=== PATIENT | female | born 1935 | race Caucasian/White ===

== ENCOUNTER 2017-05-23 08:40 | Inpatient (IN) | payer MEDICAID ==
[~2017-05-23] VITALS: Ht 144.8 cm; Wt 35.0 kg
[2017-05-23] VITALS (8 sets, daily range): BP systolic 91–113; BP diastolic 53–58; PULSE 78–79; RESP 17–27; TEMP 99; Ht 144.8 cm; Wt 35.0 kg
[2017-05-23] MEDS ORDERED: SODIUM CHLORIDE 0.9% 1L BAG IV* STA (08:51)
[2017-05-23] MEDS ORDERED: PIPER-TAZO 3.375 GM IV (PMX) 50 ML IVPB STA (08:51)
[2017-05-23] MEDS ORDERED: VANCOMYCIN 1 GM (PMX) 250 ML IVPB ONE (09:00)
--- NOTE | 2017-05-23 09:21 | RADRPT ---
PROCEDURE: Chest x-ray CLINICAL INDICATION: Shortness of breath TECHNIQUE: Chest single view COMPARISON: None FINDINGS: There is tracheostomy tube which is in good position. Heart is normal in size. There is mild atheros clerotic aortic calcification. Pulmonary vessels are normal in caliber. There is hyperinflation of t he lungs suggesting underlying COPD. Superimposed on this is more patchy dense in the right lower lo be and to a lesser extent left lower lobe suspicious for acute pneumonias. Small bilateral pleural e ffusions are seen. There is normal density in the left paratracheal region which may be artifactual due to rotation versus tortuous vascularity, mass, or adenopathy. IMPRESSION: 1. Tracheostomy tube in good position. 2. Suspect extensive COPD. 3. Superimposed on this are patchy infiltrates in both lower lobes likely representing acute pneumo nias. 4. Small bilateral pleural effusions. 5. Abnormal left paratracheal density. This may represent mass, adenopathy, or artifact due to tort uous vascularity and rotation RPTAT: .Kareem Snow MD, Date Time Electronically viewed and signed by .Kareem Snow MD, on 05/23/2017 09:21 .W/
[2017-05-23 09:37] LABS: ABNORMAL IP MESSAGE 1; BASOPHILS % 0.2 % (0.0-2.0); EOSINOPHILS # 0.1 10^3/ul (0.0-0.5); EOSINOPHILS % 0.3 % (0.0-7.0); HEMATOCRIT 25.5 % (37.0-47.0); LYMPHOCYTES # 0.2 10^3/ul (0.8-2.9); LYMPHOCYTES % 1.1 % (15.0-51.0); MEAN CORPUSCULAR HGB CONC 31.4 g/dl (32.0-37.0); MEAN CORPUSCULAR VOLUME 95.5 fl (82.0-101.0); MEAN PLATELET VOLUME 9.4 fl (7.4-10.4); MONOCYTE # 0.5 10^3/ul (0.3-0.9); MONOCYTES % 2.6 % (0.0-11.0); NEUTROPHIL # 17.5 10^3/ul (1.6-7.5); PLATELET COUNT 221 10^3/UL (140-415); RED BLOOD COUNT 2.67 10^6/ul (4.20-5.40); RED CELL DISTRIBUTION WIDTH 16.2 % (11.5-14.5); WHITE BLOOD COUNT 18.4 10^3/ul (4.8-10.8)
[2017-05-23 09:42] LABS: POSITIVE DIFF @See below
--- NOTE | 2017-05-23 09:49 | ERD ---
ER Documentation Chief Complaint Chief Complaint FEVER AND TACHYCARDIA WITH MILD SOB SINCE THIS AM. 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 The patient also endorses mild abdominal discomfort, worse with cold fluids. She does not endorse any other pain. She personally does not endorse feeling sick. ROS All systems reviewed and are negative except as per history of present illness. Medications Home Meds Reported Medications Ascorbic Acid* (Vitamin C*) 500 Mg Capsule.sa, 500 MG GTB DAILY, CAP 05/23/17 Acetaminophen* (Acetaminophen*) 650 Mg Tablet, 650 MG GTB Q6H Y for PAIN AND OR ELEVATED TEMP, #30 TAB 05/23/17 Quetiapine Fumarate* (Seroquel*) 50 Mg Tablet, 50 MG GTB HS, TAB 05/23/17 Rifabutin* (Mycobutin*) 150 Mg Capsule, 300 MG GTB BID, CAP 05/23/17 Pyridoxine Hcl* (Pyridoxine Hcl*) 50 Mg Tablet, 50 MG GTB DAILY, TAB 05/23/17 Pyrazinamide* (Pyrazinamide*) 500 Mg Tablet, 1000 MG GTB DAILY, TAB 05/23/17 Potassium Chloride* (Potassium Chloride*) 20 Meq Tablet.er, 20 MEQ GTB DAILY, TAB.SA 05/23/17 Petrolatum,White (White Petrolatum) 453.6 Gm Oint...g., 1 APPLIC TP DAILY Y for DRY EYES 05/23/17 Nitroglycerin* (Nitroglycerin* SL) 0.4 Mg Tab.subl, 0.4 MG SL Q5MIN Y for CHEST PAIN, BOTTLE 05/23/17 Multivitamin/Minerals* (Multivitamin w/Min* Liq) 9 Mg/15 Ml Liquid, 9 MG GTB DAILY, ML 05/23/17 Magnesium Hydroxide* (Milk Of Magnesia*) 400 Mg/5 Ml Oral.susp, 30 ML GTB Q24H Y for CONSTIPATION, ML 05/23/17 Metoprolol Tartrate* (Lopressor*) 25 Mg Tab, 25 MG GTB BID, #60 TAB 05/23/17 Methocarbamol* (Methocarbamol*) 500 Mg Tablet, 500 MG GTB Q8, TAB 05/23/17 Levothyroxine Sodium* (Levothyroxine Sodium*) 100 Mcg Tablet, 100 MCG GTB BEFORE BREAKFAST, #30 TAB 05/23/17 Hyoscyamine Sulfate* (Hyoscyamine Sulfate*) 0.125 Mg Tab.subl, 0.125 MG SL Q4H Y for EXCESIVE ORAL SECRETIONS, TAB 05/23/17 Mineral Oil (Fleet Mineral Oil Enema) 133 Ml Enema, 133 ML RC Q48, ENEMA 05/23/17 Ferrous Sulfate* (Ferrous Sulfate*) 325 Mg Tabec, 330 MG GTB TID, TAB 05/23/17 Famotidine* (Famotidine*) 20 Mg Tablet, 20 MG GTB BID, #30 TAB 05/23/17 Ethambutol HCl* (Myambutol*) 400 Mg Tablet, 800 MG GTB DAILY 05/23/17 Enoxaparin Sodium* (Lovenox*) 40 Mg/0.4 Ml Syringe, 40 MG SC DAILY, SYR 05/23/17 Bisacodyl* (Bisacodyl*) 10 Mg Supp, 10 MG WI Q24H Y for CONSTIPATION, SUPP 05/23/17 Docusate Sodium* (Colace*) 100 Mg Capsule, 100 MG GTB QHS Y for CONSTIPATION, # 60 CAP 05/23/17 Clonazepam* (Clonazepam*) 0.5 Mg Tablet, 0.5 MG GTB QHS, TAB 05/23/17 Atorvastatin* (Atorvastatin*) 40 Mg Tablet, 40 MG GTB QHS, #30 TAB 05/23/17 Aspirin* (Aspirin* Chew) 81 Mg Tab.chew, 81 MG GTB DAILY, TAB.CHEW 05/23/17 Albuterol Sulfate* (Albuterol Sulfate* Neb) 0.083%-3 Ml Neb, 2.5 MG NEB Q3H Y for WHEEZING AND SOB, #30 VIAL 05/23/17 Allergies Allergies: Coded Allergies: No Known Allergy (Unverified , 05/23/17) PMhx/Soc History of Surgery: Yes (trach, Gtube) Hx Neurological Disorder: Yes (nonambulatory, plegia) Hx Respiratory Disorders: Yes (Chronic Vent dependent Respiratory Failure) Hx Cardiac Disorders: Yes (HTN) Hx Psychiatric Problems: Yes (agitation) Hx Miscellaneous Medical Probl: Yes (Pulmonary TB, Anemia, Hypothyroidism) Hx Alcohol Use: No Hx Substance Use: No Hx Tobacco Use: No Smoking Status: Never smoker FmHx Pt unable to provide details Physical Exam Vitals Vital Signs Date Time Temp Pulse Resp B/P Pulse Ox O2 Delivery O2 Flow Rate FiO2 05/23/17 11:00 80 23 97 35 05/23/17 10:00 86 22 99/55 99 Mechanical Ventilator 05/23/17 08:57 107 35 96 35 05/23/17 08:52 104.7 129 26 128/78 99 Physical Exam Const: No apparent distress, well-developed, cachectic Head: Normocephalic, Atraumatic Eyes: Normal Conjunctiva. Pupils equal, round and reactive to light ENT: Normal External Ears, Nose and Mouth. Neck: Full range of motion. No meningismus. Trach placed without erythema or induration or edema. Resp: Coarse Breath Sounds bilaterally. Diffuse wheezes Cardio: Regular rate and rhythm. No murmurs, rubs or gallops Abd: Soft, non distended, + mild generalized tenderness. G-tube placed without erythema or induration or edema. Normal bowel sounds Skin: No petechiae or rashes Back: No midline tenderness. No CVA tenderness Ext: No cyanosis, or edema Neuro: Awake and alert. Unable to speak. No facial droop. Moves all extremities spontaneous and to command. Result Diagram: 05/23/1725 05/23/1725 Results 24 hrs Laboratory Tests Test 05/23/17 09:25 White Blood Count 18.410^3/ul Red Blood Count 2.6710^6/ul Hemoglobin 8.0g/dl Hematocrit 25.5% Mean Corpuscular Volume 95.5fl Mean Corpuscular Hemoglobin 30.0pg Mean Corpuscular Hemoglobin Concent 31.4g/dl Red Cell Distribution Width 16.2% Platelet Count 69992^3/UL Mean Platelet Volume 9.4fl Neutrophils % 95.0% Lymphocytes % 1.1% Monocytes % 2.6% Eosinophils % 0.3% Basophils % 0.2% Nucleated Red Blood Cells % 0.0/100WBC Neutrophils # 17.510^3/ul Lymphocytes # 0.210^3/ul Monocytes # 0.510^3/ul Eosinophils # 0.110^3/ul Basophils # 0.010^3/ul Nucleated Red Blood Cells # 0.010^3/ul Prothrombin Time 13.9Sec Prothrombin Time Ratio 1.1 INR International Normalized Ratio 1.07 Activated Partial Thromboplast Time 39.3Sec Sodium Level 139mmol/L Potassium Level 4.9mmol/L Chloride Level 95mmol/L Carbon Dioxide Level 34mmol/L Anion Gap 15 Blood Urea Nitrogen 41mg/dl Creatinine 0.79mg/dl Glucose Level 175mg/dl Lactic Acid Level 3.4mmol/L Calcium Level 9.2mg/dl Total Bilirubin 0.2mg/dl Direct Bilirubin 0.00mg/dl Indirect Bilirubin 0.2mg/dl Aspartate Amino Transf (AST/SGOT) 26IU/L Alanine Aminotransferase (ALT/SGPT) 13IU/L Alkaline Phosphatase 101IU/L Troponin I 0.032ng/ml Total Protein 7.6g/dl Albumin 3.5g/dl Globulin 4.10g/dl Albumin/Globulin Ratio 0.85 Current Medications Medications (Trade) Dose Ordered Sig/Maranda Route PRN Reason Start Time Stop Time Status Last Admin Dose Admin Sodium Chloride 1090 ml 1,090 ml BOLUS OVER 2 HOURS STAT IV* 05/23/17 08:51 05/23/17 08:55 DC 05/23/17 08:51 Vancomycin HCl 250 ml @ 125 mls/hr ONCE ONCE IVPB 05/23/17 09:00 05/23/17 10:59 DC 05/23/17 13:11 Piperacillin Sod/ Tazobactam Sod (Zosyn 3.375gm/ 50 ml (Pmx)) 50 ml @ 100 mls/hr ONCE STAT IVPB 05/23/17 08:51 05/23/17 09:20 DC 05/23/17 11:30 Acetaminophen (Tylenol Liquid) 650 mg STK-MED ONCE .ROUTE 05/23/17 10:05 05/23/17 10:06 DC IV Flush 10 ml 10 ml STK-MED ONCE .ROUTE 05/23/17 10:36 05/23/17 10:37 DC 05/23/17 10:57 Sodium Chloride (NS) 100 ml @ ud STK-MED ONCE .ROUTE 05/23/17 10:36 05/23/17 10:37 DC 05/23/17 10:58 Iodixanol (Visipaque Locm) 100 ml STK-MED ONCE .ROUTE 05/23/17 10:36 05/23/17 10:37 DC 05/23/17 10:58 Acetaminophen (Tylenol Liquid) 1,000 mg ONCE ONCE NGT 05/23/17 11:30 05/23/17 11:31 DC 05/23/17 12:24 Procedures/MDM MDM The patient's presentation warrants further investigation. The patient has vital signs that are concerning for sepsis. Given her recent pulmonary history , the patient could have a superimposed infection of the lungs despite appropriate treatment of TB. Sepsis protocol will be initiated immediately. The patient will receive 30 mg/kg of normal saline and broad-spectrum antibiotics will be provided. LABS The patient's blood work was obtained and reviewed. The patient's CBC shows leukocytosis with left shift. The patient is febrile and I do suspect a systemic infection. The patient had a normocytic anemia, which I suspect is related to chronic disease. I do not see evidence of bleeding today. The patient's platelet count is unremarkable. The patient's CMP shows no signs of metabolic or electrolyte abnormality. The patient has normal renal and hepatic function testing. The patient has a metabolic alkalosis which is likely compensatory to a respiratory acidosis from her poor respiratory drive. The patient also likely has a concomitant metabolic acidosis relating to the lactic acidosis that is present today. EKG EKG read by me: Rate/Rhythm: Regular rate and rhythm at a rate of 89 Intervals: Normal [place]: Normal Impression: Nonspecific repolarization changes, but no evidence of acute ischemia or arrhythmia IMAGING CXR 1. Tracheostomy tube in good position. 2. Suspect extensive COPD. 3. Superimposed on this are patchy infiltrates in both lower lobes likely representing acute pneumonias. 4. Small bilateral pleural effusions. 5. Abnormal left paratracheal density. This may represent mass, adenopathy, or artifact due to tortuous vascularity and rotation Electronically viewed and signed by .Kareem Snow MD, MD on 05/23/2017 09:21 CT Chest Large complex right and partially loculated small to moderate left pleural effusions are identified. Left upper lobe collapse with mucoid impaction. Left lower lobe is hyperaerated. Round fluid density structure within the superior segment left lower lobe measuring 2.9 x 2.7 cm. This could represent atypical loculated fluid/pseudotumor or a cystic mass. Partial collapse of the right middle lobe. Enlarged mediastinal and bilateral hilar lymph nodes. Tree in bud nodularity is seen in the bilateral lower lungs which can be seen with infectious bronchiolitis. 10 x 8 mm right lower lobe nodule. Recommend attention on close follow-up imaging. Electronically viewed and signed by .Erik Johnson MD, MD on 05/23/2017 11:14 CT Abd/Pelvis 1. Left upper lobe consolidation and right middle lobe and right lower lobe consolidation and air space disease with multiple adjacent nodular opacities, with the largest measuring 1.2 cm within the right lower lobe. Multiple nodular opacities are also identified within the lower lobe, with the largest measuring 1.3 cm. Findings are likely consistent with infection/TB. No priors for comparison. 2. Probable right upper lobe compressive atelectasis. Moderate to large right- sided pleural effusion and mild to moderate left-sided pleural effusion. Left- sided effusion appears to be partially loculated. 2.7 cm left upper lobe low density rounded lesion, likely related to loculated effusion. 3. Tracheostomy tube in situ. 4. Percutaneous gastrostomy tube in place. Fluid-filled loops of small large bowel suggestive of gastroenteritis and watery diarrhea. No evidence of bowel obstruction. The appendix is within normal limits. 5. Multiple bilateral renal cysts. No obstruction hydronephrosis. 6. No evidence of free fluid or free air. No gross focal fluid collections. 7. Mild degenerate changes of the spine without gross abnormal osseous masses or lesions were paraspinal abnormality. Electronically viewed and signed by Physician Gil on 05/23/2017 11:06 TREATMENT/DISPOSITION Based on the overall presentation, I recommend still concerned about sepsis. Pneumonia as a possible source. Gastroenteritis is another possible etiology, though there is no reported diarrheal events. Patient's infectious symptoms have not stabilized and the patient is at risk of rapid decompensation. The patient will be admitted for careful hydration, antibiotic therapy, and infectious source control. Severe Sepsis criteria: Infectious source: PNA vs. Gastroenteritis End organ damage indicated by: Lactate > 2.0 mmol/L Sepsis Management: Time of recognition of sepsis: Upon arrival Within 3 hours of recognition: Blood cultures x 2 before broad-spectrum antibiotics: Yes 30 ml/kg NS bolus: Completed Initial lactate: 3.4 Repeat lactate: 0.8 Time of recognition of septic shock: No septic shock Accepting Care Team Current data and ongoing care discussed. Admitting Physician: Alisha Carlton Cardiovascular Invasive Specialist(s): None Outstanding Data: Culture results Departure Diagnosis: Primary Impression: Sepsis Sepsis type: sepsis due to unspecified organism Qualified Code: A41.9 - Sepsis, due to unspecified organism Additional Impressions: Pneumonia Pneumonia type: due to unspecified organism Laterality: bilateral Lung location: unspecified part of lung Qualified Code: J18.9 - Pneumonia of both lungs due to infectious organism, unspecified part of lung Gastroenteritis History of active tuberculosis Condition: Serious JOSE RESTREPO MD May 23, 2017 09:49 JOSE RESTREPO MD May 23, 2017 09:49 (Pyrazinamide) 1,000 mg DAILY GTB 05/24/17 09:00 Pyridoxine HCl (Vitamin B6) 50 mg DAILY GTB 05/24/17 09:00 Quetiapine Fumarate (Seroquel) 50 mg HS GTB 05/23/17 21:00 Rifabutin (Mycobutin) 300 mg BID GTB 05/23/17 21:00 Mineral Oil (Fleet Mineral Oil Enema) 133 ml Q48H [place] 05/24/17 09:00 Multivitamins 30 ml 30 ml DAILY GTB 05/24/17 09:00 Sodium Chloride (NS) 1,000 ml @ 100 mls/hr Q10H IV 05/23/17 12:33 IV Flush (NS 3 ml) 3 ml PER PROTOCOL IV 05/23/17 13:00 Ondansetron HCl (Zofran Inj) 4 mg Q6H PRN IV NAUSEA AND/OR VOMITING 05/23/17 13:00 Nitroglycerin (Nitroglycerin (Sl Tab) 0.4 Mg) 1 tab Q5M PRN SL CHEST PAIN 05/23/17 13:00 Acetaminophen/ Hydrocodone Bitart 1 tab 1 tab Q6H PRN GTB PAIN LEVEL 4-6 05/23/17 13:00 Cefepime HCl (Maxipime 1gm/50 ml (Pmx)) 50 ml @ 100 mls/hr Q12 IVPB 05/23/17 14:00 Vancomycin HCl 1 ea 1 ea Per Rx Protocol XX 05/23/17 13:00 Metronidazole 100 ml @ 100 mls/hr Q8 IVPB 05/23/17 14:00 Vancomycin HCl (Vancocin) 100 ml @ 100 mls/hr Q24H IVPB 05/24/17 13:00 Procedures/MDM MDM The patient's presentation warrants further investigation. LABS The patient's blood work was obtained and reviewed. The patient's CBC shows no leukocytosis or left shift. The patient is afebrile and does not appear systemically ill. I do not suspect a systemic infection. The patient is not anemic today. The patient's platelet count is unremarkable. The patient's CMP shows no signs of metabolic or electrolyte abnormality. The patient has normal renal and hepatic function testing. EKG EKG read by me: Rate/Rhythm: Regular rate and rhythm at a rate of 89 Intervals: Normal [place]: Normal Impression: Nonspecific repolarization changes, but no evidence of acute ischemia or arrhythmia IMAGING [] TREATMENT/DISPOSITION [] [] At this time, I feel that the patient stable for discharge. He will need follow-up with his primary care physician in 2-3 days. He will be given strict precautions with which to return to the emergency department. [] At this time, I feel that the patient requires admission for further evaluation and management. The patient will be admitted to [Panel] in accordance with the patient's insurance. The patient was accepted by [] at []. [] The patient's blood pressure was elevated at greater than 120/80 while in the emergency department. The patient was otherwise stable with no evidence of hypertensive urgency or emergency. The patient will require reevaluation of his blood pressure in 2-3 days, but this may be completed by a primary care physician as an outpatient. He does not require admission for blood pressure control. JOSE RESTREPO MD May 23, 2017 09:49
[2017-05-23 09:54] LABS: ALBUMIN 3.5 g/dl (3.3-4.9); ALBUMIN/GLOBULIN RATIO 0.85; BILIRUBIN,INDIRECT 0.2 mg/dl (0-1.1); BILIRUBIN,TOTAL 0.2 mg/dl (0.2-1.3); CALCIUM 9.2 mg/dl (8.4-10.2); CREATININE 0.79 mg/dl (0.44-1.00); POTASSIUM 4.9 mmol/L (3.5-5.1); TOTAL PROTEIN 7.6 g/dl (6.1-8.1)
[2017-05-23] MEDS ORDERED: ALBU2.5V3 NEB (09:57)
[2017-05-23] MEDS ORDERED: ATOR40TA68 GTB (09:57)
[2017-05-23] MEDS ORDERED: ASPI81TA3 GTB (09:57)
[2017-05-23] MEDS ORDERED: CLON0.5T4 GTB (09:58)
[2017-05-23] MEDS ORDERED: DOCU-144 GTB (09:58)
[2017-05-23 09:59] LABS: INR 1.07; PROTIME 13.9 Sec (12.2-14.2); PT RATIO 1.1
[2017-05-23] MEDS ORDERED: ENOX40DI14 SC (09:59)
[2017-05-23] MEDS ORDERED: BISA10SU75 PR (09:59)
[2017-05-23 10:00] LABS: PARTIAL THROMBOPLASTIN TIME 39.3 Sec (25.0-35.0)
[2017-05-23] MEDS ORDERED: ETHA400T25 GTB (10:00)
[2017-05-23] MEDS ORDERED: FER325 GTB (10:01)
[2017-05-23] MEDS ORDERED: FAMO20TA18 GTB (10:01)
[2017-05-23] MEDS ORDERED: MINE133E23 RC (10:02)
[2017-05-23] MEDS ORDERED: METH500T8 GTB (10:03)
[2017-05-23] MEDS ORDERED: LEVO100T87 GTB (10:03)
[2017-05-23] MEDS ORDERED: HYOS0.1297 SL (10:03)
[2017-05-23 10:05] LABS: TROPONIN-I 0.032 ng/ml (0.00-0.12)
[2017-05-23] MEDS ORDERED: ACETAMINOPHEN 650MG/20.3ML CUP ONE (10:05)
[2017-05-23] MEDS ORDERED: MAGN400O4 GTB (10:10)
[2017-05-23] MEDS ORDERED: METO-448 GTB (10:10)
[2017-05-23] MEDS ORDERED: NITR0.4T32 SL (10:13)
[2017-05-23] MEDS ORDERED: MULT9LIQ2 GTB (10:13)
[2017-05-23] MEDS ORDERED: PETR453. TP (10:22)
[2017-05-23] MEDS ORDERED: POTA20TA96 GTB (10:23)
[2017-05-23] MEDS ORDERED: PYRI50TA14 GTB (10:30)
[2017-05-23] MEDS ORDERED: PYRA500T11 GTB (10:30)
[2017-05-23] MEDS ORDERED: MYC150 GTB (10:31)
[2017-05-23] MEDS ORDERED: QUET50TA16 GTB (10:32)
[2017-05-23] MEDS ORDERED: ACET-2047 GTB (10:32)
[2017-05-23] MEDS ORDERED: ASCO500C7 GTB (10:33)
[2017-05-23] MEDS ORDERED: SOD CHLORIDE 0.9% 100 ML ONE (10:36)
[2017-05-23] MEDS ORDERED: IODIXANOL LOCM 100 ML BTL ONE (10:36)
--- NOTE | 2017-05-23 11:07 | RADRPT ---
PROCEDURE: CT CHEST ABDOMEN AND PELVIS WITH IV CONTRAST. CLINICAL INDICATION: Fever and sepsis with history of active TB. TECHNIQUE: CT scan of the chest, abdomen and pelvis without contrast was performed on a multidetec tor high-resolution CT scanner following the use of IV contrast. 80 cc Visipaque 320 was administere d. Coronal and sagittal reformatted images were obtained from the axial source images. Images were r eviewed on a high-resolution PACS workstation. The total exam CTDI equals 5.1 mGy and the total exam DLP equals 352.7 mGy-cm. One or more of the following dose reduction techniques were used: Automated exposure control. Adjustment of the mA and/or kV according to patient size. Use of iterative reconstruction technique. DICOM images are available. COMPARISON: None FINDINGS: CT chest: Tracheostomy tube in situ. The trachea is midline. Thyroid gland is unremarkable. No same axillary l ymphadenopathy. Several mediastinal lymph nodes are noted. There appears to be mild bilateral hilar lymphadenopathy. Atherosclerotic calcification of the aorta is identified. No aneurysmal dilatation or dissection. Th e pulmonary trunk is normal size. Heart size is within limits. No same pericardial effusion. Left upper lobe consolidation is identified. There is also a 2.7 cm left upper lobe low density roun ded lesion, suspect loculated fluid. Right upper lobe focal atelectasis. Several small nodules are n oted within the right upper lobe, along the periphery. There is a moderate to large right-sided pleu ral effusion. Mild to moderate left-sided pleural effusion, which appears to be partially loculated. There are bilateral emphysematous changes and bilateral bronchiectasis. Right middle lobe focal con solidation is identified. There is right medial lower lobe air space disease, with several nodular o pacities, with the largest measuring 1.2 cm. Multiple nodular opacities are also identified within t he left lower lobe, with areas of scarring and atelectasis. The largest nodule measures 1.3 cm. The visualized osseous structures demonstrates multilevel degenerative disease of the thoracic spine . CT abdomen: Hepatic morphology is within limits. No gross masses or lesions. The gallbladder is contracted. No i ntrahepatic or extrahepatic biliary dilatation. The spleen and pancreas are within normal limits. Both adrenal glands are within normal limits. Both kidneys are and normal anatomic position. There is a left-sided renal cyst measuring 3.2 cm. Th ere is also a right-sided renal cyst measuring 1.7 cm. Several additional smaller cysts are noted wi thin both kidneys. No evidence of obstruction or hydronephrosis. The visualized GI tract demonstrates a percutaneous gastrostomy tube within the stomach. Fluid-fille d loops of small large bowel are identified. No gross evidence of bowel obstruction. The appendix is within normal limits. Atherosclerotic calcification of the aorta is noted. There is no significant retroperitoneal lymphad enopathy. CT pelvis: The bladder is within normal limits. The uterus is unremarkable. Stool noted within the rectosigmoid colon. No significant free fluid. No significant pelvic lymphadenopathy. The visualized osseous structures demonstrates degenerative changes of the lumbosacral spine. IMPRESSION: 1. Left upper lobe consolidation and right middle lobe and right lower lobe consolidation and air sp brent disease with multiple adjacent nodular opacities, with the largest measuring 1.2 cm within the r ight lower lobe. Multiple nodular opacities are also identified within the lower lobe, with the larg est measuring 1.3 cm. Findings are likely consistent with infection/TB. No priors for comparison. 2. Probable right upper lobe compressive atelectasis. Moderate to large right-sided pleural effusion and mild to moderate left-sided pleural effusion. Left-sided effusion appears to be partially locul ated. 2.7 cm left upper lobe low density rounded lesion, likely related to loculated effusion. 3. Tracheostomy tube in situ. 4. Percutaneous gastrostomy tube in place. Fluid-filled loops of small large bowel suggestive of gas troenteritis and watery diarrhea. No evidence of bowel obstruction. The appendix is within normal li mits. 5. Multiple bilateral renal cysts. No obstruction hydronephrosis. 6. No evidence of free fluid or free air. No gross focal fluid collections. 7. Mild degenerate changes of the spine without gross abnormal osseous masses or lesions were parasp inal abnormality. RPTAT: AAPP Physician Gil Date Time Electronically viewed and signed by Physician Gil on 05/23/2017 11:06 [email or web address]/
--- NOTE | 2017-05-23 11:14 | RADRPT ---
PROCEDURE: CT Chest with contrast. CLINICAL INDICATION: Fever, infection TECHNIQUE: CT scan of the chest with contrast was performed on a multidetector high-resolution CT scanner. Coronal and sagittal reformatted images were obtained from the axial source images. The to maegan exam CTDI equals 5 mGy and the total exam DLP equals 353 mGy-cm. 90 cc of Isovue 300 was adminis tered intravenously without reported complication. One or more of the following dose reduction techn iques were used: Automated exposure control, Adjustment of the mA and/or kV according to patient siz e, and/or use of iterative reconstruction technique. DICOM images are available. COMPARISON: none FINDINGS: Tracheostomy tube in place. Large complex right and partially loculated small to moderate left pleural effusions are identified. Left upper lobe collapse with mucoid impaction. Left lower lobe is hyperaerated. Round fluid density structure within the superior segment left lower lobe measuring 2.9 x 2.7 cm. Partial collapse of the right middle lobe. Enlarged mediastinal and bilateral hilar lymph nodes are identified. Tree in bud nodularity is seen in the bilateral lower lungs. 10 x 8 mm right lower lobe nodule. Coronary arterial and aortic atherosclerosis. Degenerative changes to the thoracic spine are seen. Refer to the concurrent abdominal CT for additional details. IMPRESSION: Large complex right and partially loculated small to moderate left pleural effusions are identified. Left upper lobe collapse with mucoid impaction. Left lower lobe is hyperaerated. Round fluid density structure within the superior segment left lower lobe measuring 2.9 x 2.7 cm. Th is could represent atypical loculated fluid/pseudotumor or a cystic mass. Partial collapse of the right middle lobe. Enlarged mediastinal and bilateral hilar lymph nodes. Tree in bud nodularity is seen in the bilateral lower lungs which can be seen with infectious bronch iolitis. 10 x 8 mm right lower lobe nodule. Recommend attention on close follow-up imaging. RPTAT: AA .Erik Johnson MD, MD Date Time Electronically viewed and signed by .Erik Johnson MD, on 05/23/2017 11:14 .T/
[2017-05-23] MEDS ORDERED: ACETAMINOPHEN 650MG/20.3ML CUP NGT ONE (11:30)
[2017-05-23] MEDS ORDERED: ACETAMINOPHEN 325 MG TAB PO PRN (12:00)
[2017-05-23] MEDS ORDERED: ONDANSETRON 4 MG INJ IV PRN ×2 (12:00→13:00)
[2017-05-23] MEDS ORDERED: MAGNESIUM HYDROXIDE 30ML CUP GTB PRN (12:30)
[2017-05-23] MEDS ORDERED: ACETAMINOPHEN 325 MG TAB GTB PRN (12:30)
[2017-05-23] MEDS ORDERED: BISACODYL 10 MG SUPP PR PRN (12:30)
[2017-05-23] MEDS ORDERED: DOCUSATE SODIUM 100 MG CAP PO PRN (12:30)
[2017-05-23] MEDS: SOD CHLORIDE 0.9% 1,000 ML IV SCH ×2 (12:33→22:47)
[2017-05-23] MEDS ORDERED: HYDROCODONE/APAP (5/325) TAB GTB PRN (13:00)
[2017-05-23] MEDS ORDERED: FERROUS SULFATE (EC) 325 MG TAB PO SCH (13:00)
[2017-05-23] MEDS ORDERED: NITROGLYCERIN (SL) 0.4 MG TAB SL PRN (13:00)
[2017-05-23] MEDS ORDERED: OCULAR LUBRICANT 3.5 GM OPH OINT BOTH EYES PRN (13:00)
[2017-05-23] MEDS ORDERED: NACL 0.9% 3 ML SYG IV SCH (13:00)
[2017-05-23] MEDS ORDERED: VANCOMYCIN IV PER PHARMACY XX SCH (13:00)
[2017-05-23] MEDS ORDERED: HYOSCYAMINE 0.125 MG SUBL TAB SL PRN (13:00)
--- NOTE | 2017-05-23 13:09 | HP ---
Date/Time of Note Date/Time of Note DATE: 05/23/17 TIME: 13:09 Assessment/Plan VTE Prophylaxis VTE Prophylaxis Intervention: LMWH Assessment/Plan Assessment/Plan 1. Sepsis secondary to TB vs pneumonia vs gastroenteritis - Patient presented with elevated WBC, fever, elevated LA - LA normalized and will recheck in am - Continue on broad spectrum antibiotics - ID consultation placed and appreciated recommendations - continue on IVF 2. Leukocytosis - secondary to #1 - continue to monitor 3. Anemia - Will check Iron studies 4. Large right pleural effusion - Will order thoracentesis and send fluid for studies - Pulmonology consult placed and appreciate recommendations 5. Left lower lobe density - CT scan showed round fluid density structure within the superior segment left lower lobe measuring 2.9 x 2.7 cm 6. Infectious bronchiolitis 7. 10 x 8 mm right lower lobe nodule - Will need close follow up 8. Acute gastroenteritis - Will hold off on tube feeds for now and continue IVF - send stool studies - once abdominal discomfort improves, will resume tube feeds via Gtube 9. DVT ppx - LMWH 10. GI ppx - Pepcid 11. Code status - Full code 12. Diet - NPO. all medications through GTB - Gets tube feeds via GTB. will resume tomorrow if abdominal discomfort improves 13. Disposition - Admit to telemetry - Once stable, will place consult for [facility] evaluation HPI/ROS Admit Date/Time Admit Date/Time 05/23/17 Hx of Present Illness 82 yo F with PMH chronic respiratory failure with trach and vent dependent, Gtube in place, and recent TB undergoing treatment presented from LTAC for fever and tachycardia. Patient is unable to communicate and only Korean speaking. Niece at bedside and providing history and assisting with interpretation. Patient also c/o abdominal discomfort which is mostly after she gets the Gtube flushed with cold water. Patient was cleared by Public health and no longer requiring negative pressure room or isolation. Patient has also been experiencing diarrhea with 5 episodes a day since LTAC placement. Denies any chest pain, dizziness, nausea, vomiting, or LOC. ROS Subjective hx not possible: pt non-verbal Constitutional: febrile, No chills, No diaphoresis, No nausea Eyes: no complaints ENT: other (trach in place) Respiratory: cough, shortness of breath, No pain, No wheezing Cardiovascular: No chest pain, No lightheadedness, No palpitations Gastrointestinal: diarrhea, pain, No nausea, No vomiting Genitourinary: no complaints Musculoskeletal: no complaints Skin: No laceration, No rash Neurologic: no complaints Endocrine: no complaints Lymphatic: no complaints Psychological: nl mood/affect Immunologic: no complaints PMH/Family/Social Past Medical History Medical History: other (Ventilator dependent, Tuberculosis) Past Surgical History Past Surgical Hx: other (Trach/PEG placement) Family History Significant Family History: no pertinent family hx Social History Alcohol Use: none Smoking Status: Never smoker Drug Use: none Exam/Review of Systems Vital Signs Vitals Vital Signs Date Time Temp Pulse Resp B/P Pulse Ox O2 Delivery O2 Flow Rate FiO2 05/23/17 12:34 99.6 05/23/17 10:00 86 22 99/55 99 Mechanical Ventilator 05/23/17 08:57 35 Exam Constitutional: alert, non-verbal, well developed Psych: nl mood/affect Head: atraumatic, normocephalic Eyes: EOMI, PERRL ENMT: other (trach in place) Neck: supple Respiratory: crackles/rales, diminished breath sounds, No labored breathing Cardiovascular: regular rate and rhythm, No irregular rhythm, No systolic murmur Gastrointestinal: soft, tender (with deep palpation RQ) Genitourinary - Female: No CVA tenderness Musculoskeletal: nl extremities to inspection Extremities: normal pulses, No edema Neurological: BATTERY CONTAINER FINISHING HAND II-XII intact, nl mental status, nl speech Skin: nl turgor Lymph: nl lymph nodes Labs Result Diagram: 05/23/1792405/23/17924 Medications Medications Home medications reviewed Current Medications Acetaminophen (Tylenol Tab) 650 mg Q6H PRN GTB PAIN AND OR ELEVATED TEMP; Start 05/23/17 at 12:30 Ascorbic Acid (Vitamin C) 500 mg DAILY GTB ; Start 05/24/17 at 09:00 Aspirin (Aspirin) 81 mg DAILY GTB ; Start 05/24/17 at 09:00 Atorvastatin Calcium (Lipitor) 40 mg QHS GTB ; Start 05/23/17 at 21:00 Bisacodyl (Dulcolax Supp) 10 mg Q24H PRN [place] CONSTIPATION; Start 05/23/17 at 12 :30 Clonazepam (Klonopin) 0.5 mg QHS GTB ; Start 05/23/17 at 21:00 Docusate Sodium (Colace) 100 mg QHS PRN PO CONSTIPATION; Start 05/23/17 at 12: 30 Enoxaparin Sodium (Lovenox) 40 mg DAILY SC ; Start 05/24/17 at 09:00 Ethambutol HCl (Myambutol) 800 mg DAILY GTB ; Start 05/24/17 at 09:00 Famotidine (Pepcid) 20 mg BID GTB ; Start 05/23/17 at 21:00 Ferrous Sulfate (Ferrous Sulfate (Ec)) 325 mg TID PO ; Start 05/23/17 at 13:00 Hyoscyamine (Levsin (Sl)) 0.125 mg Q4H PRN SL EXCESIVE ORAL SECRETIONS; Start 05/23/17 at 13:00 Magnesium Hydroxide (Milk Of Mag) 30 ml Q24H PRN GTB CONSTIPATION; Start 05/23 at 12:30 Methocarbamol (Robaxin) 500 mg Q8 GTB ; Start 05/23/17 at 14:00 Metoprolol Tartrate (Lopressor) 25 mg BID GTB ; Start 05/23/17 at 21:00 Eye Lubricant (Akwa Oint) 1 applic DAILY PRN BOTH EYES DRY EYES; Start at 13:00 Pyrazinamide (Pyrazinamide) 1,000 mg DAILY GTB ; Start 05/24/17 at 09:00 Pyridoxine HCl (Vitamin B6) 50 mg DAILY GTB ; Start 05/24/17 at 09:00 Quetiapine Fumarate (Seroquel) 50 mg HS GTB ; Start 05/23/17 at 21:00 Rifabutin (Mycobutin) 300 mg BID GTB ; Start 05/23/17 at 21:00 Mineral Oil (Fleet Mineral Oil Enema) 133 ml Q48H RI ; Start 05/24/17 at 09:00 Multivitamins 30 ml 30 ml DAILY GTB ; Start 05/24/17 at 09:00 Sodium Chloride (NS) 1,000 ml @ 100 mls/hr Q10H IV ; Start 05/23/17 at 12:33 Ondansetron HCl (Zofran Inj) 4 mg Q6H PRN IV NAUSEA AND/OR VOMITING; Start at 13:00 Nitroglycerin (Nitroglycerin (Sl Tab) 0.4 Mg) 1 tab Q5M PRN SL CHEST PAIN; Start 05/23/17 at 13:00 Acetaminophen/ Hydrocodone Bitart 1 tab 1 tab Q6H PRN GTB PAIN LEVEL 4-6; Start 05/23/17 at 13:00 Cefepime HCl 50 ml @ 100 mls/hr Q12 IVPB ; Start 05/23/17 at 14:00 Metronidazole (Flagyl 500 Mg (Pmx)) 100 ml @ 100 mls/hr Q8 IVPB ; Start at 14:00 Procedures Procedures PROCEDURE: CT CHEST ABDOMEN AND PELVIS WITH IV CONTRAST. FINDINGS: CT chest: Tracheostomy tube in situ. The trachea is midline. Thyroid gland is unremarkable. No same axillary lymphadenopathy. Several mediastinal lymph nodes are noted. There appears to be mild bilateral hilar lymphadenopathy. Atherosclerotic calcification of the aorta is identified. No aneurysmal dilatation or dissection. The pulmonary trunk is normal size. Heart size is within limits. No same pericardial effusion. Left upper lobe consolidation is identified. There is also a 2.7 cm left upper lobe low density rounded lesion, suspect loculated fluid. Right upper lobe focal atelectasis. Several small nodules are noted within the right upper lobe, along the periphery. There is a moderate to large right-sided pleural effusion. Mild to moderate left-sided pleural effusion, which appears to be partially loculated. There are bilateral emphysematous changes and bilateral bronchiectasis. Right middle lobe focal consolidation is identified. There is right medial lower lobe air space disease, with several nodular opacities, with the largest measuring 1.2 cm. Multiple nodular opacities are also identified within the left lower lobe, with areas of scarring and atelectasis. The largest nodule measures 1.3 cm. The visualized osseous structures demonstrates multilevel degenerative disease of the thoracic spine. CT abdomen: Hepatic morphology is within limits. No gross masses or lesions. The gallbladder is contracted. No intrahepatic or extrahepatic biliary dilatation. The spleen and pancreas are within normal limits. Both adrenal glands are within normal limits. Both kidneys are and normal anatomic position. There is a left-sided renal cyst measuring 3.2 cm. There is also a right-sided renal cyst measuring 1.7 cm. Several additional smaller cysts are noted within both kidneys. No evidence of obstruction or hydronephrosis. The visualized GI tract demonstrates a percutaneous gastrostomy tube within the stomach. Fluid-filled loops of small large bowel are identified. No gross evidence of bowel obstruction. The appendix is within normal limits. Atherosclerotic calcification of the aorta is noted. There is no significant retroperitoneal lymphadenopathy. CT pelvis: The bladder is within normal limits. The uterus is unremarkable. Stool noted within the rectosigmoid colon. No significant free fluid. No significant pelvic lymphadenopathy. The visualized osseous structures demonstrates degenerative changes of the lumbosacral spine. IMPRESSION: 1. Left upper lobe consolidation and right middle lobe and right lower lobe consolidation and air space disease with multiple adjacent nodular opacities, with the largest measuring 1.2 cm within the right lower lobe. Multiple nodular opacities are also identified within the lower lobe, with the largest measuring 1.3 cm. Findings are likely consistent with infection/TB. No priors for comparison. 2. Probable right upper lobe compressive atelectasis. Moderate to large right- sided pleural effusion and mild to moderate left-sided pleural effusion. Left- sided effusion appears to be partially loculated. 2.7 cm left upper lobe low density rounded lesion, likely related to loculated effusion. 3. Tracheostomy tube in situ. 4. Percutaneous gastrostomy tube in place. Fluid-filled loops of small large bowel suggestive of gastroenteritis and watery diarrhea. No evidence of bowel obstruction. The appendix is within normal limits. 5. Multiple bilateral renal cysts. No obstruction hydronephrosis. 6. No evidence of free fluid or free air. No gross focal fluid collections. 7. Mild degenerate changes of the spine without gross abnormal osseous masses or lesions were paraspinal abnormality. PROCEDURE: Chest x-ray CLINICAL INDICATION: Shortness of breath TECHNIQUE: Chest single view COMPARISON: None FINDINGS: There is tracheostomy tube which is in good position. Heart is normal in size. There is mild atherosclerotic aortic calcification. Pulmonary vessels are normal in caliber. There is hyperinflation of the lungs suggesting underlying COPD. Superimposed on this is more patchy dense in the right lower lobe and to a lesser extent left lower lobe suspicious for acute pneumonias. Small bilateral pleural effusions are seen. There is normal density in the left paratracheal region which may be artifactual due to rotation versus tortuous vascularity, mass, or adenopathy. IMPRESSION: 1. Tracheostomy tube in good position. 2. Suspect extensive COPD. 3. Superimposed on this are patchy infiltrates in both lower lobes likely representing acute pneumonias. 4. Small bilateral pleural effusions. 5. Abnormal left paratracheal density. This may represent mass, adenopathy, or artifact due to tortuous vascularity and rotation PROCEDURE: CT Chest with contrast. CLINICAL INDICATION: Fever, infection TECHNIQUE: CT scan of the chest with contrast was performed on a multidetector high-resolution CT scanner. Coronal and sagittal reformatted images were obtained from the axial source images. The total exam CTDI equals 5 mGy and the total exam DLP equals 353 mGy-cm. 90 cc of Isovue 300 was administered intravenously without reported complication. One or more of the following dose reduction techniques were used: Automated exposure control, Adjustment of the mA and/or kV according to patient size, and/or use of iterative reconstruction technique. DICOM images are available. COMPARISON: none FINDINGS: Tracheostomy tube in place. Large complex right and partially loculated small to moderate left pleural effusions are identified. Left upper lobe collapse with mucoid impaction. Left lower lobe is hyperaerated. Round fluid density structure within the superior segment left lower lobe measuring 2.9 x 2.7 cm. Partial collapse of the right middle lobe. Enlarged mediastinal and bilateral hilar lymph nodes are identified. Tree in bud nodularity is seen in the bilateral lower lungs. 10 x 8 mm right lower lobe nodule. Coronary arterial and aortic atherosclerosis. Degenerative changes to the thoracic spine are seen. Refer to the concurrent abdominal CT for additional details. IMPRESSION: Large complex right and partially loculated small to moderate left pleural effusions are identified. Left upper lobe collapse with mucoid impaction. Left lower lobe is hyperaerated. Round fluid density structure within the superior segment left lower lobe measuring 2.9 x 2.7 cm. This could represent atypical loculated fluid/ pseudotumor or a cystic mass. Partial collapse of the right middle lobe. Enlarged mediastinal and bilateral hilar lymph nodes. Tree in bud nodularity is seen in the bilateral lower lungs which can be seen with infectious bronchiolitis. 10 x 8 mm right lower lobe nodule. Recommend attention on close follow-up imaging. NAOMIE VAUGHN MD May 23, 2017 13:09
[2017-05-23] MEDS ORDERED: ALBUTEROL 0.083% (NEB) 2.5 MG/3 ML AMP NEB PRN (14:00)
[2017-05-23] MEDS: metroNIDAZOLE 500 MG/NS (PMX) 100 ML IVPB SCH ×2 (16:50→22:47)
[2017-05-23] MEDS: METHOCARBAMOL 500 MG TAB GTB SCH ×2 (17:00→22:00)
[2017-05-23] MEDS: FERROUS SULFATE 60 MG/ML 5ML CUP GTB SCH ×2 (17:19→22:11)
[2017-05-23] MEDS: RIFABUTIN 150 MG CAP GTB SCH (21:00)
--- NOTE | 2017-05-23 22:07 | CONS ---
DATE OF ADMISSION: 05/23/2017 DATE OF CONSULTATION: 05/23/2017 TYPE OF CONSULTATION: Pulmonary. REASON FOR CONSULTATION: Pleural effusion, chronic respiratory failure. HISTORY OF PRESENT ILLNESS: This is a pleasant, 82-year-old, lady with a history of vent-depe ndent respiratory failure, with a prior history of tuberculosis diagnosed, treated currently at ____ _ [facility]. Comes from [facility] facility for increasing shortness of breath, orthopnea, congestion and fevers. The patient is awake, alert, oriented, on mechanical ventilation. PAST MEDICAL HISTORY: 1. Mycobacterial TB of the lung. 2. Vent-dependent respiratory failure. 3. Dysphagia with G-tube. MEDICATIONS: Per chart. ALLERGIES: NONE. SOCIAL HISTORY: Nonsmoker, no alcohol, no history of drug use. FAMILY HISTORY: Noncontributory. REVIEW OF SYSTEMS: A 12-point review of systems negative other than that mentioned above. PHYSICAL EXAMINATION: GENERAL: Well-nourished, well-developed lady, comfortable at rest, no acute distress. VITAL SIGNS: Currently afebrile. T-max was 104, now 99.6. Pulse is 86, blood pressure 99/55, O2 s at 96% on 35% FiO2. NECK: Trach site clean and intact. CARDIAC: S1, S2, no added sounds or murmurs. CHEST: Diminished air entry bilaterally. ABDOMEN: Soft, nontender. No guarding or rebound. EXTREMITIES: No cyanosis, clubbing or edema. NEUROLOGIC: Generalized weakness. LABORATORIES: White count 18.4, hemoglobin 8, platelets of 221. BUN was 41. Lactic acid 3.4. INR 1.07. DIAGNOSTIC DATA: Chest x-ray demonstrated moderate right pleural effusion. CT of the chest demonst rated large right complex pleural effusion with moderate left pleural effusion. In addition, possib le pseudotumor left upper lobe, collapse of left upper lobe with mucoid impaction. The patient will require: 1. Pleural fluid studies. Multiple thoracenteses performed in the past. 2. Continue mechanical ventilation. 3. Continue tube feeding. 4. Broad-spectrum antibiotics for healthcare-associated pneumonia. 5. Deep venous thrombosis and gastrointestinal prophylaxis. The patient may be a candidate for [facility] for weaning from mechanical ventilati on. Dictated By: ISABEL GUZMAN/SHREE Conf#: [id number] DID#: [id number] CC: ANNE JAMESON MD;*[facility]*
[2017-05-23] MEDS: CEFEPIME 1GM/50 ML (PMX) 50 ML IVPB SCH ×2 (22:10→22:13)
[2017-05-23] MEDS: FAMOTIDINE 20 MG TAB GTB SCH (22:12)
[2017-05-23] MEDS: QUETIAPINE 25 MG TAB GTB SCH (22:12)
[2017-05-23] MEDS: ATORVASTATIN 40 MG TAB GTB SCH (22:12)
[2017-05-23] MEDS: clonAZEPAM 0.5 MG TAB GTB SCH (22:12)
[2017-05-23] MEDS: METOPROLOL 25 MG TAB GTB SCH (22:12)
--- NOTE | 2017-05-23 23:09 | CONS ---
DATE OF ADMISSION: 05/23/2017 DATE OF CONSULTATION: 05/23/2017 TYPE OF CONSULTATION: Infectious disease. REASON FOR CONSULTATION: Antibiotic management. HISTORY OF PRESENT ILLNESS: Krishna Calix is an 82-year-old female who was admitted with fever and t achycardia as well as shortness of breath. The patient's problems include: 1. Ventilator-dependent respiratory failure with chronic tracheostomy. 2. Indwelling G-tube. Long time resident of a subacute facility. 3. History of tuberculosis, being treated at the present time with rifabutin, pyridoxine, pyrazinam bryce, ethambutol. So, she is on ethambutol, pyrazinamide and rifabutin in addition to vitamin B6. The patient comes n ow with mild abdominal discomfort and with shortness of breath. PAST MEDICAL HISTORY: As outlined. FAMILY HISTORY: Noncontributory. SOCIAL HISTORY: She does not smoke, drink or abuse drugs. ALLERGIES: NONE TO PENICILLIN, SULFA OR FOODS. MEDICATIONS: Per chart. REVIEW OF SYSTEMS: As per HPI. PHYSICAL EXAMINATION: GENERAL: The patient is an elderly-appearing female who is awake, in no acute distress. VITAL SIGNS: Her T-max is 104.7. SKIN: Without generalized rash. HEENT: Within normal limits. NECK: Tracheostomy in place. CHEST: Decreased breath sounds at the bases. HEART: Without murmur or gallop. ABDOMEN: Soft, nontender, without organosplenomegaly or masses. EXTREMITIES: Without cyanosis, clubbing or edema. RECTAL AND GENITAL: Deferred. NEUROLOGIC: No focal neurological abnormalities. ANCILLARY LABORATORY DATA: White count is 18.4, H and H of 8 and 25.5, significant anemia, platelet count is 221,000. BUN and creatinine 41/0.79, glucose of 175. The patient was started on vancomycin and Zosyn. Her EKG was regular rhythm. Her chest x-ray showe d tracheostomy, extensive COPD, superimposed on this are patchy infiltrates in both lower lobes repr esenting acute pneumonia, small bilateral pleural effusions, normal left paratracheal density. This may represent mass, adenopathy or artifacts due to tortuosity, tortuous vascularity and rotation. A CT scan of the chest shows large complex right and partially loculated small to moderate left pleu ral effusion, tracheostomy, left upper lobe collapse with mucoid impaction, left lobe id hyperaerate d, fluid density structure within the superior segment of the left lower lobe measuring 2.9 x 2.7. This could represent atypical loculated fluid or pseudotumor or a cystic mass. Partial collap se of right middle lobe, enlarged mediastinal and bilateral hilar lymph nodes, tree-in-bud nodularit y seen in bilateral lower lobes of lung, 10 x 8 mm right lower lobe nodule. Recommend attention on close followup imaging. IMPRESSION AND PLAN: The patient has pneumonia in addition to chronic lung disease, in addition to tuberculosis. She should be seen with pulmonary as well. Will continue her on vancomycin and Zosyn . I will dictate my findings to the hospitalist. Dictated By: HEATHER COOPER MD, JD/SHREE Conf#: [id number] DID#: [id number] CC: ANNE JAMESON MD;*[facility]*
[2017-05-24] VITALS (29 sets, daily range): BP systolic 88–141; BP diastolic 42–101; PULSE 63–111; RESP 16–28
[2017-05-24 06:28] LABS: BASOPHILS % 0.2 % (0.0-2.0); EOSINOPHILS # 0.1 10^3/ul (0.0-0.5); EOSINOPHILS % 0.9 % (0.0-7.0); HEMOGLOBIN 7.5 g/dl (12.0-16.0); LYMPHOCYTES # 1.8 10^3/ul (0.8-2.9); LYMPHOCYTES % 13.7 % (15.0-51.0); MEAN CORPUSCULAR HEMOGLOBIN 29.1 pg (29.0-33.0); MEAN CORPUSCULAR VOLUME 96.9 fl (82.0-101.0); MEAN PLATELET VOLUME 10.2 fl (7.4-10.4); MONOCYTE # 0.8 10^3/ul (0.3-0.9); MONOCYTES % 5.9 % (0.0-11.0); NEUTROPHILS % 78.8 % (39.0-77.0); PLATELET COUNT 220 10^3/UL (140-415); RED BLOOD COUNT 2.58 10^6/ul (4.20-5.40); RED CELL DISTRIBUTION WIDTH 16.4 % (11.5-14.5); WHITE BLOOD COUNT 12.7 10^3/ul (4.8-10.8)
[2017-05-24] MEDS: metroNIDAZOLE 500 MG/NS (PMX) 100 ML IVPB SCH ×3 (06:50→21:14)
[2017-05-24] MEDS: METHOCARBAMOL 500 MG TAB GTB SCH ×3 (06:50→21:14)
[2017-05-24] MEDS: LEVOTHYROXINE 100 MCG TAB GTB SCH (06:50)
[2017-05-24] MEDS ORDERED: METOPROLOL 5 MG INJ ONE (07:00)
[2017-05-24] MEDS ORDERED: AMIODARONE 900 MG INJ ONE (07:00)
[2017-05-24] MEDS ORDERED: DEXTROSE 5% WATER 500 ML BAG ONE (07:00)
[2017-05-24] MEDS ORDERED: ADENOSINE 6 MG INJ ONE (07:00)
[2017-05-24 07:04] LABS: IRON < 10 ug/dl (35-150)
[2017-05-24 07:11] LABS: TOTAL IRON BINDING CAPACITY 256 ug/dl (241-421)
[2017-05-24 08:12] LABS: CALCIUM 9.1 mg/dl (8.4-10.2); CREATININE 0.5 mg/dl (0.44-1.00); MAGNESIUM 2.3 mg/dl (1.7-2.5); PHOSPHORUS 3.5 mg/dl (2.5-4.9); POTASSIUM 4.3 mmol/L (3.5-5.1)
[2017-05-24] MEDS: SOD CHLORIDE 0.9% 1,000 ML IV SCH ×2 (08:33→20:58)
[2017-05-24] MEDS: FAMOTIDINE 20 MG TAB GTB SCH (08:56)
[2017-05-24] MEDS: PYRAZINAMIDE 500 MG TAB GTB SCH (08:57)
[2017-05-24] MEDS: METOPROLOL 25 MG TAB GTB SCH ×2 (08:59→20:59)
[2017-05-24] MEDS: ASPIRIN 81 MG TAB GTB SCH (09:00)
[2017-05-24] MEDS ORDERED: ENOXAPARIN 40 MG/0.4 ML SYG SC SCH (09:00)
[2017-05-24] MEDS: FERROUS SULFATE 60 MG/ML 5ML CUP GTB SCH ×3 (09:00→20:58)
[2017-05-24] MEDS ORDERED: MINERAL OIL 133 ML ENEMA PR SCH (09:00)
[2017-05-24] MEDS: PYRIDOXINE 50 MG TAB GTB SCH (09:01)
[2017-05-24] MEDS: ETHAMBUTOL 400 MG TAB GTB SCH (09:01)
[2017-05-24] MEDS: MULTIVITAMINS 30 ML CUP GTB SCH (09:03)
[2017-05-24] MEDS: CEFEPIME 1GM/50 ML (PMX) 50 ML IVPB SCH (09:04)
[2017-05-24] MEDS: ASCORBIC ACID 500 MG TAB GTB SCH (09:05)
[2017-05-24] MEDS: RIFABUTIN 150 MG CAP GTB SCH ×2 (11:49→20:58)
--- NOTE | 2017-05-24 12:50 | CONS ---
Date/Time of Note Date/Time of Note DATE: 05/24/17 TIME: 11:49 Consult Date/Type/Reason Admit Date/Time May 23, 2017 at 11:33 Initial Consult Date Type of Consultation: Pulmonary Subjective Patient awake alert this morning comfortable no respiratory distress. Continues mechanical ventilation. Objective Vital Signs Date Time Temp Pulse Resp B/P Pulse Ox O2 Delivery O2 Flow Rate FiO2 05/24/17 08:25 111 05/24/17 08:13 98.2 18 132/66 94 05/24/17 06:05 35 05/23/17 17:04 Mechanical Ventilator Intake and Output 05/23/17 05/23/17 05/24/17 14:59 22:59 06:59 Intake Total 0 ml Balance 0 ml Exam PHYSICAL EXAMINATION GENERAL: Elderly gentleman, intubated on mechanical ventilation, opens eyes and appears somewhat agitated. Orally intubated. VITAL SIGNS: see below. HEENT: Pupils equal, round, and reactive to light. Tracheostomy site clean and intact. CARDIAC: S1, S2, 1/6 systolic ejection murmur CHEST: Diminished air entry bilaterally. ABDOMEN: Mildly distended. Bowel sounds present no guarding or rebound EXTREMITIES: No cyanosis, clubbing edema +1 NEUROLOGIC: Generalized weakness Results/Medications Result Diagram: 05/24/17 0545 05/24/17 0545 Results 24 hrs Laboratory Tests Test 05/23/17 14:30 05/23/17 17:30 05/24/17 05:45 Lactic Acid Level 0.8 1.0 0.8 White Blood Count 12.7 #H Red Blood Count 2.58 L Hemoglobin 7.5 L Hematocrit 25.0 L Mean Corpuscular Volume 96.9 Mean Corpuscular Hemoglobin 29.1 Mean Corpuscular Hemoglobin Concent 30.0 L Red Cell Distribution Width 16.4 H Platelet Count 220 Mean Platelet Volume 10.2 Neutrophils % 78.8 H Lymphocytes % 13.7 L Monocytes % 5.9 Eosinophils % 0.9 Basophils % 0.2 Nucleated Red Blood Cells % 0.0 Neutrophils # 10.0 H Lymphocytes # 1.8 Monocytes # 0.8 Eosinophils # 0.1 Basophils # 0.0 Nucleated Red Blood Cells # 0.0 Sodium Level 143 Potassium Level 4.3 Chloride Level 104 Carbon Dioxide Level 34 H Anion Gap 9 # Blood Urea Nitrogen 25 #H Creatinine 0.50 Glucose Level 95 # Calcium Level 9.1 Phosphorus Level 3.5 Magnesium Level 2.3 Iron Level < 10 L Total Iron Binding Capacity 256 Percent Iron Saturation Albumin 3.0 L Medications Current Medications Acetaminophen (Tylenol Tab) 650 mg Q6H PRN GTB PAIN AND OR ELEVATED TEMP; Start 05/23/17 at 12:30 Ascorbic Acid (Vitamin C) 500 mg DAILY GTB Last administered on 05/24/17 09: 05; Admin Dose 500 MG; Start 05/24/17 at 09:00 Aspirin (Aspirin) 81 mg DAILY GTB Last administered on 05/24/17 09:00; Admin Dose 81 MG; Start 05/24/17 at 09:00 Atorvastatin Calcium (Lipitor) 40 mg QHS GTB Last administered on 05/23/17 22 :12; Admin Dose 40 MG; Start 05/23/17 at 21:00 Bisacodyl (Dulcolax Supp) 10 mg Q24H PRN [place] CONSTIPATION; Start 05/23/17 at 12 :30 Clonazepam (Klonopin) 0.5 mg QHS GTB Last administered on 05/23/17 22:12; Admin Dose 0.5 MG; Start 05/23/17 at 21:00 Docusate Sodium (Colace) 100 mg QHS PRN PO CONSTIPATION; Start 05/23/17 at 12: 30 Enoxaparin Sodium (Lovenox) 40 mg DAILY SC ; Start 05/24/17 at 09:00 Ethambutol HCl (Myambutol) 800 mg DAILY GTB Last administered on 05/24/17 09: 01; Admin Dose 800 MG; Start 05/24/17 at 09:00 Famotidine (Pepcid) 20 mg BID GTB Last administered on 05/24/17 08:56; Admin Dose 20 MG; Start 05/23/17 at 21:00 Hyoscyamine (Levsin (Sl)) 0.125 mg Q4H PRN SL EXCESIVE ORAL SECRETIONS; Start 05/23/17 at 13:00 Magnesium Hydroxide (Milk Of Mag) 30 ml Q24H PRN GTB CONSTIPATION; Start 05/23 at 12:30 Methocarbamol (Robaxin) 500 mg Q8 GTB Last administered on 05/24/17 06:50; Admin Dose 500 MG; Start 05/23/17 at 14:00 Metoprolol Tartrate (Lopressor) 25 mg BID GTB Last administered on 05/24/17 08:59; Admin Dose 25 MG; Start 05/23/17 at 21:00 Eye Lubricant (Akwa Oint) 1 applic DAILY PRN BOTH EYES DRY EYES; Start at 13:00 Pyrazinamide (Pyrazinamide) 1,000 mg DAILY GTB Last administered on 05/24/17 08:57; Admin Dose 1,000 MG; Start 05/24/17 at 09:00 Pyridoxine HCl (Vitamin B6) 50 mg DAILY GTB Last administered on 05/24/17 09: 01; Admin Dose 50 MG; Start 05/24/17 at 09:00 Quetiapine Fumarate (Seroquel) 50 mg HS GTB Last administered on 05/23/17 22: 12; Admin Dose 50 MG; Start 05/23/17 at 21:00 Rifabutin (Mycobutin) 300 mg BID GTB Last administered on 05/24/17 11:49; Admin Dose 300 MG; Start 05/23/17 at 21:00 Mineral Oil (Fleet Mineral Oil Enema) 133 ml Q48H [place] ; Start 05/24/17 at 09:00 Multivitamins 30 ml 30 ml DAILY GTB Last administered on 05/24/17 09:03; Admin Dose 30 ML; Start 05/24/17 at 09:00 Sodium Chloride (NS) 1,000 ml @ 100 mls/hr Q10H IV Last administered on 22:47; Admin Dose 100 MLS/HR; Start 05/23/17 at 12:33 Ondansetron HCl (Zofran Inj) 4 mg Q6H PRN IV NAUSEA AND/OR VOMITING Last administered on 05/23/17 22:48; Admin Dose 4 MG; Start 05/23/17 at 13:00 Nitroglycerin (Nitroglycerin (Sl Tab) 0.4 Mg) 1 tab Q5M PRN SL CHEST PAIN; Start 05/23/17 at 13:00 Acetaminophen/ Hydrocodone Bitart 1 tab 1 tab Q6H PRN GTB PAIN LEVEL 4-6 Last administered on 05/23/17 22:13; Admin Dose 1 TAB; Start 05/23/17 at 13:00 Cefepime HCl 50 ml @ 100 mls/hr Q12 IVPB Last administered on 05/24/17 09:04 ; Admin Dose 100 MLS/HR; Start 05/23/17 at 14:00 Metronidazole 100 ml @ 100 mls/hr Q8 IVPB Last administered on 05/24/17 06: 50; Admin Dose 100 MLS/HR; Start 05/23/17 at 14:00 Vancomycin HCl (Vancocin) 100 ml @ 100 mls/hr Q24H IVPB ; Start 05/24/17 at 13 :00 Ferrous Sulfate (Feosol Liquid Cup) 300 mg TID GTB Last administered on 09:00; Admin Dose 300 MG; Start 05/23/17 at 17:00 Assessment/Plan Chief Complaint/Hosp Course Assessment: 1. Hx MTB 2. VDRF 3. Recurrent pleural effusions. 4. Dysphagia with PEG. 5. Anemia. Plan: 1. Thoracentesis 2. Continue MTB abx 3. w/u anemia 4. Continue TF. Consider [facility] transfer Problems: ISABEL MANCERA MD, [facility] May 24, 2017 11:59
[2017-05-24] MEDS ORDERED: VANCOMYCIN 500MG/NS (PMX) 100 ML IVPB SCH (13:00)
[2017-05-24] MEDS ORDERED: LORAZEPAM 2 MG INJ IV PRN (13:11)
--- NOTE | 2017-05-24 14:42 | PN ---
DATE: 05/24/2017 SUBJECTIVE: No acute events overnight. The patient is awake, looks comfortable. Afebrile. VITAL SIGNS: Temperature 98.6, pulse 90, respirations 18, blood pressure 140/66, saturation 94%. LABORATORY DATA: WBC 12.7, H and H 7.5 and 25, platelets 220, neutrophils 78.8, BUN 25, creatinine 0.50. INDWELLING: Trach, PEG. MICROBIOLOGY: Blood culture growing gram-negative rods. ANTIMICROBIALS: The patient is on: 1. IV vancomycin. 2. Ethambutol. 3. Pyrazinamide. 4. . 5. . 6. Cefepime. 7. Flagyl. ALLERGIES: NONE. DIAGNOSTICS: CT of the chest on admission revealed large complex right and partially loculated smal l to moderate left pleural effusions, left upper lobe collapse within mucoid impaction, a round flui d density stricture with the superior segment left lower lobe measuring 2.9 x 2.7 cm. This could re present atypical loculated fluid/pseudotumor or cystic mass, enlarged mediastinal and bilateral tremaine r lymph nodes, possible infectious bronchiolitis, 10.8 mm right lower lobe nodule. CT of the abdome n and pelvis revealed fluid-filled loops of small and large bowel suggestive of gastroenteritis and watery diarrhea, no evidence of bowel obstruction. Appendix is within normal limits. No obstructio n, hydronephrosis, no evidence of free fluid or free air, no gross focal fluid collection. PHYSICAL EXAMINATION: GENERAL: Fragile chronically ill-appearing elderly woman who is awake, in no distress. HEENT: Head atraumatic, normocephalic. Sclerae anicteric. Buccal mucosa dry. NECK: Supple. Tracheostomy present. CHEST: Rise symmetrical. Breath sounds with bilateral rhonchi. HEART: S1, S2. ABDOMEN: Soft. Bowel tones present. EXTREMITIES: Without cyanosis or edema. ASSESSMENT: 1. Sepsis with fevers, leukocytosis and gram-negative peña bacteremia, likely pulmonary source. 2. 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 3. Bilateral pleural effusions. 4. Possible gastroenteritis per CT of the abdomen. 5. Dysphagia. PLAN: The patient remains hemodynamically stable. WBC decreased today to 12.7. She is afebrile. We are going to repeat blood cultures and order urine culture. Continue her on current antibiotics for now. Discontinue vancomycin. Dictated By: BRIA SAL [employer]LECT[employer]ICAL SUBCON[employer]ACTOR for HEATHER COOPER MD NI/NTS Conf#: [id number] DID#: [id number] CC: ANNE JAMESON MD;*EndCC*
[2017-05-24] MEDS ORDERED: FUROSEMIDE 40 MG INJ IV ONE (15:00)
--- NOTE | 2017-05-24 16:07 | PN ---
Date/Time of Note Date/Time of Note DATE: 05/24/17 TIME: 16:07 Assessment/Plan VTE Prophylaxis VTE Prophylaxis Intervention: LMWH Lines/Catheters IV Catheter Type (from Nrs): Saline Lock Urinary Cath still in place: No Assessment/Plan Assessment/Plan 1. Sepsis secondary to TB vs pneumonia vs gastroenteritis - Patients WBC trending downward and remains afebrile - LA normalized - ID consultation placed and appreciated recommendations. Will continue on broad spectrum - continue on IVF 2. Leukocytosis- resolving - secondary to #1 - continue to monitor 3. Anemia - Iron levels <10 - Started on IV iron 4. Large right pleural effusion - Thoracentesis today and send fluid studies. - Pulmonology on board and recommendations appreciated 5. Left lower lobe density - CT scan showed round fluid density structure within the superior segment left lower lobe measuring 2.9 x 2.7 cm 6. Infectious bronchiolitis 7. 10 x 8 mm right lower lobe nodule - Will need close follow up 8. Acute gastroenteritis - send stool studies - Dietary consult for tube feed recommendations 9. Disposition - will place CM consult for Goyal evaluation Subjective 24 Hr Interval Summary Free Text/Dictation Patient doing well and resting comfortably. Motion that when given medications has some irritation in stomach. Having loose BMs. No acute overnight events. Exam/Review of Systems Vital Signs Vitals Vital Signs Date Time Temp Pulse Resp B/P Pulse Ox O2 Delivery O2 Flow Rate FiO2 05/24/17 12:20 97 05/24/17 12:00 98.6 18 140/66 94 05/24/17 06:05 35 05/23/17 17:04 Mechanical Ventilator Intake and Output 05/23/17 05/23/17 05/24/17 14:59 22:59 06:59 Intake Total 0 ml Balance 0 ml Exam Constitutional: alert, non-verbal, well developed Head: atraumatic, normocephalic Eyes: EOMI, PERRL ENMT: trach in place Neck: supple Respiratory: crackles/rales, diminished breath sounds, No labored breathing Cardiovascular: regular rate and rhythm, No systolic murmur Gastrointestinal: soft, tender with deep palpation RQ Musculoskeletal: nl extremities to inspection Extremities: normal pulses, No edema Neurological: [employer] II-XII intact, nl mental status, nl speech Results Result Diagram: 05/24/17 0545 05/24/17 0545 Results 24 hrs Laboratory Tests Test 05/23/17 17:30 05/24/17 05:45 Lactic Acid Level 1.0 0.8 White Blood Count 12.7 #H Red Blood Count 2.58 L Hemoglobin 7.5 L Hematocrit 25.0 L Mean Corpuscular Volume 96.9 Mean Corpuscular Hemoglobin 29.1 Mean Corpuscular Hemoglobin Concent 30.0 L Red Cell Distribution Width 16.4 H Platelet Count 220 Mean Platelet Volume 10.2 Neutrophils % 78.8 H Lymphocytes % 13.7 L Monocytes % 5.9 Eosinophils % 0.9 Basophils % 0.2 Nucleated Red Blood Cells % 0.0 Neutrophils # 10.0 H Lymphocytes # 1.8 Monocytes # 0.8 Eosinophils # 0.1 Basophils # 0.0 Nucleated Red Blood Cells # 0.0 Sodium Level 143 Potassium Level 4.3 Chloride Level 104 Carbon Dioxide Level 34 H Anion Gap 9 # Blood Urea Nitrogen 25 #H Creatinine 0.50 Glucose Level 95 # Calcium Level 9.1 Phosphorus Level 3.5 Magnesium Level 2.3 Iron Level < 10 L Total Iron Binding Capacity 256 Percent Iron Saturation Albumin 3.0 L Medications Medications Current Medications Acetaminophen (Tylenol Tab) 650 mg Q6H PRN GTB PAIN AND OR ELEVATED TEMP; Start 05/23/17 at 12:30 Ascorbic Acid (Vitamin C) 500 mg DAILY GTB Last administered on 05/24/17 09: 05; Admin Dose 500 MG; Start 05/24/17 at 09:00 Aspirin (Aspirin) 81 mg DAILY GTB Last administered on 05/24/17 09:00; Admin Dose 81 MG; Start 05/24/17 at 09:00 Atorvastatin Calcium (Lipitor) 40 mg QHS GTB Last administered on 05/23/17 22 :12; Admin Dose 40 MG; Start 05/23/17 at 21:00 Bisacodyl (Dulcolax Supp) 10 mg Q24H PRN NV CONSTIPATION; Start 05/23/17 at 12 :30 Clonazepam (Klonopin) 0.5 mg QHS GTB Last administered on 05/23/17 22:12; Admin Dose 0.5 MG; Start 05/23/17 at 21:00 Docusate Sodium (Colace) 100 mg QHS PRN PO CONSTIPATION; Start 05/23/17 at 12: 30 Ethambutol HCl (Myambutol) 800 mg DAILY GTB Last administered on 05/24/17 09: 01; Admin Dose 800 MG; Start 05/24/17 at 09:00 Hyoscyamine (Levsin (Sl)) 0.125 mg Q4H PRN SL EXCESIVE ORAL SECRETIONS; Start 05/23/17 at 13:00 Magnesium Hydroxide (Milk Of Mag) 30 ml Q24H PRN GTB CONSTIPATION; Start 05/23 at 12:30 Methocarbamol (Robaxin) 500 mg Q8 GTB Last administered on 05/24/17 13:20; Admin Dose 500 MG; Start 05/23/17 at 14:00 Metoprolol Tartrate (Lopressor) 25 mg BID GTB Last administered on 05/24/17 08:59; Admin Dose 25 MG; Start 05/23/17 at 21:00 Eye Lubricant (Akwa Oint) 1 applic DAILY PRN BOTH EYES DRY EYES; Start at 13:00 Pyrazinamide (Pyrazinamide) 1,000 mg DAILY GTB Last administered on 05/24/17 08:57; Admin Dose 1,000 MG; Start 05/24/17 at 09:00 Pyridoxine HCl (Vitamin B6) 50 mg DAILY GTB Last administered on 05/24/17 09: 01; Admin Dose 50 MG; Start 05/24/17 at 09:00 Quetiapine Fumarate (Seroquel) 50 mg HS GTB Last administered on 05/23/17 22: 12; Admin Dose 50 MG; Start 05/23/17 at 21:00 Rifabutin (Mycobutin) 300 mg BID GTB Last administered on 05/24/17 11:49; Admin Dose 300 MG; Start 05/23/17 at 21:00 Mineral Oil (Fleet Mineral Oil Enema) 133 ml Q48H NV ; Start 05/24/17 at 09:00 Multivitamins 30 ml 30 ml DAILY GTB Last administered on 05/24/17 09:03; Admin Dose 30 ML; Start 05/24/17 at 09:00 Sodium Chloride (NS) 1,000 ml @ 100 mls/hr Q10H IV Last administered on 22:47; Admin Dose 100 MLS/HR; Start 05/23/17 at 12:33 Ondansetron HCl (Zofran Inj) 4 mg Q6H PRN IV NAUSEA AND/OR VOMITING Last administered on 05/23/17 22:48; Admin Dose 4 MG; Start 05/23/17 at 13:00 Nitroglycerin (Nitroglycerin (Sl Tab) 0.4 Mg) 1 tab Q5M PRN SL CHEST PAIN; Start 05/23/17 at 13:00 Acetaminophen/ Hydrocodone Bitart 1 tab 1 tab Q6H PRN GTB PAIN LEVEL 4-6 Last administered on 05/23/17 22:13; Admin Dose 1 TAB; Start 05/23/17 at 13:00 Metronidazole (Flagyl 500 Mg (Pmx)) 100 ml @ 100 mls/hr Q8 IVPB Last administered on 05/24/17 13:20; Admin Dose 100 MLS/HR; Start 05/23/17 at 14: 00 Ferrous Sulfate (Feosol Liquid Cup) 300 mg TID GTB Last administered on 13:21; Admin Dose 300 MG; Start 05/23/17 at 17:00 Lorazepam 1 mg 1 mg Q4H PRN IV anxiety Last administered on 05/24/17 13:15; Admin Dose 1 MG; Start 05/24/17 at 13:11 Ferric Sodium Gluconate Complex 125 mg/Sodium Chloride 110 ml @ 100 mls/hr Q24H IVPB ; Start 05/24/17 at 17:00; Stop 05/26/17 at 18:05 Cefepime HCl (Maxipime 1gm/50 ml (Pmx)) 50 ml @ 100 mls/hr Q24H IVPB ; Start 05/25/17 at 09:00 Enoxaparin Sodium (Lovenox) 30 mg DAILY SC ; Start 05/25/17 at 09:00 Famotidine (Pepcid) 20 mg DAILY GTB ; Start 05/25/17 at 09:00 NAOMIE VAUGHN MD May 24, 2017 16:07
--- NOTE | 2017-05-24 17:03 | RADRPT ---
PROCEDURE: US guided right thoracentesis. CLINICAL INDICATION: Shortness of breath. Right pleural effusion. TECHNIQUE: Prior to the procedure, informed consent was obtained. The risks, benefits, and alternatives were e xplained to the patient or the patient's family, including but not limited to bleeding, infection, p ain, visceral or vascular damage, shock, pneumothorax, chest tube placement, air embolism, and . The patient or the patient's family understood the risks and the alternatives and wished to proce ed with the study. Informed written consent was obtained. A procedural pause was performed. The patient's name, date of , and procedure to be performed were verified. Ultrasound of the right hemithorax was performed in the axial and sagittal planes. A right pleural e ffusion is noted. Utilizing ultrasound guidance, optimal location for entry to the pleural cavity wa s ascertained. The overlying skin was prepped and draped in the usual sterile fashion. Approximate ly 10 ml of 1% Xylocaine was injected locally for pain control. Using ultrasound guidance, a 5-Fren Yueh catheter was introduced into the right pleural space without difficulty. Fluid was aspirated . COMPARISON: CT scan of the chest dated 05/23/2017. FINDINGS: Initial ultrasound demonstrates fluid in the right pleural space. Approximately 1.0 liters of serou s fluid was aspirated and sent to the laboratory. IMPRESSION: 1. Satisfactory ultrasound-guided right thoracentesis. RPTAT: QQ .Bc Kim MD, Date Time Electronically viewed and signed by .Bc Kim MD, on 05/24/2017 17:03 .R/
--- NOTE | 2017-05-24 17:08 | RADRPT ---
PROCEDURE: XR Chest. CLINICAL INDICATION: Shortness of breath. Post right thoracentesis. TECHNIQUE: Single frontal view. COMPARISON: 05/23/2017. FINDINGS: There is mild atelectasis at the lung bases, improved on the right when compared with 05/23/2017. Th e lungs are otherwise clear. The tracheostomy tube is in satisfactory position. The heart size is normal. There is no pleural effusion. There are small bilateral pleural effusions. The right pleural effusion is smaller than seen previou sly. IMPRESSION: 1. No pneumothorax following right thoracentesis. 2. Improved aeration of the right lung base and smaller right pleural effusion. 3. Otherwise no change from the 05/23/2017 chest radiograph. RPTAT: QQ .Bc Kim MD, Date Time Electronically viewed and signed by .Bc Kim MD, MD on 05/24/2017 17:08 .R/
[2017-05-24] MEDS ORDERED: LIDOCAINE 1% (MPF) 5 ML VIAL ONE (17:33)
[2017-05-24] MEDS ORDERED: ALBUMIN HUMAN 25% 100 ML ONE (17:42)
[2017-05-24] MEDS ORDERED: DIGOXIN 500 MCG INJ IV ONE ×3 (17:50→23:55)
[2017-05-24] MEDS ORDERED: LORAZEPAM 2 MG INJ IV ONE (18:00)
[2017-05-24 18:23] LABS: FLUID GLUCOSE 73 mg/dl; FLUID LD 1189 U/L; FLUID TYPE THORACENTESIS FLUID
[2017-05-24 18:24] LABS: FLUID TYPE THORACENTESIS FLUID
[2017-05-24] MEDS ORDERED: PHENYLephrine 20MG IN 250 ML 250 ML IV SCH (18:30)
[2017-05-24] MEDS ORDERED: LIDOCAINE 1% (MPF) 5 ML VIAL SC ONE (18:30)
[2017-05-24] MEDS ORDERED: SOD CHLORIDE 0.9% 500 ML IV ONE (18:30)
[2017-05-24] MEDS ORDERED: ALBUMIN HUMAN 25% 100 ML IV ONE (18:30)
[2017-05-24] MEDS ORDERED: LEVALBUTEROL (NEB) 0.63 MG/3 ML AMP HHN PRN (18:30)
[2017-05-24] MEDS ORDERED: SOD CHLORIDE 0.9% 1,000 ML IV ONE (18:30)
[2017-05-24 18:36] LABS: FLD MN% 13.2 %; FLD PMN% 86.8 %; FLD RBC 6000 /uL
[2017-05-24 18:48] LABS: FLD WBC 10818 /cmm
[2017-05-24 18:53] LABS: FLD CLARITY CLOUDY; FLD COLOR YELLOW; FLD TYPE PLEURAL; PATH REVIEW? NO
[2017-05-24] MEDS ORDERED: morphine 2 MG INJ IV PRN (19:00)
[2017-05-24] MEDS ORDERED: AMIODARONE 900 MG in DEXTROSE 5% 482 ML IV SCH (19:00)
[2017-05-24 19:23] LABS: ABNORMAL IP MESSAGE 1; HEMATOCRIT 22.5 % (37.0-47.0); MEAN CORPUSCULAR HEMOGLOBIN 29.1 pg (29.0-33.0); MEAN CORPUSCULAR HGB CONC 29.8 g/dl (32.0-37.0); MEAN CORPUSCULAR VOLUME 97.8 fl (82.0-101.0); MEAN PLATELET VOLUME 9.3 fl (7.4-10.4); PLATELET COUNT 217 10^3/UL (140-415); RED CELL DISTRIBUTION WIDTH 16.4 % (11.5-14.5); WHITE BLOOD COUNT 14.6 10^3/ul (4.8-10.8)
[2017-05-24 19:47] LABS: HEMOGLOBIN 6.7 g/dl (12.0-16.0); POSITIVE DIFF @See below
[2017-05-24 19:59] LABS: TROPONIN-I 0.027 ng/ml (0.00-0.12)
[2017-05-24 20:17] LABS: THYROID STIMULATING HORMONE 0.652 MIU/L (0.465-4.680)
[2017-05-24 20:24] LABS: MONOCYTES % (M) 4 % (0-11); PLATELET ESTIMATE NORMAL; POIKILOCYTOSIS 1+ (0-0)
[2017-05-24] MEDS: SOD FERRIC GLUC COMPLX 125 MG in SOD CHLORIDE 0.9% 100 ML IVPB SCH (20:58)
[2017-05-24] MEDS: ATORVASTATIN 40 MG TAB GTB SCH (20:58)
[2017-05-24] MEDS: clonAZEPAM 0.5 MG TAB GTB SCH (20:58)
[2017-05-24] MEDS: QUETIAPINE 25 MG TAB GTB SCH (21:14)
[2017-05-25] VITALS (62 sets, daily range): BP systolic 84–140; BP diastolic 38–110; PULSE 58–83; RESP 14–25
[2017-05-25] MEDS ORDERED: SOD CHLORIDE 0.9% 500 ML IV ONE (00:30)
[2017-05-25] MEDS: SOD CHLORIDE 0.9% 1,000 ML IV SCH ×2 (04:33→17:49)
[2017-05-25] MEDS: METHOCARBAMOL 500 MG TAB GTB SCH ×3 (06:02→21:49)
[2017-05-25] MEDS: LEVOTHYROXINE 100 MCG TAB GTB SCH (06:02)
[2017-05-25] MEDS: metroNIDAZOLE 500 MG/NS (PMX) 100 ML IVPB SCH ×3 (06:02→21:49)
--- NOTE | 2017-05-25 06:02 | CONS ---
DATE OF ADMISSION: 05/23/2017 DATE OF CONSULTATION: 05/24/2017 REASON FOR CONSULTATION: Hypotension, unstable tachyarrhythmia. REQUESTING PHYSICIAN: Dr. Austin from the hospitalist service. HISTORY OF PRESENT ILLNESS: Ms. Calix is an 82-year-old female with a history of chronic respiratory f ailure, status post tracheostomy, dysphagia, status post G-tube, recent TB, undergoing treatment, wh o had initially presented from her chronic care facility with fevers and tachycardia. Initially upo n arrival in the emergency department on the , temperature 104.7, blood pressure 120/78, pulse 1 12, respiratory rate 26, satting 99%. White blood cell count 18.4, hemoglobin 8.0, platelet count 2 21. Sodium of 139, potassium 4.9, creatinine 0.79, BUN 41. Lactic acid 3.4, AST 26, ALT 23. Tropo jessica negative. INR of 1.0. Patient underwent an abdominal and pelvic CT revealing a left upper lobe consolidation and right middle lobe, right lower lobe consolidation airspace disease and nodu lar opacities, probable right upper lobe compressive atelectasis, percutaneous gastrostomy tube in p lace, mild degenerative change of the spine, no evidence of free fluid or free air, multiple bilater al cysts. Patient then underwent a chest x-ray revealing tracheostomy tube in good position, extens cristofer COPD superimposed patchy infiltrates in both lower lobes, small bilateral effusions. The chest CT revealed a large complex right and partial small left pleural effusion, left lower lobe col lapse, round fluid density superior segment of the left upper lobe, right middle lobe. There is no EKG done initially. The patient treated with broad-spectrum antibiotics and continued o n ethambutol, pyrazinamide, pyridoxine for treatment of TB, started on metoprolol. Additionally giv en Flagyl and vancomycin and admitted to the floor. Today on the floor, the patient has been in sinus rhythm with somewhat marginal low pressures in the high 90s, pulses in the 70s. The patient was taken for a thoracentesis and underwent thoracentesis , minus 1 liter of fluid in the right side. On the way back, the patient had the onset of tachyarrh ythmia consistent with atrial fibrillation with rapid ventricular response greater than 200 with dec rease in systolic blood pressures to the 60s and 70s. The patient in this setting had a Rapid Respo nse called and received IV push beta izabella and calcium channel blockers with transient decrease in heart rates, then once again rapid rates. The patient, due to low blood pressure, received a DC ca rdioversion, which converted her to sinus rhythm for a short time then onset of rapid atrial fibrill ation once again. Patient subsequently at this time remains in rapid AFib with low blood pressure _ ____. At this time, I did present to the code, and at that time, the patient was given additional s hock with return to sinus rhythm at 200 joules and onset of rapid AFib in the 170s-180s. At this ti me, I gave her 150 mg IV push bolus amiodarone and digoxin mg IV push x1 with decrease in rat es of atrial fibrillation down to approximately 100. The patient at this time received IV fluid olayinka us, initially up to 500 mL with albumin dose and, blood pressure came up to 80s to 90s. The patient is now being transferred to the ICU with atrial fibrillation with heart rates around 100 and blood pressure now approximately 90. PAST MEDICAL HISTORY: As above in HPI. MEDICATIONS CURRENTLY IN HOSPITAL: 1. Mineral oil. 2. Cefepime. 3. Lovenox 4. daily. 5. Ativan IV push p.r.n. sodium. 6. Ativan p.r.n. 7. Vitamin C. 8. Aspirin 81 mg daily. 9. Ethambutol 800 mg daily. 10. Pyrazinamide 1000 mg daily. 11. Pyridoxine 50 mg daily. 12. Multivitamins. 13. Synthroid. 14. Lipitor 15. Klonopin 0.5 mg at bedtime. 16. Metoprolol 25 mg b.i.d. 17. Seroquel 50 mg at bedtime. 18. Ferrous sulfate. 19. Albuterol p.r.n. 20. Methocarbamol. 21. Flagyl q.8. 22. Zofran p.r.n. 23. Tylenol. 24. IV fluid hydration. 25. Dulcolax. 26. Milk of Magnesia. ALLERGIES: NO KNOWN DRUG ALLERGIES. SOCIAL HISTORY: No tobacco, ETOH or illicit drug use. FAMILY HISTORY: Negative for sudden cardiac or early CAD. REVIEW OF SYSTEMS: As above in HPI. CONSTITUTIONAL: No fevers, chills. PULMONARY: Chronic respiratory failure, status post tracheostomy. GASTROINTESTINAL: Dysphagia, status post G-tube. GENITOURINARY: No hematuria. MUSCULOSKELETAL: Degenerative joint disease. PSYCHIATRIC: Positive psychiatric medications. NEUROLOGIC: Altered mental state. CARDIOVASCULAR: Rapid atrial fibrillation, hypertension. PHYSICAL EXAMINATION: VITAL SIGNS: Afebrile, pulse between 100 and 110, atrial fibrillation, blood pressure 85/50, sattin g 99%. GENERAL: The patient is sleeping but arousable. NECK: Tracheostomy in place. CHEST: Upper airway sounds are rhonchorous sounds. HEART: Tachycardic, irregularly irregular, I/ systolic murmur, nondisplaced PMI. ABDOMEN: Positive bowel sounds, soft. EXTREMITIES: extremities. No edema, 1+ pulses bilaterally posterior tibial. LABORATORY DATA: Most recently from today, sodium 143, potassium 4.3, creatinine 1.5, BUN 25. Whit e blood count 12.7, hemoglobin 10.5, platelet count 220. INR 1.0. IMAGING STUDIES: Chest x-ray from after thoracentesis revealed no pneumothorax following thoracente sis. Improve aeration in the right lung base. Small right pleural effusion. The patient's electrocardiogram at that time of code had revealed atrial fibrillation with rapid nilsa tricular response greater than 200, nonspecific ST-T abnormalities diffusely. IMPRESSION: 1. Hypotension in the setting of rapid tachyarrhythmia of atrial fibrillation and recent fevers. 2. Atrial fibrillation with rapid ventricular response, slowly improving after initial dose of digox in and amiodarone. 3. Pneumonia. 4. Fevers. 5. Chronic respiratory failure, status post tracheostomy. 6. Tuberculosis, on treatment. 7. Hypothyroidism. 8. Dyslipidemia. 9. Pleural effusion, status post right thoracentesis removal of 1 liter. 10. Anemia. RECOMMENDATIONS: 1. At this time, would transfer patient to ICU for closer monitoring. 2. Initiate patient on pressor support, likely with Subhash-Synephrine so as not to stimulate further ta chyarrhythmias. 3. Check a 2D echocardiogram to further assess patient's ejection fraction, wall motion, and major v alve abnormalities. 4. Will complete a rule out for myocardial infarction to ensure the patient has not provoked any or the hypertension is not the result of an acute coronary syndrome or acute myocardial infarction. 5. Would consider transfusion of packed red blood cells given severe anemia, and will give additiona l IV fluid hydration. 6. Will give patient additional digoxin dosing in order to continue to improve heart rate control, a nd will maintain patient on an amiodarone drip continuous infusion at this time. 7. Continue the patient's low dose Lovenox as is ordered at this time given the patient's very low b ana weight. 8. Continue the patient's broad-spectrum antibiotics and follow up all culture data. 9. Continue to check serial EKGs. 10. Check a TSH to be sure that subclinical hyperthyroidism is not contributing to bouts of tachyarr hythmia and would check a fasting lipid panel for general risk stratification. Thank you for allowing me to take part in the care of this patient. I will continue to follow along very closely with you. Further recommendations will be made as the patient progresses through her inpatient hospital clinical course. Dictated By: CHRISSIE TARIQ/SHREE Conf#: [id number] DID#: [id number] CC: Dr. Carlton;*End*
--- NOTE | 2017-05-25 09:08 | PN ---
Date/Time of Note Date/Time of Note DATE: 05/25/17 TIME: 09:08 Assessment/Plan VTE Prophylaxis VTE Prophylaxis Intervention: LMWH, SCD's Lines/Catheters IV Catheter Type (from Nrsg): Saline Lock Urinary Cath still in place: Yes Reason Cath still needed: terminal illness/intractable pain Assessment/Plan Assessment/Plan 1. Rapid tachyarrhythmia- stable - Cardiology on board and consultation appreciated. Continue on Amiodarone IV and switch to PO once protocol completed - Started on PO Digoxin after IV loading dose given yesterday - Started on low dose BB as tolerated - ECHO results pending 2. Sepsis secondary to TB vs pneumonia vs gastroenteritis vs bacteremia - Patients WBC trending downward and remains afebrile - LA normalized - ID consultation placed and appreciated recommendations. Will continue on broad spectrum and await cultural results - continue on IVF 2. Bacteremia - Blood cultures growing Serratia and will await sensitivities - Repeat blood cultures negative - ID on board 3. Anemia - s/p 2PRBC with response to Hgb 10 - Iron levels <10 - Started on IV iron 4. Large right pleural effusion s/p thoracentesis - 1L removed yesterday and fluid studies sent. Appears to be exudative. Awaiting cultures - Pulmonology on board and recommendations appreciated 5. Left lower lobe density - CT scan showed round fluid density structure within the superior segment left lower lobe measuring 2.9 x 2.7 cm 6. Infectious bronchiolitis 7. 10 x 8 mm right lower lobe nodule - Will need close follow up 8. Acute gastroenteritis - send stool studies - Dietary consult for tube feed recommendations 9. Disposition - Continue monitoring in ICU setting - Awaiting ECHO result and culture results >35 minutes of critical care time was spent with patient and family at bedside Subjective 24 Hr Interval Summary Free Text/Dictation patient resting in bed comfortably in no acute distress. Gave the thumbs up when asked if she was doing okay. HR more controlled on Amiodarone this am and is s/p transfusion 2 PRBC. Exam/Review of Systems Vital Signs Vitals Vital Signs Date Time Temp Pulse Resp B/P Pulse Ox O2 Delivery O2 Flow Rate FiO2 05/25/17 07:30 62 17 98 35 05/25/17 06:00 112/52 Mechanical Ventilator 05/25/17 03:59 98.5 Intake and Output 05/24/17 05/24/17 05/25/17 15:00 23:00 07:00 Intake Total 683.6 ml 699.8 ml Output Total 800 ml 550 ml Balance -116.4 ml 149.8 ml Exam Constitutional: alert, non-verbal, well developed Head: atraumatic, normocephalic Eyes: EOMI, PERRL ENMT: trach in place Respiratory: crackles/rales, diminished breath sounds, No labored breathing Cardiovascular: regular rate and rhythm, No systolic murmur Gastrointestinal: soft, tender with deep palpation RQ Musculoskeletal: nl extremities to inspection Extremities: normal pulses, No edema Neurological: [employer] II-XII intact, nl mental status, nl speech Results Result Diagram: 05/24/17 1911 05/24/17 0545 Results 24 hrs Laboratory Tests Test 05/24/17 14:20 05/24/17 17:21 05/24/17 19:11 05/24/17 19:15 Pathologist Review (Hematology) NO Body Fluid Type PLEURAL Body Fluid Volume 870.0 Body Fluid Color YELLOW Body Fluid Appearance CLOUDY Body Fluid WBC 63833 Body Fluid RBC (Auto) 6000 Body Fluid Polynuclear WBCs (%) 86.8 Body Fluid Mononuclear Cells % Auto 13.2 Body Fluid Glucose 73 Body Fluid Total Protein 4.0 Body Fluid Lactate Dehydrogenase 1189 Bedside Glucose 106 White Blood Count 14.6 H Red Blood Count 2.30 L Hemoglobin 6.7 *L Hematocrit 22.5 L Mean Corpuscular Volume 97.8 Mean Corpuscular Hemoglobin 29.1 Mean Corpuscular Hemoglobin Concent 29.8 L Red Cell Distribution Width 16.4 H Platelet Count 217 Mean Platelet Volume 9.3 Neutrophils % Segmented Neutrophils % (Manual) 90 H Band Neutrophils % (Manual) 3 Lymphocytes % Lymphocytes % (Manual) 3 L Monocytes % Monocytes % (Manual) 4 Eosinophils % Basophils % Nucleated Red Blood Cells % 0.0 Neutrophils # Neutrophils # (Manual) 13.2 H Band Neutrophils # 0.4 Absolute Lymphocytes (Manual) 0.4 L Lymphocytes # Monocytes # Absolute Monocytes (Manual) 0.5 Eosinophils # Basophils # Nucleated Red Blood Cells # Platelet Estimate NORMAL Poikilocytosis 1+ Troponin I 0.027 Thyroid Stimulating Hormone (TSH) 0.652 Test 05/25/17 00:22 Troponin I 0.105 Medications Medications Current Medications Acetaminophen (Tylenol Tab) 650 mg Q6H PRN GTB PAIN AND OR ELEVATED TEMP; Start 05/23/17 at 12:30 Ascorbic Acid (Vitamin C) 500 mg DAILY GTB Last administered on 05/24/17 09: 05; Admin Dose 500 MG; Start 05/24/17 at 09:00 Aspirin (Aspirin) 81 mg DAILY GTB Last administered on 05/24/17 09:00; Admin Dose 81 MG; Start 05/24/17 at 09:00 Atorvastatin Calcium (Lipitor) 40 mg QHS GTB Last administered on 05/24/17 20 :58; Admin Dose 40 MG; Start 05/23/17 at 21:00 Bisacodyl (Dulcolax Supp) 10 mg Q24H PRN [place] CONSTIPATION; Start 05/23/17 at 12 :30 Clonazepam (Klonopin) 0.5 mg QHS GTB Last administered on 05/24/17 20:58; Admin Dose 0.5 MG; Start 05/23/17 at 21:00 Docusate Sodium (Colace) 100 mg QHS PRN [place] CONSTIPATION; Start 05/23/17 at 12: 30 Ethambutol HCl (Myambutol) 800 mg DAILY GTB Last administered on 05/24/17 09: 01; Admin Dose 800 MG; Start 05/24/17 at 09:00 Hyoscyamine (Levsin (Sl)) 0.125 mg Q4H PRN SL EXCESIVE ORAL SECRETIONS; Start 05/23/17 at 13:00 Magnesium Hydroxide (Milk Of Mag) 30 ml Q24H PRN GTB CONSTIPATION; Start 05/23 at 12:30 Methocarbamol (Robaxin) 500 mg Q8 GTB Last administered on 05/25/17 06:02; Admin Dose 500 MG; Start 05/23/17 at 14:00 Metoprolol Tartrate (Lopressor) 25 mg BID GTB Last administered on 05/24/17 20:59; Admin Dose 25 MG; Start 05/23/17 at 21:00 Eye Lubricant (Akwa Oint) 1 applic DAILY PRN BOTH EYES DRY EYES; Start at 13:00 Pyrazinamide (Pyrazinamide) 1,000 mg DAILY GTB Last administered on 05/24/17 08:57; Admin Dose 1,000 MG; Start 05/24/17 at 09:00 Pyridoxine HCl (Vitamin B6) 50 mg DAILY GTB Last administered on 05/24/17 09: 01; Admin Dose 50 MG; Start 05/24/17 at 09:00 Quetiapine Fumarate (Seroquel) 50 mg HS GTB Last administered on 05/24/17 21: 14; Admin Dose 50 MG; Start 05/23/17 at 21:00 Rifabutin (Mycobutin) 300 mg BID GTB Last administered on 05/24/17 20:58; Admin Dose 300 MG; Start 05/23/17 at 21:00 Multivitamins 30 ml 30 ml DAILY GTB Last administered on 05/24/17 09:03; Admin Dose 30 ML; Start 05/24/17 at 09:00 Sodium Chloride (NS) 1,000 ml @ 100 mls/hr Q10H IV Last administered on 20:58; Admin Dose 100 MLS/HR; Start 05/23/17 at 12:33 Ondansetron HCl (Zofran Inj) 4 mg Q6H PRN IV NAUSEA AND/OR VOMITING Last administered on 05/23/17 22:48; Admin Dose 4 MG; Start 05/23/17 at 13:00 Nitroglycerin (Nitroglycerin (Sl Tab) 0.4 Mg) 1 tab Q5M PRN SL CHEST PAIN; Start 05/23/17 at 13:00 Acetaminophen/ Hydrocodone Bitart 1 tab 1 tab Q6H PRN GTB PAIN LEVEL 4-6 Last administered on 05/23/17 22:13; Admin Dose 1 TAB; Start 05/23/17 at 13:00 Metronidazole (Flagyl 500 Mg (Pmx)) 100 ml @ 100 mls/hr Q8 IVPB Last administered on 05/25/17 06:02; Admin Dose 100 MLS/HR; Start 05/23/17 at 14: 00 Ferrous Sulfate (Feosol Liquid Cup) 300 mg TID GTB Last administered on 20:58; Admin Dose 300 MG; Start 05/23/17 at 17:00 Lorazepam 1 mg 1 mg Q4H PRN IV anxiety Last administered on 05/24/17 13:15; Admin Dose 1 MG; Start 05/24/17 at 13:11 Ferric Sodium Gluconate Complex 125 mg/Sodium Chloride 110 ml @ 100 mls/hr Q24H IVPB Last administered on 05/24/17 20:58; Admin Dose 100 MLS/HR; Start 05/24/17 at 17:00; Stop 05/26/17 at 18:05 Cefepime HCl (Maxipime 1gm/50 ml (Pmx)) 50 ml @ 100 mls/hr Q24H IVPB ; Start 05/25/17 at 09:00 Enoxaparin Sodium (Lovenox) 30 mg DAILY SC ; Start 05/25/17 at 09:00 Famotidine (Pepcid) 20 mg DAILY GTB ; Start 05/25/17 at 09:00 Mineral Oil 133 ml 133 ml Q48H PRN [place] constipation; Start 05/26/17 at 09:00 Phenylephrine HCl 250 ml @ 75 mls/hr TITRATE IV ; Start 05/24/17 at 18:30 Amiodarone HCl/ Dextrose (Cordarone Iv/ D5W) 500 ml @ 0 mls/hr Q0M IV Last administered on 05/24/17 19:19; Admin Dose 33.4 MLS/HR; Start 05/24/17 at 19: 00 Morphine Sulfate (morphine) 1 mg Q4H PRN IV PAIN LEVEL 4-6; Start 05/24/17 at 19:00 NAOMIE VAUGHN MD May 25, 2017 09:08
--- NOTE | 2017-05-25 09:16 | CONS ---
Date/Time of Note Date/Time of Note DATE: 05/25/17 TIME: 09:11 Assessment/Plan Assessment/Plan Chief Complaint/Hosp Course IMPRESSION: 1. Hypotension in the setting of rapid tachyarrhythmia of atrial fibrillation and recent fevers.-negative tropx 3/off pressors 2. Atrial fibrillation with rapid ventricular response, slowly improving after initial dose of digoxin and amiodarone.-now in SR/NL TSH 3. Pneumonia. 4. Fevers. 5. Chronic respiratory failure, status post tracheostomy. 6. Tuberculosis, on treatment. 7. Hypothyroidism. 8. Dyslipidemia. 9. Pleural effusion, status post right thoracentesis removal of 1 liter. 10. Anemia. Recc: -ICU monitoring -start low dose BB as tolerated only -Follow volume status closely -Continue IV amio to PO amio at completion of protocol -Continue lovenox low dose -Continue abx's and f/u cx data -Start PO digoxin s/p IV digoxin load -Will f/u echo Problems: Consultation Date/Type/Reason Admit Date/Time May 23, 2017 at 11:33 Initial Consult Date 05/24/2017 Type of Consultation: cardiology Reason for Consultation AF/hypotension Referring Provider: NAOMIE VAUGHN MD Exam/Review of Systems Vital Signs Vitals Vital Signs Date Time Temp Pulse Resp B/P Pulse Ox O2 Delivery O2 Flow Rate FiO2 05/25/17 07:30 62 17 98 35 05/25/17 06:00 112/52 Mechanical Ventilator 05/25/17 03:59 98.5 Intake and Output 05/24/17 05/24/17 05/25/17 15:00 23:00 07:00 Intake Total 683.6 ml 699.8 ml Output Total 800 ml 550 ml Balance -116.4 ml 149.8 ml Exam Review of Systems: CONSTITUTIONAL: No fevers, chills. PULMONARY: trached CARDIOVASCULAR: No chest pain/palpitations GASTROINTESTINAL: No nausea/vomiting. GENITOURINARY: No hematuria/dysuria. MUSCULOSKELETAL: No myagias/arthalgias. PSYCHIATRIC: The patient denies depression. NEUROLOGIC: mIld generalized weakness Constitutional: alert Psych: no complaints Neck: other (trached) Respiratory: other (upper airway rhocherous sounds) Cardiovascular: regular rate and rhythm Gastrointestinal: non-tender, soft Musculoskeletal: muscle weakness (generalized) Extremities: edema (none) Neurological: other (No focal deficits) Results Result Diagram: 05/24/17 1911 05/24/17 0545 Results 24 hrs Laboratory Tests Test 05/24/17 14:20 05/24/17 17:21 05/24/17 19:11 05/24/17 19:15 Pathologist Review (Hematology) NO Body Fluid Type PLEURAL Body Fluid Volume 870.0 Body Fluid Color YELLOW Body Fluid Appearance CLOUDY Body Fluid WBC 99434 Body Fluid RBC (Auto) 6000 Body Fluid Polynuclear WBCs (%) 86.8 Body Fluid Mononuclear Cells % Auto 13.2 Body Fluid Glucose 73 Body Fluid Total Protein 4.0 Body Fluid Lactate Dehydrogenase 1189 Bedside Glucose 106 White Blood Count 14.6 H Red Blood Count 2.30 L Hemoglobin 6.7 *L Hematocrit 22.5 L Mean Corpuscular Volume 97.8 Mean Corpuscular Hemoglobin 29.1 Mean Corpuscular Hemoglobin Concent 29.8 L Red Cell Distribution Width 16.4 H Platelet Count 217 Mean Platelet Volume 9.3 Neutrophils % Segmented Neutrophils % (Manual) 90 H Band Neutrophils % (Manual) 3 Lymphocytes % Lymphocytes % (Manual) 3 L Monocytes % Monocytes % (Manual) 4 Eosinophils % Basophils % Nucleated Red Blood Cells % 0.0 Neutrophils # Neutrophils # (Manual) 13.2 H Band Neutrophils # 0.4 Absolute Lymphocytes (Manual) 0.4 L Lymphocytes # Monocytes # Absolute Monocytes (Manual) 0.5 Eosinophils # Basophils # Nucleated Red Blood Cells # Platelet Estimate NORMAL Poikilocytosis 1+ Troponin I 0.027 Thyroid Stimulating Hormone (TSH) 0.652 Test 05/25/17 00:22 Troponin I 0.105 Medications Medications Current Medications Acetaminophen (Tylenol Tab) 650 mg Q6H PRN GTB PAIN AND OR ELEVATED TEMP; Start 05/23/17 at 12:30 Ascorbic Acid (Vitamin C) 500 mg DAILY GTB Last administered on 05/24/17 09: 05; Admin Dose 500 MG; Start 05/24/17 at 09:00 Aspirin (Aspirin) 81 mg DAILY GTB Last administered on 05/24/17 09:00; Admin Dose 81 MG; Start 05/24/17 at 09:00 Atorvastatin Calcium (Lipitor) 40 mg QHS GTB Last administered on 05/24/17 20 :58; Admin Dose 40 MG; Start 05/23/17 at 21:00 Bisacodyl (Dulcolax Supp) 10 mg Q24H PRN [place] CONSTIPATION; Start 05/23/17 at 12 :30 Clonazepam (Klonopin) 0.5 mg QHS GTB Last administered on 05/24/17 20:58; Admin Dose 0.5 MG; Start 05/23/17 at 21:00 Docusate Sodium (Colace) 100 mg QHS PRN PO CONSTIPATION; Start 05/23/17 at 12: 30 Ethambutol HCl (Myambutol) 800 mg DAILY GTB Last administered on 05/24/17 09: 01; Admin Dose 800 MG; Start 05/24/17 at 09:00 Hyoscyamine (Levsin (Sl)) 0.125 mg Q4H PRN [place] EXCESIVE ORAL SECRETIONS; Start 05/23/17 at 13:00 Magnesium Hydroxide (Milk Of Mag) 30 ml Q24H PRN GTB CONSTIPATION; Start 05/23 at 12:30 Methocarbamol (Robaxin) 500 mg Q8 GTB Last administered on 05/25/17 06:02; Admin Dose 500 MG; Start 05/23/17 at 14:00 Metoprolol Tartrate (Lopressor) 25 mg BID GTB Last administered on 05/24/17 20:59; Admin Dose 25 MG; Start 05/23/17 at 21:00 Eye Lubricant (Akwa Oint) 1 applic DAILY PRN BOTH EYES DRY EYES; Start at 13:00 Pyrazinamide (Pyrazinamide) 1,000 mg DAILY GTB Last administered on 05/24/17 08:57; Admin Dose 1,000 MG; Start 05/24/17 at 09:00 Pyridoxine HCl (Vitamin B6) 50 mg DAILY GTB Last administered on 05/24/17 09: 01; Admin Dose 50 MG; Start 05/24/17 at 09:00 Quetiapine Fumarate (Seroquel) 50 mg HS GTB Last administered on 05/24/17 21: 14; Admin Dose 50 MG; Start 05/23/17 at 21:00 Rifabutin (Mycobutin) 300 mg BID GTB Last administered on 05/24/17 20:58; Admin Dose 300 MG; Start 05/23/17 at 21:00 Multivitamins 30 ml 30 ml DAILY GTB Last administered on 05/24/17 09:03; Admin Dose 30 ML; Start 05/24/17 at 09:00 Sodium Chloride (NS) 1,000 ml @ 100 mls/hr Q10H IV Last administered on 20:58; Admin Dose 100 MLS/HR; Start 05/23/17 at 12:33 Ondansetron HCl (Zofran Inj) 4 mg Q6H PRN IV NAUSEA AND/OR VOMITING Last administered on 05/23/17 22:48; Admin Dose 4 MG; Start 05/23/17 at 13:00 Nitroglycerin (Nitroglycerin (Sl Tab) 0.4 Mg) 1 tab Q5M PRN SL CHEST PAIN; Start 05/23/17 at 13:00 Acetaminophen/ Hydrocodone Bitart 1 tab 1 tab Q6H PRN GTB PAIN LEVEL 4-6 Last administered on 05/23/17 22:13; Admin Dose 1 TAB; Start 05/23/17 at 13:00 Metronidazole (Flagyl 500 Mg (Pmx)) 100 ml @ 100 mls/hr Q8 IVPB Last administered on 05/25/17 06:02; Admin Dose 100 MLS/HR; Start 05/23/17 at 14: 00 Ferrous Sulfate (Feosol Liquid Cup) 300 mg TID GTB Last administered on 20:58; Admin Dose 300 MG; Start 05/23/17 at 17:00 Lorazepam 1 mg 1 mg Q4H PRN IV anxiety Last administered on 05/24/17 13:15; Admin Dose 1 MG; Start 05/24/17 at 13:11 Ferric Sodium Gluconate Complex 125 mg/Sodium Chloride 110 ml @ 100 mls/hr Q24H IVPB Last administered on 05/24/17 20:58; Admin Dose 100 MLS/HR; Start 05/24/17 at 17:00; Stop 05/26/17 at 18:05 Cefepime HCl (Maxipime 1gm/50 ml (Pmx)) 50 ml @ 100 mls/hr Q24H IVPB ; Start 05/25/17 at 09:00 Enoxaparin Sodium (Lovenox) 30 mg DAILY SC ; Start 05/25/17 at 09:00 Famotidine (Pepcid) 20 mg DAILY GTB ; Start 05/25/17 at 09:00 Mineral Oil 133 ml 133 ml Q48H PRN [place] constipation; Start 05/26/17 at 09:00 Phenylephrine HCl 250 ml @ 75 mls/hr TITRATE IV ; Start 05/24/17 at 18:30 Amiodarone HCl/ Dextrose (Cordarone Iv/ D5W) 500 ml @ 0 mls/hr Q0M IV Last administered on 05/24/17t 19:19; Admin Dose 33.4 MLS/HR; Start 05/24/17 at 19: 00 Morphine Sulfate (morphine) 1 mg Q4H PRN IV PAIN LEVEL 4-6; Start 05/24/17 at 19:00 CHRISSIE YADAV 17, 2017 09:16
[2017-05-25] MEDS: ETHAMBUTOL 400 MG TAB GTB SCH (10:03)
[2017-05-25] MEDS: PYRIDOXINE 50 MG TAB GTB SCH (10:03)
[2017-05-25] MEDS: ASCORBIC ACID 500 MG TAB GTB SCH (10:05)
[2017-05-25] MEDS: ASPIRIN 81 MG TAB GTB SCH (10:05)
[2017-05-25] MEDS: FAMOTIDINE 20 MG TAB GTB SCH (10:05)
[2017-05-25] MEDS: MULTIVITAMINS 30 ML CUP GTB SCH (10:06)
[2017-05-25] MEDS: FERROUS SULFATE 60 MG/ML 5ML CUP GTB SCH ×3 (10:06→20:48)
[2017-05-25] MEDS: METOPROLOL 25 MG TAB GTB SCH ×2 (10:07→20:49)
[2017-05-25] MEDS: RIFABUTIN 150 MG CAP GTB SCH ×2 (10:07→20:48)
[2017-05-25] MEDS: CEFEPIME 1GM/50 ML (PMX) 50 ML IVPB SCH (10:14)
--- NOTE | 2017-05-25 10:29 | CONS ---
Date/Time of Note Date/Time of Note DATE: 05/25/17 TIME: 10:21 Consult Date/Type/Reason Admit Date/Time May 23, 2017 at 11:33 Type of Consultation: Pulmonary Ordering Provider: NAOMIE VAUGHN MD Subjective Patient transferred to intensive care yesterday following thoracentesis experienced atrial fibrillation with rapid ventricular rate and hemodynamic compromise. Required adenosine and then cardioversion. Now hemodynamically stable. Objective Vital Signs Date Time Temp Pulse Resp B/P Pulse Ox O2 Delivery O2 Flow Rate FiO2 05/25/17 08:55 73 17 100 35 05/25/17 06:00 112/52 Mechanical Ventilator 05/25/17 03:59 98.5 Intake and Output 05/24/17 05/24/17 05/25/17 14:59 22:59 06:59 Intake Total 550.2 ml 833.2 ml Output Total 700 ml 650 ml Balance -149.8 ml 183.2 ml Exam PHYSICAL EXAMINATION GENERAL: Elderly lady on mechanical ventilation via tracheostomy. VITAL SIGNS: see below. HEENT: Pupils equal, round, and reactive to light. Tracheostomy site clean and intact. CARDIAC: S1, S2, 1/6 systolic ejection murmur CHEST: Diminished air entry bilaterally. ABDOMEN: Mildly distended. Bowel sounds present no guarding or rebound EXTREMITIES: No cyanosis, clubbing edema +1 NEUROLOGIC: Generalized weakness Results/Medications Result Diagram: 05/24/17 1911 05/24/17 0545 Results 24 hrs Laboratory Tests Test 05/24/17 14:20 05/24/17 17:21 05/24/17 19:11 05/24/17 19:15 Pathologist Review (Hematology) NO Body Fluid Type PLEURAL Body Fluid Volume 870.0 Body Fluid Color YELLOW Body Fluid Appearance CLOUDY Body Fluid WBC 90104 Body Fluid RBC (Auto) 6000 Body Fluid Polynuclear WBCs (%) 86.8 Body Fluid Mononuclear Cells % Auto 13.2 Body Fluid Glucose 73 Body Fluid Total Protein 4.0 Body Fluid Lactate Dehydrogenase 1189 Bedside Glucose 106 White Blood Count 14.6 H Red Blood Count 2.30 L Hemoglobin 6.7 *L Hematocrit 22.5 L Mean Corpuscular Volume 97.8 Mean Corpuscular Hemoglobin 29.1 Mean Corpuscular Hemoglobin Concent 29.8 L Red Cell Distribution Width 16.4 H Platelet Count 217 Mean Platelet Volume 9.3 Neutrophils % Segmented Neutrophils % (Manual) 90 H Band Neutrophils % (Manual) 3 Lymphocytes % Lymphocytes % (Manual) 3 L Monocytes % Monocytes % (Manual) 4 Eosinophils % Basophils % Nucleated Red Blood Cells % 0.0 Neutrophils # Neutrophils # (Manual) 13.2 H Band Neutrophils # 0.4 Absolute Lymphocytes (Manual) 0.4 L Lymphocytes # Monocytes # Absolute Monocytes (Manual) 0.5 Eosinophils # Basophils # Nucleated Red Blood Cells # Platelet Estimate NORMAL Poikilocytosis 1+ Troponin I 0.027 Thyroid Stimulating Hormone (TSH) 0.652 Test 05/25/17 00:22 Troponin I 0.105 Medications Current Medications Acetaminophen (Tylenol Tab) 650 mg Q6H PRN GTB PAIN AND OR ELEVATED TEMP; Start 05/23/17 at 12:30 Ascorbic Acid (Vitamin C) 500 mg DAILY GTB Last administered on 05/25/17 10: 05; Admin Dose 500 MG; Start 05/24/17 at 09:00 Aspirin (Aspirin) 81 mg DAILY GTB Last administered on 05/25/17 10:05; Admin Dose 81 MG; Start 05/24/17 at 09:00 Atorvastatin Calcium (Lipitor) 40 mg QHS GTB Last administered on 05/24/17 20 :58; Admin Dose 40 MG; Start 05/23/17 at 21:00 Bisacodyl (Dulcolax Supp) 10 mg Q24H PRN [place] CONSTIPATION; Start 05/23/17 at 12 :30 Clonazepam (Klonopin) 0.5 mg QHS GTB Last administered on 05/24/17 20:58; Admin Dose 0.5 MG; Start 05/23/17 at 21:00 Docusate Sodium (Colace) 100 mg QHS PRN PO CONSTIPATION; Start 05/23/17 at 12: 30 Ethambutol HCl (Myambutol) 800 mg DAILY GTB Last administered on 05/25/17 10: 03; Admin Dose 800 MG; Start 05/24/17 at 09:00 Hyoscyamine (Levsin (Sl)) 0.125 mg Q4H PRN SL EXCESIVE ORAL SECRETIONS; Start 05/23/17 at 13:00 Magnesium Hydroxide (Milk Of Mag) 30 ml Q24H PRN GTB CONSTIPATION; Start 05/23 at 12:30 Methocarbamol (Robaxin) 500 mg Q8 GTB Last administered on 05/25/17 06:02; Admin Dose 500 MG; Start 05/23/17 at 14:00 Metoprolol Tartrate (Lopressor) 25 mg BID GTB Last administered on 05/25/17 10:07; Admin Dose 25 MG; Start 05/23/17 at 21:00 Eye Lubricant (Akwa Oint) 1 applic DAILY PRN BOTH EYES DRY EYES; Start at 13:00 Pyrazinamide (Pyrazinamide) 1,000 mg DAILY GTB Last administered on 05/24/17 08:57; Admin Dose 1,000 MG; Start 05/24/17 at 09:00 Pyridoxine HCl (Vitamin B6) 50 mg DAILY GTB Last administered on 05/25/17 10: 03; Admin Dose 50 MG; Start 05/24/17 at 09:00 Quetiapine Fumarate (Seroquel) 50 mg HS GTB Last administered on 05/24/17 21: 14; Admin Dose 50 MG; Start 05/23/17 at 21:00 Rifabutin (Mycobutin) 300 mg BID GTB Last administered on 05/25/17 10:07; Admin Dose 300 MG; Start 05/23/17 at 21:00 Multivitamins 30 ml 30 ml DAILY GTB Last administered on 05/25/17 10:06; Admin Dose 30 ML; Start 05/24/17 at 09:00 Sodium Chloride (NS) 1,000 ml @ 100 mls/hr Q10H IV Last administered on 20:58; Admin Dose 100 MLS/HR; Start 05/23/17 at 12:33 Ondansetron HCl (Zofran Inj) 4 mg Q6H PRN IV NAUSEA AND/OR VOMITING Last administered on 05/23/17 22:48; Admin Dose 4 MG; Start 05/23/17 at 13:00 Nitroglycerin (Nitroglycerin (Sl Tab) 0.4 Mg) 1 tab Q5M PRN SL CHEST PAIN; Start 05/23/17 at 13:00 Acetaminophen/ Hydrocodone Bitart 1 tab 1 tab Q6H PRN GTB PAIN LEVEL 4-6 Last administered on 05/23/17 22:13; Admin Dose 1 TAB; Start 05/23/17 at 13:00 Metronidazole (Flagyl 500 Mg (Pmx)) 100 ml @ 100 mls/hr Q8 IVPB Last administered on 05/25/17 06:02; Admin Dose 100 MLS/HR; Start 05/23/17 at 14: 00 Ferrous Sulfate (Feosol Liquid Cup) 300 mg TID GTB Last administered on 10:06; Admin Dose 300 MG; Start 05/23/17 at 17:00 Lorazepam 1 mg 1 mg Q4H PRN IV anxiety Last administered on 05/24/17 13:15; Admin Dose 1 MG; Start 05/24/17 at 13:11 Ferric Sodium Gluconate Complex 125 mg/Sodium Chloride 110 ml @ 100 mls/hr Q24H IVPB Last administered on 05/24/17 20:58; Admin Dose 100 MLS/HR; Start 05/24/17 at 17:00; Stop 05/26/17 at 18:05 Cefepime HCl (Maxipime 1gm/50 ml (Pmx)) 50 ml @ 100 mls/hr Q24H IVPB Last administered on 05/25/17 10:14; Admin Dose 100 MLS/HR; Start 05/25/17 at 09: 00 Enoxaparin Sodium (Lovenox) 30 mg DAILY SC ; Start 05/25/17 at 09:00 Famotidine (Pepcid) 20 mg DAILY GTB Last administered on 05/25/17 10:05; Admin Dose 20 MG; Start 05/25/17 at 09:00 Mineral Oil 133 ml 133 ml Q48H PRN [place] constipation; Start 05/26/17 at 09:00 Phenylephrine HCl 250 ml @ 75 mls/hr TITRATE IV ; Start 05/24/17 at 18:30 Amiodarone HCl/ Dextrose (Cordarone Iv/ D5W) 500 ml @ 0 mls/hr Q0M IV Last administered on 05/24/17 19:19; Admin Dose 33.4 MLS/HR; Start 05/24/17 at 19: 00 Morphine Sulfate (morphine) 1 mg Q4H PRN IV PAIN LEVEL 4-6; Start 05/24/17 at 19:00 Amiodarone HCl (Cordarone) 200 mg BID PO ; Start 05/25/17 at 21:00 Assessment/Plan Chief Complaint/Hosp Course Assessment: 1. Hx MTB 2. VDRF 3. Recurrent pleural effusions. 4. Dysphagia with PEG. 5. Anemia. 6. A. fib with RVR. Now on amiodarone drip. Plan: 1. Thoracentesis studies pending. 2. Continue MTB abx 3. w/u anemia status post transfusion 2 units packed red blood cells, 4. Continue TF. 5. Amiodarone per cardiology. Transfer to [place] next week. Problems: ISABEL MANCERA MD, [facility] May 25, 2017 10:29
[2017-05-25] MEDS: ENOXAPARIN 30 MG/0.3 ML SYG SC SCH (10:33)
[2017-05-25] MEDS: PYRAZINAMIDE 500 MG TAB GTB SCH (10:37)
[2017-05-25 10:38] LABS: BASOPHILS % 0.2 % (0.0-2.0); EOSINOPHILS # 0.1 10^3/ul (0.0-0.5); EOSINOPHILS % 0.4 % (0.0-7.0); HEMATOCRIT 32.2 % (37.0-47.0); HEMOGLOBIN 10.2 g/dl (12.0-16.0); LYMPHOCYTES # 1.2 10^3/ul (0.8-2.9); LYMPHOCYTES % 9.5 % (15.0-51.0); MEAN CORPUSCULAR HEMOGLOBIN 30.1 pg (29.0-33.0); MEAN CORPUSCULAR HGB CONC 31.7 g/dl (32.0-37.0); MEAN PLATELET VOLUME 9.7 fl (7.4-10.4); NEUTROPHIL # 10.4 10^3/ul (1.6-7.5); NEUTROPHILS % 81.2 % (39.0-77.0); PLATELET COUNT 224 10^3/UL (140-415); RED BLOOD COUNT 3.39 10^6/ul (4.20-5.40); RED CELL DISTRIBUTION WIDTH 15.5 % (11.5-14.5); WHITE BLOOD COUNT 12.8 10^3/ul (4.8-10.8)
[2017-05-25 11:11] LABS: ALBUMIN 2.5 g/dl (3.3-4.9); CALCIUM 8.8 mg/dl (8.4-10.2); CREATININE 0.47 mg/dl (0.44-1.00); MAGNESIUM 1.9 mg/dl (1.7-2.5); PHOSPHORUS 2.9 mg/dl (2.5-4.9); POTASSIUM 4.1 mmol/L (3.5-5.1)
--- NOTE | 2017-05-25 13:19 | RADRPT ---
Vent Rate: 59 bpm RR Interval: 0 msec ND Interval: 130 msec QRS Duration: 84 msec QT Interval: 412 msec QTC Interval: 407 msec P-R-T [place]: 60 - 81 - [address] amp; T wave abnormality, consider anterior ischemia Abnormal ECG Electronically Signed By: Heriberto Julio [id number]
--- NOTE | 2017-05-25 14:12 | PN ---
DATE: 05/25/2017 SUBJECTIVE: The patient developed rapid heart rate after thoracentesis last night. Was transferred to ICU, cardioverted and started on amiodarone. Currently, heart rate controlled. LABORATORY: Her white blood cell count today is 12.8, H and H 10.2 and 32.2, platelets 224, neutrop hils 81.2. BUN 23, creatinine 0.47. MICROBIOLOGY: Blood culture grew Serratia, susceptible to all antibiotics. Aspirated fluid culture s from the lung are preliminary negative. Of note, cytology of the fluid culture revealed cloudy ye llow appearance with white blood cell count of 10,818. LDH 1189. INDWELLINGS: Trach, PEG, peripheral IV. ANTIMICROBIALS: The patient remains on cefepime and anti-TB drugs. She is also on IV Flagyl. PHYSICAL EXAMINATION: GENERAL: This is a chronically ill-appearing, fragile, elderly woman who is awake, in no distress. HEENT: Head atraumatic, normocephalic. Sclerae anicteric. Buccal mucosa dry. NECK: Supple. CHEST: Rise symmetrical. Breath sounds diminished to bases. HEART: S1, S2. ABDOMEN: Soft, bowel tones present. EXTREMITIES: Without cyanosis. ASSESSMENT: 1. Status post rapid atrial fibrillation, patient is cardioverted. 2. Bacteremia with blood culture since admission grew Serratia. 3. 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 [facility] on case. 4. Pleural effusion, status post thoracentesis with pleural fluid cultures pending. 5. Questionable gastroenteritis per CT of the abdomen. 6. Dysphagia. 7. Anemia. PLAN: The patient remains stable. Continue present care. Continue on current antibiotics. Await for final pleural fluid cultures. Await for repeat blood cultures and urine culture. Dictated By: BRIA SAL [employer]PORATE LAW ASSISTANT for HEATHER COOPER MD NI/NTS Conf#: [id number] DID#: [id number] CC: ANNE JAMESON MD;*EndCC*
[2017-05-25] MEDS: SOD FERRIC GLUC COMPLX 125 MG in SOD CHLORIDE 0.9% 100 ML IVPB SCH (17:49)
[2017-05-25] MEDS: AMIODARONE 200 MG TAB PO SCH (20:48)
[2017-05-25] MEDS: clonAZEPAM 0.5 MG TAB GTB SCH (20:48)
[2017-05-25] MEDS: QUETIAPINE 25 MG TAB GTB SCH (20:48)
[2017-05-25] MEDS: ATORVASTATIN 40 MG TAB GTB SCH (20:48)
[2017-05-26] VITALS (37 sets, daily range): BP systolic 95–138; BP diastolic 43–81; PULSE 67–151; RESP 16–26
[2017-05-26] MEDS: SOD CHLORIDE 0.9% 1,000 ML IV SCH (04:05)
[2017-05-26] MEDS: metroNIDAZOLE 500 MG/NS (PMX) 100 ML IVPB SCH (05:46)
[2017-05-26] MEDS: METHOCARBAMOL 500 MG TAB GTB SCH ×3 (05:46→22:48)
[2017-05-26 06:25] LABS: BASOPHILS % 0.3 % (0.0-2.0); EOSINOPHILS # 0.1 10^3/ul (0.0-0.5); EOSINOPHILS % 0.8 % (0.0-7.0); HEMATOCRIT 33.6 % (37.0-47.0); HEMOGLOBIN 10.4 g/dl (12.0-16.0); LYMPHOCYTES # 1.9 10^3/ul (0.8-2.9); LYMPHOCYTES % 12.5 % (15.0-51.0); MEAN CORPUSCULAR HEMOGLOBIN 29.6 pg (29.0-33.0); MEAN CORPUSCULAR VOLUME 95.7 fl (82.0-101.0); MEAN PLATELET VOLUME 9.1 fl (7.4-10.4); MONOCYTE # 1.3 10^3/ul (0.3-0.9); MONOCYTES % 8.2 % (0.0-11.0); NEUTROPHIL # 11.8 10^3/ul (1.6-7.5); NEUTROPHILS % 77.3 % (39.0-77.0); PLATELET COUNT 249 10^3/UL (140-415); RED BLOOD COUNT 3.51 10^6/ul (4.20-5.40); RED CELL DISTRIBUTION WIDTH 16.2 % (11.5-14.5); WHITE BLOOD COUNT 15.3 10^3/ul (4.8-10.8)
[2017-05-26] MEDS: LEVOTHYROXINE 100 MCG TAB GTB SCH (06:36)
[2017-05-26 07:39] LABS: ALBUMIN 2.7 g/dl (3.3-4.9); CALCIUM 8.8 mg/dl (8.4-10.2); CREATININE 0.48 mg/dl (0.44-1.00); MAGNESIUM 1.9 mg/dl (1.7-2.5); PHOSPHORUS 2.8 mg/dl (2.5-4.9); POTASSIUM 3.7 mmol/L (3.5-5.1)
[2017-05-26] MEDS ORDERED: MINERAL OIL 133 ML ENEMA PR PRN (09:00)
--- NOTE | 2017-05-26 10:00 | RADRPT ---
PROCEDURE: XR Abdomen. CLINICAL INDICATION: Constipation. TECHNIQUE: AP abdomen x-ray. COMPARISON: Correlation with CT 05/23/2017. FINDINGS: There is a nonspecific bowel gas pattern without evidence of obstruction. Multiple air filled loops of small and large bowel are noted. Gastrostomy tube projecting over the left upper mid abdomen. Free intraperitoneal air cannot be entirely excluded on non-upright radiographs. There are multilevel degenerative changes of the imaged spine. There is no acute osseous abnormality. There are small bilateral pleural effusions with bilateral lower lobe air space opacities. IMPRESSION: 1. Multiple air filled loops of small and large bowel without evidence of obstruction. 2. Gastrostomy tube projecting over the left upper mid abdomen. 3. Small bilateral pleural effusions with bilateral lower lobe air space opacities. RPTAT: [facility] Matthew Burkett Physician Date Time Electronically viewed and signed by Matthew Burkett Physician on 05/26/2017 09:59 PH/
[2017-05-26] MEDS: CEFEPIME 1GM/50 ML (PMX) 50 ML IVPB SCH (10:24)
[2017-05-26] MEDS: FERROUS SULFATE 60 MG/ML 5ML CUP GTB SCH ×3 (10:25→22:06)
[2017-05-26] MEDS: MULTIVITAMINS 30 ML CUP GTB SCH (10:25)
[2017-05-26] MEDS: RIFABUTIN 150 MG CAP GTB SCH ×2 (10:25→22:48)
[2017-05-26] MEDS: METOPROLOL 25 MG TAB GTB SCH ×2 (10:25→22:08)
[2017-05-26] MEDS: ASCORBIC ACID 500 MG TAB GTB SCH (10:25)
[2017-05-26] MEDS: PYRIDOXINE 50 MG TAB GTB SCH (10:26)
[2017-05-26] MEDS: FAMOTIDINE 20 MG TAB GTB SCH (10:26)
[2017-05-26] MEDS: ASPIRIN 81 MG TAB GTB SCH (10:26)
[2017-05-26] MEDS: AMIODARONE 200 MG TAB PO SCH ×2 (10:26→22:08)
[2017-05-26] MEDS: PYRAZINAMIDE 500 MG TAB GTB SCH (10:26)
[2017-05-26] MEDS: ETHAMBUTOL 400 MG TAB GTB SCH (10:26)
[2017-05-26] MEDS: ENOXAPARIN 30 MG/0.3 ML SYG SC SCH (10:33)
[2017-05-26] MEDS: DEXTROSE 5%-0.45% NACL 1,000 ML IV SCH (10:35)
--- NOTE | 2017-05-26 10:55 | CONS ---
Date/Time of Note Date/Time of Note DATE: 05/26/17 TIME: 10:52 Assessment/Plan Assessment/Plan Additional Assessment/Plan Ventilator setting; AC of 16, tidal volume 350, PEEP of 5, 35% FiO2. Next Assessment and recommendations; 1. Patient admitted to ICU for cardioversion after undergoing thoracentesis with ensuing atrial fibrillation with RVR. Currently in sinus rhythm. 2. Chronic respiratory failure. 3. History of Mycobacterium tuberculosis pneumonia. Currently on antituberculous medications. 4. Hypothyroidism. 5. History of hypertension. 6. History of anemia. 7. Gram-positive bacteremia. Continue current supportive care. Consider transfer to telemetry unit. Consultation Date/Type/Reason Admit Date/Time May 23, 2017 at 11:33 Initial Consult Date Type of Consultation: Pulmonary Referring Provider: NAOMIE VAUGHN MD 24 HR Interval Summary Free Text/Dictation Patient's condition is stable. Remains awake and alert. Patient has remained in sinus rhythm. Has remained hemodynamically stable. General exam; elderly male, on ventilator via tracheostomy, awake and alert. Currently in no distress. Exam/Review of Systems Vital Signs Vitals Vital Signs Date Time Temp Pulse Resp B/P Pulse Ox O2 Delivery O2 Flow Rate FiO2 05/26/17 09:00 94 26 125/59 94 Mechanical Ventilator 05/26/17 08:00 98.5 05/26/17 08:00 35 Intake and Output 05/25/17 05/25/17 05/26/17 14:59 22:59 06:59 Intake Total 1082.8 ml 993.8 ml 700 ml Output Total 270 ml 260 ml 320 ml Balance 812.8 ml 733.8 ml 380 ml Exam HEENT exam; supple neck, no JVD. No lymphadenopathy. Midline trachea. No thyromegaly. Patient has fair dentition. Has bilateral intraocular lens implants. Tracheostomy in place. Insertion site is clean. Chest exam; clear to auscultation. S1-S2 audible, no murmurs. Regular rhythm. Abdomen exam; soft, nondistended. No organomegaly. Bowel sounds audible. Extremity exam; no edema. No clubbing. Pulses 1+ bilaterally. SENIOR EDITOR exam; no focal motor deficit. Results Result Diagram: 05/26/17 0607 05/26/17 0607 Results 24 hrs Laboratory Tests Test 05/26/17 04:53 05/26/17 06:07 Lab Scanned Report BLOOD TRANSFUSION White Blood Count 15.3 H Red Blood Count 3.51 L Hemoglobin 10.4 L Hematocrit 33.6 L Mean Corpuscular Volume 95.7 Mean Corpuscular Hemoglobin 29.6 Mean Corpuscular Hemoglobin Concent 31.0 L Red Cell Distribution Width 16.2 H Platelet Count 249 Mean Platelet Volume 9.1 Neutrophils % 77.3 H Lymphocytes % 12.5 L Monocytes % 8.2 Eosinophils % 0.8 Basophils % 0.3 Nucleated Red Blood Cells % 0.0 Neutrophils # 11.8 H Lymphocytes # 1.9 Monocytes # 1.3 H Eosinophils # 0.1 Basophils # 0.0 Nucleated Red Blood Cells # 0.0 Sodium Level 147 H Potassium Level 3.7 Chloride Level 111 H Carbon Dioxide Level 25 Anion Gap 15 Blood Urea Nitrogen 18 Creatinine 0.48 Glucose Level 72 Calcium Level 8.8 Phosphorus Level 2.8 Magnesium Level 1.9 Albumin 2.7 L Medications Medications Current Medications Acetaminophen (Tylenol Tab) 650 mg Q6H PRN GTB PAIN AND OR ELEVATED TEMP; Start 05/23/17 at 12:30 Ascorbic Acid (Vitamin C) 500 mg DAILY GTB Last administered on 05/26/17 10: 25; Admin Dose 500 MG; Start 05/24/17 at 09:00 Aspirin (Aspirin) 81 mg DAILY GTB Last administered on 05/26/17 10:26; Admin Dose 81 MG; Start 05/24/17 at 09:00 Atorvastatin Calcium (Lipitor) 40 mg QHS GTB Last administered on 05/25/17 20 :48; Admin Dose 40 MG; Start 05/23/17 at 21:00 Bisacodyl (Dulcolax Supp) 10 mg Q24H PRN [place] CONSTIPATION; Start 05/23/17 at 12 :30 Clonazepam (Klonopin) 0.5 mg QHS GTB Last administered on 05/25/17 20:48; Admin Dose 0.5 MG; Start 05/23/17 at 21:00 Docusate Sodium (Colace) 100 mg QHS PRN PO CONSTIPATION; Start 05/23/17 at 12: 30 Ethambutol HCl (Myambutol) 800 mg DAILY GTB Last administered on 05/26/17 10: 26; Admin Dose 800 MG; Start 05/24/17 at 09:00 Hyoscyamine (Levsin (Sl)) 0.125 mg Q4H PRN SL EXCESIVE ORAL SECRETIONS; Start 05/23/17 at 13:00 Magnesium Hydroxide (Milk Of Mag) 30 ml Q24H PRN GTB CONSTIPATION; Start 05/23 at 12:30 Methocarbamol (Robaxin) 500 mg Q8 GTB Last administered on 05/26/17 05:46; Admin Dose 500 MG; Start 05/23/17 at 14:00 Metoprolol Tartrate (Lopressor) 25 mg BID GTB Last administered on 05/26/17 10:25; Admin Dose 25 MG; Start 05/23/17 at 21:00 Eye Lubricant (Akwa Oint) 1 applic DAILY PRN BOTH EYES DRY EYES; Start at 13:00 Pyrazinamide (Pyrazinamide) 1,000 mg DAILY GTB Last administered on 05/26/17 10:26; Admin Dose 1,000 MG; Start 05/24/17 at 09:00 Pyridoxine HCl (Vitamin B6) 50 mg DAILY GTB Last administered on 05/26/17 10: 26; Admin Dose 50 MG; Start 05/24/17 at 09:00 Quetiapine Fumarate (Seroquel) 50 mg HS GTB Last administered on 05/25/17 20: 48; Admin Dose 50 MG; Start 05/23/17 at 21:00 Rifabutin (Mycobutin) 300 mg BID GTB Last administered on 05/26/17 10:25; Admin Dose 300 MG; Start 05/23/17 at 21:00 Multivitamins (Multivitamin) 30 ml DAILY GTB Last administered on 05/26/17 10 :25; Admin Dose 30 ML; Start 05/24/17 at 09:00 Ondansetron HCl (Zofran Inj) 4 mg Q6H PRN IV NAUSEA AND/OR VOMITING Last administered on 05/23/17 22:48; Admin Dose 4 MG; Start 05/23/17 at 13:00 Nitroglycerin (Nitroglycerin (Sl Tab) 0.4 Mg) 1 tab Q5M PRN SL CHEST PAIN; Start 05/23/17 at 13:00 Acetaminophen/ Hydrocodone Bitart 1 tab 1 tab Q6H PRN GTB PAIN LEVEL 4-6 Last administered on 05/23/17 22:13; Admin Dose 1 TAB; Start 05/23/17 at 13:00 Metronidazole (Flagyl 500 Mg (Pmx)) 100 ml @ 100 mls/hr Q8 IVPB Last administered on 05/26/17 05:46; Admin Dose 100 MLS/HR; Start 05/23/17 at 14: 00 Ferrous Sulfate (Feosol Liquid Cup) 300 mg TID GTB Last administered on 10:25; Admin Dose 300 MG; Start 05/23/17 at 17:00 Lorazepam 1 mg 1 mg Q4H PRN IV anxiety Last administered on 05/24/17 13:15; Admin Dose 1 MG; Start 05/24/17 at 13:11 Ferric Sodium Gluconate Complex 125 mg/Sodium Chloride 110 ml @ 100 mls/hr Q24H IVPB Last administered on 05/25/17 17:49; Admin Dose 100 MLS/HR; Start 05/24/17 at 17:00; Stop 05/26/17 at 18:05 Cefepime HCl (Maxipime 1gm/50 ml (Pmx)) 50 ml @ 100 mls/hr Q24H IVPB Last administered on 05/26/17 10:24; Admin Dose 100 MLS/HR; Start 05/25/17 at 09: 00 Enoxaparin Sodium (Lovenox) 30 mg DAILY SC Last administered on 05/26/17 10: 33; Admin Dose 30 MG; Start 05/25/17 at 09:00 Famotidine (Pepcid) 20 mg DAILY GTB Last administered on 05/26/17 10:26; Admin Dose 20 MG; Start 05/25/17 at 09:00 Mineral Oil 133 ml 133 ml Q48H PRN [place] constipation; Start 05/26/17 at 09:00 Amiodarone HCl/ Dextrose (Cordarone Iv/ D5W) 500 ml @ 0 mls/hr Q0M IV Last administered on 05/24/17 19:19; Admin Dose 33.4 MLS/HR; Start 05/24/17 at 19: 00 Morphine Sulfate (morphine) 1 mg Q4H PRN IV PAIN LEVEL 4-6 Last administered on 05/25/17 17:57; Admin Dose 1 MG; Start 05/24/17 at 19:00 Amiodarone HCl 200 mg 200 mg BID PO Last administered on 05/26/17 10:26; Admin Dose 200 MG; Start 05/25/17 at 21:00 Dextrose/Sodium Chloride (D5-1/2ns) 1,000 ml @ 60 mls/hr [id number] IV Last administered on 05/26/17 10:35; Admin Dose 60 MLS/HR; Start 05/26/17 at 09:00 CORTEZ GUTIERREZ May 26, 2017 10:55
--- NOTE | 2017-05-26 11:34 | CONS ---
Date/Time of Note Date/Time of Note DATE: 05/26/17 TIME: 11:34 Assessment/Plan Assessment/Plan Chief Complaint/Hosp Course ID PROGRESS NOTE CURRENT ABX: TOTAL ABX DAY # 4=>Zosyn IV + Ethambutol + Pyrazinamide + B6 s/p Vanco IV + Cefepime 05/23 24H INTERVAL SUMMARY * a/a/ responsive, sitting up leaning over right side bed rail, tells me she is OK, denies pain, afebrile, VSS, NAD, no new c/o, no new issues * CHART REVIEWED: See vitals, labs as per below. * MICROBIOLOGY: Blood culture grew Serratia, susceptible to all antibiotics. Aspirated fluid cultures from the lung are preliminary negative. Of note, cytology of the fluid culture revealed cloudy yellow appearance with white blood cell count of 10,818. LDH 1189. 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 Status post rapid atrial fibrillation, patient is cardioverted. 2. Bacteremia with blood culture since admission grew Serratia. 3. 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 [facility] on case. * Rx: Ethambutol + Pyrazinamide + B6 4. Pleural effusion, status post thoracentesis with pleural fluid cultures pending. 5. Questionable gastroenteritis per CT of the abdomen. 6. Dysphagia. 7. Anemia. ( -)MRSA ABX ALLERGIES: None to ABX INVASIVES: PIV Trach, PEG CURRENT ABX: TOTAL ABX DAY # 4=>Zosyn IV + Ethambutol + Pyrazinamide + B6 s/p Vanco IV + Cefepime 05/23 ID RECOMMENDATIONS/PLAN: 1. Continue current ABX over the weekend 2. ID team consultants will continue to follow . Problems: Consultation Date/Type/Reason Admit Date/Time May 23, 2017 at 11:33 Initial Consult Date Referring Provider: NAOMIE VAUGHN MD Exam/Review of Systems Vital Signs Vitals Vital Signs Date Time Temp Pulse Resp B/P Pulse Ox O2 Delivery O2 Flow Rate FiO2 05/26/17 11:00 86 16 109/61 93 Mechanical Ventilator 05/26/17 08:00 98.5 05/26/17 08:00 35 Intake and Output 05/25/17 05/25/17 05/26/17 15:00 23:00 07:00 Intake Total 1082.8 ml 977.2 ml 800 ml Output Total 270 ml 300 ml 280 ml Balance 812.8 ml 677.2 ml 520 ml Results Result Diagram: 05/26/17 0607 05/26/17 0607 Results 24 hrs Laboratory Tests Test 05/26/17 04:53 05/26/17 06:07 Lab Scanned Report BLOOD TRANSFUSION White Blood Count 15.3 H Red Blood Count 3.51 L Hemoglobin 10.4 L Hematocrit 33.6 L Mean Corpuscular Volume 95.7 Mean Corpuscular Hemoglobin 29.6 Mean Corpuscular Hemoglobin Concent 31.0 L Red Cell Distribution Width 16.2 H Platelet Count 249 Mean Platelet Volume 9.1 Neutrophils % 77.3 H Lymphocytes % 12.5 L Monocytes % 8.2 Eosinophils % 0.8 Basophils % 0.3 Nucleated Red Blood Cells % 0.0 Neutrophils # 11.8 H Lymphocytes # 1.9 Monocytes # 1.3 H Eosinophils # 0.1 Basophils # 0.0 Nucleated Red Blood Cells # 0.0 Sodium Level 147 H Potassium Level 3.7 Chloride Level 111 H Carbon Dioxide Level 25 Anion Gap 15 Blood Urea Nitrogen 18 Creatinine 0.48 Glucose Level 72 Calcium Level 8.8 Phosphorus Level 2.8 Magnesium Level 1.9 Albumin 2.7 L Medications Medications Current Medications Acetaminophen (Tylenol Tab) 650 mg Q6H PRN GTB PAIN AND OR ELEVATED TEMP; Start 05/23/17 at 12:30 Ascorbic Acid (Vitamin C) 500 mg DAILY GTB Last administered on 05/26/17 10: 25; Admin Dose 500 MG; Start 05/24/17 at 09:00 Aspirin (Aspirin) 81 mg DAILY GTB Last administered on 05/26/17 10:26; Admin Dose 81 MG; Start 05/24/17 at 09:00 Atorvastatin Calcium (Lipitor) 40 mg QHS GTB Last administered on 05/25/17 20 :48; Admin Dose 40 MG; Start 05/23/17 at 21:00 Bisacodyl (Dulcolax Supp) 10 mg Q24H PRN [place] CONSTIPATION; Start 05/23/17 at 12 :30 Clonazepam (Klonopin) 0.5 mg QHS GTB Last administered on 05/25/17 20:48; Admin Dose 0.5 MG; Start 05/23/17 at 21:00 Docusate Sodium (Colace) 100 mg QHS PRN PO CONSTIPATION; Start 05/23/17 at 12: 30 Ethambutol HCl (Myambutol) 800 mg DAILY GTB Last administered on 05/26/17 10: 26; Admin Dose 800 MG; Start 05/24/17 at 09:00 Hyoscyamine (Levsin (Sl)) 0.125 mg Q4H PRN SL EXCESIVE ORAL SECRETIONS; Start 05/23/17 at 13:00 Magnesium Hydroxide (Milk Of Mag) 30 ml Q24H PRN GTB CONSTIPATION; Start 05/23 at 12:30 Methocarbamol (Robaxin) 500 mg Q8 GTB Last administered on 05/26/17 05:46; Admin Dose 500 MG; Start 05/23/17 at 14:00 Metoprolol Tartrate (Lopressor) 25 mg BID GTB Last administered on 05/26/17 10:25; Admin Dose 25 MG; Start 05/23/17 at 21:00 Eye Lubricant (Akwa Oint) 1 applic DAILY PRN BOTH EYES DRY EYES; Start at 13:00 Pyrazinamide (Pyrazinamide) 1,000 mg DAILY GTB Last administered on 05/26/17 10:26; Admin Dose 1,000 MG; Start 05/24/17 at 09:00 Pyridoxine HCl (Vitamin B6) 50 mg DAILY GTB Last administered on 05/26/17 10: 26; Admin Dose 50 MG; Start 05/24/17 at 09:00 Quetiapine Fumarate (Seroquel) 50 mg HS GTB Last administered on 05/25/17 20: 48; Admin Dose 50 MG; Start 05/23/17 at 21:00 Rifabutin (Mycobutin) 300 mg BID GTB Last administered on 05/26/17 10:25; Admin Dose 300 MG; Start 05/23/17 at 21:00 Multivitamins (Multivitamin) 30 ml DAILY GTB Last administered on 05/26/17 10 :25; Admin Dose 30 ML; Start 05/24/17 at 09:00 Ondansetron HCl (Zofran Inj) 4 mg Q6H PRN IV NAUSEA AND/OR VOMITING Last administered on 05/23/17 22:48; Admin Dose 4 MG; Start 05/23/17 at 13:00 Nitroglycerin (Nitroglycerin (Sl Tab) 0.4 Mg) 1 tab Q5M PRN SL CHEST PAIN; Start 05/23/17 at 13:00 Acetaminophen/ Hydrocodone Bitart ([place] (5/325)) 1 tab Q6H PRN GTB PAIN LEVEL 4-6 Last administered on 05/23/17 22:13; Admin Dose 1 TAB; Start 05/23/17 at 13:00 Ferrous Sulfate (Feosol Liquid Cup) 300 mg TID GTB Last administered on 10:25; Admin Dose 300 MG; Start 05/23/17 at 17:00 Lorazepam 1 mg 1 mg Q4H PRN IV anxiety Last administered on 05/24/17 13:15; Admin Dose 1 MG; Start 05/24/17 at 13:11 Ferric Sodium Gluconate Complex/ Sodium Chloride (Ferrlecit/NS) 110 ml @ 100 mls/hr Q24H IVPB Last administered on 05/25/17 17:49; Admin Dose 100 MLS/HR; Start 05/24/17 at 17:00; Stop 05/26/17 at 18:05 Enoxaparin Sodium (Lovenox) 30 mg DAILY SC Last administered on 05/26/17 10: 33; Admin Dose 30 MG; Start 05/25/17 at 09:00 Famotidine (Pepcid) 20 mg DAILY GTB Last administered on 05/26/17 10:26; Admin Dose 20 MG; Start 05/25/17 at 09:00 Mineral Oil 133 ml 133 ml Q48H PRN [place] constipation; Start 05/26/17 at 09:00 Amiodarone HCl/ Dextrose (Cordarone Iv/ D5W) 500 ml @ 0 mls/hr Q0M IV Last administered on 05/24/17 19:19; Admin Dose 33.4 MLS/HR; Start 05/24/17 at 19: 00 Morphine Sulfate (morphine) 1 mg Q4H PRN IV PAIN LEVEL 4-6 Last administered on 05/25/17 17:57; Admin Dose 1 MG; Start 05/24/17 at 19:00 Amiodarone HCl 200 mg 200 mg BID PO Last administered on 05/26/17 10:26; Admin Dose 200 MG; Start 05/25/17 at 21:00 Dextrose/Sodium Chloride 1,000 ml @ 60 mls/hr [id number] IV Last administered on 05/26/17 10:35; Admin Dose 60 MLS/HR; Start 05/26/17 at 09:00 Piperacillin Sod/ Tazobactam Sod (Zosyn 2.25gm/ 50ml (Pmx)) 50 ml @ 100 mls/hr Q8 IVPB ; Start 05/26/17 at 11:30 WAYNE RICO NP May 26, 2017 11:34
[2017-05-26] MEDS: PIPER-TAZO 2.25 GM (PMX) 50 ML IVPB SCH ×2 (12:23→22:16)
--- NOTE | 2017-05-26 14:19 | PN ---
Date/Time of Note Date/Time of Note DATE: 05/26/17 TIME: 14:15 Assessment/Plan VTE Prophylaxis VTE Prophylaxis Intervention: SCD's Lines/Catheters IV Catheter Type (from Nrs): Saline Lock Urinary Cath still in place: Yes Reason Cath still needed: terminal illness/intractable pain Assessment/Plan Chief Complaint/Hosp Course Assessment/Plan 1. Rapid tachyarrhythmia- stable - Cardiology on board and consultation appreciated. Continue on Amiodarone - Started on PO Digoxin - Started on low dose BB as tolerated - ECHO results pending 2. Sepsis secondary to TB vs pneumonia vs gastroenteritis vs bacteremia - Patients WBC trending downward and remains afebrile - LA normalized - ID consultation placed and appreciated recommendations. Will continue on broad spectrum and await cultural results - continue on IVF 2. Bacteremia - Blood cultures growing Serratia - Repeat blood cultures negative - ID on board 3. Anemia - s/p 2PRBC with response to Hgb 10 - Iron levels <10 - Started on IV iron 4. Large right pleural effusion s/p thoracentesis - 1L removed and fluid studies sent. Appears to be exudative. Awaiting cultures - Pulmonology on board and recommendations appreciated -per pulm, loculations on CT appear free flowing, hold off on CT surgery. 5. Left lower lobe density - CT scan showed round fluid density structure within the superior segment left lower lobe measuring 2.9 x 2.7 cm 6. Infectious bronchiolitis 7. 10 x 8 mm right lower lobe nodule - Will need close follow up 8. Acute gastroenteritis - send stool studies - Dietary consult for tube feed recommendations 9. Disposition - Continue monitoring in ICU setting - Awaiting ECHO result and culture results >35 minutes of critical care time was spent with patient and family at bedside Problems: Subjective 24 Hr Interval Summary Free Text/Dictation states still has mild abdominal pain Exam/Review of Systems Vital Signs Vitals Vital Signs Date Time Temp Pulse Resp B/P Pulse Ox O2 Delivery O2 Flow Rate FiO2 05/26/17 12:00 74 05/26/17 11:00 16 109/61 93 Mechanical Ventilator 05/26/17 08:00 98.5 05/26/17 08:00 35 Intake and Output 05/25/17 05/25/17 05/26/17 15:00 23:00 07:00 Intake Total 1082.8 ml 977.2 ml 800 ml Output Total 270 ml 300 ml 280 ml Balance 812.8 ml 677.2 ml 520 ml Exam Constitutional: alert, non-verbal, well developed Head: atraumatic, normocephalic Eyes: EOMI, PERRL ENMT: trach in place Respiratory: crackles/rales, diminished breath sounds, No labored breathing Cardiovascular: regular rate and rhythm, No systolic murmur Gastrointestinal: soft, minimally tender Musculoskeletal: nl extremities to inspection Extremities: normal pulses, No edema Neurological: ATOMIC SPECTROSCOPIST II-XII intact, nl mental status, nl speech Results Result Diagram: 05/26/17 0607 05/26/17 06 Results 24 hrs Laboratory Tests Test 05/26/17 04:53 05/26/17 06:07 Lab Scanned Report BLOOD TRANSFUSION White Blood Count 15.3 H Red Blood Count 3.51 L Hemoglobin 10.4 L Hematocrit 33.6 L Mean Corpuscular Volume 95.7 Mean Corpuscular Hemoglobin 29.6 Mean Corpuscular Hemoglobin Concent 31.0 L Red Cell Distribution Width 16.2 H Platelet Count 249 Mean Platelet Volume 9.1 Neutrophils % 77.3 H Lymphocytes % 12.5 L Monocytes % 8.2 Eosinophils % 0.8 Basophils % 0.3 Nucleated Red Blood Cells % 0.0 Neutrophils # 11.8 H Lymphocytes # 1.9 Monocytes # 1.3 H Eosinophils # 0.1 Basophils # 0.0 Nucleated Red Blood Cells # 0.0 Sodium Level 147 H Potassium Level 3.7 Chloride Level 111 H Carbon Dioxide Level 25 Anion Gap 15 Blood Urea Nitrogen 18 Creatinine 0.48 Glucose Level 72 Calcium Level 8.8 Phosphorus Level 2.8 Magnesium Level 1.9 Albumin 2.7 L Medications Medications Current Medications Acetaminophen (Tylenol Tab) 650 mg Q6H PRN GTB PAIN AND OR ELEVATED TEMP; Start 05/23/17 at 12:30 Ascorbic Acid (Vitamin C) 500 mg DAILY GTB Last administered on 05/26/17 10: 25; Admin Dose 500 MG; Start 05/24/17 at 09:00 Aspirin (Aspirin) 81 mg DAILY GTB Last administered on 05/26/17 10:26; Admin Dose 81 MG; Start 05/24/17 at 09:00 Atorvastatin Calcium (Lipitor) 40 mg QHS GTB Last administered on 05/25/17 20 :48; Admin Dose 40 MG; Start 05/23/17 at 21:00 Bisacodyl (Dulcolax Supp) 10 mg Q24H PRN [place] CONSTIPATION; Start 05/23/17 at 12 :30 Clonazepam (Klonopin) 0.5 mg QHS GTB Last administered on 05/25/17 20:48; Admin Dose 0.5 MG; Start 05/23/17 at 21:00 Docusate Sodium (Colace) 100 mg QHS PRN PO CONSTIPATION; Start 05/23/17 at 12: 30 Ethambutol HCl (Myambutol) 800 mg DAILY GTB Last administered on 05/26/17 10: 26; Admin Dose 800 MG; Start 05/24/17 at 09:00 Hyoscyamine (Levsin (Sl)) 0.125 mg Q4H PRN SL EXCESIVE ORAL SECRETIONS; Start 05/23/17 at 13:00 Magnesium Hydroxide (Milk Of Mag) 30 ml Q24H PRN GTB CONSTIPATION; Start 05/23 at 12:30 Methocarbamol (Robaxin) 500 mg Q8 GTB Last administered on 05/26/17 05:46; Admin Dose 500 MG; Start 05/23/17 at 14:00 Metoprolol Tartrate (Lopressor) 25 mg BID GTB Last administered on 05/26/17 10:25; Admin Dose 25 MG; Start 05/23/17 at 21:00 Eye Lubricant (Akwa Oint) 1 applic DAILY PRN BOTH EYES DRY EYES; Start at 13:00 Pyrazinamide (Pyrazinamide) 1,000 mg DAILY GTB Last administered on 05/26/17 10:26; Admin Dose 1,000 MG; Start 05/24/17 at 09:00 Pyridoxine HCl (Vitamin B6) 50 mg DAILY GTB Last administered on 05/26/17 10: 26; Admin Dose 50 MG; Start 05/24/17 at 09:00 Quetiapine Fumarate (Seroquel) 50 mg HS GTB Last administered on 05/25/17 20: 48; Admin Dose 50 MG; Start 05/23/17 at 21:00 Rifabutin (Mycobutin) 300 mg BID GTB Last administered on 05/26/17 10:25; Admin Dose 300 MG; Start 05/23/17 at 21:00 Multivitamins (Multivitamin) 30 ml DAILY GTB Last administered on 05/26/17 10 :25; Admin Dose 30 ML; Start 05/24/17 at 09:00 Ondansetron HCl (Zofran Inj) 4 mg Q6H PRN IV NAUSEA AND/OR VOMITING Last administered on 05/23/17 22:48; Admin Dose 4 MG; Start 05/23/17 at 13:00 Nitroglycerin (Nitroglycerin (Sl Tab) 0.4 Mg) 1 tab Q5M PRN SL CHEST PAIN; Start 05/23/17 at 13:00 Acetaminophen/ Hydrocodone Bitart ([place] (5/325)) 1 tab Q6H PRN GTB PAIN LEVEL 4-6 Last administered on 05/23/17 22:13; Admin Dose 1 TAB; Start 05/23/17 at 13:00 Ferrous Sulfate (Feosol Liquid Cup) 300 mg TID GTB Last administered on 12:23; Admin Dose 300 MG; Start 05/23/17 at 17:00 Lorazepam 1 mg 1 mg Q4H PRN IV anxiety Last administered on 05/24/17 13:15; Admin Dose 1 MG; Start 05/24/17 at 13:11 Ferric Sodium Gluconate Complex/ Sodium Chloride (Ferrlecit/NS) 110 ml @ 100 mls/hr Q24H IVPB Last administered on 05/25/17 17:49; Admin Dose 100 MLS/HR; Start 05/24/17 at 17:00; Stop 05/26/17 at 18:05 Enoxaparin Sodium (Lovenox) 30 mg DAILY SC Last administered on 05/26/17 10: 33; Admin Dose 30 MG; Start 05/25/17 at 09:00 Famotidine (Pepcid) 20 mg DAILY GTB Last administered on 05/26/17 10:26; Admin Dose 20 MG; Start 05/25/17 at 09:00 Mineral Oil 133 ml 133 ml Q48H PRN [place] constipation; Start 05/26/17 at 09:00 Amiodarone HCl/ Dextrose (Cordarone Iv/ D5W) 500 ml @ 0 mls/hr Q0M IV Last administered on 05/24/17 19:19; Admin Dose 33.4 MLS/HR; Start 05/24/17 at 19: 00 Morphine Sulfate (morphine) 1 mg Q4H PRN IV PAIN LEVEL 4-6 Last administered on 05/25/17 17:57; Admin Dose 1 MG; Start 05/24/17 at 19:00 Amiodarone HCl 200 mg 200 mg BID PO Last administered on 05/26/17 10:26; Admin Dose 200 MG; Start 05/25/17 at 21:00 Dextrose/Sodium Chloride 1,000 ml @ 60 mls/hr [id number] IV Last administered on 05/26/17 10:35; Admin Dose 60 MLS/HR; Start 05/26/17 at 09:00 Piperacillin Sod/ Tazobactam Sod (Zosyn 2.25gm/ 50ml (Pmx)) 50 ml @ 100 mls/hr Q8 IVPB Last administered on 05/26/17 12:23; Admin Dose 100 MLS/HR; Start at 11:30 MUKUL LINK May 26, 2017 14:19
[2017-05-26] MEDS: SOD FERRIC GLUC COMPLX 125 MG in SOD CHLORIDE 0.9% 100 ML IVPB SCH (16:43)
--- NOTE | 2017-05-26 18:55 | RADRPT ---
Echocardiogram Report Patient Name: FARIBA SIGALA Gender: Female Date: 1935 Study Date: 25-May-2017 Fullerette: Maryann [facility] Location: [address] Ref. Physician: NAOMIE VAUGHN Quality: Adequate Procedures: Transthoracic echocardiogram with complete 2D, M-Mode, and doppler examination. Indications: Tachycardia. 2D/M Mode Doppler Measurement Value Normal Ranges Measurement Value Normal Ranges LVIDd 2D 4.1 3.5 - 5.6 cm AV Peak Feng 2.1 m/sec LVIDs 2D 2.8 2.1 - 4.1 cm AV Peak PG 16.9 mmHg LVPWd 2D 1.1 0.6 - 1.1 cm AI Peak PG 42.4 mmHg IVSd 2D 1.1 0.6 - 1.1 cm AI Peak Feng 3.3 m/sec AoR Diam 2D 2.1 2.0 - 3.7 cm AI PHT 327.2 msec EDV 2D 72.4 cm3 LVOT Peak Feng 1.2 m/sec ESV 2D 22.6 cm3 LVOT Peak PG 5.4 mmHg LA Dimen 2D 2.7 2.3 - 4.0 cm MV E Peak Feng 1.0 m/sec MV A Peak Feng 0.7 m/sec MV E/A 1.3 MV Decel Time 195 msec MV Decel [place] 5 MV E/A 1.3 TR Peak Feng 4.7 m/sec TR Peak PG 89.0 mmHg RVSP 97.0 mmHg Findings Left Ventricle: Normal left ventricular systolic function. Normal left ventricular cavity size. Left ventricular wall thickness upper limits of normal. Ejection fraction is visually estimated at 60 %. Tissue Doppler/Mitral Doppler indices are consistent with impaired relaxation (Stage I diastolic dysfunction). Right Ventricle: Normal right ventricular size. Normal right ventricular systolic function. Left Atrium: The left atrium is normal in size. Right Atrium: The right atrium is normal in size. Mitral Valve: Mild mitral leaflet calcification. Mild mitral annular calcification. Moderate mitral valve regurgitation. Aortic Valve: Aortic sclerosis without stenosis. Mild aortic valve regurgitation. Tricuspid Valve: Normal appearance of the tricuspid valve. Estimated peak PA systolic pressure 97 mmHg. There is moderate tricuspid regurgitation. Pulmonic Valve: Pulmonic valve not well visualized. There is trace pulmonic regurgitation. Pericardium: Normal pericardium with no significant pericardial effusion. Aorta: Normal aortic root. IVC: Dilated IVC without respiratory collapse, however, patient on ventilator. Conclusions 1.Normal left ventricular systolic function. Normal left ventricular cavity size. Left ventricular wall thickness upper limits of normal. Ejection fraction is visually estimated at 60 %. Tissue Doppler/Mitral Doppler indices are consistent with impaired relaxation (Stage I diastolic dysfunction). 2.Mild mitral leaflet calcification. Mild mitral annular calcification. Moderate mitral valve regurgitation. 3.Aortic sclerosis without stenosis. Mild aortic valve regurgitation. 4.Normal appearance of the tricuspid valve. Estimated peak PA systolic pressure 97 mmHg. There is moderate tricuspid regurgitation. 5.Pulmonic valve not well visualized. There is trace pulmonic regurgitation. Electronically Signed By: Romaine Chin 26-May-2017 18:55:30 -0800 Patient Name: FARIBA SIGALA Study Date: 25-May-2017 [id number]
[2017-05-26] MEDS: ATORVASTATIN 40 MG TAB GTB SCH (22:07)
[2017-05-26] MEDS: clonAZEPAM 0.5 MG TAB GTB SCH (22:07)
[2017-05-26] MEDS: QUETIAPINE 25 MG TAB GTB SCH (22:08)
[2017-05-27] VITALS (21 sets, daily range): BP systolic 123–164; BP diastolic 59–74; PULSE 62–95; RESP 16–20
[2017-05-27] MEDS: DEXTROSE 5%-0.45% NACL 1,000 ML IV SCH ×2 (02:21→18:20)
[2017-05-27 06:14] LABS: BASOPHILS % 0.3 % (0.0-2.0); EOSINOPHILS # 0.2 10^3/ul (0.0-0.5); EOSINOPHILS % 1.3 % (0.0-7.0); HEMATOCRIT 32.8 % (37.0-47.0); HEMOGLOBIN 10.4 g/dl (12.0-16.0); LYMPHOCYTES # 1.4 10^3/ul (0.8-2.9); LYMPHOCYTES % 10.6 % (15.0-51.0); MEAN CORPUSCULAR HEMOGLOBIN 30.4 pg (29.0-33.0); MEAN CORPUSCULAR HGB CONC 31.7 g/dl (32.0-37.0); MEAN CORPUSCULAR VOLUME 95.9 fl (82.0-101.0); MEAN PLATELET VOLUME 9.3 fl (7.4-10.4); MONOCYTE # 1.2 10^3/ul (0.3-0.9); NEUTROPHIL # 10.4 10^3/ul (1.6-7.5); PLATELET COUNT 298 10^3/UL (140-415); RED BLOOD COUNT 3.42 10^6/ul (4.20-5.40); RED CELL DISTRIBUTION WIDTH 16.2 % (11.5-14.5); WHITE BLOOD COUNT 13.4 10^3/ul (4.8-10.8)
[2017-05-27] MEDS: LEVOTHYROXINE 100 MCG TAB GTB SCH (06:22)
[2017-05-27] MEDS: METHOCARBAMOL 500 MG TAB GTB SCH ×3 (06:22→21:55)
[2017-05-27] MEDS: PIPER-TAZO 2.25 GM (PMX) 50 ML IVPB SCH ×3 (06:22→21:55)
[2017-05-27 06:33] LABS: CALCIUM 9.2 mg/dl (8.4-10.2); CREATININE 0.49 mg/dl (0.44-1.00); MAGNESIUM 1.9 mg/dl (1.7-2.5); PHOSPHORUS 2.5 mg/dl (2.5-4.9); POTASSIUM 3.7 mmol/L (3.5-5.1)
--- NOTE | 2017-05-27 08:39 | RADRPT ---
PROCEDURE: XR Chest. CLINICAL INDICATION: Shortness of breath TECHNIQUE: Single portable view of the chest was obtained COMPARISON: DR GUEVARA 05/24/2017 FINDINGS: Tracheostomy tube in situ.. The cardiac silhouette and pulmonary vascularity are within normal limit s. Right upper lobe and bilateral lower lobe infiltrates with right-sided consolidation and pleural effusions are noted. There is atherosclerotic calcification of the aortic knob. IMPRESSION: 1. Tracheostomy tube in situ. 2. Bilateral upper and lower lobe infiltrates with increased consolidation in the right lower lobe. There are bilateral pleural effusions. Findings are worsened since prior exam. RPTAT: EE Physician Gil Date Time Electronically viewed and signed by Physician Gil on 05/27/2017 08:39 JL/
[2017-05-27] MEDS: PYRIDOXINE 50 MG TAB GTB SCH (08:57)
[2017-05-27] MEDS: ASPIRIN 81 MG TAB GTB SCH (08:57)
[2017-05-27] MEDS: RIFABUTIN 150 MG CAP GTB SCH ×2 (08:57→21:56)
[2017-05-27] MEDS: MULTIVITAMINS 30 ML CUP GTB SCH (08:57)
[2017-05-27] MEDS: FERROUS SULFATE 60 MG/ML 5ML CUP GTB SCH ×3 (08:57→21:53)
[2017-05-27] MEDS: ASCORBIC ACID 500 MG TAB GTB SCH (08:57)
[2017-05-27] MEDS: AMIODARONE 200 MG TAB PO SCH ×2 (08:58→21:54)
[2017-05-27] MEDS: FAMOTIDINE 20 MG TAB GTB SCH (08:58)
[2017-05-27] MEDS: METOPROLOL 25 MG TAB GTB SCH ×2 (08:58→21:56)
--- NOTE | 2017-05-27 10:08 | CONS ---
Date/Time of Note Date/Time of Note DATE: 05/27/17 TIME: 09:59 Assessment/Plan Assessment/Plan Chief Complaint/Hosp Course Assessment: Functional gastrostomy tube questionable melena. Awaiting stool for OB Anemia, likely multifactorial Rule out GI bleeding History of tachycardia Sepsis rule out TB versus pneumonia Pleural effusion Pulmonary nodule Plan: Urostomy tube appears to be functional and i without problems Continue present regimen including feedings Monitor H&H, stool for occult blood If evidence of bleeding consider endoscopy Problems: Consultation Date/Type/Reason Admit Date/Time May 23, 2017 at 11:33 Date of Consultation: May 27, 2017 Type of Consultation: GI Reason for Consultation Pain at gastrostomy site Hx of Present Illness 82-year-old female with multiple comorbidities. I am asked to evaluate as patient appears to be complaining of pain at the gastrostomy site. Locally when I came in. Daughter is in the room and through her translation became evident the patient does feel discomfort when G-tube is flushed with cold water but this does not happen with warm water. There is no tenderness at the site of the gastrostomy tube spontaneously or on palpation. Nursing staff also reports the patient is tolerating feedings without procedures or difficulty. There was a report of dark stool yesterday stool will be sent for occult blood. The patient was anemic on admission and has received blood transfusions. At the present time the patient appears comfortable we will monitor H&H and check stool for occult blood if evidence of GI bleeding may consider endoscopic evaluation. Eyes: no complaints ENT: other (trach in place) Respiratory: cough, shortness of breath, No pain, No wheezing Cardiovascular: No chest pain, No lightheadedness, No palpitations Gastrointestinal: other (See HPI) Genitourinary: no complaints Musculoskeletal: no complaints Skin: No laceration, No rash Neurologic: no complaints Lymphatic: no complaints Psychological: no complaints Immunologic: no complaints Past Medical History Medical History: other (Ventilator dependent, Tuberculosis) Past Surgical History Post gastrostomy tube Past Surgical Hx: other (Trach/PEG placement) Family History Significant Family History: no pertinent family hx Social History Alcohol Use: none Smoking Status: Never smoker Drug Use: none Exam/Review of Systems Vital Signs Vitals Vital Signs Date Time Temp Pulse Resp B/P Pulse Ox O2 Delivery O2 Flow Rate FiO2 05/27/17 08:32 98.8 71 17 164/74 100 05/27/17 07:20 35 05/26/17 18:00 Mechanical Ventilator Intake and Output 05/26/17 05/26/17 05/27/17 15:00 23:00 07:00 Intake Total 840 ml 230 ml 520 ml Output Total 240 ml 60 ml Balance 600 ml 170 ml 520 ml Exam PHYSICAL EXAMINATION: GENERAL: Well developed, well nourished, frail, alert & oriented x 3, in no acute distress SKIN: No lesions, no stigmata chronic liver disease, no evidence of bleeding diathesis LYMPHATIC: No palpable lymphadenopathy. HEAD: Normocephalic, atraumatic, no tenderness. EYES: Pupils equal reactive to light and accommodation, full extraocular movements, sclera clear, non-icteric, no discharge. EARS/NOSE AND THROAT: Ears normal, nose normal, oropharynx normal, oral membranes well hydrated without lesions. NECK: Supple, no masses, thyroid normal, JVP within normal limits, carotids normal without bruits. CHEST: Inspection within normal limits. CARDIOVASCULAR: Heart: Regular rate and rhythm, no murmurs, gallops or rubs. Peripheral pulses present within normal limits, no cyanosis, clubbing or edemas. No pulsatile abdominal mass RESPIRATORY: Lungs clear to auscultation and percussion, no wheezing, no rubs GASTROINTESTINAL AND LIVER: Abdomen: Gastrostomy tube in place, no tenderness to palpation. Otherwise abdomen soft, non tenderness, non-distended, no hernias , no masses, no organomegaly, no ascites, no guarding, no rebound tenderness, normoactive bowel sounds. Rectal: Deferred. GENITOURINARY: [Female genitalia within normal limits.] EXTREMITIES: No cyanosis, clubbing or edema. Results Result Diagram: 05/27/17 0539 05/27/17 0539 Results 24 hrs Laboratory Tests Test 05/27/17 05:39 White Blood Count 13.4 H Red Blood Count 3.42 L Hemoglobin 10.4 L Hematocrit 32.8 L Mean Corpuscular Volume 95.9 Mean Corpuscular Hemoglobin 30.4 Mean Corpuscular Hemoglobin Concent 31.7 L Red Cell Distribution Width 16.2 H Platelet Count 298 Mean Platelet Volume 9.3 Neutrophils % 78.0 H Lymphocytes % 10.6 L Monocytes % 9.0 Eosinophils % 1.3 Basophils % 0.3 Nucleated Red Blood Cells % 0.0 Neutrophils # 10.4 H Lymphocytes # 1.4 Monocytes # 1.2 H Eosinophils # 0.2 Basophils # 0.0 Nucleated Red Blood Cells # 0.0 Sodium Level 145 H Potassium Level 3.7 Chloride Level 113 H Carbon Dioxide Level 30 Anion Gap 6 #L Blood Urea Nitrogen 19 Creatinine 0.49 Glucose Level 104 Calcium Level 9.2 Phosphorus Level 2.5 Magnesium Level 1.9 Medications Medications Current Medications Acetaminophen (Tylenol Tab) 650 mg Q6H PRN GTB PAIN AND OR ELEVATED TEMP; Start 05/23/17 at 12:30 Ascorbic Acid (Vitamin C) 500 mg DAILY GTB Last administered on 05/27/17 08: 57; Admin Dose 500 MG; Start 05/24/17 at 09:00 Aspirin (Aspirin) 81 mg DAILY GTB Last administered on 05/27/17 08:57; Admin Dose 81 MG; Start 05/24/17 at 09:00 Atorvastatin Calcium (Lipitor) 40 mg QHS GTB Last administered on 05/26/17 22 :07; Admin Dose 40 MG; Start 05/23/17 at 21:00 Bisacodyl (Dulcolax Supp) 10 mg Q24H PRN [place] CONSTIPATION; Start 05/23/17 at 12 :30 Clonazepam (Klonopin) 0.5 mg QHS GTB Last administered on 05/26/17 22:07; Admin Dose 0.5 MG; Start 05/23/17 at 21:00 Docusate Sodium (Colace) 100 mg QHS PRN PO CONSTIPATION; Start 05/23/17 at 12: 30 Ethambutol HCl (Myambutol) 800 mg DAILY GTB Last administered on 05/26/17 10: 26; Admin Dose 800 MG; Start 05/24/17 at 09:00 Hyoscyamine (Levsin (Sl)) 0.125 mg Q4H PRN SL EXCESIVE ORAL SECRETIONS; Start 05/23/17 at 13:00 Magnesium Hydroxide (Milk Of Mag) 30 ml Q24H PRN GTB CONSTIPATION; Start 05/23 at 12:30 Methocarbamol (Robaxin) 500 mg Q8 GTB Last administered on 05/27/17 06:22; Admin Dose 500 MG; Start 05/23/17 at 14:00 Metoprolol Tartrate (Lopressor) 25 mg BID GTB Last administered on 05/27/17 08:58; Admin Dose 25 MG; Start 05/23/17 at 21:00 Eye Lubricant (Akwa Oint) 1 applic DAILY PRN BOTH EYES DRY EYES; Start at 13:00 Pyrazinamide (Pyrazinamide) 1,000 mg DAILY GTB Last administered on 05/26/17 10:26; Admin Dose 1,000 MG; Start 05/24/17 at 09:00 Pyridoxine HCl (Vitamin B6) 50 mg DAILY GTB Last administered on 05/27/17 08: 57; Admin Dose 50 MG; Start 05/24/17 at 09:00 Quetiapine Fumarate (Seroquel) 50 mg HS GTB Last administered on 05/26/17 22: 08; Admin Dose 50 MG; Start 05/23/17 at 21:00 Rifabutin (Mycobutin) 300 mg BID GTB Last administered on 05/27/17 08:57; Admin Dose 300 MG; Start 05/23/17 at 21:00 Multivitamins (Multivitamin) 30 ml DAILY GTB Last administered on 05/27/17 08 :57; Admin Dose 30 ML; Start 05/24/17 at 09:00 Ondansetron HCl (Zofran Inj) 4 mg Q6H PRN IV NAUSEA AND/OR VOMITING Last administered on 05/23/17 22:48; Admin Dose 4 MG; Start 05/23/17 at 13:00 Nitroglycerin (Nitroglycerin (Sl Tab) 0.4 Mg) 1 tab Q5M PRN SL CHEST PAIN; Start 05/23/17 at 13:00 Acetaminophen/ Hydrocodone Bitart ([place] (5/325)) 1 tab Q6H PRN GTB PAIN LEVEL 4-6 Last administered on 05/23/17 22:13; Admin Dose 1 TAB; Start 05/23/17 at 13:00 Ferrous Sulfate (Feosol Liquid Cup) 300 mg TID GTB Last administered on 08:57; Admin Dose 300 MG; Start 05/23/17 at 17:00 Lorazepam (Ativan) 1 mg Q4H PRN IV anxiety Last administered on 05/24/17 13: 15; Admin Dose 1 MG; Start 05/24/17 at 13:11 Enoxaparin Sodium (Lovenox) 30 mg DAILY SC Last administered on 05/26/17 10: 33; Admin Dose 30 MG; Start 05/25/17 at 09:00 Famotidine (Pepcid) 20 mg DAILY GTB Last administered on 05/27/17 08:58; Admin Dose 20 MG; Start 05/25/17 at 09:00 Mineral Oil 133 ml 133 ml Q48H PRN [place] constipation; Start 05/26/17 at 09:00 Amiodarone HCl/ Dextrose (Cordarone Iv/ D5W) 500 ml @ 0 mls/hr Q0M IV Last administered on 05/24/17 19:19; Admin Dose 33.4 MLS/HR; Start 05/24/17 at 19: 00 Morphine Sulfate (morphine) 1 mg Q4H PRN IV PAIN LEVEL 4-6 Last administered on 05/25/17 17:57; Admin Dose 1 MG; Start 05/24/17 at 19:00 Amiodarone HCl 200 mg 200 mg BID PO Last administered on 05/27/17 08:58; Admin Dose 200 MG; Start 05/25/17 at 21:00 Dextrose/Sodium Chloride 1,000 ml @ 60 mls/hr [id number] IV Last administered on 05/27/17 02:21; Admin Dose 60 MLS/HR; Start 05/26/17 at 09:00 Piperacillin Sod/ Tazobactam Sod (Zosyn 2.25gm/ 50ml (Pmx)) 50 ml @ 100 mls/hr Q8 IVPB Last administered on 05/27/17 06:22; Admin Dose 100 MLS/HR; Start at 11:30 JLUIS PATEL MD May 27, 2017 10:08
[2017-05-27] MEDS: ENOXAPARIN 30 MG/0.3 ML SYG SC SCH (10:28)
--- NOTE | 2017-05-27 10:40 | CONS ---
Date/Time of Note Date/Time of Note DATE: 05/27/17 TIME: 10:36 Assessment/Plan Assessment/Plan Additional Assessment/Plan Chest x-ray was reviewed from today which is showing areas of patchy fibrosis more pronounced in lower lobes. Ventilator setting; AC of 16, tidal volume 350, PEEP of 5, 35% FiO2. Assessment and recommendations; 1. Patient admitted with pneumonia as well as pleural effusion on the right side status post thoracentesis with significant clinical improvement. 2. 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 3. Mild anemia. 4. Chronic respiratory failure. 5. Underlying pulmonary fibrotic changes. Continue current supportive care. Consultation Date/Type/Reason Admit Date/Time May 23, 2017 at 11:33 Type of Consultation: Pulmonary Referring Provider: NAOMIE VAUGHN MD 24 HR Interval Summary Free Text/Dictation Patient's condition is stable. Remains awake and alert. Has remained hemodynamically stable. General exam; elderly male, on ventilator via tracheostomy, awake and alert. Currently in no distress. Exam/Review of Systems Vital Signs Vitals Vital Signs Date Time Temp Pulse Resp B/P Pulse Ox O2 Delivery O2 Flow Rate FiO2 05/27/17 08:32 98.8 71 17 164/74 100 05/27/17 07:20 35 05/26/17 18:00 Mechanical Ventilator Intake and Output 05/26/17 05/26/17 05/27/17 15:00 23:00 07:00 Intake Total 840 ml 230 ml 520 ml Output Total 240 ml 60 ml Balance 600 ml 170 ml 520 ml Exam HEENT exam; supple neck, no JVD. No lymphadenopathy. Midline trachea. No thyromegaly. Tracheostomy in place. Insertion site is clean. Patient has bilateral intraocular lens implants. Chest exam; diminished but clear breath sounds. S1-S2 audible, no murmurs. Regular rhythm. Abdomen exam; soft, nontender. No organomegaly. G-tube in place. Bowel sounds audible. Extremity exam; no peripheral edema. CAR ATTENDANT exam; patient is awake and alert and follows commands. Moves all 4 extremities on command. Results Result Diagram: 05/27/17 0539 05/27/17 0539 Results 24 hrs Laboratory Tests Test 05/27/17 05:39 White Blood Count 13.4 H Red Blood Count 3.42 L Hemoglobin 10.4 L Hematocrit 32.8 L Mean Corpuscular Volume 95.9 Mean Corpuscular Hemoglobin 30.4 Mean Corpuscular Hemoglobin Concent 31.7 L Red Cell Distribution Width 16.2 H Platelet Count 298 Mean Platelet Volume 9.3 Neutrophils % 78.0 H Lymphocytes % 10.6 L Monocytes % 9.0 Eosinophils % 1.3 Basophils % 0.3 Nucleated Red Blood Cells % 0.0 Neutrophils # 10.4 H Lymphocytes # 1.4 Monocytes # 1.2 H Eosinophils # 0.2 Basophils # 0.0 Nucleated Red Blood Cells # 0.0 Sodium Level 145 H Potassium Level 3.7 Chloride Level 113 H Carbon Dioxide Level 30 Anion Gap 6 #L Blood Urea Nitrogen 19 Creatinine 0.49 Glucose Level 104 Calcium Level 9.2 Phosphorus Level 2.5 Magnesium Level 1.9 Medications Medications Current Medications Acetaminophen (Tylenol Tab) 650 mg Q6H PRN GTB PAIN AND OR ELEVATED TEMP; Start 05/23/17 at 12:30 Ascorbic Acid (Vitamin C) 500 mg DAILY GTB Last administered on 05/27/17 08: 57; Admin Dose 500 MG; Start 05/24/17 at 09:00 Aspirin (Aspirin) 81 mg DAILY GTB Last administered on 05/27/17 08:57; Admin Dose 81 MG; Start 05/24/17 at 09:00 Atorvastatin Calcium (Lipitor) 40 mg QHS GTB Last administered on 05/26/17 22 :07; Admin Dose 40 MG; Start 05/23/17 at 21:00 Bisacodyl (Dulcolax Supp) 10 mg Q24H PRN [place] CONSTIPATION; Start 05/23/17 at 12 :30 Clonazepam (Klonopin) 0.5 mg QHS GTB Last administered on 05/26/17 22:07; Admin Dose 0.5 MG; Start 05/23/17 at 21:00 Docusate Sodium (Colace) 100 mg QHS PRN PO CONSTIPATION; Start 05/23/17 at 12: 30 Ethambutol HCl (Myambutol) 800 mg DAILY GTB Last administered on 05/26/17 10: 26; Admin Dose 800 MG; Start 05/24/17 at 09:00 Hyoscyamine (Levsin (Sl)) 0.125 mg Q4H PRN SL EXCESIVE ORAL SECRETIONS; Start 05/23/17 at 13:00 Magnesium Hydroxide (Milk Of Mag) 30 ml Q24H PRN GTB CONSTIPATION; Start 05/23 at 12:30 Methocarbamol (Robaxin) 500 mg Q8 GTB Last administered on 05/27/17 06:22; Admin Dose 500 MG; Start 05/23/17 at 14:00 Metoprolol Tartrate (Lopressor) 25 mg BID GTB Last administered on 05/27/17 08:58; Admin Dose 25 MG; Start 05/23/17 at 21:00 Eye Lubricant (Akwa Oint) 1 applic DAILY PRN BOTH EYES DRY EYES; Start at 13:00 Pyrazinamide (Pyrazinamide) 1,000 mg DAILY GTB Last administered on 05/26/17 10:26; Admin Dose 1,000 MG; Start 05/24/17 at 09:00 Pyridoxine HCl (Vitamin B6) 50 mg DAILY GTB Last administered on 05/27/17 08: 57; Admin Dose 50 MG; Start 05/24/17 at 09:00 Quetiapine Fumarate (Seroquel) 50 mg HS GTB Last administered on 05/26/17 22: 08; Admin Dose 50 MG; Start 05/23/17 at 21:00 Rifabutin (Mycobutin) 300 mg BID GTB Last administered on 05/27/17 08:57; Admin Dose 300 MG; Start 05/23/17 at 21:00 Multivitamins (Multivitamin) 30 ml DAILY GTB Last administered on 05/27/17 08 :57; Admin Dose 30 ML; Start 05/24/17 at 09:00 Ondansetron HCl (Zofran Inj) 4 mg Q6H PRN IV NAUSEA AND/OR VOMITING Last administered on 05/23/17 22:48; Admin Dose 4 MG; Start 05/23/17 at 13:00 Nitroglycerin (Nitroglycerin (Sl Tab) 0.4 Mg) 1 tab Q5M PRN SL CHEST PAIN; Start 05/23/17 at 13:00 Acetaminophen/ Hydrocodone Bitart ([place] (5/325)) 1 tab Q6H PRN GTB PAIN LEVEL 4-6 Last administered on 05/23/17 22:13; Admin Dose 1 TAB; Start 05/23/17 at 13:00 Ferrous Sulfate (Feosol Liquid Cup) 300 mg TID GTB Last administered on 08:57; Admin Dose 300 MG; Start 05/23/17 at 17:00 Lorazepam (Ativan) 1 mg Q4H PRN IV anxiety Last administered on 05/24/17 13: 15; Admin Dose 1 MG; Start 05/24/17 at 13:11 Enoxaparin Sodium (Lovenox) 30 mg DAILY SC Last administered on 05/27/17 10: 28; Admin Dose 30 MG; Start 05/25/17 at 09:00 Famotidine (Pepcid) 20 mg DAILY GTB Last administered on 05/27/17 08:58; Admin Dose 20 MG; Start 05/25/17 at 09:00 Mineral Oil 133 ml 133 ml Q48H PRN [place] constipation; Start 05/26/17 at 09:00 Amiodarone HCl/ Dextrose (Cordarone Iv/ D5W) 500 ml @ 0 mls/hr Q0M IV Last administered on 05/24/17 19:19; Admin Dose 33.4 MLS/HR; Start 05/24/17 at 19: 00 Morphine Sulfate (morphine) 1 mg Q4H PRN IV PAIN LEVEL 4-6 Last administered on 05/25/17 17:57; Admin Dose 1 MG; Start 05/24/17 at 19:00 Amiodarone HCl 200 mg 200 mg BID PO Last administered on 05/27/17 08:58; Admin Dose 200 MG; Start 05/25/17 at 21:00 Dextrose/Sodium Chloride 1,000 ml @ 60 mls/hr [id number] IV Last administered on 05/27/17 02:21; Admin Dose 60 MLS/HR; Start 05/26/17 at 09:00 Piperacillin Sod/ Tazobactam Sod (Zosyn 2.25gm/ 50ml (Pmx)) 50 ml @ 100 mls/hr Q8 IVPB Last administered on 05/27/17 06:22; Admin Dose 100 MLS/HR; Start at 11:30 CORTEZ GUTIERREZ May 27, 2017 10:40
[2017-05-27] MEDS: ETHAMBUTOL 400 MG TAB GTB SCH (12:24)
[2017-05-27] MEDS: PYRAZINAMIDE 500 MG TAB GTB SCH (12:24)
--- NOTE | 2017-05-27 12:56 | PN ---
Date/Time of Note Date/Time of Note DATE: 05/27/17 TIME: 12:53 Assessment/Plan VTE Prophylaxis VTE Prophylaxis Intervention: SCD's Lines/Catheters IV Catheter Type (from Nrs): Saline Lock Urinary Cath still in place: Yes Reason Cath still needed: urinary retention Assessment/Plan Chief Complaint/Hosp Course Assessment/Plan 1. Rapid tachyarrhythmia- stable - Cardiology on board and consultation appreciated. Continue on Amiodarone - Started on PO Digoxin - Started on low dose BB as tolerated - ECHO noted 2. Sepsis secondary to PNA/bacteremia - Patients WBC trending downward and remains afebrile - LA normalized - ID consultation placed and appreciated recommendations. Will continue on broad spectrum and await cultural results - continue on IVF 2. Bacteremia - Blood cultures growing Serratia - Repeat blood cultures negative - ID on board 3. Anemia - s/p 2PRBC with response to Hgb 10 - Iron levels <10 - Started on IV iron 4. Large right pleural effusion s/p thoracentesis - 1L removed and fluid studies sent. Appears to be exudative. Awaiting cultures - Pulmonology on board and recommendations appreciated -per pulm, loculations on CT appear free flowing, hold off on CT surgery. 5. Left lower lobe density - CT scan showed round fluid density structure within the superior segment left lower lobe measuring 2.9 x 2.7 cm 6. Infectious bronchiolitis 7. 10 x 8 mm right lower lobe nodule - Will need close follow up outpatient 8. Acute gastroenteritis - send stool studies - Dietary consult for tube feed recommendations 9. Disposition - Continue monitoring, once stable and no signs of GI bleed, transfer back to [facility] with ID abx recs Problems: Subjective 24 Hr Interval Summary Free Text/Dictation no acute overnight events Exam/Review of Systems Vital Signs Vitals Vital Signs Date Time Temp Pulse Resp B/P Pulse Ox O2 Delivery O2 Flow Rate FiO2 05/27/17 12:41 98.3 74 17 123/59 95 05/27/17 11:05 35 05/26/17 18:00 Mechanical Ventilator Intake and Output 05/26/17 05/26/17 05/27/17 15:00 23:00 07:00 Intake Total 840 ml 230 ml 520 ml Output Total 240 ml 60 ml Balance 600 ml 170 ml 520 ml Exam Constitutional: alert, non-verbal, well developed, trach/vent Head: atraumatic, normocephalic Eyes: EOMI, PERRL ENMT: trach in place Respiratory: crackles/rales, diminished breath sounds, No labored breathing Cardiovascular: regular rate and rhythm, No systolic murmur Gastrointestinal: soft, minimally tender Musculoskeletal: nl extremities to inspection Extremities: normal pulses, No edema Results Result Diagram: 05/27/17 0539 05/27/17 0539 Results 24 hrs Laboratory Tests Test 05/27/17 05:39 White Blood Count 13.4 H Red Blood Count 3.42 L Hemoglobin 10.4 L Hematocrit 32.8 L Mean Corpuscular Volume 95.9 Mean Corpuscular Hemoglobin 30.4 Mean Corpuscular Hemoglobin Concent 31.7 L Red Cell Distribution Width 16.2 H Platelet Count 298 Mean Platelet Volume 9.3 Neutrophils % 78.0 H Lymphocytes % 10.6 L Monocytes % 9.0 Eosinophils % 1.3 Basophils % 0.3 Nucleated Red Blood Cells % 0.0 Neutrophils # 10.4 H Lymphocytes # 1.4 Monocytes # 1.2 H Eosinophils # 0.2 Basophils # 0.0 Nucleated Red Blood Cells # 0.0 Sodium Level 145 H Potassium Level 3.7 Chloride Level 113 H Carbon Dioxide Level 30 Anion Gap 6 #L Blood Urea Nitrogen 19 Creatinine 0.49 Glucose Level 104 Calcium Level 9.2 Phosphorus Level 2.5 Magnesium Level 1.9 Medications Medications Current Medications Acetaminophen (Tylenol Tab) 650 mg Q6H PRN GTB PAIN AND OR ELEVATED TEMP; Start 05/23/17 at 12:30 Ascorbic Acid (Vitamin C) 500 mg DAILY GTB Last administered on 05/27/17 08: 57; Admin Dose 500 MG; Start 05/24/17 at 09:00 Aspirin (Aspirin) 81 mg DAILY GTB Last administered on 05/27/17 08:57; Admin Dose 81 MG; Start 05/24/17 at 09:00 Atorvastatin Calcium (Lipitor) 40 mg QHS GTB Last administered on 05/26/17 22 :07; Admin Dose 40 MG; Start 05/23/17 at 21:00 Bisacodyl (Dulcolax Supp) 10 mg Q24H PRN [place] CONSTIPATION; Start 05/23/17 at 12 :30 Clonazepam (Klonopin) 0.5 mg QHS GTB Last administered on 05/26/17 22:07; Admin Dose 0.5 MG; Start 05/23/17 at 21:00 Docusate Sodium (Colace) 100 mg QHS PRN PO CONSTIPATION; Start 05/23/17 at 12: 30 Ethambutol HCl (Myambutol) 800 mg DAILY GTB Last administered on 05/27/17 12: 24; Admin Dose 800 MG; Start 05/24/17 at 09:00 Hyoscyamine (Levsin (Sl)) 0.125 mg Q4H PRN SL EXCESIVE ORAL SECRETIONS; Start 05/23/17 at 13:00 Magnesium Hydroxide (Milk Of Mag) 30 ml Q24H PRN GTB CONSTIPATION; Start 05/23 at 12:30 Methocarbamol (Robaxin) 500 mg Q8 GTB Last administered on 05/27/17 06:22; Admin Dose 500 MG; Start 05/23/17 at 14:00 Metoprolol Tartrate (Lopressor) 25 mg BID GTB Last administered on 05/27/17 08:58; Admin Dose 25 MG; Start 05/23/17 at 21:00 Eye Lubricant (Akwa Oint) 1 applic DAILY PRN BOTH EYES DRY EYES; Start at 13:00 Pyrazinamide (Pyrazinamide) 1,000 mg DAILY GTB Last administered on 05/27/17 12:24; Admin Dose 1,000 MG; Start 05/24/17 at 09:00 Pyridoxine HCl (Vitamin B6) 50 mg DAILY GTB Last administered on 05/27/17 08: 57; Admin Dose 50 MG; Start 05/24/17 at 09:00 Quetiapine Fumarate (Seroquel) 50 mg HS GTB Last administered on 05/26/17 22: 08; Admin Dose 50 MG; Start 05/23/17 at 21:00 Rifabutin (Mycobutin) 300 mg BID GTB Last administered on 05/27/17 08:57; Admin Dose 300 MG; Start 05/23/17 at 21:00 Multivitamins (Multivitamin) 30 ml DAILY GTB Last administered on 05/27/17 08 :57; Admin Dose 30 ML; Start 05/24/17 at 09:00 Ondansetron HCl (Zofran Inj) 4 mg Q6H PRN IV NAUSEA AND/OR VOMITING Last administered on 05/23/17 22:48; Admin Dose 4 MG; Start 05/23/17 at 13:00 Nitroglycerin (Nitroglycerin (Sl Tab) 0.4 Mg) 1 tab Q5M PRN SL CHEST PAIN; Start 05/23/17 at 13:00 Acetaminophen/ Hydrocodone Bitart ([place] (5/325)) 1 tab Q6H PRN GTB PAIN LEVEL 4-6 Last administered on 05/23/17 22:13; Admin Dose 1 TAB; Start 05/23/17 at 13:00 Ferrous Sulfate (Feosol Liquid Cup) 300 mg TID GTB Last administered on 08:57; Admin Dose 300 MG; Start 05/23/17 at 17:00 Lorazepam (Ativan) 1 mg Q4H PRN IV anxiety Last administered on 05/24/17 13: 15; Admin Dose 1 MG; Start 05/24/17 at 13:11 Enoxaparin Sodium (Lovenox) 30 mg DAILY SC Last administered on 05/27/17 10: 28; Admin Dose 30 MG; Start 05/25/17 at 09:00 Famotidine (Pepcid) 20 mg DAILY GTB Last administered on 05/27/17 08:58; Admin Dose 20 MG; Start 05/25/17 at 09:00 Mineral Oil 133 ml 133 ml Q48H PRN [place] constipation; Start 05/26/17 at 09:00 Amiodarone HCl/ Dextrose (Cordarone Iv/ D5W) 500 ml @ 0 mls/hr Q0M IV Last administered on 05/24/17 19:19; Admin Dose 33.4 MLS/HR; Start 05/24/17 at 19: 00 Morphine Sulfate (morphine) 1 mg Q4H PRN IV PAIN LEVEL 4-6 Last administered on 05/25/17 17:57; Admin Dose 1 MG; Start 05/24/17 at 19:00 Amiodarone HCl 200 mg 200 mg BID PO Last administered on 05/27/17 08:58; Admin Dose 200 MG; Start 05/25/17 at 21:00 Dextrose/Sodium Chloride 1,000 ml @ 60 mls/hr [id number] IV Last administered on 05/27/17 02:21; Admin Dose 60 MLS/HR; Start 05/26/17 at 09:00 Piperacillin Sod/ Tazobactam Sod (Zosyn 2.25gm/ 50ml (Pmx)) 50 ml @ 100 mls/hr Q8 IVPB Last administered on 05/27/17t 06:22; Admin Dose 100 MLS/HR; Start at 11:30 MUKUL LINK May 27, 2017 12:56
--- NOTE | 2017-05-27 13:42 | CONS ---
Date/Time of Note Date/Time of Note DATE: 05/27/17 TIME: 13:39 Assessment/Plan Assessment/Plan Chief Complaint/Hosp Course IMPRESSION: 1. Hypotension in the setting of rapid tachyarrhythmia of atrial fibrillation and recent fevers, now improved.-negative tropx 3/off pressors 2. Atrial fibrillation with rapid ventricular response, slowly improving after initial dose of digoxin and amiodarone.-now in SR and remains/NL TSH 3. Pneumonia. 4. Fevers. 5. Chronic respiratory failure, status post tracheostomy. 6. Tuberculosis, on treatment. 7. Hypothyroidism. 8. Dyslipidemia. 9. Pleural effusion, status post right thoracentesis removal of 1 liter. 10. Anemia. Recc: -Tele -Follow volume status closely -Continue PO amio/BB/digoxin -Continue lovenox low dose -Continue abx's and f/u cx data Problems: Consultation Date/Type/Reason Admit Date/Time May 23, 2017 at 11:33 Initial Consult Date 05/24/2017 Type of Consultation: cardiology Reason for Consultation PAF/Annabeln Referring Provider: NAOMIE VAUGHN MD Exam/Review of Systems Vital Signs Vitals Vital Signs Date Time Temp Pulse Resp B/P Pulse Ox O2 Delivery O2 Flow Rate FiO2 05/27/17 12:41 98.3 74 17 123/59 95 05/27/17 11:05 35 05/26/17 18:00 Mechanical Ventilator Intake and Output 05/26/17 05/26/17 05/27/17 15:00 23:00 07:00 Intake Total 840 ml 230 ml 520 ml Output Total 240 ml 60 ml Balance 600 ml 170 ml 520 ml Exam Review of Systems: CONSTITUTIONAL: No fevers, chills. PULMONARY:trached CARDIOVASCULAR: No chest pain/palpitations GASTROINTESTINAL: No nausea/vomiting. GENITOURINARY: No hematuria/dysuria. MUSCULOSKELETAL: No myagias/arthalgias. PSYCHIATRIC: The patient denies depression. NEUROLOGIC: lethargic Constitutional: other (sleeping) Psych: no complaints Neck: jvd (8-9 cm water), other (trach in place), supple Respiratory: other (upper airway rhoncherous) Cardiovascular: regular rate and rhythm Gastrointestinal: non-tender, soft Musculoskeletal: muscle tone (normal) Extremities: edema (none) Neurological: lethargic Results Result Diagram: 05/27/17 0539 05/27/17 0539 Results 24 hrs Laboratory Tests Test 05/27/17 05:39 White Blood Count 13.4 H Red Blood Count 3.42 L Hemoglobin 10.4 L Hematocrit 32.8 L Mean Corpuscular Volume 95.9 Mean Corpuscular Hemoglobin 30.4 Mean Corpuscular Hemoglobin Concent 31.7 L Red Cell Distribution Width 16.2 H Platelet Count 298 Mean Platelet Volume 9.3 Neutrophils % 78.0 H Lymphocytes % 10.6 L Monocytes % 9.0 Eosinophils % 1.3 Basophils % 0.3 Nucleated Red Blood Cells % 0.0 Neutrophils # 10.4 H Lymphocytes # 1.4 Monocytes # 1.2 H Eosinophils # 0.2 Basophils # 0.0 Nucleated Red Blood Cells # 0.0 Sodium Level 145 H Potassium Level 3.7 Chloride Level 113 H Carbon Dioxide Level 30 Anion Gap 6 #L Blood Urea Nitrogen 19 Creatinine 0.49 Glucose Level 104 Calcium Level 9.2 Phosphorus Level 2.5 Magnesium Level 1.9 Medications Medications Current Medications Acetaminophen (Tylenol Tab) 650 mg Q6H PRN GTB PAIN AND OR ELEVATED TEMP; Start 05/23/17 at 12:30 Ascorbic Acid (Vitamin C) 500 mg DAILY GTB Last administered on 05/27/17 08: 57; Admin Dose 500 MG; Start 05/24/17 at 09:00 Aspirin (Aspirin) 81 mg DAILY GTB Last administered on 05/27/17 08:57; Admin Dose 81 MG; Start 05/24/17 at 09:00 Atorvastatin Calcium (Lipitor) 40 mg QHS GTB Last administered on 05/26/17 22 :07; Admin Dose 40 MG; Start 05/23/17 at 21:00 Bisacodyl (Dulcolax Supp) 10 mg Q24H PRN [place] CONSTIPATION; Start 05/23/17 at 12 :30 Clonazepam (Klonopin) 0.5 mg QHS GTB Last administered on 05/26/17 22:07; Admin Dose 0.5 MG; Start 05/23/17 at 21:00 Docusate Sodium (Colace) 100 mg QHS PRN PO CONSTIPATION; Start 05/23/17 at 12: 30 Ethambutol HCl (Myambutol) 800 mg DAILY GTB Last administered on 05/27/17 12: 24; Admin Dose 800 MG; Start 05/24/17 at 09:00 Hyoscyamine (Levsin (Sl)) 0.125 mg Q4H PRN SL EXCESIVE ORAL SECRETIONS; Start 05/23/17 at 13:00 Magnesium Hydroxide (Milk Of Mag) 30 ml Q24H PRN GTB CONSTIPATION; Start 05/23 at 12:30 Methocarbamol (Robaxin) 500 mg Q8 GTB Last administered on 05/27/17 06:22; Admin Dose 500 MG; Start 05/23/17 at 14:00 Metoprolol Tartrate (Lopressor) 25 mg BID GTB Last administered on 05/27/17 08:58; Admin Dose 25 MG; Start 05/23/17 at 21:00 Eye Lubricant (Akwa Oint) 1 applic DAILY PRN BOTH EYES DRY EYES; Start at 13:00 Pyrazinamide (Pyrazinamide) 1,000 mg DAILY GTB Last administered on 05/27/17 12:24; Admin Dose 1,000 MG; Start 05/24/17 at 09:00 Pyridoxine HCl (Vitamin B6) 50 mg DAILY GTB Last administered on 05/27/17 08: 57; Admin Dose 50 MG; Start 05/24/17 at 09:00 Quetiapine Fumarate (Seroquel) 50 mg HS GTB Last administered on 05/26/17 22: 08; Admin Dose 50 MG; Start 05/23/17 at 21:00 Rifabutin (Mycobutin) 300 mg BID GTB Last administered on 05/27/17 08:57; Admin Dose 300 MG; Start 05/23/17 at 21:00 Multivitamins (Multivitamin) 30 ml DAILY GTB Last administered on 05/27/17 08 :57; Admin Dose 30 ML; Start 05/24/17 at 09:00 Ondansetron HCl (Zofran Inj) 4 mg Q6H PRN IV NAUSEA AND/OR VOMITING Last administered on 05/23/17 22:48; Admin Dose 4 MG; Start 05/23/17 at 13:00 Nitroglycerin (Nitroglycerin (Sl Tab) 0.4 Mg) 1 tab Q5M PRN SL CHEST PAIN; Start 05/23/17 at 13:00 Acetaminophen/ Hydrocodone Bitart ([place] (5/325)) 1 tab Q6H PRN GTB PAIN LEVEL 4-6 Last administered on 05/23/17 22:13; Admin Dose 1 TAB; Start 05/23/17 at 13:00 Ferrous Sulfate (Feosol Liquid Cup) 300 mg TID GTB Last administered on 08:57; Admin Dose 300 MG; Start 05/23/17 at 17:00 Lorazepam (Ativan) 1 mg Q4H PRN IV anxiety Last administered on 05/24/17 13: 15; Admin Dose 1 MG; Start 05/24/17 at 13:11 Enoxaparin Sodium (Lovenox) 30 mg DAILY SC Last administered on 05/27/17 10: 28; Admin Dose 30 MG; Start 05/25/17 at 09:00 Famotidine (Pepcid) 20 mg DAILY GTB Last administered on 05/27/17 08:58; Admin Dose 20 MG; Start 05/25/17 at 09:00 Mineral Oil 133 ml 133 ml Q48H PRN [place] constipation; Start 05/26/17 at 09:00 Amiodarone HCl/ Dextrose (Cordarone Iv/ D5W) 500 ml @ 0 mls/hr Q0M IV Last administered on 05/24/17 19:19; Admin Dose 33.4 MLS/HR; Start 05/24/17 at 19: 00 Morphine Sulfate (morphine) 1 mg Q4H PRN IV PAIN LEVEL 4-6 Last administered on 05/25/17 17:57; Admin Dose 1 MG; Start 05/24/17 at 19:00 Amiodarone HCl 200 mg 200 mg BID PO Last administered on 05/27/17 08:58; Admin Dose 200 MG; Start 05/25/17 at 21:00 Dextrose/Sodium Chloride 1,000 ml @ 60 mls/hr [id number] IV Last administered on 05/27/17 02:21; Admin Dose 60 MLS/HR; Start 05/26/17 at 09:00 Piperacillin Sod/ Tazobactam Sod (Zosyn 2.25gm/ 50ml (Pmx)) 50 ml @ 100 mls/hr Q8 IVPB Last administered on 05/27/17 06:22; Admin Dose 100 MLS/HR; Start at 11:30 CHRISSIE YADAV May 27, 2017 13:42
--- NOTE | 2017-05-27 15:13 | CONS ---
Date/Time of Note Date/Time of Note DATE: 05/27/17 TIME: 15:07 Assessment/Plan Assessment/Plan Chief Complaint/Hosp Course ID PROGRESS NOTE CURRENT ABX: TOTAL ABX DAY # 5 =>Zosyn IV + Ethambutol + Pyrazinamide + B6 s/p Vanco IV + Cefepime 05/23 24H INTERVAL SUMMARY * No fevers, WBC down today -> patient is awake, alert, responsive, tells me she is OK, denies pain * MICROBIOLOGY: Blood culture grew Serratia, susceptible to all antibiotics. Aspirated fluid cultures from the lung are preliminary negative. Of note, cytology of the fluid culture revealed cloudy yellow appearance with white blood cell count of 10,818. LDH 1189. * 05/25/17 RESPIRATORY CULTURE Preliminary Organism 1 SERRATIA LIQUEFACIENS QUANTITY 1+ Organism 2 NON LACTOSE FERMENTING GNR QUANTITY 2+ Organism 3 GRAM NEGATIVE LULY QUANTITY 1+ S LIQUEFAC M.I.C. 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 Status post rapid atrial fibrillation, patient is cardioverted. 2. Bacteremia with blood culture since admission grew Serratia=> likely pulmonary source 3. 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 [facility] on case. * Rx: Ethambutol + Pyrazinamide + B6 onboard 4. HCAP w/Pleural effusion-> s/p THORA w/(-)Cx, Fungal held 6+ weeks, AFB Smear ACID FAST BACILLI NONE SEEN * 05/25/17 RESPIRATORY CULTURE Preliminary Organism 1 SERRATIA LIQUEFACIENS 1+ Organism 2 NON LACTOSE FERMENTING GNR 2+ Organism 3 GRAM NEGATIVE LULY 1+ 5. Questionable gastroenteritis per CT of the abdomen. 6. Dysphagia. 7. Anemia. ( -)MRSA ABX ALLERGIES: None to ABX INVASIVES: PIV Trach, PEG CURRENT ABX: TOTAL ABX DAY # 5=>Zosyn IV + Ethambutol + Pyrazinamide + B6 s/p Vanco IV + Cefepime 05/23 ID RECOMMENDATIONS/PLAN: 1. Continue current ABX over the weekend 2. ID team consultants will continue to follow . Problems: Consultation Date/Type/Reason Admit Date/Time May 23, 2017 at 11:33 Referring Provider: NAOMIE VAUGHN MD Exam/Review of Systems Vital Signs Vitals Vital Signs Date Time Temp Pulse Resp B/P Pulse Ox O2 Delivery O2 Flow Rate FiO2 05/27/17 13:10 70 16 68 35 05/27/17 12:41 98.3 123/59 05/26/17 18:00 Mechanical Ventilator Intake and Output 05/26/17 05/26/17 05/27/17 15:00 23:00 07:00 Intake Total 840 ml 230 ml 520 ml Output Total 240 ml 60 ml Balance 600 ml 170 ml 520 ml Results Result Diagram: 05/27/17 0539 05/27/17 0539 Results 24 hrs Laboratory Tests Test 05/27/17 05:39 White Blood Count 13.4 H Red Blood Count 3.42 L Hemoglobin 10.4 L Hematocrit 32.8 L Mean Corpuscular Volume 95.9 Mean Corpuscular Hemoglobin 30.4 Mean Corpuscular Hemoglobin Concent 31.7 L Red Cell Distribution Width 16.2 H Platelet Count 298 Mean Platelet Volume 9.3 Neutrophils % 78.0 H Lymphocytes % 10.6 L Monocytes % 9.0 Eosinophils % 1.3 Basophils % 0.3 Nucleated Red Blood Cells % 0.0 Neutrophils # 10.4 H Lymphocytes # 1.4 Monocytes # 1.2 H Eosinophils # 0.2 Basophils # 0.0 Nucleated Red Blood Cells # 0.0 Sodium Level 145 H Potassium Level 3.7 Chloride Level 113 H Carbon Dioxide Level 30 Anion Gap 6 #L Blood Urea Nitrogen 19 Creatinine 0.49 Glucose Level 104 Calcium Level 9.2 Phosphorus Level 2.5 Magnesium Level 1.9 Medications Medications Current Medications Acetaminophen (Tylenol Tab) 650 mg Q6H PRN GTB PAIN AND OR ELEVATED TEMP; Start 05/23/17 at 12:30 Ascorbic Acid (Vitamin C) 500 mg DAILY GTB Last administered on 05/27/17 08: 57; Admin Dose 500 MG; Start 05/24/17 at 09:00 Aspirin (Aspirin) 81 mg DAILY GTB Last administered on 05/27/17 08:57; Admin Dose 81 MG; Start 05/24/17 at 09:00 Atorvastatin Calcium (Lipitor) 40 mg QHS GTB Last administered on 05/26/17 22 :07; Admin Dose 40 MG; Start 05/23/17 at 21:00 Bisacodyl (Dulcolax Supp) 10 mg Q24H PRN [place] CONSTIPATION; Start 05/23/17 at 12 :30 Clonazepam (Klonopin) 0.5 mg QHS GTB Last administered on 05/26/17 22:07; Admin Dose 0.5 MG; Start 05/23/17 at 21:00 Docusate Sodium (Colace) 100 mg QHS PRN [place] CONSTIPATION; Start 05/23/17 at 12: 30 Ethambutol HCl (Myambutol) 800 mg DAILY GTB Last administered on 05/27/17 12: 24; Admin Dose 800 MG; Start 05/24/17 at 09:00 Hyoscyamine (Levsin (Sl)) 0.125 mg Q4H PRN SL EXCESIVE ORAL SECRETIONS; Start 05/23/17 at 13:00 Magnesium Hydroxide (Milk Of Mag) 30 ml Q24H PRN GTB CONSTIPATION; Start 05/23 at 12:30 Methocarbamol (Robaxin) 500 mg Q8 GTB Last administered on 05/27/17 14:53; Admin Dose 500 MG; Start 05/23/17 at 14:00 Metoprolol Tartrate (Lopressor) 25 mg BID GTB Last administered on 05/27/17 08:58; Admin Dose 25 MG; Start 05/23/17 at 21:00 Eye Lubricant (Akwa Oint) 1 applic DAILY PRN BOTH EYES DRY EYES; Start at 13:00 Pyrazinamide (Pyrazinamide) 1,000 mg DAILY GTB Last administered on 05/27/17 12:24; Admin Dose 1,000 MG; Start 05/24/17 at 09:00 Pyridoxine HCl (Vitamin B6) 50 mg DAILY GTB Last administered on 05/27/17 08: 57; Admin Dose 50 MG; Start 05/24/17 at 09:00 Quetiapine Fumarate (Seroquel) 50 mg HS GTB Last administered on 05/26/17 22: 08; Admin Dose 50 MG; Start 05/23/17 at 21:00 Rifabutin (Mycobutin) 300 mg BID GTB Last administered on 05/27/17 08:57; Admin Dose 300 MG; Start 05/23/17 at 21:00 Multivitamins (Multivitamin) 30 ml DAILY GTB Last administered on 05/27/17 08 :57; Admin Dose 30 ML; Start 05/24/17 at 09:00 Ondansetron HCl (Zofran Inj) 4 mg Q6H PRN IV NAUSEA AND/OR VOMITING Last administered on 05/23/17 22:48; Admin Dose 4 MG; Start 05/23/17 at 13:00 Nitroglycerin (Nitroglycerin (Sl Tab) 0.4 Mg) 1 tab Q5M PRN SL CHEST PAIN; Start 05/23/17 at 13:00 Acetaminophen/ Hydrocodone Bitart ([place] (5/325)) 1 tab Q6H PRN GTB PAIN LEVEL 4-6 Last administered on 05/23/17 22:13; Admin Dose 1 TAB; Start 05/23/17 at 13:00 Ferrous Sulfate (Feosol Liquid Cup) 300 mg TID GTB Last administered on 14:53; Admin Dose 300 MG; Start 05/23/17 at 17:00 Lorazepam (Ativan) 1 mg Q4H PRN IV anxiety Last administered on 05/24/17 13: 15; Admin Dose 1 MG; Start 05/24/17 at 13:11 Enoxaparin Sodium (Lovenox) 30 mg DAILY SC Last administered on 05/27/17 10: 28; Admin Dose 30 MG; Start 05/25/17 at 09:00 Famotidine (Pepcid) 20 mg DAILY GTB Last administered on 05/27/17 08:58; Admin Dose 20 MG; Start 05/25/17 at 09:00 Mineral Oil 133 ml 133 ml Q48H PRN [place] constipation; Start 05/26/17 at 09:00 Amiodarone HCl/ Dextrose (Cordarone Iv/ D5W) 500 ml @ 0 mls/hr Q0M IV Last administered on 05/24/17 19:19; Admin Dose 33.4 MLS/HR; Start 05/24/17 at 19: 00 Morphine Sulfate (morphine) 1 mg Q4H PRN IV PAIN LEVEL 4-6 Last administered on 05/25/17 17:57; Admin Dose 1 MG; Start 05/24/17 at 19:00 Amiodarone HCl 200 mg 200 mg BID PO Last administered on 05/27/17 08:58; Admin Dose 200 MG; Start 05/25/17 at 21:00 Dextrose/Sodium Chloride 1,000 ml @ 60 mls/hr [id number] IV Last administered on 05/27/17 02:21; Admin Dose 60 MLS/HR; Start 05/26/17 at 09:00 Piperacillin Sod/ Tazobactam Sod (Zosyn 2.25gm/ 50ml (Pmx)) 50 ml @ 100 mls/hr Q8 IVPB Last administered on 05/27/17 14:53; Admin Dose 100 MLS/HR; Start at 11:30 WAYNE RICO NP May 27, 2017 15:13
[2017-05-27] MEDS: clonAZEPAM 0.5 MG TAB GTB SCH (21:53)
[2017-05-27] MEDS: ATORVASTATIN 40 MG TAB GTB SCH (21:54)
[2017-05-27] MEDS: QUETIAPINE 25 MG TAB GTB SCH (21:55)
[2017-05-28] VITALS (25 sets, daily range): BP systolic 93–145; BP diastolic 51–78; PULSE 64–87; RESP 10–24
[2017-05-28] MEDS: METHOCARBAMOL 500 MG TAB GTB SCH ×3 (06:14→21:43)
[2017-05-28] MEDS: PIPER-TAZO 2.25 GM (PMX) 50 ML IVPB SCH ×2 (06:14→14:24)
[2017-05-28] MEDS: LEVOTHYROXINE 100 MCG TAB GTB SCH (06:14)
[2017-05-28] MEDS: MULTIVITAMINS 30 ML CUP GTB SCH (09:08)
[2017-05-28] MEDS: METOPROLOL 25 MG TAB GTB SCH ×2 (09:08→21:42)
[2017-05-28] MEDS: RIFABUTIN 150 MG CAP GTB SCH ×2 (09:08→21:41)
[2017-05-28] MEDS: ASPIRIN 81 MG TAB GTB SCH (09:09)
[2017-05-28] MEDS: AMIODARONE 200 MG TAB PO SCH ×2 (09:09→21:43)
[2017-05-28] MEDS: ASCORBIC ACID 500 MG TAB GTB SCH (09:09)
[2017-05-28] MEDS: FAMOTIDINE 20 MG TAB GTB SCH (09:09)
[2017-05-28] MEDS: FERROUS SULFATE 60 MG/ML 5ML CUP GTB SCH ×2 (09:09→12:53)
[2017-05-28] MEDS: PYRIDOXINE 50 MG TAB GTB SCH (09:09)
[2017-05-28] MEDS: ETHAMBUTOL 400 MG TAB GTB SCH (09:09)
[2017-05-28] MEDS: PYRAZINAMIDE 500 MG TAB GTB SCH (09:10)
[2017-05-28] MEDS: ENOXAPARIN 30 MG/0.3 ML SYG SC SCH (09:11)
[2017-05-28] MEDS: DEXTROSE 5%-0.45% NACL 1,000 ML IV SCH (11:00)
[2017-05-28] MEDS ORDERED: clonAZEPAM 0.5 MG TAB GTB PRN (11:00)
--- NOTE | 2017-05-28 11:59 | CONS ---
Date/Time of Note Date/Time of Note DATE: 05/28/17 TIME: 11:54 Assessment/Plan Assessment/Plan Chief Complaint/Hosp Course IMPRESSION: 1. Hypotension in the setting of rapid tachyarrhythmia of atrial fibrillation and recent fevers, now improved.-negative tropx 3/off pressors 2. Atrial fibrillation with rapid ventricular response, slowly improving after initial dose of digoxin and amiodarone.-now in SR and remains/NL TSH 3. Pneumonia. 4. Fevers. 5. Chronic respiratory failure, status post tracheostomy. 6. Tuberculosis, on treatment. 7. Hypothyroidism. 8. Dyslipidemia. 9. Pleural effusion, status post right thoracentesis removal of 1 liter. 10. Anemia. Recc: -Tele -Follow volume status closely -Continue PO amio/BB as tolerated -Resume PO digoxin -Continue lovenox low dose -Continue abx's and f/u cx data Problems: Consultation Date/Type/Reason Admit Date/Time May 23, 2017 at 11:33 Initial Consult Date 05/24/2017 Type of Consultation: cardiology Reason for Consultation AF Referring Provider: NAOMIE VAUGHN MD Exam/Review of Systems Vital Signs Vitals Vital Signs Date Time Temp Pulse Resp B/P Pulse Ox O2 Delivery O2 Flow Rate FiO2 05/28/17 11:20 75 16 95 40 05/28/17 07:50 98.2 93/51 05/26/17 18:00 Mechanical Ventilator Intake and Output 05/27/17 05/27/17 05/28/17 15:00 23:00 07:00 Intake Total 680 ml Output Total 600 ml Balance 80 ml Exam Review of Systems: CONSTITUTIONAL: No fevers, chills. PULMONARY: No sob CARDIOVASCULAR: No chest pain/palpitations GASTROINTESTINAL: No nausea/vomiting. GENITOURINARY: No hematuria/dysuria. MUSCULOSKELETAL: No myagias/arthalgias. PSYCHIATRIC: The patient denies depression. NEUROLOGIC: No weakness Constitutional: alert Psych: no complaints Head: normocephalic ENMT: mucosa pink and moist Neck: jvd (8 cm water), supple Respiratory: diminished breath sounds Cardiovascular: regular rate and rhythm Gastrointestinal: non-tender, soft Musculoskeletal: muscle tone (normal) Extremities: edema Neurological: other (no focal deficits) Results Result Diagram: 05/27/17 0539 11/19/17 0539 Medications Medications Current Medications Acetaminophen (Tylenol Tab) 650 mg Q6H PRN GTB PAIN AND OR ELEVATED TEMP; Start 05/23/17 at 12:30 Ascorbic Acid (Vitamin C) 500 mg DAILY GTB Last administered on 05/28/17 09: 09; Admin Dose 500 MG; Start 05/24/17 at 09:00 Aspirin (Aspirin) 81 mg DAILY GTB Last administered on 05/28/17 09:09; Admin Dose 81 MG; Start 05/24/17 at 09:00 Atorvastatin Calcium (Lipitor) 40 mg QHS GTB Last administered on 05/27/17 21 :54; Admin Dose 40 MG; Start 05/23/17 at 21:00 Bisacodyl (Dulcolax Supp) 10 mg Q24H PRN [place] CONSTIPATION; Start 05/23/17 at 12 :30 Docusate Sodium (Colace) 100 mg QHS PRN PO CONSTIPATION; Start 05/23/17 at 12: 30 Ethambutol HCl (Myambutol) 800 mg DAILY GTB Last administered on 05/28/17 09: 09; Admin Dose 800 MG; Start 05/24/17 at 09:00 Hyoscyamine (Levsin (Sl)) 0.125 mg Q4H PRN SL EXCESIVE ORAL SECRETIONS; Start 05/23/17 at 13:00 Magnesium Hydroxide (Milk Of Mag) 30 ml Q24H PRN GTB CONSTIPATION; Start 05/23 at 12:30 Methocarbamol (Robaxin) 500 mg Q8 GTB Last administered on 05/28/17 06:14; Admin Dose 500 MG; Start 05/23/17 at 14:00 Metoprolol Tartrate (Lopressor) 25 mg BID GTB Last administered on 05/28/17 09:08; Admin Dose 25 MG; Start 05/23/17 at 21:00 Eye Lubricant (Akwa Oint) 1 applic DAILY PRN BOTH EYES DRY EYES; Start at 13:00 Pyrazinamide (Pyrazinamide) 1,000 mg DAILY GTB Last administered on 05/28/17 09:10; Admin Dose 1,000 MG; Start 05/24/17 at 09:00 Pyridoxine HCl (Vitamin B6) 50 mg DAILY GTB Last administered on 05/28/17 09: 09; Admin Dose 50 MG; Start 05/24/17 at 09:00 Quetiapine Fumarate (Seroquel) 50 mg HS GTB Last administered on 05/27/17 21: 55; Admin Dose 50 MG; Start 05/23/17 at 21:00 Rifabutin (Mycobutin) 300 mg BID GTB Last administered on 05/28/17 09:08; Admin Dose 300 MG; Start 05/23/17 at 21:00 Multivitamins (Multivitamin) 30 ml DAILY GTB Last administered on 05/28/17 09 :08; Admin Dose 30 ML; Start 05/24/17 at 09:00 Ondansetron HCl (Zofran Inj) 4 mg Q6H PRN IV NAUSEA AND/OR VOMITING Last administered on 05/23/17 22:48; Admin Dose 4 MG; Start 05/23/17 at 13:00 Nitroglycerin (Nitroglycerin (Sl Tab) 0.4 Mg) 1 tab Q5M PRN SL CHEST PAIN; Start 05/23/17 at 13:00 Acetaminophen/ Hydrocodone Bitart ([place] (5/325)) 1 tab Q6H PRN GTB PAIN LEVEL 4-6 Last administered on 05/23/17 22:13; Admin Dose 1 TAB; Start 05/23/17 at 13:00 Ferrous Sulfate (Feosol Liquid Cup) 300 mg TID GTB Last administered on 09:09; Admin Dose 300 MG; Start 05/23/17 at 17:00 Lorazepam (Ativan) 1 mg Q4H PRN IV anxiety Last administered on 05/24/17 13: 15; Admin Dose 1 MG; Start 05/24/17 at 13:11 Enoxaparin Sodium (Lovenox) 30 mg DAILY SC Last administered on 05/28/17 09: 11; Admin Dose 30 MG; Start 05/25/17 at 09:00 Famotidine (Pepcid) 20 mg DAILY GTB Last administered on 05/28/17 09:09; Admin Dose 20 MG; Start 05/25/17 at 09:00 Mineral Oil 133 ml 133 ml Q48H PRN [place] constipation; Start 05/26/17 at 09:00 Amiodarone HCl/ Dextrose (Cordarone Iv/ D5W) 500 ml @ 0 mls/hr Q0M IV Last administered on 05/24/17 19:19; Admin Dose 33.4 MLS/HR; Start 05/24/17 at 19: 00 Morphine Sulfate (morphine) 1 mg Q4H PRN IV PAIN LEVEL 4-6 Last administered on 05/25/17 17:57; Admin Dose 1 MG; Start 05/24/17 at 19:00 Amiodarone HCl 200 mg 200 mg BID PO Last administered on 05/28/17 09:09; Admin Dose 200 MG; Start 05/25/17 at 21:00 Dextrose/Sodium Chloride 1,000 ml @ 60 mls/hr [id number] IV Last administered on 05/27/17 02:21; Admin Dose 60 MLS/HR; Start 05/26/17 at 09:00 Piperacillin Sod/ Tazobactam Sod (Zosyn 2.25gm/ 50ml (Pmx)) 50 ml @ 100 mls/hr Q8 IVPB Last administered on 05/28/17 06:14; Admin Dose 100 MLS/HR; Start at 11:30 Clonazepam (Klonopin) 0.5 mg QHS PRN GTB agitation; Start 05/28/17 at 11:00 CHRISSIE YADAV 20, 2017 11:59
[2017-05-28 12:20] LABS: BASOPHILS % 0.2 % (0.0-2.0); EOSINOPHILS # 0.2 10^3/ul (0.0-0.5); EOSINOPHILS % 1.2 % (0.0-7.0); HEMATOCRIT 33.5 % (37.0-47.0); HEMOGLOBIN 10.4 g/dl (12.0-16.0); LYMPHOCYTES # 1.6 10^3/ul (0.8-2.9); LYMPHOCYTES % 12.4 % (15.0-51.0); MEAN CORPUSCULAR HEMOGLOBIN 30.4 pg (29.0-33.0); MEAN PLATELET VOLUME 9.5 fl (7.4-10.4); MONOCYTE # 1.3 10^3/ul (0.3-0.9); MONOCYTES % 10.4 % (0.0-11.0); NEUTROPHIL # 9.5 10^3/ul (1.6-7.5); NEUTROPHILS % 74.5 % (39.0-77.0); PLATELET COUNT 287 10^3/UL (140-415); RED BLOOD COUNT 3.42 10^6/ul (4.20-5.40); WHITE BLOOD COUNT 12.7 10^3/ul (4.8-10.8)
[2017-05-28] MEDS: DIGOXIN 0.125 MG TAB PO SCH (12:53)
[2017-05-28 13:02] LABS: LACTIC ACID 1.2 mmol/L (0.5-2.0)
[2017-05-28 13:04] LABS: ALBUMIN 2.2 g/dl (3.3-4.9); ALBUMIN/GLOBULIN RATIO 0.68; CALCIUM 8.7 mg/dl (8.4-10.2); CREATININE 0.5 mg/dl (0.44-1.00); POTASSIUM 3.8 mmol/L (3.5-5.1); TOTAL PROTEIN 5.4 g/dl (6.1-8.1)
[2017-05-28] MEDS ORDERED: LACTULOSE 30ML CUP GTB ONE (14:30)
--- NOTE | 2017-05-28 14:53 | CONS ---
Date/Time of Note Date/Time of Note DATE: 05/28/17 TIME: 14:52 Consult Date/Type/Reason Admit Date/Time May 23, 2017 at 11:33 Type of Consultation: Pulmonary Ordering Provider: NAOMIE VAUGHN MD Subjective Patient remains comfortable no new events. Objective Vital Signs Date Time Temp Pulse Resp B/P Pulse Ox O2 Delivery O2 Flow Rate FiO2 05/28/17 13:20 79 24 95 40 05/28/17 11:00 97.5 116/55 05/26/17 18:00 Mechanical Ventilator Intake and Output 05/27/17 05/27/17 05/28/17 15:00 23:00 07:00 Intake Total 680 ml Output Total 600 ml Balance 80 ml Exam GENERAL: Elderly appearing lady comfortable at rest no acute distress VITAL SIGNS: per chart NECK: Supple. No JVD or lymphadenopathy. CARDIAC EXAM: S1, S2. No added sounds or murmurs. CHEST: clear bilaterally, No added sounds, rales or wheezes ABDOMEN: Soft, nontender. No guarding or rebound. EXTREMITIES: No cyanosis, clubbing or edema. NEUROLOGIC: Generalized weakness. No focal deficits. Results/Medications Result Diagram: 05/28/17 1157 05/28/17 1157 Results 24 hrs Laboratory Tests Test 05/28/17 11:57 White Blood Count 12.7 H Red Blood Count 3.42 L Hemoglobin 10.4 L Hematocrit 33.5 L Mean Corpuscular Volume 98.0 Mean Corpuscular Hemoglobin 30.4 Mean Corpuscular Hemoglobin Concent 31.0 L Red Cell Distribution Width 17.0 H Platelet Count 287 Mean Platelet Volume 9.5 Neutrophils % 74.5 Lymphocytes % 12.4 L Monocytes % 10.4 Eosinophils % 1.2 Basophils % 0.2 Nucleated Red Blood Cells % 0.0 Neutrophils # 9.5 H Lymphocytes # 1.6 Monocytes # 1.3 H Eosinophils # 0.2 Basophils # 0.0 Nucleated Red Blood Cells # 0.0 Sodium Level 141 Potassium Level 3.8 Chloride Level 108 Carbon Dioxide Level 29 Anion Gap 8 Blood Urea Nitrogen 19 Creatinine 0.50 Glucose Level 234 #H Lactic Acid Level 1.2 Calcium Level 8.7 Total Bilirubin 0.0 L Direct Bilirubin 0.00 Indirect Bilirubin 0.0 Aspartate Amino Transf (AST/SGOT) 21 Alanine Aminotransferase (ALT/SGPT) 39 Alkaline Phosphatase 126 H Ammonia 46 H Total Protein 5.4 L Albumin 2.2 L Globulin 3.20 Albumin/Globulin Ratio 0.68 Medications Current Medications Acetaminophen (Tylenol Tab) 650 mg Q6H PRN GTB PAIN AND OR ELEVATED TEMP; Start 05/23/17 at 12:30 Ascorbic Acid (Vitamin C) 500 mg DAILY GTB Last administered on 05/28/17 09: 09; Admin Dose 500 MG; Start 05/24/17 at 09:00 Aspirin (Aspirin) 81 mg DAILY GTB Last administered on 05/28/17 09:09; Admin Dose 81 MG; Start 05/24/17 at 09:00 Atorvastatin Calcium (Lipitor) 40 mg QHS GTB Last administered on 05/27/17 21 :54; Admin Dose 40 MG; Start 05/23/17 at 21:00 Bisacodyl (Dulcolax Supp) 10 mg Q24H PRN [place] CONSTIPATION; Start 05/23/17 at 12 :30 Docusate Sodium (Colace) 100 mg QHS PRN PO CONSTIPATION; Start 05/23/17 at 12: 30 Ethambutol HCl (Myambutol) 800 mg DAILY GTB Last administered on 05/28/17 09: 09; Admin Dose 800 MG; Start 05/24/17 at 09:00 Hyoscyamine (Levsin (Sl)) 0.125 mg Q4H PRN SL EXCESIVE ORAL SECRETIONS; Start 05/23/17 at 13:00 Magnesium Hydroxide (Milk Of Mag) 30 ml Q24H PRN GTB CONSTIPATION; Start 05/23 at 12:30 Methocarbamol (Robaxin) 500 mg Q8 GTB Last administered on 05/28/17 14:21; Admin Dose 500 MG; Start 05/23/17 at 14:00 Metoprolol Tartrate (Lopressor) 25 mg BID GTB Last administered on 05/28/17 09:08; Admin Dose 25 MG; Start 05/23/17 at 21:00 Eye Lubricant (Akwa Oint) 1 applic DAILY PRN BOTH EYES DRY EYES; Start at 13:00 Pyrazinamide (Pyrazinamide) 1,000 mg DAILY GTB Last administered on 05/28/17 09:10; Admin Dose 1,000 MG; Start 05/24/17 at 09:00 Pyridoxine HCl (Vitamin B6) 50 mg DAILY GTB Last administered on 05/28/17 09: 09; Admin Dose 50 MG; Start 05/24/17 at 09:00 Quetiapine Fumarate (Seroquel) 50 mg HS GTB Last administered on 05/27/17 21: 55; Admin Dose 50 MG; Start 05/23/17 at 21:00 Rifabutin (Mycobutin) 300 mg BID GTB Last administered on 05/28/17 09:08; Admin Dose 300 MG; Start 05/23/17 at 21:00 Multivitamins (Multivitamin) 30 ml DAILY GTB Last administered on 05/28/17 09 :08; Admin Dose 30 ML; Start 05/24/17 at 09:00 Ondansetron HCl (Zofran Inj) 4 mg Q6H PRN IV NAUSEA AND/OR VOMITING Last administered on 05/23/17 22:48; Admin Dose 4 MG; Start 05/23/17 at 13:00 Nitroglycerin (Nitroglycerin (Sl Tab) 0.4 Mg) 1 tab Q5M PRN SL CHEST PAIN; Start 05/23/17 at 13:00 Acetaminophen/ Hydrocodone Bitart ([place] (5/325)) 1 tab Q6H PRN GTB PAIN LEVEL 4-6 Last administered on 05/23/17 22:13; Admin Dose 1 TAB; Start 05/23/17 at 13:00 Ferrous Sulfate (Feosol Liquid Cup) 300 mg TID GTB Last administered on 12:53; Admin Dose 300 MG; Start 05/23/17 at 17:00 Lorazepam (Ativan) 1 mg Q4H PRN IV anxiety Last administered on 05/24/17 13: 15; Admin Dose 1 MG; Start 05/24/17 at 13:11 Enoxaparin Sodium (Lovenox) 30 mg DAILY SC Last administered on 05/28/17 09: 11; Admin Dose 30 MG; Start 05/25/17 at 09:00 Famotidine (Pepcid) 20 mg DAILY GTB Last administered on 05/28/17 09:09; Admin Dose 20 MG; Start 05/25/17 at 09:00 Mineral Oil 133 ml 133 ml Q48H PRN [place] constipation; Start 05/26/17 at 09:00 Amiodarone HCl/ Dextrose (Cordarone Iv/ D5W) 500 ml @ 0 mls/hr Q0M IV Last administered on 05/24/17 19:19; Admin Dose 33.4 MLS/HR; Start 05/24/17 at 19: 00 Morphine Sulfate (morphine) 1 mg Q4H PRN IV PAIN LEVEL 4-6 Last administered on 05/25/17 17:57; Admin Dose 1 MG; Start 05/24/17 at 19:00 Amiodarone HCl 200 mg 200 mg BID PO Last administered on 05/28/17 09:09; Admin Dose 200 MG; Start 05/25/17 at 21:00 Dextrose/Sodium Chloride 1,000 ml @ 60 mls/hr [id number] IV Last administered on 05/27/17 02:21; Admin Dose 60 MLS/HR; Start 05/26/17 at 09:00 Piperacillin Sod/ Tazobactam Sod (Zosyn 2.25gm/ 50ml (Pmx)) 50 ml @ 100 mls/hr Q8 IVPB Last administered on 05/28/17 14:24; Admin Dose 100 MLS/HR; Start at 11:30 Clonazepam (Klonopin) 0.5 mg QHS PRN GTB agitation; Start 05/28/17 at 11:00 Digoxin (Digoxin) 0.125 mg DAILY@13 PO Last administered on 05/28/17 12:53; Admin Dose 0.125 MG; Start 05/28/17 at 13:00 Assessment/Plan Chief Complaint/Hosp Course Assessment: 1. Hx MTB 2. VDRF 3. Recurrent pleural effusions. 4. Dysphagia with PEG. 5. Anemia. 6. A. fib with RVR. Status post amiodarone Plan: 1. Thoracentesis results noted. 2. Continue MTB abx 3. Status post transfusion packed red blood cells 4. Continue TF. 5. Amiodarone per cardiology. Transfer to [place] Problems: ISABEL MANCERA MD, [facility] May 28, 2017 14:53
[2017-05-28 15:40] LABS: ADD UMIC YES; UR ASCORBIC ACID 40 mg/dL (NEGATIVE); UR BACTERIA MODERATE /HPF (NONE SEEN); UR BILIRUBIN (Dip) NEGATIVE (NEGATIVE); UR BLOOD (Dip) 2+ mg/dL (NEGATIVE); UR BUDDING YEAST FEW /HPF (NONE SEEN); UR CLARITY SLIGHTLY CLOUDY (CLEAR); UR COLOR AMBER (YELLOW); UR GLUCOSE (Dip) 1+ mg/dL (NEGATIVE); UR KETONES (Dip) NEGATIVE (NEGATIVE); UR LEUKOCYTE ESTERASE (Dip) 2+ Leu/ul (NEGATIVE); UR MUCUS FEW /HPF (NONE SEEN); UR NITRITE (Dip) NEGATIVE (NEGATIVE); UR RBC 76 /HPF (0-5); UR SPECIFIC GRAVITY (Dip) 1.021 (1.003-1.030); UR TOTAL PROTEIN (Dip) 2+ mg/dl (NEGATIVE); UR UROBILINOGEN (Dip) NEGATIVE (NEGATIVE)
--- NOTE | 2017-05-28 16:40 | PN ---
Date/Time of Note Date/Time of Note DATE: 05/28/17 TIME: 16:30 Assessment/Plan VTE Prophylaxis VTE Prophylaxis Intervention: SCD's Lines/Catheters IV Catheter Type (from Nrs): Saline Lock Urinary Cath still in place: Yes Reason Cath still needed: terminal illness/intractable pain Assessment/Plan Chief Complaint/Hosp Course Assessment/Plan #encephalopathy -elevated ammonia is very mild, ggt ordered -patient also on seroquel and clonazepam, making clonazepam prn instead of scheduled. #arrhythmia- stable - Cardiology on board and consultation appreciated. Continue on Amiodarone - Started on PO Digoxin - Started on low dose BB as tolerated - ECHO noted #. Sepsis secondary to PNA/bacteremia - Patients WBC trending downward and remains afebrile - LA normalized - ID consultation placed and appreciated recommendations. Will continue on broad spectrum and await cultural results - continue on IVF #. Bacteremia - Blood cultures growing Serratia - Repeat blood cultures negative - ID on board #. Anemia - s/p 2PRBC with response to Hgb 10, no drop since - Iron levels <10 - Started on IV iron, will supplement oral iron with vit C temporarily for 3-6 months #. Large right pleural effusion s/p thoracentesis - 1L removed and fluid studies sent. Appears to be exudative. Awaiting cultures - Pulmonology on board and recommendations appreciated -per pulm, loculations on CT appear free flowing, hold off on CT surgery. #. Left lower lobe density - CT scan showed round fluid density structure within the superior segment left lower lobe measuring 2.9 x 2.7 cm #. Infectious bronchiolitis #. 10 x 8 mm right lower lobe nodule - Will need close follow up outpatient #. Acute gastroenteritis - send stool studies - Dietary consult for tube feed recommendations #. Disposition - ?encephalopathy - once stable, transfer to [facility] -9 more days iv abx -tb meds per department of health Problems: Exam/Review of Systems Vital Signs Vitals Vital Signs Date Time Temp Pulse Resp B/P Pulse Ox O2 Delivery O2 Flow Rate FiO2 05/28/17 16:26 67 05/28/17 15:47 97.8 12 111/78 97 05/28/17 15:05 40 05/26/17 18:00 Mechanical Ventilator Intake and Output 05/27/17 05/27/17 05/28/17 15:00 23:00 07:00 Intake Total 680 ml Output Total 600 ml Balance 80 ml Exam Constitutional: lethargic, non-verbal, well developed, trach/vent Head: atraumatic, normocephalic Eyes: EOMI, PERRL ENMT: trach in place Respiratory: crackles/rales, diminished breath sounds, No labored breathing Cardiovascular: regular rate and rhythm, No systolic murmur Gastrointestinal: soft, minimally tender Musculoskeletal: nl extremities to inspection Extremities: normal pulses, No edema neuro: moves all extremities spontaneously, eyes remain closed, unable to arouse completely Results Result Diagram: 05/28/17 1157 05/28/17 1157 Results 24 hrs Laboratory Tests Test 05/28/17 11:57 05/28/17 15:00 White Blood Count 12.7 H Red Blood Count 3.42 L Hemoglobin 10.4 L Hematocrit 33.5 L Mean Corpuscular Volume 98.0 Mean Corpuscular Hemoglobin 30.4 Mean Corpuscular Hemoglobin Concent 31.0 L Red Cell Distribution Width 17.0 H Platelet Count 287 Mean Platelet Volume 9.5 Neutrophils % 74.5 Lymphocytes % 12.4 L Monocytes % 10.4 Eosinophils % 1.2 Basophils % 0.2 Nucleated Red Blood Cells % 0.0 Neutrophils # 9.5 H Lymphocytes # 1.6 Monocytes # 1.3 H Eosinophils # 0.2 Basophils # 0.0 Nucleated Red Blood Cells # 0.0 Sodium Level 141 Potassium Level 3.8 Chloride Level 108 Carbon Dioxide Level 29 Anion Gap 8 Blood Urea Nitrogen 19 Creatinine 0.50 Glucose Level 234 #H Lactic Acid Level 1.2 Calcium Level 8.7 Total Bilirubin 0.0 L Direct Bilirubin 0.00 Indirect Bilirubin 0.0 Aspartate Amino Transf (AST/SGOT) 21 Alanine Aminotransferase (ALT/SGPT) 39 Alkaline Phosphatase 126 H Ammonia 46 H Total Protein 5.4 L Albumin 2.2 L Globulin 3.20 Albumin/Globulin Ratio 0.68 Urine Color DYLON Urine Clarity SLIGHTLY CLOUDY A Urine pH 5.0 Urine Specific [place] 1.021 Urine Ketones NEGATIVE Urine Nitrite NEGATIVE Urine Bilirubin NEGATIVE Urine Urobilinogen NEGATIVE Urine Leukocyte Esterase 2+ H Urine Microscopic RBC 76 H Urine Microscopic WBC > 182 H Urine Calcium Oxalate Crystals FEW A Urine Bacteria MODERATE Urine Mucus FEW A Urine Yeast (Budding) FEW A Urine Hemoglobin 2+ H Urine Glucose 1+ H Urine Total Protein 2+ H Medications Medications Current Medications Acetaminophen (Tylenol Tab) 650 mg Q6H PRN GTB PAIN AND OR ELEVATED TEMP; Start 05/23/17 at 12:30 Ascorbic Acid (Vitamin C) 500 mg DAILY GTB Last administered on 05/28/17 09: 09; Admin Dose 500 MG; Start 05/24/17 at 09:00 Aspirin (Aspirin) 81 mg DAILY GTB Last administered on 05/28/17 09:09; Admin Dose 81 MG; Start 05/24/17 at 09:00 Atorvastatin Calcium (Lipitor) 40 mg QHS GTB Last administered on 05/27/17 21 :54; Admin Dose 40 MG; Start 05/23/17 at 21:00 Bisacodyl (Dulcolax Supp) 10 mg Q24H PRN SC CONSTIPATION; Start 05/23/17 at 12 :30 Docusate Sodium (Colace) 100 mg QHS PRN PO CONSTIPATION; Start 05/23/17 at 12: 30 Ethambutol HCl (Myambutol) 800 mg DAILY GTB Last administered on 05/28/17 09: 09; Admin Dose 800 MG; Start 05/24/17 at 09:00 Hyoscyamine (Levsin (Sl)) 0.125 mg Q4H PRN SL EXCESIVE ORAL SECRETIONS; Start 05/23/17 at 13:00 Magnesium Hydroxide (Milk Of Mag) 30 ml Q24H PRN GTB CONSTIPATION; Start 05/23 at 12:30 Methocarbamol (Robaxin) 500 mg Q8 GTB Last administered on 05/28/17 14:21; Admin Dose 500 MG; Start 05/23/17 at 14:00 Metoprolol Tartrate (Lopressor) 25 mg BID GTB Last administered on 05/28/17 09:08; Admin Dose 25 MG; Start 05/23/17 at 21:00 Eye Lubricant (Akwa Oint) 1 applic DAILY PRN BOTH EYES DRY EYES; Start at 13:00 Pyrazinamide (Pyrazinamide) 1,000 mg DAILY GTB Last administered on 05/28/17 09:10; Admin Dose 1,000 MG; Start 05/24/17 at 09:00 Pyridoxine HCl (Vitamin B6) 50 mg DAILY GTB Last administered on 05/28/17 09: 09; Admin Dose 50 MG; Start 05/24/17 at 09:00 Quetiapine Fumarate (Seroquel) 50 mg HS GTB Last administered on 05/27/17 21: 55; Admin Dose 50 MG; Start 05/23/17 at 21:00 Rifabutin (Mycobutin) 300 mg BID GTB Last administered on 05/28/17 09:08; Admin Dose 300 MG; Start 05/23/17 at 21:00 Multivitamins (Multivitamin) 30 ml DAILY GTB Last administered on 05/28/17 09 :08; Admin Dose 30 ML; Start 05/24/17 at 09:00 Ondansetron HCl (Zofran Inj) 4 mg Q6H PRN IV NAUSEA AND/OR VOMITING Last administered on 05/23/17 22:48; Admin Dose 4 MG; Start 05/23/17 at 13:00 Nitroglycerin (Nitroglycerin (Sl Tab) 0.4 Mg) 1 tab Q5M PRN SL CHEST PAIN; Start 05/23/17 at 13:00 Acetaminophen/ Hydrocodone Bitart ([place] (5/325)) 1 tab Q6H PRN GTB PAIN LEVEL 4-6 Last administered on 05/23/17 22:13; Admin Dose 1 TAB; Start 05/23/17 at 13:00 Ferrous Sulfate (Feosol Liquid Cup) 300 mg TID GTB Last administered on 12:53; Admin Dose 300 MG; Start 05/23/17 at 17:00 Lorazepam (Ativan) 1 mg Q4H PRN IV anxiety Last administered on 05/24/17 13: 15; Admin Dose 1 MG; Start 05/24/17 at 13:11 Enoxaparin Sodium (Lovenox) 30 mg DAILY SC Last administered on 05/28/17 09: 11; Admin Dose 30 MG; Start 05/25/17 at 09:00 Famotidine (Pepcid) 20 mg DAILY GTB Last administered on 05/28/17 09:09; Admin Dose 20 MG; Start 05/25/17 at 09:00 Mineral Oil 133 ml 133 ml Q48H PRN SC constipation; Start 05/26/17 at 09:00 Amiodarone HCl/ Dextrose (Cordarone Iv/ D5W) 500 ml @ 0 mls/hr Q0M IV Last administered on 05/24/17 19:19; Admin Dose 33.4 MLS/HR; Start 05/24/17 at 19: 00 Morphine Sulfate (morphine) 1 mg Q4H PRN IV PAIN LEVEL 4-6 Last administered on 05/25/17 17:57; Admin Dose 1 MG; Start 05/24/17 at 19:00 Amiodarone HCl 200 mg 200 mg BID PO Last administered on 05/28/17 09:09; Admin Dose 200 MG; Start 05/25/17 at 21:00 Dextrose/Sodium Chloride (D5-1/2ns) 1,000 ml @ 60 mls/hr [id number] IV Last administered on 05/27/17 02:21; Admin Dose 60 MLS/HR; Start 05/26/17 at 09:00 Clonazepam (Klonopin) 0.5 mg QHS PRN GTB agitation; Start 05/28/17 at 11:00 Digoxin 0.125 mg 0.125 mg DAILY@13 PO Last administered on 05/28/17 12:53; Admin Dose 0.125 MG; Start 05/28/17 at 13:00 Cefepime HCl (Maxipime 1gm/50 ml (Pmx)) 50 ml @ 100 mls/hr Q12 IVPB ; Start at 21:00 MUKUL LINK May 28, 2017 16:40
--- NOTE | 2017-05-28 18:59 | PN ---
DATE: 05/28/2017 SUBJECTIVE: No acute changes. The patient is awake, looks comfortable. No fevers. VITAL SIGNS: Stable. ANTIMICROBIALS: She is on Zosyn and anti-TB medications. MICROBIOLOGY: Blood culture on admission grew Serratia. Endotracheal aspirate grew Serratia and Providencia stuartii, susceptible to cefepime and cefotaxime. Repeat blood cultures negative. INDWELLINGS: Trach, PEG. PHYSICAL EXAMINATION: GENERAL: This is a fragile, chronically ill-appearing, elderly woman who is in no distress. HEENT: Head atraumatic, normocephalic. Sclerae anicteric. Buccal mucosa pink. NECK: Supple. CHEST: Rise symmetrical. Breath sounds diminished to bases. HEART: S1, S2. ABDOMEN: Soft, bowel tones present. EXTREMITIES: Without cyanosis. ASSESSMENT: 1. Sepsis with bacteremia secondary to pulmonary infiltrates. 2. Pneumonia. 3. 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 Th e patient is off isolation. 4. Anemia. 5. Dysphagia. 6. Status post rapid atrial fibrillation requiring cardioversion. PLAN: The patient remains stable. Repeat blood cultures negative. Continue present care. Continu e anti-TB medications as per Department of Health recommendations. I changed Zosyn to cefepime to c omplete treatment for pneumonia and bacteremia for 7 to 8 more days. Dictated By: BRIA SAL CLINICAL RESEARCH MONITOR for HEATHER COOPER MD NI/NTS Conf#: [id number] DID#: [id number] CC: ANNE JAMESON MD;*End*
[2017-05-28] MEDS: QUETIAPINE 25 MG TAB GTB SCH (21:41)
[2017-05-28] MEDS: ATORVASTATIN 40 MG TAB GTB SCH (21:41)
[2017-05-28] MEDS: CEFEPIME 1GM/50 ML (PMX) 50 ML IVPB SCH (21:41)
[2017-05-29] VITALS (23 sets, daily range): BP systolic 120–188; BP diastolic 58–82; PULSE 65–90; RESP 16–19
[2017-05-29] MEDS: METHOCARBAMOL 500 MG TAB GTB SCH ×3 (05:22→21:45)
[2017-05-29] MEDS: LEVOTHYROXINE 100 MCG TAB GTB SCH (05:22)
[2017-05-29] MEDS: PYRAZINAMIDE 500 MG TAB GTB SCH (08:27)
[2017-05-29] MEDS: PYRIDOXINE 50 MG TAB GTB SCH (08:27)
[2017-05-29] MEDS: MULTIVITAMINS 30 ML CUP GTB SCH (08:27)
[2017-05-29] MEDS: ASPIRIN 81 MG TAB GTB SCH (08:28)
[2017-05-29] MEDS: ETHAMBUTOL 400 MG TAB GTB SCH (08:28)
[2017-05-29] MEDS: FAMOTIDINE 20 MG TAB GTB SCH (08:28)
[2017-05-29] MEDS: FERROUS SULFATE 60 MG/ML 5ML CUP PEG SCH (08:28)
[2017-05-29] MEDS: AMIODARONE 200 MG TAB PO SCH ×2 (08:28→21:47)
[2017-05-29] MEDS: ASCORBIC ACID 500 MG TAB GTB SCH (08:28)
[2017-05-29] MEDS: METOPROLOL 25 MG TAB GTB SCH ×2 (08:28→21:47)
[2017-05-29] MEDS: CEFEPIME 1GM/50 ML (PMX) 50 ML IVPB SCH ×2 (08:28→21:44)
[2017-05-29] MEDS: ENOXAPARIN 30 MG/0.3 ML SYG SC SCH (08:33)
[2017-05-29 08:37] LABS: BASOPHILS % 0.2 % (0.0-2.0); EOSINOPHILS % 0.1 % (0.0-7.0); HEMATOCRIT 35.4 % (37.0-47.0); HEMOGLOBIN 10.5 g/dl (12.0-16.0); LYMPHOCYTES # 0.9 10^3/ul (0.8-2.9); LYMPHOCYTES % 5.9 % (15.0-51.0); MEAN CORPUSCULAR HEMOGLOBIN 29.7 pg (29.0-33.0); MEAN CORPUSCULAR HGB CONC 29.7 g/dl (32.0-37.0); MEAN PLATELET VOLUME 9.3 fl (7.4-10.4); MONOCYTE # 1.3 10^3/ul (0.3-0.9); MONOCYTES % 9.1 % (0.0-11.0); NEUTROPHIL # 12.2 10^3/ul (1.6-7.5); NEUTROPHILS % 83.2 % (39.0-77.0); PLATELET COUNT 321 10^3/UL (140-415); RED BLOOD COUNT 3.54 10^6/ul (4.20-5.40); RED CELL DISTRIBUTION WIDTH 17.1 % (11.5-14.5); WHITE BLOOD COUNT 14.7 10^3/ul (4.8-10.8)
[2017-05-29 10:28] LABS: ALBUMIN 2.4 g/dl (3.3-4.9); ALBUMIN/GLOBULIN RATIO 0.66; BILIRUBIN,INDIRECT 0.1 mg/dl (0-1.1); BILIRUBIN,TOTAL 0.1 mg/dl (0.2-1.3); CALCIUM 9.1 mg/dl (8.4-10.2); CREATININE 0.49 mg/dl (0.44-1.00); POTASSIUM 4.4 mmol/L (3.5-5.1)
--- NOTE | 2017-05-29 10:28 | CONS ---
Date/Time of Note Date/Time of Note DATE: 05/29/17 TIME: 10:26 Assessment/Plan Assessment/Plan Additional Assessment/Plan 1. Hypotension in the setting of rapid tachyarrhythmia of atrial fibrillation and recent fevers, now improved.-negative tropx 3/off pressors - now in sinus 2. Atrial fibrillation with rapid ventricular response, slowly improving after initial dose of digoxin and amiodarone.-now in SR and remains/NL TSH- con't rate control. 3. Pneumonia- on anti-bx, improving slowly. 4. Fevers- better now. 5. Chronic respiratory failure, status post tracheostomy. 6. Tuberculosis, on treatment. 7. Hypothyroidism. 8. Dyslipidemia. 9. Pleural effusion, status post right thoracentesis removal of 1 liter - pulmonary follows. 10. Anemia. Consultation Date/Type/Reason Admit Date/Time May 23, 2017 at 11:33 Initial Consult Date 05/27/17 Type of Consultation: Pulmonary Referring Provider: NAOMIE VAUGHN MD 24 HR Interval Summary Free Text/Dictation No acute events - in sinus rhythm on tele - con't to keep euvolemic. ROS: No fever, no chills, no nausea, no vomiting, no diarrhea/constipation No recent weight changes No chest pain, no PND, no orthopnea + SOB No dizziness, blurred vision No thirst, no heat or cold intolerance Exam/Review of Systems Vital Signs Vitals Vital Signs Date Time Temp Pulse Resp B/P Pulse Ox O2 Delivery O2 Flow Rate FiO2 05/29/17 08:27 97.9 86 16 122/58 96 05/29/17 05:12 40 05/26/17 18:00 Mechanical Ventilator Intake and Output 05/28/17 05/28/17 05/29/17 15:00 23:00 07:00 Intake Total 420 ml 1190 ml 440 ml Output Total 500 ml 1800 ml 550 ml Balance -80 ml -610 ml -110 ml Exam General: WN/WD/NAD, AOx 0-1 HEENT: Unicetric/atraumatic/EOMI (does not follow commands) NECK: no thyromegaly, trach Lymph: no lymphadenopathy HEART: regular with no S3, II/ systolic murmur at apex LUNGS: Coarse sounds ABD: soft, NT, ND, +BS : Intact Neuro: non focal SKIN: chronic changes EXT: trace edema Results Result Diagram: 05/29/17 0820 05/28/17 1157 Results 24 hrs Laboratory Tests Test 05/28/17 11:57 05/28/17 15:00 05/29/17 08:20 White Blood Count 12.7 H 14.7 H Red Blood Count 3.42 L 3.54 L Hemoglobin 10.4 L 10.5 L Hematocrit 33.5 L 35.4 L Mean Corpuscular Volume 98.0 100.0 Mean Corpuscular Hemoglobin 30.4 29.7 Mean Corpuscular Hemoglobin Concent 31.0 L 29.7 L Red Cell Distribution Width 17.0 H 17.1 H Platelet Count 287 321 Mean Platelet Volume 9.5 9.3 Neutrophils % 74.5 83.2 H Lymphocytes % 12.4 L 5.9 L Monocytes % 10.4 9.1 Eosinophils % 1.2 0.1 Basophils % 0.2 0.2 Nucleated Red Blood Cells % 0.0 0.0 Neutrophils # 9.5 H 12.2 H Lymphocytes # 1.6 0.9 Monocytes # 1.3 H 1.3 H Eosinophils # 0.2 0.0 Basophils # 0.0 0.0 Nucleated Red Blood Cells # 0.0 0.0 Sodium Level 141 Potassium Level 3.8 Chloride Level 108 Carbon Dioxide Level 29 Anion Gap 8 Blood Urea Nitrogen 19 Creatinine 0.50 Glucose Level 234 #H Lactic Acid Level 1.2 Calcium Level 8.7 Total Bilirubin 0.0 L Direct Bilirubin 0.00 Indirect Bilirubin 0.0 Aspartate Amino Transf (AST/SGOT) 21 Alanine Aminotransferase (ALT/SGPT) 39 Alkaline Phosphatase 126 H Ammonia 46 H 32 H Total Protein 5.4 L Albumin 2.2 L Globulin 3.20 Albumin/Globulin Ratio 0.68 Urine Color DYLON Urine Clarity SLIGHTLY CLOUDY A Urine pH 5.0 Urine Specific [place] 1.021 Urine Ketones NEGATIVE Urine Nitrite NEGATIVE Urine Bilirubin NEGATIVE Urine Urobilinogen NEGATIVE Urine Leukocyte Esterase 2+ H Urine Microscopic RBC 76 H Urine Microscopic WBC > 182 H Urine Calcium Oxalate Crystals FEW A Urine Bacteria MODERATE Urine Mucus FEW A Urine Yeast (Budding) FEW A Urine Hemoglobin 2+ H Urine Glucose 1+ H Urine Total Protein 2+ H Gamma Glutamyl Transpeptidase 105 H Medications Medications Current Medications Acetaminophen (Tylenol Tab) 650 mg Q6H PRN GTB PAIN AND OR ELEVATED TEMP; Start 05/23/17 at 12:30 Ascorbic Acid (Vitamin C) 500 mg DAILY GTB Last administered on 05/29/17 08: 28; Admin Dose 500 MG; Start 05/24/17 at 09:00 Aspirin (Aspirin) 81 mg DAILY GTB Last administered on 05/29/17 08:28; Admin Dose 81 MG; Start 05/24/17 at 09:00 Atorvastatin Calcium (Lipitor) 40 mg QHS GTB Last administered on 05/28/17 21 :41; Admin Dose 40 MG; Start 05/23/17 at 21:00 Bisacodyl (Dulcolax Supp) 10 mg Q24H PRN OR CONSTIPATION; Start 05/23/17 at 12 :30 Docusate Sodium (Colace) 100 mg QHS PRN PO CONSTIPATION; Start 05/23/17 at 12: 30 Ethambutol HCl (Myambutol) 800 mg DAILY GTB Last administered on 05/29/17 08: 28; Admin Dose 800 MG; Start 05/24/17 at 09:00 Hyoscyamine (Levsin (Sl)) 0.125 mg Q4H PRN SL EXCESIVE ORAL SECRETIONS; Start 05/23/17 at 13:00 Magnesium Hydroxide (Milk Of Mag) 30 ml Q24H PRN GTB CONSTIPATION; Start 05/23 at 12:30 Methocarbamol (Robaxin) 500 mg Q8 GTB Last administered on 05/29/17 05:22; Admin Dose 500 MG; Start 05/23/17 at 14:00 Metoprolol Tartrate (Lopressor) 25 mg BID GTB Last administered on 05/29/17 08:28; Admin Dose 25 MG; Start 05/23/17 at 21:00 Eye Lubricant (Akwa Oint) 1 applic DAILY PRN BOTH EYES DRY EYES; Start at 13:00 Pyrazinamide (Pyrazinamide) 1,000 mg DAILY GTB Last administered on 05/29/17 08:27; Admin Dose 1,000 MG; Start 05/24/17 at 09:00 Pyridoxine HCl (Vitamin B6) 50 mg DAILY GTB Last administered on 05/29/17 08: 27; Admin Dose 50 MG; Start 05/24/17 at 09:00 Quetiapine Fumarate (Seroquel) 50 mg HS GTB Last administered on 05/28/17 21: 41; Admin Dose 50 MG; Start 05/23/17 at 21:00 Rifabutin (Mycobutin) 300 mg BID GTB Last administered on 05/28/17 21:41; Admin Dose 300 MG; Start 05/23/17 at 21:00 Multivitamins (Multivitamin) 30 ml DAILY GTB Last administered on 05/29/17 08 :27; Admin Dose 30 ML; Start 05/24/17 at 09:00 Ondansetron HCl (Zofran Inj) 4 mg Q6H PRN IV NAUSEA AND/OR VOMITING Last administered on 05/23/17 22:48; Admin Dose 4 MG; Start 05/23/17 at 13:00 Nitroglycerin (Nitroglycerin (Sl Tab) 0.4 Mg) 1 tab Q5M PRN SL CHEST PAIN; Start 05/23/17 at 13:00 Acetaminophen/ Hydrocodone Bitart ([place] (5/325)) 1 tab Q6H PRN GTB PAIN LEVEL 4-6 Last administered on 05/23/17 22:13; Admin Dose 1 TAB; Start 05/23/17 at 13:00 Lorazepam (Ativan) 1 mg Q4H PRN IV anxiety Last administered on 05/24/17 13: 15; Admin Dose 1 MG; Start 05/24/17 at 13:11 Enoxaparin Sodium (Lovenox) 30 mg DAILY SC Last administered on 05/29/17 08: 33; Admin Dose 30 MG; Start 05/25/17 at 09:00 Famotidine (Pepcid) 20 mg DAILY GTB Last administered on 05/29/17 08:28; Admin Dose 20 MG; Start 05/25/17 at 09:00 Mineral Oil 133 ml 133 ml Q48H PRN OR constipation; Start 05/26/17 at 09:00 Amiodarone HCl/ Dextrose (Cordarone Iv/ D5W) 500 ml @ 0 mls/hr Q0M IV Last administered on 05/24/17 19:19; Admin Dose 33.4 MLS/HR; Start 05/24/17 at 19: 00 Morphine Sulfate (morphine) 1 mg Q4H PRN IV PAIN LEVEL 4-6 Last administered on 05/25/17 17:57; Admin Dose 1 MG; Start 05/24/17 at 19:00 Amiodarone HCl (Cordarone) 200 mg BID PO Last administered on 05/29/17 08:28 ; Admin Dose 200 MG; Start 05/25/17 at 21:00 Clonazepam (Klonopin) 0.5 mg QHS PRN GTB agitation; Start 05/28/17 at 11:00 Digoxin 0.125 mg 0.125 mg DAILY@13 PO Last administered on 05/28/17 12:53; Admin Dose 0.125 MG; Start 05/28/17 at 13:00 Cefepime HCl (Maxipime 1gm/50 ml (Pmx)) 50 ml @ 100 mls/hr Q12 IVPB Last administered on 05/29/17 08:28; Admin Dose 100 MLS/HR; Start 05/28/17 at 21: 00 Ferrous Sulfate (Feosol Liquid Cup) 300 mg DAILY PEG Last administered on 05/29 08:28; Admin Dose 300 MG; Start 05/29/17 at 09:00 Lactulose (Enulose) 20 gm ONCE ONCE NGT ; Start 05/29/17 at 10:30; Stop 05/29 at 10:31; Status NHI BORREGO MD May 29, 2017 10:28
[2017-05-29] MEDS ORDERED: LACTULOSE 30ML CUP NGT ONE (10:30)
[2017-05-29] MEDS ORDERED: QUETIAPINE 25 MG TAB GTB PRN (11:00)
--- NOTE | 2017-05-29 12:06 | CONS ---
Date/Time of Note Date/Time of Note DATE: 05/29/17 TIME: 12:04 Assessment/Plan Assessment/Plan Additional Assessment/Plan Assessment and recommendations; 1. Patient admitted with material pneumonia clinically improving. 2. Chronic respiratory failure. 3. 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 4. Status post right thoracentesis. 5. Status post treatment of atrial fibrillation with rapid ventricular response with conversion to sinus rhythm. Continue current treatment. Consider discharge. Consultation Date/Type/Reason Admit Date/Time May 23, 2017 at 11:33 Type of Consultation: Pulmonary Referring Provider: NAOMIE VAUGHN MD 24 HR Interval Summary Free Text/Dictation Patient's condition remains stable. Remains awake and alert. Has remained hemodynamically stable. General exam; elderly male, on ventilator via tracheostomy, awake and alert. Currently in no distress. Exam/Review of Systems Vital Signs Vitals Vital Signs Date Time Temp Pulse Resp B/P Pulse Ox O2 Delivery O2 Flow Rate FiO2 05/29/17 11:43 98.4 65 16 120/60 97 05/29/17 08:15 40 05/26/17 18:00 Mechanical Ventilator Intake and Output 05/28/17 05/28/17 05/29/17 15:00 23:00 07:00 Intake Total 420 ml 1190 ml 440 ml Output Total 500 ml 1800 ml 550 ml Balance -80 ml -610 ml -110 ml Exam HEENT exam; supple neck, no JVD. No lymphadenopathy. Midline trachea. No thyromegaly. Tracheostomy in place. Patient has fair dentition. Has bilateral intraocular lens implants. Chest exam; diminished but clear breath sounds. S1-S2 audible, no murmurs. Regular rhythm. Abdomen exam; soft, nontender. No organomegaly. G-tube in place. Bowel sounds audible. Extremity exam; no edema. No clubbing. COLD ROLLER exam; no focal motor deficit. Results Result Diagram: 05/29/1720 05/29/1720 Results 24 hrs Laboratory Tests Test 05/28/17 15:00 05/29/17 08:20 Urine Color DYLON Urine Clarity SLIGHTLY CLOUDY A Urine pH 5.0 Urine Specific [place] 1.021 Urine Ketones NEGATIVE Urine Nitrite NEGATIVE Urine Bilirubin NEGATIVE Urine Urobilinogen NEGATIVE Urine Leukocyte Esterase 2+ H Urine Microscopic RBC 76 H Urine Microscopic WBC > 182 H Urine Calcium Oxalate Crystals FEW A Urine Bacteria MODERATE Urine Mucus FEW A Urine Yeast (Budding) FEW A Urine Hemoglobin 2+ H Urine Glucose 1+ H Urine Total Protein 2+ H White Blood Count 14.7 H Red Blood Count 3.54 L Hemoglobin 10.5 L Hematocrit 35.4 L Mean Corpuscular Volume 100.0 Mean Corpuscular Hemoglobin 29.7 Mean Corpuscular Hemoglobin Concent 29.7 L Red Cell Distribution Width 17.1 H Platelet Count 321 Mean Platelet Volume 9.3 Neutrophils % 83.2 H Lymphocytes % 5.9 L Monocytes % 9.1 Eosinophils % 0.1 Basophils % 0.2 Nucleated Red Blood Cells % 0.0 Neutrophils # 12.2 H Lymphocytes # 0.9 Monocytes # 1.3 H Eosinophils # 0.0 Basophils # 0.0 Nucleated Red Blood Cells # 0.0 Sodium Level 146 H Potassium Level 4.4 Chloride Level 110 Carbon Dioxide Level 30 Anion Gap 10 Blood Urea Nitrogen 19 Creatinine 0.49 Glucose Level 256 H Calcium Level 9.1 Total Bilirubin 0.1 L Direct Bilirubin 0.00 Indirect Bilirubin 0.1 Gamma Glutamyl Transpeptidase 105 H Aspartate Amino Transf (AST/SGOT) 20 Alanine Aminotransferase (ALT/SGPT) 37 Alkaline Phosphatase 142 H Ammonia 32 H Total Protein 6.0 L Albumin 2.4 L Globulin 3.60 H Albumin/Globulin Ratio 0.66 Medications Medications Current Medications Acetaminophen (Tylenol Tab) 650 mg Q6H PRN GTB PAIN AND OR ELEVATED TEMP; Start 05/23/17 at 12:30 Ascorbic Acid (Vitamin C) 500 mg DAILY GTB Last administered on 05/29/17 08: 28; Admin Dose 500 MG; Start 05/24/17 at 09:00 Aspirin (Aspirin) 81 mg DAILY GTB Last administered on 05/29/17 08:28; Admin Dose 81 MG; Start 05/24/17 at 09:00 Atorvastatin Calcium (Lipitor) 40 mg QHS GTB Last administered on 05/28/17 21 :41; Admin Dose 40 MG; Start 05/23/17 at 21:00 Bisacodyl (Dulcolax Supp) 10 mg Q24H PRN [place] CONSTIPATION; Start 05/23/17 at 12 :30 Docusate Sodium (Colace) 100 mg QHS PRN PO CONSTIPATION; Start 05/23/17 at 12: 30 Ethambutol HCl (Myambutol) 800 mg DAILY GTB Last administered on 05/29/17 08: 28; Admin Dose 800 MG; Start 05/24/17 at 09:00 Hyoscyamine (Levsin (Sl)) 0.125 mg Q4H PRN SL EXCESIVE ORAL SECRETIONS; Start 05/23/17 at 13:00 Magnesium Hydroxide (Milk Of Mag) 30 ml Q24H PRN GTB CONSTIPATION; Start 05/23 at 12:30 Methocarbamol (Robaxin) 500 mg Q8 GTB Last administered on 05/29/17 05:22; Admin Dose 500 MG; Start 05/23/17 at 14:00 Metoprolol Tartrate (Lopressor) 25 mg BID GTB Last administered on 05/29/17 08:28; Admin Dose 25 MG; Start 05/23/17 at 21:00 Eye Lubricant (Akwa Oint) 1 applic DAILY PRN BOTH EYES DRY EYES; Start at 13:00 Pyrazinamide (Pyrazinamide) 1,000 mg DAILY GTB Last administered on 05/29/17 08:27; Admin Dose 1,000 MG; Start 05/24/17 at 09:00 Pyridoxine HCl (Vitamin B6) 50 mg DAILY GTB Last administered on 05/29/17 08: 27; Admin Dose 50 MG; Start 05/24/17 at 09:00 Rifabutin (Mycobutin) 300 mg BID GTB Last administered on 05/28/17 21:41; Admin Dose 300 MG; Start 05/23/17 at 21:00 Multivitamins (Multivitamin) 30 ml DAILY GTB Last administered on 05/29/17 08 :27; Admin Dose 30 ML; Start 05/24/17 at 09:00 Ondansetron HCl (Zofran Inj) 4 mg Q6H PRN IV NAUSEA AND/OR VOMITING Last administered on 05/23/17 22:48; Admin Dose 4 MG; Start 05/23/17 at 13:00 Nitroglycerin (Nitroglycerin (Sl Tab) 0.4 Mg) 1 tab Q5M PRN SL CHEST PAIN; Start 05/23/17 at 13:00 Acetaminophen/ Hydrocodone Bitart ([place] (5/325)) 1 tab Q6H PRN GTB PAIN LEVEL 4-6 Last administered on 05/23/17 22:13; Admin Dose 1 TAB; Start 05/23/17 at 13:00 Lorazepam (Ativan) 1 mg Q4H PRN IV anxiety Last administered on 05/24/17 13: 15; Admin Dose 1 MG; Start 05/24/17 at 13:11 Enoxaparin Sodium (Lovenox) 30 mg DAILY SC Last administered on 05/29/17 08: 33; Admin Dose 30 MG; Start 05/25/17 at 09:00; Status Future Hold Famotidine (Pepcid) 20 mg DAILY GTB Last administered on 05/29/17 08:28; Admin Dose 20 MG; Start 05/25/17 at 09:00 Mineral Oil 133 ml 133 ml Q48H PRN [place] constipation; Start 05/26/17 at 09:00 Amiodarone HCl/ Dextrose (Cordarone Iv/ D5W) 500 ml @ 0 mls/hr Q0M IV Last administered on 05/24/17 19:19; Admin Dose 33.4 MLS/HR; Start 05/24/17 at 19: 00 Morphine Sulfate (morphine) 1 mg Q4H PRN IV PAIN LEVEL 4-6 Last administered on 05/25/17 17:57; Admin Dose 1 MG; Start 05/24/17 at 19:00 Amiodarone HCl (Cordarone) 200 mg BID PO Last administered on 05/29/17 08:28 ; Admin Dose 200 MG; Start 05/25/17 at 21:00 Clonazepam (Klonopin) 0.5 mg QHS PRN GTB agitation; Start 05/28/17 at 11:00 Digoxin 0.125 mg 0.125 mg DAILY@13 PO Last administered on 05/28/17 12:53; Admin Dose 0.125 MG; Start 05/28/17 at 13:00 Cefepime HCl (Maxipime 1gm/50 ml (Pmx)) 50 ml @ 100 mls/hr Q12 IVPB Last administered on 05/29/17 08:28; Admin Dose 100 MLS/HR; Start 05/28/17 at 21: 00 Ferrous Sulfate (Feosol Liquid Cup) 300 mg DAILY PEG Last administered on 05/29 08:28; Admin Dose 300 MG; Start 05/29/17 at 09:00 Quetiapine Fumarate (Seroquel) 50 mg HS PRN GTB agitation; Start 05/29/17 at 11:00 CORTEZ GUTIERREZ May 29, 2017 12:06
[2017-05-29] MEDS: DIGOXIN 0.125 MG TAB PO SCH (12:38)
[2017-05-29] MEDS: RIFABUTIN 150 MG CAP GTB SCH ×2 (12:38→21:45)
--- NOTE | 2017-05-29 14:30 | CONS ---
Date/Time of Note Date/Time of Note DATE: 05/29/17 TIME: 14:28 Assessment/Plan Assessment/Plan Chief Complaint/Hosp Course SUBJECTIVE: No acute changes. The patient is lethargic, looks comfortable. No fevers. ANTIMICROBIALS: Cefepime and anti-TB medications. MICROBIOLOGY: Blood culture on admission grew Serratia. Endotracheal aspirate grew Serratia and Providencia stuartii, susceptible to cefepime and cefotaxime. Repeat blood cultures negative. INDWELLINGS: Trach, PEG. PHYSICAL EXAMINATION: GENERAL: This is a fragile, chronically ill-appearing, elderly woman who is in no distress. HEENT: Head atraumatic, normocephalic. Sclerae anicteric. Buccal mucosa pink. NECK: Supple. CHEST: Rise symmetrical. Breath sounds diminished to bases. HEART: S1, S2. ABDOMEN: Soft, bowel tones present. EXTREMITIES: Without cyanosis. ASSESSMENT: 1. Sepsis with bacteremia secondary to pulmonary infiltrates. 2. HCAP 3. 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 The patient is off isolation. 4. Anemia. 5. Dysphagia. 6. Status post rapid atrial fibrillation requiring cardioversion. PLAN: Clinically stable. Repeat blood cultures negative. Continue present care. Continue anti-TB medications as per Department of Health recommendations , Cefepime for 8 more days, pending tx to [facility] Problems: Consultation Date/Type/Reason Admit Date/Time May 23, 2017 at 11:33 Initial Consult Date 05/27/17 Type of Consultation: id Referring Provider: NAOMIE VAUGHN MD Exam/Review of Systems Vital Signs Vitals Vital Signs Date Time Temp Pulse Resp B/P Pulse Ox O2 Delivery O2 Flow Rate FiO2 05/29/17 12:05 65 05/29/17 11:43 98.4 16 120/60 97 05/29/17 08:15 40 05/26/17 18:00 Mechanical Ventilator Intake and Output 05/28/17 05/28/17 05/29/17 14:59 22:59 06:59 Intake Total 420 ml 1190 ml 440 ml Output Total 500 ml 1800 ml 550 ml Balance -80 ml -610 ml -110 ml Results Result Diagram: 05/29/17 0820 05/29/17 0820 Results 24 hrs Laboratory Tests Test 05/28/17 15:00 05/29/17 08:20 Urine Color DYLON Urine Clarity SLIGHTLY CLOUDY A Urine pH 5.0 Urine Specific [place] 1.021 Urine Ketones NEGATIVE Urine Nitrite NEGATIVE Urine Bilirubin NEGATIVE Urine Urobilinogen NEGATIVE Urine Leukocyte Esterase 2+ H Urine Microscopic RBC 76 H Urine Microscopic WBC > 182 H Urine Calcium Oxalate Crystals FEW A Urine Bacteria MODERATE Urine Mucus FEW A Urine Yeast (Budding) FEW A Urine Hemoglobin 2+ H Urine Glucose 1+ H Urine Total Protein 2+ H White Blood Count 14.7 H Red Blood Count 3.54 L Hemoglobin 10.5 L Hematocrit 35.4 L Mean Corpuscular Volume 100.0 Mean Corpuscular Hemoglobin 29.7 Mean Corpuscular Hemoglobin Concent 29.7 L Red Cell Distribution Width 17.1 H Platelet Count 321 Mean Platelet Volume 9.3 Neutrophils % 83.2 H Lymphocytes % 5.9 L Monocytes % 9.1 Eosinophils % 0.1 Basophils % 0.2 Nucleated Red Blood Cells % 0.0 Neutrophils # 12.2 H Lymphocytes # 0.9 Monocytes # 1.3 H Eosinophils # 0.0 Basophils # 0.0 Nucleated Red Blood Cells # 0.0 Sodium Level 146 H Potassium Level 4.4 Chloride Level 110 Carbon Dioxide Level 30 Anion Gap 10 Blood Urea Nitrogen 19 Creatinine 0.49 Glucose Level 256 H Calcium Level 9.1 Total Bilirubin 0.1 L Direct Bilirubin 0.00 Indirect Bilirubin 0.1 Gamma Glutamyl Transpeptidase 105 H Aspartate Amino Transf (AST/SGOT) 20 Alanine Aminotransferase (ALT/SGPT) 37 Alkaline Phosphatase 142 H Ammonia 32 H Total Protein 6.0 L Albumin 2.4 L Globulin 3.60 H Albumin/Globulin Ratio 0.66 Medications Medications Current Medications Acetaminophen (Tylenol Tab) 650 mg Q6H PRN GTB PAIN AND OR ELEVATED TEMP; Start 05/23/17 at 12:30 Ascorbic Acid (Vitamin C) 500 mg DAILY GTB Last administered on 05/29/17 08: 28; Admin Dose 500 MG; Start 05/24/17 at 09:00 Aspirin (Aspirin) 81 mg DAILY GTB Last administered on 05/29/17 08:28; Admin Dose 81 MG; Start 05/24/17 at 09:00 Atorvastatin Calcium (Lipitor) 40 mg QHS GTB Last administered on 05/28/17 21 :41; Admin Dose 40 MG; Start 05/23/17 at 21:00 Bisacodyl (Dulcolax Supp) 10 mg Q24H PRN [place] CONSTIPATION; Start 05/23/17 at 12 :30 Docusate Sodium (Colace) 100 mg QHS PRN PO CONSTIPATION; Start 05/23/17 at 12: 30 Ethambutol HCl (Myambutol) 800 mg DAILY GTB Last administered on 05/29/17 08: 28; Admin Dose 800 MG; Start 05/24/17 at 09:00 Hyoscyamine (Levsin (Sl)) 0.125 mg Q4H PRN SL EXCESIVE ORAL SECRETIONS; Start 05/23/17 at 13:00 Magnesium Hydroxide (Milk Of Mag) 30 ml Q24H PRN GTB CONSTIPATION; Start 05/23 at 12:30 Methocarbamol (Robaxin) 500 mg Q8 GTB Last administered on 05/29/17 12:38; Admin Dose 500 MG; Start 05/23/17 at 14:00 Metoprolol Tartrate (Lopressor) 25 mg BID GTB Last administered on 05/29/17 08:28; Admin Dose 25 MG; Start 05/23/17 at 21:00 Eye Lubricant (Akwa Oint) 1 applic DAILY PRN BOTH EYES DRY EYES; Start at 13:00 Pyrazinamide (Pyrazinamide) 1,000 mg DAILY GTB Last administered on 05/29/17 08:27; Admin Dose 1,000 MG; Start 05/24/17 at 09:00 Pyridoxine HCl (Vitamin B6) 50 mg DAILY GTB Last administered on 05/29/17 08: 27; Admin Dose 50 MG; Start 05/24/17 at 09:00 Rifabutin (Mycobutin) 300 mg BID GTB Last administered on 05/29/17 12:38; Admin Dose 300 MG; Start 05/23/17 at 21:00 Multivitamins (Multivitamin) 30 ml DAILY GTB Last administered on 05/29/17 08 :27; Admin Dose 30 ML; Start 05/24/17 at 09:00 Ondansetron HCl (Zofran Inj) 4 mg Q6H PRN IV NAUSEA AND/OR VOMITING Last administered on 05/23/17 22:48; Admin Dose 4 MG; Start 05/23/17 at 13:00 Nitroglycerin (Nitroglycerin (Sl Tab) 0.4 Mg) 1 tab Q5M PRN SL CHEST PAIN; Start 05/23/17 at 13:00 Acetaminophen/ Hydrocodone Bitart ([place] (5/325)) 1 tab Q6H PRN GTB PAIN LEVEL 4-6 Last administered on 05/23/17 22:13; Admin Dose 1 TAB; Start 05/23/17 at 13:00 Lorazepam (Ativan) 1 mg Q4H PRN IV anxiety Last administered on 05/24/17 13: 15; Admin Dose 1 MG; Start 05/24/17 at 13:11 Enoxaparin Sodium (Lovenox) 30 mg DAILY SC Last administered on 05/29/17 08: 33; Admin Dose 30 MG; Start 05/25/17 at 09:00; Status Future Hold Famotidine (Pepcid) 20 mg DAILY GTB Last administered on 05/29/17 08:28; Admin Dose 20 MG; Start 05/25/17 at 09:00 Mineral Oil 133 ml 133 ml Q48H PRN [place] constipation; Start 05/26/17 at 09:00 Amiodarone HCl/ Dextrose (Cordarone Iv/ D5W) 500 ml @ 0 mls/hr Q0M IV Last administered on 05/24/17 19:19; Admin Dose 33.4 MLS/HR; Start 05/24/17 at 19: 00 Morphine Sulfate (morphine) 1 mg Q4H PRN IV PAIN LEVEL 4-6 Last administered on 05/25/17 17:57; Admin Dose 1 MG; Start 05/24/17 at 19:00 Amiodarone HCl (Cordarone) 200 mg BID PO Last administered on 05/29/17 08:28 ; Admin Dose 200 MG; Start 05/25/17 at 21:00 Clonazepam (Klonopin) 0.5 mg QHS PRN GTB agitation; Start 05/28/17 at 11:00 Digoxin 0.125 mg 0.125 mg DAILY@13 PO Last administered on 05/29/17 12:38; Admin Dose 0.125 MG; Start 05/28/17 at 13:00 Cefepime HCl (Maxipime 1gm/50 ml (Pmx)) 50 ml @ 100 mls/hr Q12 IVPB Last administered on 05/29/17 08:28; Admin Dose 100 MLS/HR; Start 05/28/17 at 21: 00 Ferrous Sulfate (Feosol Liquid Cup) 300 mg DAILY PEG Last administered on 05/29t 08:28; Admin Dose 300 MG; Start 05/29/17 at 09:00 Quetiapine Fumarate (Seroquel) 50 mg HS PRN GTB agitation; Start 05/29/17 at 11:00 BRIA SAL NP May 29, 2017 14:30
--- NOTE | 2017-05-29 14:31 | RADRPT ---
Vent Rate: 95 bpm RR Interval: 0 msec MS Interval: 112 msec QRS Duration: 182 msec QT Interval: 364 msec QTC Interval: 457 msec P-R-T [place]: 58 - 80 - 86 degrees Normal sinus rhythm (significant artifact) Nonspecific intraventricular block Abnormal ECG Electronically Signed By: Stanley Melgar [id number]
--- NOTE | 2017-05-29 15:04 | PN ---
Date/Time of Note Date/Time of Note DATE: 05/29/17 TIME: 15:02 Assessment/Plan VTE Prophylaxis VTE Prophylaxis Intervention: SCD's Lines/Catheters IV Catheter Type (from Nrs): Saline Lock Urinary Cath still in place: Yes Reason Cath still needed: terminal illness/intractable pain Assessment/Plan Chief Complaint/Hosp Course Assessment/Plan #encephalopathy -elevated ammonia is very mild, ggt elevated, liver issue, however AST/ALT/bili WNL -patient also on seroquel and clonazepam, making clonazepam and seroquel prn instead of scheduled -CT head ordered #arrhythmia- stable - Cardiology on board and consultation appreciated. Continue on Amiodarone - Started on PO Digoxin - Started on low dose BB as tolerated - ECHO noted #. Sepsis secondary to PNA/bacteremia - Patients WBC trending downward and remains afebrile - LA normalized - ID consultation placed and appreciated recommendations. Will continue on broad spectrum and await cultural results - continue on IVF #. Bacteremia - Blood cultures growing Serratia - Repeat blood cultures negative - ID on board #. Anemia - s/p 2PRBC with response to Hgb 10, no drop since - Iron levels <10 - Started on IV iron, will supplement oral iron with vit C temporarily for 3-6 months #. Large right pleural effusion s/p thoracentesis - 1L removed and fluid studies sent. Appears to be exudative. Awaiting cultures - Pulmonology on board and recommendations appreciated -per pulm, loculations on CT appear free flowing, hold off on CT surgery. #. Left lower lobe density - CT scan showed round fluid density structure within the superior segment left lower lobe measuring 2.9 x 2.7 cm #. Infectious bronchiolitis #. 10 x 8 mm right lower lobe nodule - Will need close follow up outpatient #. Acute gastroenteritis - send stool studies - Dietary consult for tube feed recommendations #. Disposition - ?encephalopathy - once stable and additional workup complete, transfer to [facility] -8 more days iv abx -tb meds per department of health Problems: Subjective 24 Hr Interval Summary Free Text/Dictation episodes of wakefulness, however is more confused than usual Exam/Review of Systems Vital Signs Vitals Vital Signs Date Time Temp Pulse Resp B/P Pulse Ox O2 Delivery O2 Flow Rate FiO2 05/29/17 12:05 65 05/29/17 11:43 98.4 16 120/60 97 05/29/17 08:15 40 05/26/17 18:00 Mechanical Ventilator Intake and Output 05/28/17 05/28/17 05/29/17 14:59 22:59 06:59 Intake Total 420 ml 1190 ml 440 ml Output Total 500 ml 1800 ml 550 ml Balance -80 ml -610 ml -110 ml Exam Constitutional: lethargic, non-verbal, well developed, trach/vent Head: atraumatic, normocephalic Eyes: EOMI, PERRL ENMT: trach in place Respiratory: crackles/rales, diminished breath sounds, No labored breathing Cardiovascular: regular rate and rhythm, No systolic murmur Gastrointestinal: soft, minimally tender Musculoskeletal: nl extremities to inspection Extremities: normal pulses, No edema neuro: moves all extremities spontaneously, eyes remain closed, unable to arouse completely Results Result Diagram: 05/29/1781905/29/1720 Results 24 hrs Laboratory Tests Test 05/29/17 08:20 White Blood Count 14.7 H Red Blood Count 3.54 L Hemoglobin 10.5 L Hematocrit 35.4 L Mean Corpuscular Volume 100.0 Mean Corpuscular Hemoglobin 29.7 Mean Corpuscular Hemoglobin Concent 29.7 L Red Cell Distribution Width 17.1 H Platelet Count 321 Mean Platelet Volume 9.3 Neutrophils % 83.2 H Lymphocytes % 5.9 L Monocytes % 9.1 Eosinophils % 0.1 Basophils % 0.2 Nucleated Red Blood Cells % 0.0 Neutrophils # 12.2 H Lymphocytes # 0.9 Monocytes # 1.3 H Eosinophils # 0.0 Basophils # 0.0 Nucleated Red Blood Cells # 0.0 Sodium Level 146 H Potassium Level 4.4 Chloride Level 110 Carbon Dioxide Level 30 Anion Gap 10 Blood Urea Nitrogen 19 Creatinine 0.49 Glucose Level 256 H Calcium Level 9.1 Total Bilirubin 0.1 L Direct Bilirubin 0.00 Indirect Bilirubin 0.1 Gamma Glutamyl Transpeptidase 105 H Aspartate Amino Transf (AST/SGOT) 20 Alanine Aminotransferase (ALT/SGPT) 37 Alkaline Phosphatase 142 H Ammonia 32 H Total Protein 6.0 L Albumin 2.4 L Globulin 3.60 H Albumin/Globulin Ratio 0.66 Medications Medications Current Medications Acetaminophen (Tylenol Tab) 650 mg Q6H PRN GTB PAIN AND OR ELEVATED TEMP; Start 05/23/17 at 12:30 Ascorbic Acid (Vitamin C) 500 mg DAILY GTB Last administered on 05/29/17 08: 28; Admin Dose 500 MG; Start 05/24/17 at 09:00 Aspirin (Aspirin) 81 mg DAILY GTB Last administered on 05/29/17 08:28; Admin Dose 81 MG; Start 05/24/17 at 09:00 Atorvastatin Calcium (Lipitor) 40 mg QHS GTB Last administered on 05/28/17 21 :41; Admin Dose 40 MG; Start 05/23/17 at 21:00 Bisacodyl (Dulcolax Supp) 10 mg Q24H PRN [place] CONSTIPATION; Start 05/23/17 at 12 :30 Docusate Sodium (Colace) 100 mg QHS PRN PO CONSTIPATION; Start 05/23/17 at 12: 30 Ethambutol HCl (Myambutol) 800 mg DAILY GTB Last administered on 05/29/17 08: 28; Admin Dose 800 MG; Start 05/24/17 at 09:00 Hyoscyamine (Levsin (Sl)) 0.125 mg Q4H PRN SL EXCESIVE ORAL SECRETIONS; Start 05/23/17 at 13:00 Magnesium Hydroxide (Milk Of Mag) 30 ml Q24H PRN GTB CONSTIPATION; Start 05/23 at 12:30 Methocarbamol (Robaxin) 500 mg Q8 GTB Last administered on 05/29/17 12:38; Admin Dose 500 MG; Start 05/23/17 at 14:00 Metoprolol Tartrate (Lopressor) 25 mg BID GTB Last administered on 05/29/17 08:28; Admin Dose 25 MG; Start 05/23/17 at 21:00 Eye Lubricant (Akwa Oint) 1 applic DAILY PRN BOTH EYES DRY EYES; Start at 13:00 Pyrazinamide (Pyrazinamide) 1,000 mg DAILY GTB Last administered on 05/29/17 08:27; Admin Dose 1,000 MG; Start 05/24/17 at 09:00 Pyridoxine HCl (Vitamin B6) 50 mg DAILY GTB Last administered on 05/29/17 08: 27; Admin Dose 50 MG; Start 05/24/17 at 09:00 Rifabutin (Mycobutin) 300 mg BID GTB Last administered on 05/29/17 12:38; Admin Dose 300 MG; Start 05/23/17 at 21:00 Multivitamins (Multivitamin) 30 ml DAILY GTB Last administered on 05/29/17 08 :27; Admin Dose 30 ML; Start 05/24/17 at 09:00 Ondansetron HCl (Zofran Inj) 4 mg Q6H PRN IV NAUSEA AND/OR VOMITING Last administered on 05/23/17 22:48; Admin Dose 4 MG; Start 05/23/17 at 13:00 Nitroglycerin (Nitroglycerin (Sl Tab) 0.4 Mg) 1 tab Q5M PRN SL CHEST PAIN; Start 05/23/17 at 13:00 Acetaminophen/ Hydrocodone Bitart ([place] (5/325)) 1 tab Q6H PRN GTB PAIN LEVEL 4-6 Last administered on 05/23/17 22:13; Admin Dose 1 TAB; Start 05/23/17 at 13:00 Lorazepam (Ativan) 1 mg Q4H PRN IV anxiety Last administered on 05/24/17 13: 15; Admin Dose 1 MG; Start 05/24/17 at 13:11 Enoxaparin Sodium (Lovenox) 30 mg DAILY SC Last administered on 05/29/17 08: 33; Admin Dose 30 MG; Start 05/25/17 at 09:00; Status Future Hold Famotidine (Pepcid) 20 mg DAILY GTB Last administered on 05/29/17 08:28; Admin Dose 20 MG; Start 05/25/17 at 09:00 Mineral Oil 133 ml 133 ml Q48H PRN [place] constipation; Start 05/26/17 at 09:00 Amiodarone HCl/ Dextrose (Cordarone Iv/ D5W) 500 ml @ 0 mls/hr Q0M IV Last administered on 05/24/17 19:19; Admin Dose 33.4 MLS/HR; Start 05/24/17 at 19: 00 Morphine Sulfate (morphine) 1 mg Q4H PRN IV PAIN LEVEL 4-6 Last administered on 05/25/17 17:57; Admin Dose 1 MG; Start 05/24/17 at 19:00 Amiodarone HCl (Cordarone) 200 mg BID PO Last administered on 05/29/17 08:28 ; Admin Dose 200 MG; Start 05/25/17 at 21:00 Clonazepam (Klonopin) 0.5 mg QHS PRN GTB agitation; Start 05/28/17 at 11:00 Digoxin 0.125 mg 0.125 mg DAILY@13 PO Last administered on 05/29/17 12:38; Admin Dose 0.125 MG; Start 05/28/17 at 13:00 Cefepime HCl (Maxipime 1gm/50 ml (Pmx)) 50 ml @ 100 mls/hr Q12 IVPB Last administered on 05/29/17 08:28; Admin Dose 100 MLS/HR; Start 05/28/17 at 21: 00 Ferrous Sulfate (Feosol Liquid Cup) 300 mg DAILY PEG Last administered on 05/29 08:28; Admin Dose 300 MG; Start 05/29/17 at 09:00 Quetiapine Fumarate (Seroquel) 50 mg HS PRN GTB agitation; Start 05/29/17 at 11:00 MUKUL LINK May 29, 2017 15:04
--- NOTE | 2017-05-29 15:08 | PN ---
Date/Time of Note Date/Time of Note DATE: 05/29/17 TIME: 15:02 Assessment/Plan VTE Prophylaxis VTE Prophylaxis Intervention: SCD's Lines/Catheters IV Catheter Type (from Nrs): Saline Lock Urinary Cath still in place: Yes Reason Cath still needed: other (indicate) (monitor output) Assessment/Plan Chief Complaint/Hosp Course duplicate Problems: Exam/Review of Systems Vital Signs Vitals Vital Signs Date Time Temp Pulse Resp B/P Pulse Ox O2 Delivery O2 Flow Rate FiO2 05/29/17 12:05 65 05/29/17 11:43 98.4 16 120/60 97 05/29/17 08:15 40 05/26/17 18:00 Mechanical Ventilator Intake and Output 05/28/17 05/28/17 05/29/17 14:59 22:59 06:59 Intake Total 420 ml 1190 ml 440 ml Output Total 500 ml 1800 ml 550 ml Balance -80 ml -610 ml -110 ml Results Result Diagram: 05/29/17 0820 05/29/17 0820 Results 24 hrs Laboratory Tests Test 05/29/17 08:20 White Blood Count 14.7 H Red Blood Count 3.54 L Hemoglobin 10.5 L Hematocrit 35.4 L Mean Corpuscular Volume 100.0 Mean Corpuscular Hemoglobin 29.7 Mean Corpuscular Hemoglobin Concent 29.7 L Red Cell Distribution Width 17.1 H Platelet Count 321 Mean Platelet Volume 9.3 Neutrophils % 83.2 H Lymphocytes % 5.9 L Monocytes % 9.1 Eosinophils % 0.1 Basophils % 0.2 Nucleated Red Blood Cells % 0.0 Neutrophils # 12.2 H Lymphocytes # 0.9 Monocytes # 1.3 H Eosinophils # 0.0 Basophils # 0.0 Nucleated Red Blood Cells # 0.0 Sodium Level 146 H Potassium Level 4.4 Chloride Level 110 Carbon Dioxide Level 30 Anion Gap 10 Blood Urea Nitrogen 19 Creatinine 0.49 Glucose Level 256 H Calcium Level 9.1 Total Bilirubin 0.1 L Direct Bilirubin 0.00 Indirect Bilirubin 0.1 Gamma Glutamyl Transpeptidase 105 H Aspartate Amino Transf (AST/SGOT) 20 Alanine Aminotransferase (ALT/SGPT) 37 Alkaline Phosphatase 142 H Ammonia 32 H Total Protein 6.0 L Albumin 2.4 L Globulin 3.60 H Albumin/Globulin Ratio 0.66 Medications Medications Current Medications Acetaminophen (Tylenol Tab) 650 mg Q6H PRN GTB PAIN AND OR ELEVATED TEMP; Start 05/23/17 at 12:30 Ascorbic Acid (Vitamin C) 500 mg DAILY GTB Last administered on 05/29/17 08: 28; Admin Dose 500 MG; Start 05/24/17 at 09:00 Aspirin (Aspirin) 81 mg DAILY GTB Last administered on 05/29/17 08:28; Admin Dose 81 MG; Start 05/24/17 at 09:00 Atorvastatin Calcium (Lipitor) 40 mg QHS GTB Last administered on 05/28/17 21 :41; Admin Dose 40 MG; Start 05/23/17 at 21:00 Bisacodyl (Dulcolax Supp) 10 mg Q24H PRN [place] CONSTIPATION; Start 05/23/17 at 12 :30 Docusate Sodium (Colace) 100 mg QHS PRN PO CONSTIPATION; Start 05/23/17 at 12: 30 Ethambutol HCl (Myambutol) 800 mg DAILY GTB Last administered on 05/29/17 08: 28; Admin Dose 800 MG; Start 05/24/17 at 09:00 Hyoscyamine (Levsin (Sl)) 0.125 mg Q4H PRN SL EXCESIVE ORAL SECRETIONS; Start 05/23/17 at 13:00 Magnesium Hydroxide (Milk Of Mag) 30 ml Q24H PRN GTB CONSTIPATION; Start 05/23 at 12:30 Methocarbamol (Robaxin) 500 mg Q8 GTB Last administered on 05/29/17 12:38; Admin Dose 500 MG; Start 05/23/17 at 14:00 Metoprolol Tartrate (Lopressor) 25 mg BID GTB Last administered on 05/29/17 08:28; Admin Dose 25 MG; Start 05/23/17 at 21:00 Eye Lubricant (Akwa Oint) 1 applic DAILY PRN BOTH EYES DRY EYES; Start at 13:00 Pyrazinamide (Pyrazinamide) 1,000 mg DAILY GTB Last administered on 05/29/17 08:27; Admin Dose 1,000 MG; Start 05/24/17 at 09:00 Pyridoxine HCl (Vitamin B6) 50 mg DAILY GTB Last administered on 05/29/17 08: 27; Admin Dose 50 MG; Start 05/24/17 at 09:00 Rifabutin (Mycobutin) 300 mg BID GTB Last administered on 05/29/17 12:38; Admin Dose 300 MG; Start 05/23/17 at 21:00 Multivitamins (Multivitamin) 30 ml DAILY GTB Last administered on 05/29/17 08 :27; Admin Dose 30 ML; Start 05/24/17 at 09:00 Ondansetron HCl (Zofran Inj) 4 mg Q6H PRN IV NAUSEA AND/OR VOMITING Last administered on 05/23/17 22:48; Admin Dose 4 MG; Start 05/23/17 at 13:00 Nitroglycerin (Nitroglycerin (Sl Tab) 0.4 Mg) 1 tab Q5M PRN SL CHEST PAIN; Start 05/23/17 at 13:00 Acetaminophen/ Hydrocodone Bitart ([place] (5/325)) 1 tab Q6H PRN GTB PAIN LEVEL 4-6 Last administered on 05/23/17 22:13; Admin Dose 1 TAB; Start 05/23/17 at 13:00 Lorazepam (Ativan) 1 mg Q4H PRN IV anxiety Last administered on 05/24/17 13: 15; Admin Dose 1 MG; Start 05/24/17 at 13:11 Enoxaparin Sodium (Lovenox) 30 mg DAILY SC Last administered on 05/29/17 08: 33; Admin Dose 30 MG; Start 05/25/17 at 09:00; Status Future Hold Famotidine (Pepcid) 20 mg DAILY GTB Last administered on 05/29/17 08:28; Admin Dose 20 MG; Start 05/25/17 at 09:00 Mineral Oil 133 ml 133 ml Q48H PRN [place] constipation; Start 05/26/17 at 09:00 Amiodarone HCl/ Dextrose (Cordarone Iv/ D5W) 500 ml @ 0 mls/hr Q0M IV Last administered on 05/24/17 19:19; Admin Dose 33.4 MLS/HR; Start 05/24/17 at 19: 00 Morphine Sulfate (morphine) 1 mg Q4H PRN IV PAIN LEVEL 4-6 Last administered on 05/25/17 17:57; Admin Dose 1 MG; Start 05/24/17 at 19:00 Amiodarone HCl (Cordarone) 200 mg BID PO Last administered on 05/29/17 08:28 ; Admin Dose 200 MG; Start 05/25/17 at 21:00 Clonazepam (Klonopin) 0.5 mg QHS PRN GTB agitation; Start 05/28/17 at 11:00 Digoxin 0.125 mg 0.125 mg DAILY@13 PO Last administered on 05/29/17 12:38; Admin Dose 0.125 MG; Start 05/28/17 at 13:00 Cefepime HCl (Maxipime 1gm/50 ml (Pmx)) 50 ml @ 100 mls/hr Q12 IVPB Last administered on 05/29/17 08:28; Admin Dose 100 MLS/HR; Start 05/28/17 at 21: 00 Ferrous Sulfate (Feosol Liquid Cup) 300 mg DAILY PEG Last administered on 05/29 08:28; Admin Dose 300 MG; Start 05/29/17 at 09:00 Quetiapine Fumarate (Seroquel) 50 mg HS PRN GTB agitation; Start 05/29/17 at 11:00 JOEL GARCIA May 29, 2017 15:07 Pyrazinamide (Pyrazinamide) 1,000 mg DAILY GTB Last administered on 05/29/17 08:27; Admin Dose 1,000 MG; Start 05/24/17 at 09:00 Pyridoxine HCl (Vitamin B6) 50 mg DAILY GTB Last administered on 05/29/17 08: 27; Admin Dose 50 MG; Start 05/24/17 at 09:00 Rifabutin (Mycobutin) 300 mg BID GTB Last administered on 05/29/17 12:38; Admin Dose 300 MG; Start 05/23/17 at 21:00 Multivitamins (Multivitamin) 30 ml DAILY GTB Last administered on 05/29/17 08 :27; Admin Dose 30 ML; Start 05/24/17 at 09:00 Ondansetron HCl (Zofran Inj) 4 mg Q6H PRN IV NAUSEA AND/OR VOMITING Last administered on 05/23/17 22:48; Admin Dose 4 MG; Start 05/23/17 at 13:00 Nitroglycerin (Nitroglycerin (Sl Tab) 0.4 Mg) 1 tab Q5M PRN SL CHEST PAIN; Start 05/23/17 at 13:00 Acetaminophen/ Hydrocodone Bitart ([place] (5/325)) 1 tab Q6H PRN GTB PAIN LEVEL 4-6 Last administered on 05/23/17 22:13; Admin Dose 1 TAB; Start 05/23/17 at 13:00 Lorazepam (Ativan) 1 mg Q4H PRN IV anxiety Last administered on 05/24/17 13: 15; Admin Dose 1 MG; Start 05/24/17 at 13:11 Enoxaparin Sodium (Lovenox) 30 mg DAILY SC Last administered on 05/29/17 08: 33; Admin Dose 30 MG; Start 05/25/17 at 09:00; Status Future Hold Famotidine (Pepcid) 20 mg DAILY GTB Last administered on 05/29/17 08:28; Admin Dose 20 MG; Start 05/25/17 at 09:00 Mineral Oil 133 ml 133 ml Q48H PRN [place] constipation; Start 05/26/17 at 09:00 Amiodarone HCl/ Dextrose (Cordarone Iv/ D5W) 500 ml @ 0 mls/hr Q0M IV Last administered on 05/24/17 19:19; Admin Dose 33.4 MLS/HR; Start 05/24/17 at 19: 00 Morphine Sulfate (morphine) 1 mg Q4H PRN IV PAIN LEVEL 4-6 Last administered on 05/25/17 17:57; Admin Dose 1 MG; Start 05/24/17 at 19:00 Amiodarone HCl (Cordarone) 200 mg BID PO Last administered on 05/29/17 08:28 ; Admin Dose 200 MG; Start 05/25/17 at 21:00 Clonazepam (Klonopin) 0.5 mg QHS PRN GTB agitation; Start 05/28/17 at 11:00 Digoxin 0.125 mg 0.125 mg DAILY@13 PO Last administered on 05/29/17 12:38; Admin Dose 0.125 MG; Start 05/28/17 at 13:00 Cefepime HCl (Maxipime 1gm/50 ml (Pmx)) 50 ml @ 100 mls/hr Q12 IVPB Last administered on 05/29/17 08:28; Admin Dose 100 MLS/HR; Start 05/28/17 at 21: 00 Ferrous Sulfate (Feosol Liquid Cup) 300 mg DAILY PEG Last administered on 05/29t 08:28; Admin Dose 300 MG; Start 05/29/17 at 09:00 Quetiapine Fumarate (Seroquel) 50 mg HS PRN GTB agitation; Start 05/29/17 at 11:00 JOEL GARCIA May 29, 2017 15:07
--- NOTE | 2017-05-29 17:24 | PN ---
Date/Time of Note Date/Time of Note DATE: 05/29/17 TIME: 17:22 Assessment/Plan VTE Prophylaxis VTE Prophylaxis Intervention: SCD's Lines/Catheters IV Catheter Type (from [facility]): Saline Lock Urinary Cath still in place: Yes Reason Cath still needed: other (indicate) (monitor output) Assessment/Plan Chief Complaint/Hosp Course Assessment: Functional gastrostomy tube questionable melena. Awaiting stool for OB Anemia, likely multifactorial Rule out GI bleeding History of tachycardia Sepsis rule out TB versus pneumonia Pleural effusion Pulmonary nodule Plan: Continue present regimen including feedings Monitor H&H, stool for occult blood Hgb stable- continue to monitor h/h endoscopy not currently warranted Patient seen in collaboration with Dr. Robles Subjective: Course reviewed with nursing staff Patient interviewed and examined All labs, imaging and other results reviewed The patient resting in bed, awake and does not appear to be in any pain, tolerating TF well. Hgb stable. PHYSICAL EXAMINATION: GENERAL: Well developed, well nourished, alert, in no acute distress SKIN: No lesions, no stigmata chronic liver disease, no evidence of bleeding diathesis LYMPHATIC: No palpable lymphadenopathy. HEAD: Normocephalic, atraumatic, no tenderness. EYES: Pupils equal reactive to light and accommodation, full extraocular movements.. EARS/NOSE AND THROAT: Ears normal, nose normal, oropharynx normal, oral membranes well hydrated without lesions. NECK: Supple, no masses, thyroid normal, CHEST: Inspection within normal limits. CARDIOVASCULAR: Heart: Regular rate and rhythm, no murmurs, gallops or rubs. GASTROINTESTINAL AND LIVER: Abdomen: Soft, non tenderness, non-distended, no hernias, no masses, no organomegaly, no ascites, no guarding, no rebound tenderness, normoactive bowel sounds. Rectal: Deferred. GENITOURINARY: Female genitalia within normal limits. EXTREMITIES: No cyanosis, clubbing or edema. Problems: Exam/Review of Systems Vital Signs Vitals Vital Signs Date Time Temp Pulse Resp B/P Pulse Ox O2 Delivery O2 Flow Rate FiO2 05/29/17 16:06 78 05/29/17 15:31 97.4 16 157/73 96 05/29/17 08:15 40 05/26/17 18:00 Mechanical Ventilator Intake and Output 05/28/17 05/28/17 05/29/17 15:00 23:00 07:00 Intake Total 420 ml 1190 ml 440 ml Output Total 500 ml 1800 ml 550 ml Balance -80 ml -610 ml -110 ml Results Result Diagram: 05/29/1781905/29/17819 Results 24 hrs Laboratory Tests Test 05/29/17 08:20 White Blood Count 14.7 H Red Blood Count 3.54 L Hemoglobin 10.5 L Hematocrit 35.4 L Mean Corpuscular Volume 100.0 Mean Corpuscular Hemoglobin 29.7 Mean Corpuscular Hemoglobin Concent 29.7 L Red Cell Distribution Width 17.1 H Platelet Count 321 Mean Platelet Volume 9.3 Neutrophils % 83.2 H Lymphocytes % 5.9 L Monocytes % 9.1 Eosinophils % 0.1 Basophils % 0.2 Nucleated Red Blood Cells % 0.0 Neutrophils # 12.2 H Lymphocytes # 0.9 Monocytes # 1.3 H Eosinophils # 0.0 Basophils # 0.0 Nucleated Red Blood Cells # 0.0 Sodium Level 146 H Potassium Level 4.4 Chloride Level 110 Carbon Dioxide Level 30 Anion Gap 10 Blood Urea Nitrogen 19 Creatinine 0.49 Glucose Level 256 H Calcium Level 9.1 Total Bilirubin 0.1 L Direct Bilirubin 0.00 Indirect Bilirubin 0.1 Gamma Glutamyl Transpeptidase 105 H Aspartate Amino Transf (AST/SGOT) 20 Alanine Aminotransferase (ALT/SGPT) 37 Alkaline Phosphatase 142 H Ammonia 32 H Total Protein 6.0 L Albumin 2.4 L Globulin 3.60 H Albumin/Globulin Ratio 0.66 Medications Medications Current Medications Acetaminophen (Tylenol Tab) 650 mg Q6H PRN GTB PAIN AND OR ELEVATED TEMP; Start 05/23/17 at 12:30 Ascorbic Acid (Vitamin C) 500 mg DAILY GTB Last administered on 05/29/17 08: 28; Admin Dose 500 MG; Start 05/24/17 at 09:00 Aspirin (Aspirin) 81 mg DAILY GTB Last administered on 05/29/17 08:28; Admin Dose 81 MG; Start 05/24/17 at 09:00 Atorvastatin Calcium (Lipitor) 40 mg QHS GTB Last administered on 05/28/17 21 :41; Admin Dose 40 MG; Start 05/23/17 at 21:00 Bisacodyl (Dulcolax Supp) 10 mg Q24H PRN [place] CONSTIPATION; Start 05/23/17 at 12 :30 Docusate Sodium (Colace) 100 mg QHS PRN PO CONSTIPATION; Start 05/23/17 at 12: 30 Ethambutol HCl (Myambutol) 800 mg DAILY GTB Last administered on 05/29/17 08: 28; Admin Dose 800 MG; Start 05/24/17 at 09:00 Hyoscyamine (Levsin (Sl)) 0.125 mg Q4H PRN SL EXCESIVE ORAL SECRETIONS; Start 05/23/17 at 13:00 Magnesium Hydroxide (Milk Of Mag) 30 ml Q24H PRN GTB CONSTIPATION; Start 05/23 at 12:30 Methocarbamol (Robaxin) 500 mg Q8 GTB Last administered on 05/29/17 12:38; Admin Dose 500 MG; Start 05/23/17 at 14:00 Metoprolol Tartrate (Lopressor) 25 mg BID GTB Last administered on 05/29/17 08:28; Admin Dose 25 MG; Start 05/23/17 at 21:00 Eye Lubricant (Akwa Oint) 1 applic DAILY PRN BOTH EYES DRY EYES; Start at 13:00 Pyrazinamide (Pyrazinamide) 1,000 mg DAILY GTB Last administered on 05/29/17 08:27; Admin Dose 1,000 MG; Start 05/24/17 at 09:00 Pyridoxine HCl (Vitamin B6) 50 mg DAILY GTB Last administered on 05/29/17 08: 27; Admin Dose 50 MG; Start 05/24/17 at 09:00 Rifabutin (Mycobutin) 300 mg BID GTB Last administered on 05/29/17 12:38; Admin Dose 300 MG; Start 05/23/17 at 21:00 Multivitamins (Multivitamin) 30 ml DAILY GTB Last administered on 05/29/17 08 :27; Admin Dose 30 ML; Start 05/24/17 at 09:00 Ondansetron HCl (Zofran Inj) 4 mg Q6H PRN IV NAUSEA AND/OR VOMITING Last administered on 05/23/17 22:48; Admin Dose 4 MG; Start 05/23/17 at 13:00 Nitroglycerin (Nitroglycerin (Sl Tab) 0.4 Mg) 1 tab Q5M PRN SL CHEST PAIN; Start 05/23/17 at 13:00 Acetaminophen/ Hydrocodone Bitart ([place] (5/325)) 1 tab Q6H PRN GTB PAIN LEVEL 4-6 Last administered on 05/23/17 22:13; Admin Dose 1 TAB; Start 05/23/17 at 13:00 Lorazepam (Ativan) 1 mg Q4H PRN IV anxiety Last administered on 05/24/17 13: 15; Admin Dose 1 MG; Start 05/24/17 at 13:11 Enoxaparin Sodium (Lovenox) 30 mg DAILY SC Last administered on 05/29/17 08: 33; Admin Dose 30 MG; Start 05/25/17 at 09:00; Status Future Hold Famotidine (Pepcid) 20 mg DAILY GTB Last administered on 05/29/17 08:28; Admin Dose 20 MG; Start 05/25/17 at 09:00 Mineral Oil 133 ml 133 ml Q48H PRN [place] constipation; Start 05/26/17 at 09:00 Amiodarone HCl/ Dextrose (Cordarone Iv/ D5W) 500 ml @ 0 mls/hr Q0M IV Last administered on 05/24/17 19:19; Admin Dose 33.4 MLS/HR; Start 05/24/17 at 19: 00 Morphine Sulfate (morphine) 1 mg Q4H PRN IV PAIN LEVEL 4-6 Last administered on 05/25/17 17:57; Admin Dose 1 MG; Start 05/24/17 at 19:00 Amiodarone HCl (Cordarone) 200 mg BID PO Last administered on 05/29/17 08:28 ; Admin Dose 200 MG; Start 05/25/17 at 21:00 Clonazepam (Klonopin) 0.5 mg QHS PRN GTB agitation; Start 05/28/17 at 11:00 Digoxin 0.125 mg 0.125 mg DAILY@13 PO Last administered on 05/29/17 12:38; Admin Dose 0.125 MG; Start 05/28/17 at 13:00 Cefepime HCl (Maxipime 1gm/50 ml (Pmx)) 50 ml @ 100 mls/hr Q12 IVPB Last administered on 05/29/17 08:28; Admin Dose 100 MLS/HR; Start 05/28/17 at 21: 00 Ferrous Sulfate (Feosol Liquid Cup) 300 mg DAILY PEG Last administered on 05/29t 08:28; Admin Dose 300 MG; Start 05/29/17 at 09:00 Quetiapine Fumarate (Seroquel) 50 mg HS PRN GTB agitation; Start 05/29/17 at 11:00 JOEL GARCIA May 29, 2017 17:24
[2017-05-29] MEDS: ATORVASTATIN 40 MG TAB GTB SCH (21:47)
[2017-05-30] VITALS (27 sets, daily range): BP systolic 123–194; BP diastolic 59–89; PULSE 58–81; RESP 13–17
[2017-05-30] MEDS ORDERED: LABETALOL HCL 20MG INJ IV ONE (01:00)
[2017-05-30] MEDS ORDERED: LABETALOL HCL 20MG INJ IV PRN ×2 (01:00→13:00)
[2017-05-30] MEDS: METHOCARBAMOL 500 MG TAB GTB SCH ×3 (05:24→21:33)
[2017-05-30] MEDS: LEVOTHYROXINE 100 MCG TAB GTB SCH (05:27)
[2017-05-30] MEDS: ASCORBIC ACID 500 MG TAB GTB SCH (09:04)
[2017-05-30] MEDS: ETHAMBUTOL 400 MG TAB GTB SCH (09:04)
[2017-05-30] MEDS: FERROUS SULFATE 60 MG/ML 5ML CUP PEG SCH (09:04)
[2017-05-30] MEDS: FAMOTIDINE 20 MG TAB GTB SCH (09:04)
[2017-05-30] MEDS: AMIODARONE 200 MG TAB PO SCH ×2 (09:06→21:33)
[2017-05-30] MEDS: METOPROLOL 25 MG TAB GTB SCH ×2 (09:06→21:33)
[2017-05-30] MEDS: CEFEPIME 1GM/50 ML (PMX) 50 ML IVPB SCH ×2 (09:07→21:32)
[2017-05-30] MEDS: ASPIRIN 81 MG TAB GTB SCH (09:07)
[2017-05-30] MEDS: RIFABUTIN 150 MG CAP GTB SCH (09:16)
[2017-05-30] MEDS: MULTIVITAMINS 30 ML CUP GTB SCH (09:16)
[2017-05-30] MEDS: PYRIDOXINE 50 MG TAB GTB SCH (09:17)
[2017-05-30] MEDS: PYRAZINAMIDE 500 MG TAB GTB SCH (09:17)
--- NOTE | 2017-05-30 11:53 | RADRPT ---
PROCEDURE: CT Brain without contrast. CLINICAL INDICATION: Neurologic deficit TECHNIQUE: A CT of the brain was performed on multidetector high-resolution CT scanner utilizing a xial sections from the skull base through the vertex without contrast. One or more of the following dose reduction techniques were used: Automated exposure control, Adjustment of the mA and/or kV acc ording to patient size, and/or use of iterative reconstruction technique. DICOM images are available . DOSE: CTDI = 45 mGy and the DLP = 720 mGy-cm. COMPARISON: None available FINDINGS: No acute intracranial hemorrhage, significant mass effect or midline shift. The de la cruz-white different iation is grossly preserved. Nonspecific 3mm focal cortical hyperdensity posterior right superior fr ontal gyrus. Mild hypoattenuation of the cerebral white matter is compatible with chronic microvascu lar ischemic changes. Vascular calcifications. Prominence of the cortical sulci and ventricles are r elated to mild cerebral volume loss. No significant opacification of the visualized paranasal sinu ses or mastoids. IMPRESSION: No acute intracranial hemorrhage or mass effect. Mild chronic microvascular disease and intracranial atherosclerosis. RPTAT: AA .Erik Johnson MD, MD Date Time Electronically viewed and signed by .Erik Johnson MD, MD on 05/30/2017 11:52 .T/
[2017-05-30] MEDS: DIGOXIN 0.125 MG TAB PO SCH (13:00)
--- NOTE | 2017-05-30 13:52 | CONS ---
Date/Time of Note Date/Time of Note DATE: 05/30/17 TIME: 13:51 Consult Date/Type/Reason Admit Date/Time May 23, 2017 at 11:33 Type of Consultation: Pulmonary Ordering Provider: NAOMIE VAUGHN MD Subjective Somnolent this morning but arousable on examination. CT of the brain unremarkable. Objective Vital Signs Date Time Temp Pulse Resp B/P Pulse Ox O2 Delivery O2 Flow Rate FiO2 05/30/17 13:41 58 123/59 05/30/17 13:15 16 100 40 05/30/17 11:25 94.3 05/26/17 18:00 Mechanical Ventilator Intake and Output 05/29/17 05/29/17 05/30/17 14:59 22:59 06:59 Intake Total 1240 ml 940 ml Output Total 500 ml 550 ml Balance 740 ml 390 ml Exam GENERAL: Elderly lady on mechanical ventilation appears comfortable at rest VITAL SIGNS: per chart NECK: Supple. No JVD or lymphadenopathy. CARDIAC EXAM: S1, S2. No added sounds or murmurs. CHEST: clear bilaterally, No added sounds, rales or wheezes ABDOMEN: Soft, nontender. No guarding or rebound. EXTREMITIES: No cyanosis, clubbing or edema. NEUROLOGIC: Generalized weakness. No focal deficits. Results/Medications Result Diagram: 05/29/1781905/29/1720 Results 24 hrs Laboratory Tests Test 05/30/17 10:24 Lab Scanned Report REFERENCE LAB Medications Current Medications Acetaminophen (Tylenol Tab) 650 mg Q6H PRN GTB PAIN AND OR ELEVATED TEMP; Start 05/23/17 at 12:30 Ascorbic Acid (Vitamin C) 500 mg DAILY GTB Last administered on 05/30/17 09: 04; Admin Dose 500 MG; Start 05/24/17 at 09:00 Aspirin (Aspirin) 81 mg DAILY GTB Last administered on 05/30/17 09:07; Admin Dose 81 MG; Start 05/24/17 at 09:00 Atorvastatin Calcium (Lipitor) 40 mg QHS GTB Last administered on 05/29/17 21 :47; Admin Dose 40 MG; Start 05/23/17 at 21:00 Bisacodyl (Dulcolax Supp) 10 mg Q24H PRN [place] CONSTIPATION; Start 05/23/17 at 12 :30 Docusate Sodium (Colace) 100 mg QHS PRN PO CONSTIPATION; Start 05/23/17 at 12: 30 Ethambutol HCl (Myambutol) 800 mg DAILY GTB Last administered on 05/30/17 09: 04; Admin Dose 800 MG; Start 05/24/17 at 09:00 Hyoscyamine (Levsin (Sl)) 0.125 mg Q4H PRN SL EXCESIVE ORAL SECRETIONS; Start 05/23/17 at 13:00 Magnesium Hydroxide (Milk Of Mag) 30 ml Q24H PRN GTB CONSTIPATION; Start 05/23 at 12:30 Methocarbamol (Robaxin) 500 mg Q8 GTB Last administered on 05/30/17 05:24; Admin Dose 500 MG; Start 05/23/17 at 14:00 Metoprolol Tartrate (Lopressor) 25 mg BID GTB Last administered on 05/30/17 09:06; Admin Dose 25 MG; Start 05/23/17 at 21:00 Eye Lubricant (Akwa Oint) 1 applic DAILY PRN BOTH EYES DRY EYES; Start at 13:00 Pyrazinamide (Pyrazinamide) 1,000 mg DAILY GTB Last administered on 05/30/17 09:17; Admin Dose 1,000 MG; Start 05/24/17 at 09:00 Pyridoxine HCl (Vitamin B6) 50 mg DAILY GTB Last administered on 05/30/17 09: 17; Admin Dose 50 MG; Start 05/24/17 at 09:00 Rifabutin (Mycobutin) 300 mg BID GTB Last administered on 05/30/17 09:16; Admin Dose 300 MG; Start 05/23/17 at 21:00 Multivitamins (Multivitamin) 30 ml DAILY GTB Last administered on 05/30/17 09 :16; Admin Dose 30 ML; Start 05/24/17 at 09:00 Ondansetron HCl (Zofran Inj) 4 mg Q6H PRN IV NAUSEA AND/OR VOMITING Last administered on 05/23/17 22:48; Admin Dose 4 MG; Start 05/23/17 at 13:00 Nitroglycerin (Nitroglycerin (Sl Tab) 0.4 Mg) 1 tab Q5M PRN SL CHEST PAIN; Start 05/23/17 at 13:00 Acetaminophen/ Hydrocodone Bitart ([place] (5/325)) 1 tab Q6H PRN GTB PAIN LEVEL 4-6 Last administered on 05/23/17 22:13; Admin Dose 1 TAB; Start 05/23/17 at 13:00 Lorazepam (Ativan) 1 mg Q4H PRN IV anxiety Last administered on 05/24/17 13: 15; Admin Dose 1 MG; Start 05/24/17 at 13:11 Enoxaparin Sodium (Lovenox) 30 mg DAILY SC Last administered on 05/29/17 08: 33; Admin Dose 30 MG; Start 05/25/17 at 09:00; Status Future Hold Famotidine (Pepcid) 20 mg DAILY GTB Last administered on 05/30/17 09:04; Admin Dose 20 MG; Start 05/25/17 at 09:00 Mineral Oil 133 ml 133 ml Q48H PRN [place] constipation; Start 05/26/17 at 09:00 Amiodarone HCl/ Dextrose (Cordarone Iv/ D5W) 500 ml @ 0 mls/hr Q0M IV Last administered on 05/24/17 19:19; Admin Dose 33.4 MLS/HR; Start 05/24/17 at 19: 00 Morphine Sulfate (morphine) 1 mg Q4H PRN IV PAIN LEVEL 4-6 Last administered on 05/25/17 17:57; Admin Dose 1 MG; Start 05/24/17 at 19:00 Amiodarone HCl (Cordarone) 200 mg BID PO Last administered on 05/30/17 09:06 ; Admin Dose 200 MG; Start 05/25/17 at 21:00 Clonazepam (Klonopin) 0.5 mg QHS PRN GTB agitation; Start 05/28/17 at 11:00 Digoxin 0.125 mg 0.125 mg DAILY@13 PO Last administered on 05/29/17 12:38; Admin Dose 0.125 MG; Start 05/28/17 at 13:00 Cefepime HCl (Maxipime 1gm/50 ml (Pmx)) 50 ml @ 100 mls/hr Q12 IVPB Last administered on 05/30/17 09:07; Admin Dose 100 MLS/HR; Start 05/28/17 at 21: 00 Ferrous Sulfate (Feosol Liquid Cup) 300 mg DAILY PEG Last administered on 05/30 09:04; Admin Dose 300 MG; Start 05/29/17 at 09:00 Quetiapine Fumarate (Seroquel) 50 mg HS PRN GTB agitation; Start 05/29/17 at 11:00 Labetalol HCl (Labetalol) 10 mg Q4H PRN IV ELEVATED SYSTOLIC BP Last administered on 05/30/17 12:48; Admin Dose 10 MG; Start 05/30/17 at 01:00 Labetalol HCl (Labetalol) 10 mg Q4 PRN IV sbp>160; Start 05/30/17 at 13:00 Lisinopril (Zestril) 10 mg DAILY PO ; Start 05/30/17 at 13:00 Assessment/Plan Chief Complaint/Hosp Course Assessment: 1. Hx MTB 2. VDRF 3. Recurrent pleural effusions. 4. Dysphagia with PEG. 5. Anemia. 6. A. fib with RVR. Status post amiodarone Plan: 1. Thoracentesis results noted. 2. Continue MTB abx 3. Status post transfusion packed red blood cells 4. Continue TF. 5. Amiodarone per cardiology. Transfer to [place] Problems: ISABEL MANCERA MD, [facility] May 30, 2017 13:52
--- NOTE | 2017-05-30 14:08 | CONS ---
Date/Time of Note Date/Time of Note DATE: 05/30/17 TIME: 14:04 Assessment/Plan Assessment/Plan Chief Complaint/Hosp Course IMPRESSION: 1. Hypotension in the setting of rapid tachyarrhythmia of atrial fibrillation and recent fevers, now improved.-negative tropx 3/off pressors with now ypertension 2. Atrial fibrillation with rapid ventricular response, slowly improving after initial dose of digoxin and amiodarone.-now in SR and remains/NL TSH 3. Pneumonia. 4. Fevers. 5. Chronic respiratory failure, status post tracheostomy. 6. Tuberculosis, on treatment. 7. Hypothyroidism. 8. Dyslipidemia. 9. Pleural effusion, status post right thoracentesis removal of 1 liter. 10. Anemia. Recc: -Tele -Follow volume status closely -Continue PO amio/BB/digoxin as tolerated -started on zestril for uncontrolled BP uptitrate as necessary -Continue lovenox low dose -Continue abx's and f/u cx data Problems: Consultation Date/Type/Reason Admit Date/Time May 23, 2017 at 11:33 Initial Consult Date 05/24/2017 Type of Consultation: cardiology Reason for Consultation PAF Referring Provider: NAOMIE VAUGHN MD Exam/Review of Systems Vital Signs Vitals Vital Signs Date Time Temp Pulse Resp B/P Pulse Ox O2 Delivery O2 Flow Rate FiO2 05/30/17 13:41 58 123/59 05/30/17 13:15 16 100 40 05/30/17 11:25 94.3 05/26/17 18:00 Mechanical Ventilator Intake and Output 05/29/17 05/29/17 05/30/17 14:59 22:59 06:59 Intake Total 1240 ml 940 ml Output Total 500 ml 550 ml Balance 740 ml 390 ml Exam Review of Systems: CONSTITUTIONAL: No fevers, chills. PULMONARY: No sob CARDIOVASCULAR: No chest pain/palpitations GASTROINTESTINAL: No nausea/vomiting. GENITOURINARY: No hematuria/dysuria. MUSCULOSKELETAL: No myagias/arthalgias. PSYCHIATRIC: The patient denies depression. NEUROLOGIC: No weakness Constitutional: alert Psych: no complaints Head: normocephalic ENMT: mucosa pink and moist Neck: jvd (9 cm water), other (trached), supple Respiratory: other (upper airway rhoncherous sounds) Cardiovascular: regular rate and rhythm Gastrointestinal: non-tender, soft Musculoskeletal: muscle tone (normal) Extremities: edema (none) Neurological: lethargic, other (No focal deficits) Results Result Diagram: 05/29/1781905/29/17819 Results 24 hrs Laboratory Tests Test 05/30/17 10:24 Lab Scanned Report REFERENCE LAB Medications Medications Current Medications Acetaminophen (Tylenol Tab) 650 mg Q6H PRN GTB PAIN AND OR ELEVATED TEMP; Start 05/23/17 at 12:30 Ascorbic Acid (Vitamin C) 500 mg DAILY GTB Last administered on 05/30/17 09: 04; Admin Dose 500 MG; Start 05/24/17 at 09:00 Aspirin (Aspirin) 81 mg DAILY GTB Last administered on 05/30/17 09:07; Admin Dose 81 MG; Start 05/24/17 at 09:00 Atorvastatin Calcium (Lipitor) 40 mg QHS GTB Last administered on 05/29/17 21 :47; Admin Dose 40 MG; Start 05/23/17 at 21:00 Bisacodyl (Dulcolax Supp) 10 mg Q24H PRN [place] CONSTIPATION; Start 05/23/17 at 12 :30 Docusate Sodium (Colace) 100 mg QHS PRN PO CONSTIPATION; Start 05/23/17 at 12: 30 Ethambutol HCl (Myambutol) 800 mg DAILY GTB Last administered on 05/30/17 09: 04; Admin Dose 800 MG; Start 05/24/17 at 09:00 Hyoscyamine (Levsin (Sl)) 0.125 mg Q4H PRN SL EXCESIVE ORAL SECRETIONS; Start 05/23/17 at 13:00 Magnesium Hydroxide (Milk Of Mag) 30 ml Q24H PRN GTB CONSTIPATION; Start 05/23 at 12:30 Methocarbamol (Robaxin) 500 mg Q8 GTB Last administered on 05/30/17 05:24; Admin Dose 500 MG; Start 05/23/17 at 14:00 Metoprolol Tartrate (Lopressor) 25 mg BID GTB Last administered on 05/30/17 09:06; Admin Dose 25 MG; Start 05/23/17 at 21:00 Eye Lubricant (Akwa Oint) 1 applic DAILY PRN BOTH EYES DRY EYES; Start at 13:00 Pyrazinamide (Pyrazinamide) 1,000 mg DAILY GTB Last administered on 05/30/17 09:17; Admin Dose 1,000 MG; Start 05/24/17 at 09:00 Pyridoxine HCl (Vitamin B6) 50 mg DAILY GTB Last administered on 05/30/17 09: 17; Admin Dose 50 MG; Start 05/24/17 at 09:00 Rifabutin (Mycobutin) 300 mg BID GTB Last administered on 05/30/17 09:16; Admin Dose 300 MG; Start 05/23/17 at 21:00 Multivitamins (Multivitamin) 30 ml DAILY GTB Last administered on 05/30/17 09 :16; Admin Dose 30 ML; Start 05/24/17 at 09:00 Ondansetron HCl (Zofran Inj) 4 mg Q6H PRN IV NAUSEA AND/OR VOMITING Last administered on 05/23/17 22:48; Admin Dose 4 MG; Start 05/23/17 at 13:00 Nitroglycerin (Nitroglycerin (Sl Tab) 0.4 Mg) 1 tab Q5M PRN SL CHEST PAIN; Start 05/23/17 at 13:00 Acetaminophen/ Hydrocodone Bitart ([place] (5/325)) 1 tab Q6H PRN GTB PAIN LEVEL 4-6 Last administered on 05/23/17 22:13; Admin Dose 1 TAB; Start 05/23/17 at 13:00 Lorazepam (Ativan) 1 mg Q4H PRN IV anxiety Last administered on 05/24/17 13: 15; Admin Dose 1 MG; Start 05/24/17 at 13:11 Enoxaparin Sodium (Lovenox) 30 mg DAILY SC Last administered on 05/29/17 08: 33; Admin Dose 30 MG; Start 05/25/17 at 09:00; Status Future Hold Famotidine (Pepcid) 20 mg DAILY GTB Last administered on 05/30/17 09:04; Admin Dose 20 MG; Start 05/25/17 at 09:00 Mineral Oil 133 ml 133 ml Q48H PRN [place] constipation; Start 05/26/17 at 09:00 Amiodarone HCl/ Dextrose (Cordarone Iv/ D5W) 500 ml @ 0 mls/hr Q0M IV Last administered on 05/24/17 19:19; Admin Dose 33.4 MLS/HR; Start 05/24/17 at 19: 00 Morphine Sulfate (morphine) 1 mg Q4H PRN IV PAIN LEVEL 4-6 Last administered on 05/25/17 17:57; Admin Dose 1 MG; Start 05/24/17 at 19:00 Amiodarone HCl (Cordarone) 200 mg BID PO Last administered on 05/30/17 09:06 ; Admin Dose 200 MG; Start 05/25/17 at 21:00 Clonazepam (Klonopin) 0.5 mg QHS PRN GTB agitation; Start 05/28/17 at 11:00 Digoxin 0.125 mg 0.125 mg DAILY@13 PO Last administered on 05/29/17 12:38; Admin Dose 0.125 MG; Start 05/28/17 at 13:00 Cefepime HCl (Maxipime 1gm/50 ml (Pmx)) 50 ml @ 100 mls/hr Q12 IVPB Last administered on 05/30/17 09:07; Admin Dose 100 MLS/HR; Start 05/28/17 at 21: 00 Ferrous Sulfate (Feosol Liquid Cup) 300 mg DAILY PEG Last administered on 05/30 09:04; Admin Dose 300 MG; Start 05/29/17 at 09:00 Quetiapine Fumarate (Seroquel) 50 mg HS PRN GTB agitation; Start 05/29/17 at 11:00 Labetalol HCl (Labetalol) 10 mg Q4H PRN IV ELEVATED SYSTOLIC BP Last administered on 05/30/17 12:48; Admin Dose 10 MG; Start 05/30/17 at 01:00 Labetalol HCl (Labetalol) 10 mg Q4 PRN IV sbp>160; Start 05/30/17 at 13:00 Lisinopril (Zestril) 10 mg DAILY PO ; Start 05/30/17 at 13:00 CHRISSIE YADAV May 30, 2017 14:08
--- NOTE | 2017-05-30 14:23 | PN ---
Date/Time of Note Date/Time of Note DATE: 05/30/17 TIME: 14:22 Assessment/Plan VTE Prophylaxis VTE Prophylaxis Intervention: SCD's Lines/Catheters IV Catheter Type (from Nrs): Saline Lock Urinary Cath still in place: Yes Reason Cath still needed: other (indicate) (monitor output) Assessment/Plan Chief Complaint/Hosp Course duplicate Problems: Exam/Review of Systems Vital Signs Vitals Vital Signs Date Time Temp Pulse Resp B/P Pulse Ox O2 Delivery O2 Flow Rate FiO2 05/30/17 13:41 58 123/59 05/30/17 13:15 16 100 40 05/30/17 11:25 94.3 05/26/17 18:00 Mechanical Ventilator Intake and Output 05/29/17 05/29/17 05/30/17 15:00 23:00 07:00 Intake Total 1240 ml 940 ml Output Total 500 ml 550 ml Balance 740 ml 390 ml Results Result Diagram: 05/29/17 0820 05/29/17 0820 Results 24 hrs Laboratory Tests Test 05/30/17 10:24 Lab Scanned Report REFERENCE LAB Medications Medications Current Medications Acetaminophen (Tylenol Tab) 650 mg Q6H PRN GTB PAIN AND OR ELEVATED TEMP; Start 05/23/17 at 12:30 Ascorbic Acid (Vitamin C) 500 mg DAILY GTB Last administered on 05/30/17 09: 04; Admin Dose 500 MG; Start 05/24/17 at 09:00 Aspirin (Aspirin) 81 mg DAILY GTB Last administered on 05/30/17 09:07; Admin Dose 81 MG; Start 05/24/17 at 09:00 Atorvastatin Calcium (Lipitor) 40 mg QHS GTB Last administered on 05/29/17 21 :47; Admin Dose 40 MG; Start 05/23/17 at 21:00 Bisacodyl (Dulcolax Supp) 10 mg Q24H PRN [place] CONSTIPATION; Start 05/23/17 at 12 :30 Docusate Sodium (Colace) 100 mg QHS PRN PO CONSTIPATION; Start 05/23/17 at 12: 30 Ethambutol HCl (Myambutol) 800 mg DAILY GTB Last administered on 05/30/17 09: 04; Admin Dose 800 MG; Start 05/24/17 at 09:00 Hyoscyamine (Levsin (Sl)) 0.125 mg Q4H PRN SL EXCESIVE ORAL SECRETIONS; Start 05/23/17 at 13:00 Magnesium Hydroxide (Milk Of Mag) 30 ml Q24H PRN GTB CONSTIPATION; Start 05/23 at 12:30 Methocarbamol (Robaxin) 500 mg Q8 GTB Last administered on 05/30/17 05:24; Admin Dose 500 MG; Start 05/23/17 at 14:00 Metoprolol Tartrate (Lopressor) 25 mg BID GTB Last administered on 05/30/17 09:06; Admin Dose 25 MG; Start 05/23/17 at 21:00 Eye Lubricant (Akwa Oint) 1 applic DAILY PRN BOTH EYES DRY EYES; Start at 13:00 Pyrazinamide (Pyrazinamide) 1,000 mg DAILY GTB Last administered on 05/30/17 09:17; Admin Dose 1,000 MG; Start 05/24/17 at 09:00 Pyridoxine HCl (Vitamin B6) 50 mg DAILY GTB Last administered on 05/30/17 09: 17; Admin Dose 50 MG; Start 05/24/17 at 09:00 Rifabutin (Mycobutin) 300 mg BID GTB Last administered on 05/30/17 09:16; Admin Dose 300 MG; Start 05/23/17 at 21:00 Multivitamins (Multivitamin) 30 ml DAILY GTB Last administered on 05/30/17 09 :16; Admin Dose 30 ML; Start 05/24/17 at 09:00 Ondansetron HCl (Zofran Inj) 4 mg Q6H PRN IV NAUSEA AND/OR VOMITING Last administered on 05/23/17 22:48; Admin Dose 4 MG; Start 05/23/17 at 13:00 Nitroglycerin (Nitroglycerin (Sl Tab) 0.4 Mg) 1 tab Q5M PRN SL CHEST PAIN; Start 05/23/17 at 13:00 Acetaminophen/ Hydrocodone Bitart ([place] (5/325)) 1 tab Q6H PRN GTB PAIN LEVEL 4-6 Last administered on 05/23/17 22:13; Admin Dose 1 TAB; Start 05/23/17 at 13:00 Lorazepam (Ativan) 1 mg Q4H PRN IV anxiety Last administered on 05/24/17 13: 15; Admin Dose 1 MG; Start 05/24/17 at 13:11 Enoxaparin Sodium (Lovenox) 30 mg DAILY SC Last administered on 05/29/17 08: 33; Admin Dose 30 MG; Start 05/25/17 at 09:00; Status Future Hold Famotidine (Pepcid) 20 mg DAILY GTB Last administered on 05/30/17 09:04; Admin Dose 20 MG; Start 05/25/17 at 09:00 Mineral Oil 133 ml 133 ml Q48H PRN [place] constipation; Start 05/26/17 at 09:00 Amiodarone HCl/ Dextrose (Cordarone Iv/ D5W) 500 ml @ 0 mls/hr Q0M IV Last administered on 05/24/17 19:19; Admin Dose 33.4 MLS/HR; Start 05/24/17 at 19: 00 Morphine Sulfate (morphine) 1 mg Q4H PRN IV PAIN LEVEL 4-6 Last administered on 05/25/17 17:57; Admin Dose 1 MG; Start 05/24/17 at 19:00 Amiodarone HCl (Cordarone) 200 mg BID PO Last administered on 05/30/17 09:06 ; Admin Dose 200 MG; Start 05/25/17 at 21:00 Clonazepam (Klonopin) 0.5 mg QHS PRN GTB agitation; Start 05/28/17 at 11:00 Digoxin 0.125 mg 0.125 mg DAILY@13 PO Last administered on 05/29/17 12:38; Admin Dose 0.125 MG; Start 05/28/17 at 13:00 Cefepime HCl (Maxipime 1gm/50 ml (Pmx)) 50 ml @ 100 mls/hr Q12 IVPB Last administered on 05/30/17 09:07; Admin Dose 100 MLS/HR; Start 05/28/17 at 21: 00 Ferrous Sulfate (Feosol Liquid Cup) 300 mg DAILY PEG Last administered on 05/30 09:04; Admin Dose 300 MG; Start 05/29/17 at 09:00 Quetiapine Fumarate (Seroquel) 50 mg HS PRN GTB agitation; Start 05/29/17 at 11:00 Lisinopril (Zestril) 10 mg DAILY PO ; Start 05/30/17 at 13:00 Hydralazine HCl (Apresoline) 10 mg Q4H PRN IV SB>170; Start 05/30/17 at 14:30 JOEL GARCIA May 30, 2017 14:23
--- NOTE | 2017-05-30 14:30 | PN ---
Date/Time of Note Date/Time of Note DATE: 05/30/17 TIME: 14:26 Assessment/Plan VTE Prophylaxis VTE Prophylaxis Intervention: SCD's Lines/Catheters IV [facility] Saline Lock Urinary Cath still in place: Yes Reason Cath still needed: other (indicate) (monitor output) Assessment/Plan Chief Complaint/Hosp Course Assessment: Functional gastrostomy tube questionable melena. Awaiting stool for OB Anemia, likely multifactorial Rule out GI bleeding History of tachycardia Sepsis rule out TB versus pneumonia Pleural effusion Pulmonary nodule Plan: Continue present regimen including feedings Monitor H&H, Hep work-up stool for occult blood-without results Hgb stable- continue to monitor h/h endoscopy not currently warranted Patient seen in collaboration with Dr. Robles Subjective: Course reviewed with nursing staff Patient interviewed and examined All labs, imaging and other results reviewed The patient resting in bed,family at bedside, HGB remains stable, no further c/ o abd pain, No overt signs of GI bleed. Ammonia continue to increase for unknow reason, amino transaminase within normal limits, Alk phos wnl will order Hepatitis work-up. TB meds could be playing a role. PHYSICAL EXAMINATION: GENERAL: Well developed, well nourished, alert, in no acute distress SKIN: No lesions, no stigmata chronic liver disease, no evidence of bleeding diathesis LYMPHATIC: No palpable lymphadenopathy. HEAD: Normocephalic, atraumatic, no tenderness. EYES: Pupils equal reactive to light and accommodation, full extraocular movements.. EARS/NOSE AND THROAT: Ears normal, nose normal, oropharynx normal, oral membranes well hydrated without lesions. NECK: Supple, no masses, thyroid normal, CHEST: Inspection within normal limits. CARDIOVASCULAR: Heart: Regular rate and rhythm, no murmurs, gallops or rubs. GASTROINTESTINAL AND LIVER: Abdomen: Soft, non tenderness, non-distended, no hernias, no masses, no organomegaly, no ascites, no guarding, no rebound tenderness, normoactive bowel sounds. Rectal: Deferred. GENITOURINARY: Female genitalia within normal limits. EXTREMITIES: No cyanosis, clubbing or edema. Problems: Exam/Review of Systems Vital Signs Vitals Vital Signs Date Time Temp Pulse Resp B/P Pulse Ox O2 Delivery O2 Flow Rate FiO2 05/30/17 13:41 58 123/59 11/22/17 13:15 16 100 40 05/30/17 11:25 94.3 05/26/17 18:00 Mechanical Ventilator Intake and Output 05/29/17 05/29/17 05/30/17 15:00 23:00 07:00 Intake Total 1240 ml 940 ml Output Total 500 ml 550 ml Balance 740 ml 390 ml Results Result Diagram: 05/29/17 0820 05/29/17 0820 Results 24 hrs Laboratory Tests Test 05/30/17 10:24 Lab Scanned Report REFERENCE LAB Medications Medications Current Medications Acetaminophen (Tylenol Tab) 650 mg Q6H PRN GTB PAIN AND OR ELEVATED TEMP; Start 05/23/17 at 12:30 Ascorbic Acid (Vitamin C) 500 mg DAILY GTB Last administered on 05/30/17 09: 04; Admin Dose 500 MG; Start 05/24/17 at 09:00 Aspirin (Aspirin) 81 mg DAILY GTB Last administered on 05/30/17 09:07; Admin Dose 81 MG; Start 05/24/17 at 09:00 Atorvastatin Calcium (Lipitor) 40 mg QHS GTB Last administered on 05/29/17 21 :47; Admin Dose 40 MG; Start 05/23/17 at 21:00 Bisacodyl (Dulcolax Supp) 10 mg Q24H PRN [place] CONSTIPATION; Start 05/23/17 at 12 :30 Docusate Sodium (Colace) 100 mg QHS PRN PO CONSTIPATION; Start 05/23/17 at 12: 30 Ethambutol HCl (Myambutol) 800 mg DAILY GTB Last administered on 05/30/17 09: 04; Admin Dose 800 MG; Start 05/24/17 at 09:00 Hyoscyamine (Levsin (Sl)) 0.125 mg Q4H PRN SL EXCESIVE ORAL SECRETIONS; Start 05/23/17 at 13:00 Magnesium Hydroxide (Milk Of Mag) 30 ml Q24H PRN GTB CONSTIPATION; Start 05/23 at 12:30 Methocarbamol (Robaxin) 500 mg Q8 GTB Last administered on 05/30/17 05:24; Admin Dose 500 MG; Start 05/23/17 at 14:00 Metoprolol Tartrate (Lopressor) 25 mg BID GTB Last administered on 05/30/17 09:06; Admin Dose 25 MG; Start 05/23/17 at 21:00 Eye Lubricant (Akwa Oint) 1 applic DAILY PRN BOTH EYES DRY EYES; Start at 13:00 Pyrazinamide (Pyrazinamide) 1,000 mg DAILY GTB Last administered on 05/30/17 09:17; Admin Dose 1,000 MG; Start 05/24/17 at 09:00 Pyridoxine HCl (Vitamin B6) 50 mg DAILY GTB Last administered on 05/30/17 09: 17; Admin Dose 50 MG; Start 05/24/17 at 09:00 Rifabutin (Mycobutin) 300 mg BID GTB Last administered on 05/30/17 09:16; Admin Dose 300 MG; Start 05/23/17 at 21:00 Multivitamins (Multivitamin) 30 ml DAILY GTB Last administered on 05/30/17 09 :16; Admin Dose 30 ML; Start 05/24/17 at 09:00 Ondansetron HCl (Zofran Inj) 4 mg Q6H PRN IV NAUSEA AND/OR VOMITING Last administered on 05/23/17 22:48; Admin Dose 4 MG; Start 05/23/17 at 13:00 Nitroglycerin (Nitroglycerin (Sl Tab) 0.4 Mg) 1 tab Q5M PRN SL CHEST PAIN; Start 05/23/17 at 13:00 Acetaminophen/ Hydrocodone Bitart ([place] (5/325)) 1 tab Q6H PRN GTB PAIN LEVEL 4-6 Last administered on 05/23/17 22:13; Admin Dose 1 TAB; Start 05/23/17 at 13:00 Lorazepam (Ativan) 1 mg Q4H PRN IV anxiety Last administered on 05/24/17 13: 15; Admin Dose 1 MG; Start 05/24/17 at 13:11 Enoxaparin Sodium (Lovenox) 30 mg DAILY SC Last administered on 05/29/17 08: 33; Admin Dose 30 MG; Start 05/25/17 at 09:00; Status Future Hold Famotidine (Pepcid) 20 mg DAILY GTB Last administered on 05/30/17 09:04; Admin Dose 20 MG; Start 05/25/17 at 09:00 Mineral Oil 133 ml 133 ml Q48H PRN [place] constipation; Start 05/26/17 at 09:00 Amiodarone HCl/ Dextrose (Cordarone Iv/ D5W) 500 ml @ 0 mls/hr Q0M IV Last administered on 05/24/17 19:19; Admin Dose 33.4 MLS/HR; Start 05/24/17 at 19: 00 Morphine Sulfate (morphine) 1 mg Q4H PRN IV PAIN LEVEL 4-6 Last administered on 05/25/17 17:57; Admin Dose 1 MG; Start 05/24/17 at 19:00 Amiodarone HCl (Cordarone) 200 mg BID PO Last administered on 05/30/17 09:06 ; Admin Dose 200 MG; Start 05/25/17 at 21:00 Clonazepam (Klonopin) 0.5 mg QHS PRN GTB agitation; Start 05/28/17 at 11:00 Digoxin 0.125 mg 0.125 mg DAILY@13 PO Last administered on 05/29/17 12:38; Admin Dose 0.125 MG; Start 05/28/17 at 13:00 Cefepime HCl (Maxipime 1gm/50 ml (Pmx)) 50 ml @ 100 mls/hr Q12 IVPB Last administered on 05/30/17 09:07; Admin Dose 100 MLS/HR; Start 05/28/17 at 21: 00 Ferrous Sulfate (Feosol Liquid Cup) 300 mg DAILY PEG Last administered on 05/30 09:04; Admin Dose 300 MG; Start 05/29/17 at 09:00 Quetiapine Fumarate (Seroquel) 50 mg HS PRN GTB agitation; Start 05/29/17 at 11:00 Lisinopril (Zestril) 10 mg DAILY PO ; Start 05/30/17 at 13:00 Hydralazine HCl (Apresoline) 10 mg Q4H PRN IV SB>170; Start 05/30/17 at 14:30 JOEL GARCIA May 30, 2017 14:30
[2017-05-30 14:43] LABS: BASOPHILS % 0.1 % (0.0-2.0); EOSINOPHILS % 0.2 % (0.0-7.0); HEMATOCRIT 33.1 % (37.0-47.0); HEMOGLOBIN 9.8 g/dl (12.0-16.0); LYMPHOCYTES # 0.7 10^3/ul (0.8-2.9); LYMPHOCYTES % 6.1 % (15.0-51.0); MEAN CORPUSCULAR HEMOGLOBIN 29.9 pg (29.0-33.0); MEAN CORPUSCULAR HGB CONC 29.6 g/dl (32.0-37.0); MEAN CORPUSCULAR VOLUME 100.9 fl (82.0-101.0); MEAN PLATELET VOLUME 9.4 fl (7.4-10.4); MONOCYTE # 0.8 10^3/ul (0.3-0.9); MONOCYTES % 6.5 % (0.0-11.0); NEUTROPHIL # 10.1 10^3/ul (1.6-7.5); NEUTROPHILS % 86.2 % (39.0-77.0); PLATELET COUNT 232 10^3/UL (140-415); RED BLOOD COUNT 3.28 10^6/ul (4.20-5.40); RED CELL DISTRIBUTION WIDTH 17.1 % (11.5-14.5); WHITE BLOOD COUNT 11.7 10^3/ul (4.8-10.8)
[2017-05-30 15:00] LABS: ALBUMIN 2.6 g/dl (3.3-4.9); ALBUMIN/GLOBULIN RATIO 0.72; CALCIUM 8.7 mg/dl (8.4-10.2); CREATININE 0.38 mg/dl (0.44-1.00); POTASSIUM 4.6 mmol/L (3.5-5.1); TOTAL PROTEIN 6.2 g/dl (6.1-8.1)
--- NOTE | 2017-05-30 15:02 | CONS ---
Date/Time of Note Date/Time of Note DATE: 05/30/17 TIME: 15:01 Assessment/Plan Assessment/Plan Chief Complaint/Hosp Course SUBJECTIVE: No acute changes. The patient is awake, looks comfortable. No fevers. ANTIMICROBIALS: Cefepime and anti-TB medications. MICROBIOLOGY: Blood culture on admission grew Serratia. Endotracheal aspirate grew Serratia and Providencia stuartii, susceptible to cefepime and cefotaxime. Repeat blood cultures negative. INDWELLINGS: Trach, PEG. PHYSICAL EXAMINATION: GENERAL: This is a fragile, chronically ill-appearing, elderly woman who is in no distress. HEENT: Head atraumatic, normocephalic. Sclerae anicteric. Buccal mucosa pink. NECK: Supple. CHEST: Rise symmetrical. Breath sounds diminished to bases. HEART: S1, S2. ABDOMEN: Soft, bowel tones present. EXTREMITIES: Without cyanosis. ASSESSMENT: 1. Sepsis with bacteremia secondary to pneumonia. 2. HCAP 3. 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 The patient is off isolation. 4. Anemia. 5. Dysphagia. 6. Status post rapid atrial fibrillation requiring cardioversion. PLAN: Clinically stable. Repeat blood cultures negative. Continue present care. Continue anti-TB medications as per Department of Health recommendations , Cefepime for 7 more days, pending tx to [facility] Problems: Consultation Date/Type/Reason Admit Date/Time May 23, 2017 at 11:33 Initial Consult Date 05/27/17 Type of Consultation: ID Referring Provider: NAOMIE VAUGHN MD Exam/Review of Systems Vital Signs Vitals Vital Signs Date Time Temp Pulse Resp B/P Pulse Ox O2 Delivery O2 Flow Rate FiO2 05/30/17 13:41 58 123/59 05/30/17 13:15 16 100 40 05/30/17 11:25 94.3 05/26/17 18:00 Mechanical Ventilator Intake and Output 05/29/17 05/29/17 05/30/17 15:00 23:00 07:00 Intake Total 1240 ml 940 ml Output Total 500 ml 550 ml Balance 740 ml 390 ml Results Result Diagram: 05/30/17 1423 05/29/17 0820 Results 24 hrs Laboratory Tests Test 05/30/17 10:24 05/30/17 14:23 Lab Scanned Report REFERENCE LAB White Blood Count 11.7 #H Red Blood Count 3.28 L Hemoglobin 9.8 L Hematocrit 33.1 L Mean Corpuscular Volume 100.9 Mean Corpuscular Hemoglobin 29.9 Mean Corpuscular Hemoglobin Concent 29.6 L Red Cell Distribution Width 17.1 H Platelet Count 232 # Mean Platelet Volume 9.4 Neutrophils % 86.2 H Lymphocytes % 6.1 L Monocytes % 6.5 Eosinophils % 0.2 Basophils % 0.1 Nucleated Red Blood Cells % 0.0 Neutrophils # 10.1 H Lymphocytes # 0.7 L Monocytes # 0.8 Eosinophils # 0.0 Basophils # 0.0 Nucleated Red Blood Cells # 0.0 Medications Medications Current Medications Acetaminophen (Tylenol Tab) 650 mg Q6H PRN GTB PAIN AND OR ELEVATED TEMP; Start 05/23/17 at 12:30 Ascorbic Acid (Vitamin C) 500 mg DAILY GTB Last administered on 05/30/17 09: 04; Admin Dose 500 MG; Start 05/24/17 at 09:00 Aspirin (Aspirin) 81 mg DAILY GTB Last administered on 05/30/17 09:07; Admin Dose 81 MG; Start 05/24/17 at 09:00 Atorvastatin Calcium (Lipitor) 40 mg QHS GTB Last administered on 05/29/17 21 :47; Admin Dose 40 MG; Start 05/23/17 at 21:00 Bisacodyl (Dulcolax Supp) 10 mg Q24H PRN [place] CONSTIPATION; Start 05/23/17 at 12 :30 Docusate Sodium (Colace) 100 mg QHS PRN PO CONSTIPATION; Start 05/23/17 at 12: 30 Ethambutol HCl (Myambutol) 800 mg DAILY GTB Last administered on 05/30/17 09: 04; Admin Dose 800 MG; Start 05/24/17 at 09:00 Hyoscyamine (Levsin (Sl)) 0.125 mg Q4H PRN SL EXCESIVE ORAL SECRETIONS; Start 05/23/17 at 13:00 Magnesium Hydroxide (Milk Of Mag) 30 ml Q24H PRN GTB CONSTIPATION; Start 05/23 at 12:30 Methocarbamol (Robaxin) 500 mg Q8 GTB Last administered on 05/30/17 05:24; Admin Dose 500 MG; Start 05/23/17 at 14:00 Metoprolol Tartrate (Lopressor) 25 mg BID GTB Last administered on 05/30/17 09:06; Admin Dose 25 MG; Start 05/23/17 at 21:00 Eye Lubricant (Akwa Oint) 1 applic DAILY PRN BOTH EYES DRY EYES; Start at 13:00 Pyrazinamide (Pyrazinamide) 1,000 mg DAILY GTB Last administered on 05/30/17 09:17; Admin Dose 1,000 MG; Start 05/24/17 at 09:00 Pyridoxine HCl (Vitamin B6) 50 mg DAILY GTB Last administered on 05/30/17 09: 17; Admin Dose 50 MG; Start 05/24/17 at 09:00 Rifabutin (Mycobutin) 300 mg BID GTB Last administered on 05/30/17 09:16; Admin Dose 300 MG; Start 05/23/17 at 21:00 Multivitamins (Multivitamin) 30 ml DAILY GTB Last administered on 05/30/17 09 :16; Admin Dose 30 ML; Start 05/24/17 at 09:00 Ondansetron HCl (Zofran Inj) 4 mg Q6H PRN IV NAUSEA AND/OR VOMITING Last administered on 05/23/17 22:48; Admin Dose 4 MG; Start 05/23/17 at 13:00 Nitroglycerin (Nitroglycerin (Sl Tab) 0.4 Mg) 1 tab Q5M PRN SL CHEST PAIN; Start 05/23/17 at 13:00 Acetaminophen/ Hydrocodone Bitart ([place] (5/325)) 1 tab Q6H PRN GTB PAIN LEVEL 4-6 Last administered on 05/23/17 22:13; Admin Dose 1 TAB; Start 05/23/17 at 13:00 Lorazepam (Ativan) 1 mg Q4H PRN IV anxiety Last administered on 05/24/17 13: 15; Admin Dose 1 MG; Start 05/24/17 at 13:11 Enoxaparin Sodium (Lovenox) 30 mg DAILY SC Last administered on 05/29/17 08: 33; Admin Dose 30 MG; Start 05/25/17 at 09:00; Status Future Hold Famotidine (Pepcid) 20 mg DAILY GTB Last administered on 05/30/17 09:04; Admin Dose 20 MG; Start 05/25/17 at 09:00 Mineral Oil 133 ml 133 ml Q48H PRN [place] constipation; Start 05/26/17 at 09:00 Amiodarone HCl/ Dextrose (Cordarone Iv/ D5W) 500 ml @ 0 mls/hr Q0M IV Last administered on 05/24/17 19:19; Admin Dose 33.4 MLS/HR; Start 05/24/17 at 19: 00 Morphine Sulfate (morphine) 1 mg Q4H PRN IV PAIN LEVEL 4-6 Last administered on 05/25/17 17:57; Admin Dose 1 MG; Start 05/24/17 at 19:00 Amiodarone HCl (Cordarone) 200 mg BID PO Last administered on 05/30/17 09:06 ; Admin Dose 200 MG; Start 05/25/17 at 21:00 Clonazepam (Klonopin) 0.5 mg QHS PRN GTB agitation; Start 05/28/17 at 11:00 Digoxin 0.125 mg 0.125 mg DAILY@13 PO Last administered on 05/29/17 12:38; Admin Dose 0.125 MG; Start 05/28/17 at 13:00 Cefepime HCl (Maxipime 1gm/50 ml (Pmx)) 50 ml @ 100 mls/hr Q12 IVPB Last administered on 05/30/17 09:07; Admin Dose 100 MLS/HR; Start 05/28/17 at 21: 00 Ferrous Sulfate (Feosol Liquid Cup) 300 mg DAILY PEG Last administered on 05/30 09:04; Admin Dose 300 MG; Start 05/29/17 at 09:00 Quetiapine Fumarate (Seroquel) 50 mg HS PRN GTB agitation; Start 05/29/17 at 11:00 Lisinopril (Zestril) 10 mg DAILY PO ; Start 05/30/17 at 13:00 Hydralazine HCl (Apresoline) 10 mg Q4H PRN IV SB>170; Start 05/30/17 at 14:30 BRIA SAL NP May 30, 2017 15:02
[2017-05-30] MEDS: LISINOPRIL 10 MG TAB PO SCH (15:44)
--- NOTE | 2017-05-30 15:48 | PN ---
Date/Time of Note Date/Time of Note DATE: 05/30/17 TIME: 15:37 Assessment/Plan VTE Prophylaxis VTE Prophylaxis Intervention: SCD's Lines/Catheters IV Catheter Type (from Nrs): Saline Lock Urinary Cath still in place: Yes Reason Cath still needed: terminal illness/intractable pain Assessment/Plan Chief Complaint/Hosp Course s: is more awake than yesterday, not quite at baseline o: Constitutional: lethargic, non-verbal, trach/vent Head: atraumatic, normocephalic Eyes: EOMI, PERRL ENMT: trach in place Respiratory: crackles/rales, diminished breath sounds, No labored breathing Cardiovascular: regular rate and rhythm, No systolic murmur Gastrointestinal: soft, minimally tender Musculoskeletal: nl extremities to inspection Extremities: normal pulses, No edema neuro: moves all extremities spontaneously, eyes remain closed, unable to arouse completely Assessment/Plan #encephalopathy -elevated ammonia is very mild, ggt elevated, liver issue, however AST/ALT/bili WNL -scheduled lactulose -ct head wnl -us ordered for ?liver disease #HTN -possible 2/2 clonazepam withdrawal -will give 1 dose, informed nurse -PRN medications as needed -will start on lisinopril as well, do not want to overshoot, no BP issues prior. #arrhythmia- stable - Cardiology on board and consultation appreciated. Continue on Amiodarone - Started on PO Digoxin - Started on low dose BB as tolerated - ECHO noted #. Sepsis secondary to PNA/bacteremia - Patients WBC trending downward and remains afebrile - LA normalized - ID consultation placed and appreciated recommendations. Will continue on broad spectrum and await cultural results - continue on IVF #. Bacteremia - Blood cultures growing Serratia - Repeat blood cultures negative - ID on board #. Anemia - s/p 2PRBC with response to Hgb 10, no drop since - Iron levels <10 - Started on IV iron, will supplement oral iron with vit C temporarily for 3-6 months #. Large right pleural effusion s/p thoracentesis - 1L removed and fluid studies sent. Appears to be exudative. Awaiting cultures - Pulmonology on board and recommendations appreciated -per pulm, loculations on CT appear free flowing, hold off on CT surgery. #. Left lower lobe density - CT scan showed round fluid density structure within the superior segment left lower lobe measuring 2.9 x 2.7 cm #. Infectious bronchiolitis #. 10 x 8 mm right lower lobe nodule - Will need close follow up outpatient #. Acute gastroenteritis - send stool studies - Dietary consult for tube feed recommendations #. Disposition - ?encephalopathy - once stable and additional workup complete, transfer to [place] -7 more days iv abx -tb meds per department of health Problems: Exam/Review of Systems Vital Signs Vitals Vital Signs Date Time Temp Pulse Resp B/P Pulse Ox O2 Delivery O2 Flow Rate FiO2 05/30/17 15:33 97.3 69 14 170/79 97 05/30/17 13:15 40 05/26/17 18:00 Mechanical Ventilator Intake and Output 05/29/17 05/29/17 05/30/17 14:59 22:59 06:59 Intake Total 1240 ml 940 ml Output Total 500 ml 550 ml Balance 740 ml 390 ml Results Result Diagram: 05/30/17 1423 05/30/17 1423 Results 24 hrs Laboratory Tests Test 05/30/17 10:24 05/30/17 14:23 Lab Scanned Report REFERENCE LAB White Blood Count 11.7 #H Red Blood Count 3.28 L Hemoglobin 9.8 L Hematocrit 33.1 L Mean Corpuscular Volume 100.9 Mean Corpuscular Hemoglobin 29.9 Mean Corpuscular Hemoglobin Concent 29.6 L Red Cell Distribution Width 17.1 H Platelet Count 232 # Mean Platelet Volume 9.4 Neutrophils % 86.2 H Lymphocytes % 6.1 L Monocytes % 6.5 Eosinophils % 0.2 Basophils % 0.1 Nucleated Red Blood Cells % 0.0 Neutrophils # 10.1 H Lymphocytes # 0.7 L Monocytes # 0.8 Eosinophils # 0.0 Basophils # 0.0 Nucleated Red Blood Cells # 0.0 Sodium Level 143 Potassium Level 4.6 Chloride Level 107 Carbon Dioxide Level 33 H Anion Gap 8 Blood Urea Nitrogen 20 Creatinine 0.38 L Glucose Level 208 Calcium Level 8.7 Total Bilirubin 0.0 L Direct Bilirubin 0.00 Indirect Bilirubin 0.0 Aspartate Amino Transf (AST/SGOT) 18 Alanine Aminotransferase (ALT/SGPT) 36 Alkaline Phosphatase 116 Ammonia 50 #H Total Protein 6.2 Albumin 2.6 L Globulin 3.60 H Albumin/Globulin Ratio 0.72 Medications Medications Current Medications Acetaminophen (Tylenol Tab) 650 mg Q6H PRN GTB PAIN AND OR ELEVATED TEMP; Start 05/23/17 at 12:30 Ascorbic Acid (Vitamin C) 500 mg DAILY GTB Last administered on 05/30/17 09: 04; Admin Dose 500 MG; Start 05/24/17 at 09:00 Aspirin (Aspirin) 81 mg DAILY GTB Last administered on 05/30/17 09:07; Admin Dose 81 MG; Start 05/24/17 at 09:00 Atorvastatin Calcium (Lipitor) 40 mg QHS GTB Last administered on 05/29/17 21 :47; Admin Dose 40 MG; Start 05/23/17 at 21:00 Bisacodyl (Dulcolax Supp) 10 mg Q24H PRN [place] CONSTIPATION; Start 05/23/17 at 12 :30 Docusate Sodium (Colace) 100 mg QHS PRN PO CONSTIPATION; Start 05/23/17 at 12: 30 Ethambutol HCl (Myambutol) 800 mg DAILY GTB Last administered on 05/30/17 09: 04; Admin Dose 800 MG; Start 05/24/17 at 09:00 Hyoscyamine (Levsin (Sl)) 0.125 mg Q4H PRN SL EXCESIVE ORAL SECRETIONS; Start 05/23/17 at 13:00 Magnesium Hydroxide (Milk Of Mag) 30 ml Q24H PRN GTB CONSTIPATION; Start 05/23 at 12:30 Methocarbamol (Robaxin) 500 mg Q8 GTB Last administered on 05/30/17 05:24; Admin Dose 500 MG; Start 05/23/17 at 14:00 Metoprolol Tartrate (Lopressor) 25 mg BID GTB Last administered on 05/30/17 09:06; Admin Dose 25 MG; Start 05/23/17 at 21:00 Eye Lubricant (Akwa Oint) 1 applic DAILY PRN BOTH EYES DRY EYES; Start at 13:00 Pyrazinamide (Pyrazinamide) 1,000 mg DAILY GTB Last administered on 05/30/17 09:17; Admin Dose 1,000 MG; Start 05/24/17 at 09:00 Pyridoxine HCl (Vitamin B6) 50 mg DAILY GTB Last administered on 05/30/17 09: 17; Admin Dose 50 MG; Start 05/24/17 at 09:00 Rifabutin (Mycobutin) 300 mg BID GTB Last administered on 05/30/17 09:16; Admin Dose 300 MG; Start 05/23/17 at 21:00 Multivitamins (Multivitamin) 30 ml DAILY GTB Last administered on 05/30/17 09 :16; Admin Dose 30 ML; Start 05/24/17 at 09:00 Ondansetron HCl (Zofran Inj) 4 mg Q6H PRN IV NAUSEA AND/OR VOMITING Last administered on 05/23/17 22:48; Admin Dose 4 MG; Start 05/23/17 at 13:00 Nitroglycerin (Nitroglycerin (Sl Tab) 0.4 Mg) 1 tab Q5M PRN SL CHEST PAIN; Start 05/23/17 at 13:00 Acetaminophen/ Hydrocodone Bitart ([place] (5/325)) 1 tab Q6H PRN GTB PAIN LEVEL 4-6 Last administered on 05/23/17 22:13; Admin Dose 1 TAB; Start 05/23/17 at 13:00 Lorazepam (Ativan) 1 mg Q4H PRN IV anxiety Last administered on 05/24/17 13: 15; Admin Dose 1 MG; Start 05/24/17 at 13:11 Enoxaparin Sodium (Lovenox) 30 mg DAILY SC Last administered on 05/29/17 08: 33; Admin Dose 30 MG; Start 05/25/17 at 09:00; Status Future Hold Famotidine (Pepcid) 20 mg DAILY GTB Last administered on 05/30/17 09:04; Admin Dose 20 MG; Start 05/25/17 at 09:00 Mineral Oil 133 ml 133 ml Q48H PRN [place] constipation; Start 05/26/17 at 09:00 Amiodarone HCl/ Dextrose (Cordarone Iv/ D5W) 500 ml @ 0 mls/hr Q0M IV Last administered on 05/24/17 19:19; Admin Dose 33.4 MLS/HR; Start 05/24/17 at 19: 00 Morphine Sulfate (morphine) 1 mg Q4H PRN IV PAIN LEVEL 4-6 Last administered on 05/25/17 17:57; Admin Dose 1 MG; Start 05/24/17 at 19:00 Amiodarone HCl (Cordarone) 200 mg BID PO Last administered on 05/30/17 09:06 ; Admin Dose 200 MG; Start 05/25/17 at 21:00 Clonazepam (Klonopin) 0.5 mg QHS PRN GTB agitation; Start 05/28/17 at 11:00 Digoxin 0.125 mg 0.125 mg DAILY@13 PO Last administered on 05/29/17 12:38; Admin Dose 0.125 MG; Start 05/28/17 at 13:00 Cefepime HCl (Maxipime 1gm/50 ml (Pmx)) 50 ml @ 100 mls/hr Q12 IVPB Last administered on 05/30/17 09:07; Admin Dose 100 MLS/HR; Start 05/28/17 at 21: 00 Ferrous Sulfate (Feosol Liquid Cup) 300 mg DAILY PEG Last administered on 05/30 09:04; Admin Dose 300 MG; Start 05/29/17 at 09:00 Quetiapine Fumarate (Seroquel) 50 mg HS PRN GTB agitation; Start 05/29/17 at 11:00 Lisinopril (Zestril) 10 mg DAILY PO ; Start 05/30/17 at 13:00 Hydralazine HCl (Apresoline) 10 mg Q4H PRN IV SB>170; Start 05/30/17 at 14:30 MUKUL LINK May 30, 2017 15:48
[2017-05-30] MEDS ORDERED: ENALAPRILAT 1.25 MG INJ IV PRN (16:00)
[2017-05-30] MEDS: LACTULOSE 30ML CUP PO SCH ×2 (17:05→21:32)
[2017-05-30] MEDS: hydrALAzine 20 MG INJ IV PRN (19:01)
[2017-05-30] MEDS: ATORVASTATIN 40 MG TAB GTB SCH (21:32)
[2017-05-31] VITALS (23 sets, daily range): BP systolic 126–175; BP diastolic 62–83; PULSE 60–84; RESP 16–20
[2017-05-31] MEDS: LEVOTHYROXINE 100 MCG TAB GTB SCH (05:33)
[2017-05-31] MEDS: METHOCARBAMOL 500 MG TAB GTB SCH ×3 (05:33→21:47)
[2017-05-31] MEDS: LACTULOSE 30ML CUP PO SCH (05:33)
[2017-05-31 08:24] LABS: ABNORMAL IP MESSAGE 1; BASOPHILS % 0.1 % (0.0-2.0); EOSINOPHILS % 0.1 % (0.0-7.0); HEMATOCRIT 36.6 % (37.0-47.0); LYMPHOCYTES # 0.5 10^3/ul (0.8-2.9); LYMPHOCYTES % 4.7 % (15.0-51.0); MEAN CORPUSCULAR HEMOGLOBIN 30.4 pg (29.0-33.0); MEAN CORPUSCULAR HGB CONC 30.1 g/dl (32.0-37.0); MEAN CORPUSCULAR VOLUME 101.1 fl (82.0-101.0); MEAN PLATELET VOLUME 9.6 fl (7.4-10.4); MONOCYTE # 0.6 10^3/ul (0.3-0.9); MONOCYTES % 5.3 % (0.0-11.0); NEUTROPHIL # 9.9 10^3/ul (1.6-7.5); NEUTROPHILS % 88.5 % (39.0-77.0); PLATELET COUNT 282 10^3/UL (140-415); RED BLOOD COUNT 3.62 10^6/ul (4.20-5.40); RED CELL DISTRIBUTION WIDTH 16.9 % (11.5-14.5); WHITE BLOOD COUNT 11.2 10^3/ul (4.8-10.8)
[2017-05-31 08:38] LABS: POSITIVE DIFF @See below
[2017-05-31 08:45] LABS: ALBUMIN 2.9 g/dl (3.3-4.9); ALBUMIN/GLOBULIN RATIO 0.72; BILIRUBIN,INDIRECT 0.2 mg/dl (0-1.1); BILIRUBIN,TOTAL 0.2 mg/dl (0.2-1.3); CALCIUM 9.4 mg/dl (8.4-10.2); CREATININE 0.35 mg/dl (0.44-1.00); POTASSIUM 4.1 mmol/L (3.5-5.1); TOTAL PROTEIN 6.9 g/dl (6.1-8.1)
[2017-05-31 09:32] LABS: HEPATITIS B CORE ANTIBODY NEGATIVE (NEGATIVE)
--- NOTE | 2017-05-31 09:48 | RADRPT ---
PROCEDURE: Abdominal ultrasound CLINICAL INDICATION: Concern for liver disease. COMPARISON: CT from 05/23/2017. TECHNIQUE: Multiple transverse and longitudinal de la cruz-scale images of the abdomen were obtained, supp lemented with color, power, and spectral Doppler imaging when appropriate. FINDINGS: Liver Length: 12.6 cm. Parenchyma: Normal echogenicity. No suspicious mass or cyst. Hepatic veins: Appropriate direction of normal triphasic flow. Portal vein: Patent with normal hepatopetal flow. Biliary tree Gallbladder: Not visualized and likely decompressed given appearance on CT from 05/23/2017. Intrahepatic bile duct: Not dilated. Common bile duct: 6 mm. Pancreas: The visualized pancreas is normal. Right kidney Length: 11.6 x 4.1 cm. Parenchyma: No stone or hydronephrosis. Hypoechoic lesions within the upper and interpolar region of the right kidney measure 2.8 x 1.3 cm and 1.6 x 1.6 cm, most consistent with simple cysts. Left kidney Length: 11.0 x 4.9 cm. Parenchyma: No stone or hydronephrosis. Spleen Length: 10 cm. Parenchyma: Normal echogenicity. Vessels Inferior vena cava: Visualized segments are normal. Aorta: Obscured by bowel gas. Free fluid: Moderate amount of free fluid about the subdiaphragmatic liver. Bilateral pleural effus ions. Additional comment: None. IMPRESSION: 1. The gallbladder is not visualized and is likely decompressed given its appearance on CT from 05/09. No biliary duct dilation identified. 2. Normal ultrasound appearance of the liver. 3. Bilateral pleural effusions with trace ascites. RPTAT: PP Physician Sanjana Date Time Electronically viewed and signed by Physician Sanjana on 05/31/2017 09:48 LG/
[2017-05-31] MEDS: CEFEPIME 1GM/50 ML (PMX) 50 ML IVPB SCH ×2 (09:53→21:35)
[2017-05-31] MEDS: RIFABUTIN 150 MG CAP GTB SCH (09:53)
[2017-05-31] MEDS: ETHAMBUTOL 400 MG TAB GTB SCH (09:54)
[2017-05-31] MEDS: PYRAZINAMIDE 500 MG TAB GTB SCH (09:54)
[2017-05-31] MEDS: ASCORBIC ACID 500 MG TAB GTB SCH (09:54)
[2017-05-31] MEDS: FAMOTIDINE 20 MG TAB GTB SCH (09:54)
[2017-05-31] MEDS: ASPIRIN 81 MG TAB GTB SCH (09:54)
[2017-05-31] MEDS: PYRIDOXINE 50 MG TAB GTB SCH (09:54)
[2017-05-31] MEDS: LISINOPRIL 10 MG TAB PO SCH (09:55)
[2017-05-31] MEDS: FERROUS SULFATE 60 MG/ML 5ML CUP PEG SCH (09:55)
[2017-05-31] MEDS: MULTIVITAMINS 30 ML CUP GTB SCH (09:55)
[2017-05-31] MEDS: METOPROLOL 25 MG TAB GTB SCH ×2 (09:55→21:36)
[2017-05-31] MEDS: AMIODARONE 200 MG TAB PO SCH ×2 (09:56→21:36)
--- NOTE | 2017-05-31 11:26 | CONS ---
Date/Time of Note Date/Time of Note DATE: 05/31/17 TIME: 11:25 Consult Date/Type/Reason Admit Date/Time May 23, 2017 at 11:33 Type of Consultation: Pulmonary Ordering Provider: NAOMIE VAUGHN MD Subjective Patient more somnolent than usual. No sedation given by nursing staff. CT of the brain unremarkable. Objective Vital Signs Date Time Temp Pulse Resp B/P Pulse Ox O2 Delivery O2 Flow Rate FiO2 05/31/17 11:07 97.3 66 16 126/75 97 05/31/17 09:10 40 Intake and Output 05/30/17 05/30/17 05/31/17 14:59 22:59 06:59 Intake Total 1120 ml 280 ml Output Total 700 ml 1300 ml Balance 420 ml -1020 ml Exam GENERAL: Elderly lady on mechanical ventilation appears comfortable at rest VITAL SIGNS: per chart NECK: Supple. No JVD or lymphadenopathy. CARDIAC EXAM: S1, S2. No added sounds or murmurs. CHEST: clear bilaterally, No added sounds, rales or wheezes ABDOMEN: Soft, nontender. No guarding or rebound. EXTREMITIES: No cyanosis, clubbing or edema. NEUROLOGIC: Generalized weakness. No focal deficits. Results/Medications Result Diagram: 05/31/17 0759 05/31/17 0759 Results 24 hrs Laboratory Tests Test 05/30/17 14:23 05/31/17 07:59 White Blood Count 11.7 #H 11.2 H Red Blood Count 3.28 L 3.62 L Hemoglobin 9.8 L 11.0 L Hematocrit 33.1 L 36.6 L Mean Corpuscular Volume 100.9 101.1 H Mean Corpuscular Hemoglobin 29.9 30.4 Mean Corpuscular Hemoglobin Concent 29.6 L 30.1 L Red Cell Distribution Width 17.1 H 16.9 H Platelet Count 232 # 282 # Mean Platelet Volume 9.4 9.6 Neutrophils % 86.2 H 88.5 H Lymphocytes % 6.1 L 4.7 L Monocytes % 6.5 5.3 Eosinophils % 0.2 0.1 Basophils % 0.1 0.1 Nucleated Red Blood Cells % 0.0 0.0 Neutrophils # 10.1 H 9.9 H Lymphocytes # 0.7 L 0.5 L Monocytes # 0.8 0.6 Eosinophils # 0.0 0.0 Basophils # 0.0 0.0 Nucleated Red Blood Cells # 0.0 0.0 Sodium Level 143 149 H Potassium Level 4.6 4.1 Chloride Level 107 108 Carbon Dioxide Level 33 H 37 H Anion Gap 8 8 Blood Urea Nitrogen 20 19 Creatinine 0.38 L 0.35 L Glucose Level 208 161 Calcium Level 8.7 9.4 Total Bilirubin 0.0 L 0.2 Direct Bilirubin 0.00 0.00 Indirect Bilirubin 0.0 0.2 Aspartate Amino Transf (AST/SGOT) 18 27 Alanine Aminotransferase (ALT/SGPT) 36 34 Alkaline Phosphatase 116 140 H Ammonia 50 #H 30 Total Protein 6.2 6.9 Albumin 2.6 L 2.9 L Globulin 3.60 H 4.00 H Albumin/Globulin Ratio 0.72 0.72 Lactic Acid Level 1.0 Magnesium Level 2.5 Hepatitis A Antibody Total POSITIVE H Hepatitis B Surface Antigen NEGATIVE Hepatitis B Surface Antibody POSITIVE H Hepatitis B Core Total Antibody NEGATIVE Hepatitis C Antibody NEGATIVE Medications Current Medications Acetaminophen (Tylenol Tab) 650 mg Q6H PRN GTB PAIN AND OR ELEVATED TEMP; Start 05/23/17 at 12:30 Ascorbic Acid (Vitamin C) 500 mg DAILY GTB Last administered on 05/31/17 09: 54; Admin Dose 500 MG; Start 05/24/17 at 09:00 Aspirin (Aspirin) 81 mg DAILY GTB Last administered on 05/31/17 09:54; Admin Dose 81 MG; Start 05/24/17 at 09:00 Atorvastatin Calcium (Lipitor) 40 mg QHS GTB Last administered on 05/30/17 21 :32; Admin Dose 40 MG; Start 05/23/17 at 21:00 Bisacodyl (Dulcolax Supp) 10 mg Q24H PRN [place] CONSTIPATION; Start 05/23/17 at 12 :30 Docusate Sodium (Colace) 100 mg QHS PRN PO CONSTIPATION; Start 05/23/17 at 12: 30 Ethambutol HCl (Myambutol) 800 mg DAILY GTB Last administered on 05/31/17 09: 54; Admin Dose 800 MG; Start 05/24/17 at 09:00 Hyoscyamine (Levsin (Sl)) 0.125 mg Q4H PRN SL EXCESIVE ORAL SECRETIONS; Start 05/23/17 at 13:00 Magnesium Hydroxide (Milk Of Mag) 30 ml Q24H PRN GTB CONSTIPATION; Start 05/23 at 12:30 Methocarbamol (Robaxin) 500 mg Q8 GTB Last administered on 05/31/17 05:33; Admin Dose 500 MG; Start 05/23/17 at 14:00 Metoprolol Tartrate (Lopressor) 25 mg BID GTB Last administered on 05/31/17 09:55; Admin Dose 25 MG; Start 05/23/17 at 21:00 Eye Lubricant (Akwa Oint) 1 applic DAILY PRN BOTH EYES DRY EYES; Start at 13:00 Pyrazinamide (Pyrazinamide) 1,000 mg DAILY GTB Last administered on 05/31/17 09:54; Admin Dose 1,000 MG; Start 05/24/17 at 09:00 Pyridoxine HCl (Vitamin B6) 50 mg DAILY GTB Last administered on 05/31/17 09: 54; Admin Dose 50 MG; Start 05/24/17 at 09:00 Multivitamins (Multivitamin) 30 ml DAILY GTB Last administered on 05/31/17 09 :55; Admin Dose 30 ML; Start 05/24/17 at 09:00 Ondansetron HCl (Zofran Inj) 4 mg Q6H PRN IV NAUSEA AND/OR VOMITING Last administered on 05/23/17 22:48; Admin Dose 4 MG; Start 05/23/17 at 13:00 Nitroglycerin (Nitroglycerin (Sl Tab) 0.4 Mg) 1 tab Q5M PRN SL CHEST PAIN; Start 05/23/17 at 13:00 Acetaminophen/ Hydrocodone Bitart ([place] (5/325)) 1 tab Q6H PRN GTB PAIN LEVEL 4-6 Last administered on 05/23/17 22:13; Admin Dose 1 TAB; Start 05/23/17 at 13:00 Lorazepam (Ativan) 1 mg Q4H PRN IV anxiety Last administered on 05/24/17 13: 15; Admin Dose 1 MG; Start 05/24/17 at 13:11 Enoxaparin Sodium (Lovenox) 30 mg DAILY SC Last administered on 05/29/17 08: 33; Admin Dose 30 MG; Start 05/25/17 at 09:00; Status Future Hold Famotidine (Pepcid) 20 mg DAILY GTB Last administered on 05/31/17 09:54; Admin Dose 20 MG; Start 05/25/17 at 09:00 Mineral Oil 133 ml 133 ml Q48H PRN [place] constipation; Start 05/26/17 at 09:00 Amiodarone HCl/ Dextrose (Cordarone Iv/ D5W) 500 ml @ 0 mls/hr Q0M IV Last administered on 05/24/17 19:19; Admin Dose 33.4 MLS/HR; Start 05/24/17 at 19: 00 Morphine Sulfate (morphine) 1 mg Q4H PRN IV PAIN LEVEL 4-6 Last administered on 05/25/17 17:57; Admin Dose 1 MG; Start 05/24/17 at 19:00 Amiodarone HCl (Cordarone) 200 mg BID PO Last administered on 05/31/17 09:56 ; Admin Dose 200 MG; Start 05/25/17 at 21:00 Clonazepam (Klonopin) 0.5 mg QHS PRN GTB agitation; Start 05/28/17 at 11:00 Digoxin 0.125 mg 0.125 mg DAILY@13 PO Last administered on 05/29/17 12:38; Admin Dose 0.125 MG; Start 05/28/17 at 13:00 Cefepime HCl (Maxipime 1gm/50 ml (Pmx)) 50 ml @ 100 mls/hr Q12 IVPB Last administered on 05/31/17 09:53; Admin Dose 100 MLS/HR; Start 05/28/17 at 21: 00 Ferrous Sulfate (Feosol Liquid Cup) 300 mg DAILY PEG Last administered on 05/31 09:55; Admin Dose 300 MG; Start 05/29/17 at 09:00 Quetiapine Fumarate (Seroquel) 50 mg HS PRN GTB agitation; Start 05/29/17 at 11:00 Lisinopril (Zestril) 10 mg DAILY PO Last administered on 05/31/17 09:55; Admin Dose 10 MG; Start 05/30/17 at 13:00 Hydralazine HCl (Apresoline) 10 mg Q4H PRN IV SB>170 Last administered on 05/30 19:01; Admin Dose 10 MG; Start 05/30/17 at 14:30 Enalaprilat (Vasotec Iv) 1.25 mg Q6H PRN IV sbp>160; Start 05/30/17 at 16:00 Lactulose (Enulose) 20 gm Q8 PO Last administered on 05/31/17 05:33; Admin Dose 20 GM; Start 05/30/17 at 16:00 Rifabutin (Mycobutin) 300 mg DAILY GTB Last administered on 05/31/17 09:53; Admin Dose 300 MG; Start 05/31/17 at 09:00 Assessment/Plan Chief Complaint/Hosp Course Assessment: 1. Hx MTB 2. VDRF 3. Recurrent pleural effusions. 4. Dysphagia with PEG. 5. Anemia. 6. A. fib with RVR. Status post amiodarone 7. Encephalopathy appears toxic metabolic. Plan: 1. Thoracentesis results noted. 2. Continue MTB abx 3. Status post transfusion packed red blood cells 4. Continue TF. 5. Amiodarone per cardiology. 6. Hold all sedation Transfer to [place] Problems: ISABEL MANCERA MD, [facility] May 31, 2017 11:26
--- NOTE | 2017-05-31 12:14 | PN ---
Date/Time of Note Date/Time of Note DATE: 05/31/17 TIME: 12:11 Assessment/Plan VTE Prophylaxis VTE Prophylaxis Intervention: SCD's Lines/Catheters IV Catheter Type (from Nrsg): Saline Lock Urinary Cath still in place: Yes Reason Cath still needed: terminal illness/intractable pain Assessment/Plan Chief Complaint/Hosp Course s: .: is more awake than yesterday, not quite at baseline 05.31: even more awake then previous day,more movement and dose open eyes, does not track however o: Constitutional: lethargic, non-verbal, trach/vent Head: atraumatic, normocephalic Eyes: EOMI, PERRL ENMT: trach in place Respiratory: crackles/rales, diminished breath sounds, No labored breathing Cardiovascular: regular rate and rhythm, No systolic murmur Gastrointestinal: soft, minimally tender Musculoskeletal: nl extremities to inspection Extremities: normal pulses, No edema neuro: moves all extremities spontaneously, eyes remain closed, unable to arouse completely Assessment/Plan #encephalopathy -elevated ammonia is very mild, ggt elevated, liver issue, however AST/ALT/bili WNL -scheduled lactulose -ct head wnl -us ordered for ?liver disease, gallbladder not visualized, but liver WNL/bile duct dilation mild #HTN -possible 2/2 clonazepam withdrawal -monitor -PRN medications as needed -will start on lisinopril as well, do not want to overshoot, no BP issues prior. #arrhythmia- stable - Cardiology on board and consultation appreciated. Continue on Amiodarone - Started on PO Digoxin - Started on low dose BB as tolerated - ECHO noted #. Sepsis secondary to PNA/bacteremia - Patients WBC trending downward and remains afebrile - LA normalized - ID consultation placed and appreciated recommendations. Will continue on broad spectrum and await cultural results - continue on IVF #. Bacteremia - Blood cultures growing Serratia - Repeat blood cultures negative - ID on board #. Anemia - s/p 2PRBC with response to Hgb 10, no drop since - Iron levels <10 - Started on IV iron, will supplement oral iron with vit C temporarily for 3-6 months #. Large right pleural effusion s/p thoracentesis - 1L removed and fluid studies sent. Appears to be exudative. Awaiting cultures - Pulmonology on board and recommendations appreciated -per pulm, loculations on CT appear free flowing, hold off on CT surgery. #. Left lower lobe density - CT scan showed round fluid density structure within the superior segment left lower lobe measuring 2.9 x 2.7 cm #. Infectious bronchiolitis #. 10 x 8 mm right lower lobe nodule - Will need close follow up outpatient #. Acute gastroenteritis - send stool studies - Dietary consult for tube feed recommendations #. Disposition - ?encephalopathy - once stable and additional workup complete, transfer to [place] -6 more days iv abx -tb meds per department of health Problems: Exam/Review of Systems Vital Signs Vitals Vital Signs Date Time Temp Pulse Resp B/P Pulse Ox O2 Delivery O2 Flow Rate FiO2 05/31/17 11:10 63 16 97 35 05/31/17 11:07 97.3 126/75 Intake and Output 05/30/17 05/30/17 05/31/17 15:00 23:00 07:00 Intake Total 1120 ml 280 ml Output Total 700 ml 1300 ml Balance 420 ml -1020 ml Results Result Diagram: 05/31/17 0759 05/31/17 0759 Results 24 hrs Laboratory Tests Test 05/30/17 14:23 05/31/17 07:59 White Blood Count 11.7 #H 11.2 H Red Blood Count 3.28 L 3.62 L Hemoglobin 9.8 L 11.0 L Hematocrit 33.1 L 36.6 L Mean Corpuscular Volume 100.9 101.1 H Mean Corpuscular Hemoglobin 29.9 30.4 Mean Corpuscular Hemoglobin Concent 29.6 L 30.1 L Red Cell Distribution Width 17.1 H 16.9 H Platelet Count 232 # 282 # Mean Platelet Volume 9.4 9.6 Neutrophils % 86.2 H 88.5 H Lymphocytes % 6.1 L 4.7 L Monocytes % 6.5 5.3 Eosinophils % 0.2 0.1 Basophils % 0.1 0.1 Nucleated Red Blood Cells % 0.0 0.0 Neutrophils # 10.1 H 9.9 H Lymphocytes # 0.7 L 0.5 L Monocytes # 0.8 0.6 Eosinophils # 0.0 0.0 Basophils # 0.0 0.0 Nucleated Red Blood Cells # 0.0 0.0 Sodium Level 143 149 H Potassium Level 4.6 4.1 Chloride Level 107 108 Carbon Dioxide Level 33 H 37 H Anion Gap 8 8 Blood Urea Nitrogen 20 19 Creatinine 0.38 L 0.35 L Glucose Level 208 161 Calcium Level 8.7 9.4 Total Bilirubin 0.0 L 0.2 Direct Bilirubin 0.00 0.00 Indirect Bilirubin 0.0 0.2 Aspartate Amino Transf (AST/SGOT) 18 27 Alanine Aminotransferase (ALT/SGPT) 36 34 Alkaline Phosphatase 116 140 H Ammonia 50 #H 30 Total Protein 6.2 6.9 Albumin 2.6 L 2.9 L Globulin 3.60 H 4.00 H Albumin/Globulin Ratio 0.72 0.72 Lactic Acid Level 1.0 Magnesium Level 2.5 Hepatitis A Antibody Total POSITIVE H Hepatitis B Surface Antigen NEGATIVE Hepatitis B Surface Antibody POSITIVE H Hepatitis B Core Total Antibody NEGATIVE Hepatitis C Antibody NEGATIVE Medications Medications Current Medications Acetaminophen (Tylenol Tab) 650 mg Q6H PRN GTB PAIN AND OR ELEVATED TEMP; Start 05/23/17 at 12:30 Ascorbic Acid (Vitamin C) 500 mg DAILY GTB Last administered on 05/31/17 09: 54; Admin Dose 500 MG; Start 05/24/17 at 09:00 Aspirin (Aspirin) 81 mg DAILY GTB Last administered on 05/31/17 09:54; Admin Dose 81 MG; Start 05/24/17 at 09:00 Atorvastatin Calcium (Lipitor) 40 mg QHS GTB Last administered on 05/30/17 21 :32; Admin Dose 40 MG; Start 05/23/17 at 21:00 Bisacodyl (Dulcolax Supp) 10 mg Q24H PRN [place] CONSTIPATION; Start 05/23/17 at 12 :30 Docusate Sodium (Colace) 100 mg QHS PRN PO CONSTIPATION; Start 05/23/17 at 12: 30 Ethambutol HCl (Myambutol) 800 mg DAILY GTB Last administered on 05/31/17 09: 54; Admin Dose 800 MG; Start 05/24/17 at 09:00 Hyoscyamine (Levsin (Sl)) 0.125 mg Q4H PRN SL EXCESIVE ORAL SECRETIONS; Start 05/23/17 at 13:00 Magnesium Hydroxide (Milk Of Mag) 30 ml Q24H PRN GTB CONSTIPATION; Start 05/23 at 12:30 Methocarbamol (Robaxin) 500 mg Q8 GTB Last administered on 05/31/17 05:33; Admin Dose 500 MG; Start 05/23/17 at 14:00 Metoprolol Tartrate (Lopressor) 25 mg BID GTB Last administered on 05/31/17 09:55; Admin Dose 25 MG; Start 05/23/17 at 21:00 Eye Lubricant (Akwa Oint) 1 applic DAILY PRN BOTH EYES DRY EYES; Start at 13:00 Pyrazinamide (Pyrazinamide) 1,000 mg DAILY GTB Last administered on 05/31/17 09:54; Admin Dose 1,000 MG; Start 05/24/17 at 09:00 Pyridoxine HCl (Vitamin B6) 50 mg DAILY GTB Last administered on 05/31/17 09: 54; Admin Dose 50 MG; Start 05/24/17 at 09:00 Multivitamins (Multivitamin) 30 ml DAILY GTB Last administered on 05/31/17 09 :55; Admin Dose 30 ML; Start 05/24/17 at 09:00 Ondansetron HCl (Zofran Inj) 4 mg Q6H PRN IV NAUSEA AND/OR VOMITING Last administered on 05/23/17 22:48; Admin Dose 4 MG; Start 05/23/17 at 13:00 Nitroglycerin (Nitroglycerin (Sl Tab) 0.4 Mg) 1 tab Q5M PRN [place] CHEST PAIN; Start 05/23/17 at 13:00 Acetaminophen/ Hydrocodone Bitart ([place] (5/325)) 1 tab Q6H PRN GTB PAIN LEVEL 4-6 Last administered on 05/23/17 22:13; Admin Dose 1 TAB; Start 05/23/17 at 13:00 Lorazepam (Ativan) 1 mg Q4H PRN IV anxiety Last administered on 05/24/17 13: 15; Admin Dose 1 MG; Start 05/24/17 at 13:11 Enoxaparin Sodium (Lovenox) 30 mg DAILY SC Last administered on 05/29/17 08: 33; Admin Dose 30 MG; Start 05/25/17 at 09:00; Status Future Hold Famotidine (Pepcid) 20 mg DAILY GTB Last administered on 05/31/17 09:54; Admin Dose 20 MG; Start 05/25/17 at 09:00 Mineral Oil 133 ml 133 ml Q48H PRN [place] constipation; Start 05/26/17 at 09:00 Amiodarone HCl/ Dextrose (Cordarone Iv/ D5W) 500 ml @ 0 mls/hr Q0M IV Last administered on 05/24/17 19:19; Admin Dose 33.4 MLS/HR; Start 05/24/17 at 19: 00 Morphine Sulfate (morphine) 1 mg Q4H PRN IV PAIN LEVEL 4-6 Last administered on 05/25/17 17:57; Admin Dose 1 MG; Start 05/24/17 at 19:00 Amiodarone HCl (Cordarone) 200 mg BID PO Last administered on 05/31/17 09:56 ; Admin Dose 200 MG; Start 05/25/17 at 21:00 Clonazepam (Klonopin) 0.5 mg QHS PRN GTB agitation; Start 05/28/17 at 11:00 Digoxin 0.125 mg 0.125 mg DAILY@13 PO Last administered on 05/29/17 12:38; Admin Dose 0.125 MG; Start 05/28/17 at 13:00 Cefepime HCl (Maxipime 1gm/50 ml (Pmx)) 50 ml @ 100 mls/hr Q12 IVPB Last administered on 05/31/17 09:53; Admin Dose 100 MLS/HR; Start 05/28/17 at 21: 00 Ferrous Sulfate (Feosol Liquid Cup) 300 mg DAILY PEG Last administered on 05/31 09:55; Admin Dose 300 MG; Start 05/29/17 at 09:00 Quetiapine Fumarate (Seroquel) 50 mg HS PRN GTB agitation; Start 05/29/17 at 11:00 Lisinopril (Zestril) 10 mg DAILY PO Last administered on 05/31/17 09:55; Admin Dose 10 MG; Start 05/30/17 at 13:00 Hydralazine HCl (Apresoline) 10 mg Q4H PRN IV SB>170 Last administered on 05/30 19:01; Admin Dose 10 MG; Start 05/30/17 at 14:30 Enalaprilat (Vasotec Iv) 1.25 mg Q6H PRN IV sbp>160; Start 05/30/17 at 16:00 Lactulose (Enulose) 20 gm Q8 PO Last administered on 05/31/17 05:33; Admin Dose 20 GM; Start 05/30/17 at 16:00 Rifabutin (Mycobutin) 300 mg DAILY GTB Last administered on 05/31/17 09:53; Admin Dose 300 MG; Start 05/31/17 at 09:00 MUKUL LINK May 31, 2017 12:14
--- NOTE | 2017-05-31 12:30 | CONS ---
Date/Time of Note Date/Time of Note DATE: 05/31/17 TIME: 12:29 Assessment/Plan Assessment/Plan Chief Complaint/Hosp Course SUBJECTIVE: No acute changes, looks comfortable. No fevers. ANTIMICROBIALS: Cefepime and anti-TB medications. MICROBIOLOGY: Blood culture on admission grew Serratia. Endotracheal aspirate grew Serratia and Providencia stuartii, susceptible to cefepime and cefotaxime. Repeat blood cultures negative. INDWELLINGS: Trach, PEG. PHYSICAL EXAMINATION: GENERAL: This is a fragile, chronically ill-appearing, elderly woman who is in no distress. HEENT: Head atraumatic, normocephalic. Sclerae anicteric. Buccal mucosa pink. NECK: Supple. CHEST: Rise symmetrical. Breath sounds diminished to bases. HEART: S1, S2. ABDOMEN: Soft, bowel tones present. EXTREMITIES: Without cyanosis. ASSESSMENT: 1. Sepsis with bacteremia secondary to pneumonia. 2. HCAP 3. 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 The patient is off isolation. 4. Anemia. 5. Dysphagia. 6. Status post rapid atrial fibrillation requiring cardioversion. PLAN: Clinically stable. Repeat blood cultures negative. Continue present care. Continue anti-TB medications as per Department of Health recommendations , Cefepime for 6 more days [facility] staff Problems: Consultation Date/Type/Reason Admit Date/Time May 23, 2017 at 11:33 Initial Consult Date 05/27/17 Type of Consultation: ID Referring Provider: NAOMIE VAUGHN MD Exam/Review of Systems Vital Signs Vitals Vital Signs Date Time Temp Pulse Resp B/P Pulse Ox O2 Delivery O2 Flow Rate FiO2 05/31/17 11:10 63 16 97 35 05/31/17 11:07 97.3 126/75 Intake and Output 05/30/17 05/30/17 05/31/17 15:00 23:00 07:00 Intake Total 1120 ml 280 ml Output Total 700 ml 1300 ml Balance 420 ml -1020 ml Results Result Diagram: 05/31/17 0759 05/31/17 0759 Results 24 hrs Laboratory Tests Test 05/30/17 14:23 05/31/17 07:59 White Blood Count 11.7 #H 11.2 H Red Blood Count 3.28 L 3.62 L Hemoglobin 9.8 L 11.0 L Hematocrit 33.1 L 36.6 L Mean Corpuscular Volume 100.9 101.1 H Mean Corpuscular Hemoglobin 29.9 30.4 Mean Corpuscular Hemoglobin Concent 29.6 L 30.1 L Red Cell Distribution Width 17.1 H 16.9 H Platelet Count 232 # 282 # Mean Platelet Volume 9.4 9.6 Neutrophils % 86.2 H 88.5 H Lymphocytes % 6.1 L 4.7 L Monocytes % 6.5 5.3 Eosinophils % 0.2 0.1 Basophils % 0.1 0.1 Nucleated Red Blood Cells % 0.0 0.0 Neutrophils # 10.1 H 9.9 H Lymphocytes # 0.7 L 0.5 L Monocytes # 0.8 0.6 Eosinophils # 0.0 0.0 Basophils # 0.0 0.0 Nucleated Red Blood Cells # 0.0 0.0 Sodium Level 143 149 H Potassium Level 4.6 4.1 Chloride Level 107 108 Carbon Dioxide Level 33 H 37 H Anion Gap 8 8 Blood Urea Nitrogen 20 19 Creatinine 0.38 L 0.35 L Glucose Level 208 161 Calcium Level 8.7 9.4 Total Bilirubin 0.0 L 0.2 Direct Bilirubin 0.00 0.00 Indirect Bilirubin 0.0 0.2 Aspartate Amino Transf (AST/SGOT) 18 27 Alanine Aminotransferase (ALT/SGPT) 36 34 Alkaline Phosphatase 116 140 H Ammonia 50 #H 30 Total Protein 6.2 6.9 Albumin 2.6 L 2.9 L Globulin 3.60 H 4.00 H Albumin/Globulin Ratio 0.72 0.72 Lactic Acid Level 1.0 Magnesium Level 2.5 Hepatitis A Antibody Total POSITIVE H Hepatitis B Surface Antigen NEGATIVE Hepatitis B Surface Antibody POSITIVE H Hepatitis B Core Total Antibody NEGATIVE Hepatitis C Antibody NEGATIVE Medications Medications Current Medications Acetaminophen (Tylenol Tab) 650 mg Q6H PRN GTB PAIN AND OR ELEVATED TEMP; Start 05/23/17 at 12:30 Ascorbic Acid (Vitamin C) 500 mg DAILY GTB Last administered on 05/31/17 09: 54; Admin Dose 500 MG; Start 05/24/17 at 09:00 Aspirin (Aspirin) 81 mg DAILY GTB Last administered on 05/31/17 09:54; Admin Dose 81 MG; Start 05/24/17 at 09:00 Atorvastatin Calcium (Lipitor) 40 mg QHS GTB Last administered on 05/30/17 21 :32; Admin Dose 40 MG; Start 05/23/17 at 21:00 Bisacodyl (Dulcolax Supp) 10 mg Q24H PRN [place] CONSTIPATION; Start 05/23/17 at 12 :30 Docusate Sodium (Colace) 100 mg QHS PRN PO CONSTIPATION; Start 05/23/17 at 12: 30 Ethambutol HCl (Myambutol) 800 mg DAILY GTB Last administered on 05/31/17 09: 54; Admin Dose 800 MG; Start 05/24/17 at 09:00 Hyoscyamine (Levsin (Sl)) 0.125 mg Q4H PRN SL EXCESIVE ORAL SECRETIONS; Start 05/23/17 at 13:00 Magnesium Hydroxide (Milk Of Mag) 30 ml Q24H PRN GTB CONSTIPATION; Start 05/23 at 12:30 Methocarbamol (Robaxin) 500 mg Q8 GTB Last administered on 05/31/17 05:33; Admin Dose 500 MG; Start 05/23/17 at 14:00 Metoprolol Tartrate (Lopressor) 25 mg BID GTB Last administered on 05/31/17 09:55; Admin Dose 25 MG; Start 05/23/17 at 21:00 Eye Lubricant (Akwa Oint) 1 applic DAILY PRN BOTH EYES DRY EYES; Start at 13:00 Pyrazinamide (Pyrazinamide) 1,000 mg DAILY GTB Last administered on 05/31/17 09:54; Admin Dose 1,000 MG; Start 05/24/17 at 09:00 Pyridoxine HCl (Vitamin B6) 50 mg DAILY GTB Last administered on 05/31/17 09: 54; Admin Dose 50 MG; Start 05/24/17 at 09:00 Multivitamins (Multivitamin) 30 ml DAILY GTB Last administered on 05/31/17 09 :55; Admin Dose 30 ML; Start 05/24/17 at 09:00 Ondansetron HCl (Zofran Inj) 4 mg Q6H PRN IV NAUSEA AND/OR VOMITING Last administered on 05/23/17 22:48; Admin Dose 4 MG; Start 05/23/17 at 13:00 Nitroglycerin (Nitroglycerin (Sl Tab) 0.4 Mg) 1 tab Q5M PRN SL CHEST PAIN; Start 05/23/17 at 13:00 Acetaminophen/ Hydrocodone Bitart ([place] (5/325)) 1 tab Q6H PRN GTB PAIN LEVEL 4-6 Last administered on 05/23/17 22:13; Admin Dose 1 TAB; Start 05/23/17 at 13:00 Lorazepam (Ativan) 1 mg Q4H PRN IV anxiety Last administered on 05/24/17 13: 15; Admin Dose 1 MG; Start 05/24/17 at 13:11 Enoxaparin Sodium (Lovenox) 30 mg DAILY SC Last administered on 05/29/17 08: 33; Admin Dose 30 MG; Start 05/25/17 at 09:00; Status Future Hold Famotidine (Pepcid) 20 mg DAILY GTB Last administered on 05/31/17 09:54; Admin Dose 20 MG; Start 05/25/17 at 09:00 Mineral Oil 133 ml 133 ml Q48H PRN [place] constipation; Start 05/26/17 at 09:00 Amiodarone HCl/ Dextrose (Cordarone Iv/ D5W) 500 ml @ 0 mls/hr Q0M IV Last administered on 05/24/17 19:19; Admin Dose 33.4 MLS/HR; Start 05/24/17 at 19: 00 Morphine Sulfate (morphine) 1 mg Q4H PRN IV PAIN LEVEL 4-6 Last administered on 05/25/17 17:57; Admin Dose 1 MG; Start 05/24/17 at 19:00 Amiodarone HCl (Cordarone) 200 mg BID PO Last administered on 05/31/17 09:56 ; Admin Dose 200 MG; Start 05/25/17 at 21:00 Clonazepam (Klonopin) 0.5 mg QHS PRN GTB agitation; Start 05/28/17 at 11:00 Digoxin 0.125 mg 0.125 mg DAILY@13 PO Last administered on 05/29/17 12:38; Admin Dose 0.125 MG; Start 05/28/17 at 13:00 Cefepime HCl (Maxipime 1gm/50 ml (Pmx)) 50 ml @ 100 mls/hr Q12 IVPB Last administered on 05/31/17 09:53; Admin Dose 100 MLS/HR; Start 05/28/17 at 21: 00 Ferrous Sulfate (Feosol Liquid Cup) 300 mg DAILY PEG Last administered on 05/31 09:55; Admin Dose 300 MG; Start 05/29/17 at 09:00 Quetiapine Fumarate (Seroquel) 50 mg HS PRN GTB agitation; Start 05/29/17 at 11:00 Lisinopril (Zestril) 10 mg DAILY PO Last administered on 05/31/17 09:55; Admin Dose 10 MG; Start 05/30/17 at 13:00 Hydralazine HCl (Apresoline) 10 mg Q4H PRN IV SB>170 Last administered on 05/30 19:01; Admin Dose 10 MG; Start 05/30/17 at 14:30 Enalaprilat (Vasotec Iv) 1.25 mg Q6H PRN IV sbp>160; Start 05/30/17 at 16:00 Rifabutin (Mycobutin) 300 mg DAILY GTB Last administered on 05/31/17 09:53; Admin Dose 300 MG; Start 05/31/17 at 09:00 Lactulose (Enulose) 20 gm DAILY PO ; Start 06/01/17 at 09:00 BRIA SAL NP May 31, 2017 12:30
[2017-05-31] MEDS: hydrALAzine 20 MG INJ IV PRN (15:32)
[2017-05-31] MEDS: DIGOXIN 0.125 MG TAB PO SCH (15:32)
[2017-05-31] MEDS: ATORVASTATIN 40 MG TAB GTB SCH (21:35)
[2017-05-31 21:36] LABS: ADD UMIC YES; UR ASCORBIC ACID 40 mg/dL (NEGATIVE); UR BILIRUBIN (Dip) NEGATIVE (NEGATIVE); UR BLOOD (Dip) 3+ mg/dL (NEGATIVE); UR BUDDING YEAST FEW /HPF (NONE SEEN); UR CLARITY SLIGHTLY CLOUDY (CLEAR); UR COLOR AMBER (YELLOW); UR GLUCOSE (Dip) 1+ mg/dL (NEGATIVE); UR KETONES (Dip) NEGATIVE (NEGATIVE); UR LEUKOCYTE ESTERASE (Dip) 1+ Leu/ul (NEGATIVE); UR MUCUS FEW /HPF (NONE SEEN); UR NITRITE (Dip) NEGATIVE (NEGATIVE); UR RBC > 182 /HPF (0-5); UR SPECIFIC GRAVITY (Dip) 1.019 (1.003-1.030); UR SQUAMOUS EPITHELIAL CELL FEW /HPF (FEW); UR TOTAL PROTEIN (Dip) 2+ mg/dl (NEGATIVE); UR UROBILINOGEN (Dip) NEGATIVE (NEGATIVE)
[2017-06-01] VITALS (26 sets, daily range): BP systolic 146–205; BP diastolic 70–85; PULSE 70–90; RESP 16–20
[2017-06-01] MEDS: METHOCARBAMOL 500 MG TAB GTB SCH ×2 (06:12→13:26)
[2017-06-01] MEDS: LEVOTHYROXINE 100 MCG TAB GTB SCH (06:12)
[2017-06-01] MEDS: ETHAMBUTOL 400 MG TAB GTB SCH (08:36)
[2017-06-01] MEDS: FAMOTIDINE 20 MG TAB GTB SCH (08:36)
[2017-06-01] MEDS: LISINOPRIL 10 MG TAB PO SCH (08:37)
[2017-06-01] MEDS: ASPIRIN 81 MG TAB GTB SCH (08:37)
[2017-06-01] MEDS: METOPROLOL 25 MG TAB GTB SCH ×2 (08:37→21:15)
[2017-06-01] MEDS: AMIODARONE 200 MG TAB PO SCH ×2 (08:37→21:16)
[2017-06-01] MEDS: RIFABUTIN 150 MG CAP GTB SCH (08:37)
[2017-06-01] MEDS: PYRIDOXINE 50 MG TAB GTB SCH (08:37)
[2017-06-01] MEDS: ASCORBIC ACID 500 MG TAB GTB SCH (08:37)
[2017-06-01] MEDS: LACTULOSE 30ML CUP PO SCH (08:38)
[2017-06-01] MEDS: CEFEPIME 1GM/50 ML (PMX) 50 ML IVPB SCH ×2 (08:38→21:15)
[2017-06-01] MEDS: PYRAZINAMIDE 500 MG TAB GTB SCH (08:38)
[2017-06-01] MEDS: MULTIVITAMINS 30 ML CUP GTB SCH (08:38)
[2017-06-01] MEDS: FERROUS SULFATE 60 MG/ML 5ML CUP PEG SCH (08:38)
[2017-06-01 08:58] LABS: ABNORMAL IP MESSAGE 1; BASOPHILS % 0.2 % (0.0-2.0); HEMATOCRIT 37.5 % (37.0-47.0); HEMOGLOBIN 11.1 g/dl (12.0-16.0); LYMPHOCYTES # 0.5 10^3/ul (0.8-2.9); MEAN CORPUSCULAR HEMOGLOBIN 29.9 pg (29.0-33.0); MEAN CORPUSCULAR HGB CONC 29.6 g/dl (32.0-37.0); MEAN CORPUSCULAR VOLUME 101.1 fl (82.0-101.0); MEAN PLATELET VOLUME 10.1 fl (7.4-10.4); MONOCYTE # 0.8 10^3/ul (0.3-0.9); MONOCYTES % 6.2 % (0.0-11.0); NEUTROPHIL # 11.7 10^3/ul (1.6-7.5); NEUTROPHILS % 88.5 % (39.0-77.0); NUCLEATED RED BLOOD CELLS% 0.2 /100WBC (0.0-0.0); PLATELET COUNT 335 10^3/UL (140-415); RED BLOOD COUNT 3.71 10^6/ul (4.20-5.40); RED CELL DISTRIBUTION WIDTH 17.2 % (11.5-14.5); WHITE BLOOD COUNT 13.2 10^3/ul (4.8-10.8)
[2017-06-01 09:25] LABS: CALCIUM 9.3 mg/dl (8.4-10.2); CREATININE 0.38 mg/dl (0.44-1.00); MAGNESIUM 2.5 mg/dl (1.7-2.5); PHOSPHORUS 1.9 mg/dl (2.5-4.9); POTASSIUM 4.4 mmol/L (3.5-5.1)
[2017-06-01] MEDS ORDERED: LISINOPRIL 10 MG TAB GTB ONE (09:30)
--- NOTE | 2017-06-01 10:16 | CONS ---
Date/Time of Note Date/Time of Note DATE: 06/01/17 TIME: 10:14 Consult Date/Type/Reason Admit Date/Time May 23, 2017 at 11:33 Type of Consultation: Pulmonary Ordering Provider: NAOMIE VAUGHN MD Subjective Patient still altered this morning. Grimaces to painful stable am not opening eyes or follow commands. Objective Vital Signs Date Time Temp Pulse Resp B/P Pulse Ox O2 Delivery O2 Flow Rate FiO2 06/01/17 08:47 80 06/01/17 07:47 98.0 18 178/77 98 06/01/17 07:20 40 Intake and Output 05/31/17 05/31/17 06/01/17 15:00 23:00 07:00 Intake Total 50 ml 895 ml Output Total 600 ml 700 ml Balance -550 ml 195 ml Exam GENERAL: Elderly lady on mechanical ventilation no respiratory distress but grimaces to painful stimuli not following commands. VITAL SIGNS: per chart NECK: Supple. No JVD or lymphadenopathy. CARDIAC EXAM: S1, S2. No added sounds or murmurs. CHEST: clear bilaterally, No added sounds, rales or wheezes ABDOMEN: Soft, nontender. No guarding or rebound. EXTREMITIES: No cyanosis, clubbing or edema. NEUROLOGIC: Generalized weakness. No focal deficits. Results/Medications Result Diagram: 06/01/17 0807 06/01/17 0807 Results 24 hrs Laboratory Tests Test 05/31/17 16:20 06/01/17 08:07 Urine Color DYLON Urine Clarity SLIGHTLY CLOUDY A Urine pH 6.0 Urine Specific [place] 1.019 Urine Ketones NEGATIVE Urine Nitrite NEGATIVE Urine Bilirubin NEGATIVE Urine Urobilinogen NEGATIVE Urine Leukocyte Esterase 1+ H Urine Microscopic RBC > 182 H Urine Microscopic WBC > 182 H Urine Squamous Epithelial Cells FEW Urine Calcium Oxalate Crystals FEW A Urine Hyaline Casts FEW A Urine Mucus FEW A Urine Yeast (Budding) FEW A Urine Hemoglobin 3+ H Urine Glucose 1+ H Urine Total Protein 2+ H White Blood Count 13.2 H Red Blood Count 3.71 L Hemoglobin 11.1 L Hematocrit 37.5 Mean Corpuscular Volume 101.1 H Mean Corpuscular Hemoglobin 29.9 Mean Corpuscular Hemoglobin Concent 29.6 L Red Cell Distribution Width 17.2 H Platelet Count 335 Mean Platelet Volume 10.1 Neutrophils % 88.5 H Lymphocytes % 4.0 L Monocytes % 6.2 Eosinophils % 0.0 Basophils % 0.2 Nucleated Red Blood Cells % 0.2 H Neutrophils # 11.7 H Lymphocytes # 0.5 L Monocytes # 0.8 Eosinophils # 0.0 Basophils # 0.0 Nucleated Red Blood Cells # 0.0 Sodium Level 149 H Potassium Level 4.4 Chloride Level 105 Carbon Dioxide Level 39 H Anion Gap 9 Blood Urea Nitrogen 24 H Creatinine 0.38 L Glucose Level 200 Calcium Level 9.3 Phosphorus Level 1.9 L Magnesium Level 2.5 Medications Current Medications Acetaminophen (Tylenol Tab) 650 mg Q6H PRN GTB PAIN AND OR ELEVATED TEMP; Start 05/23/17 at 12:30 Ascorbic Acid (Vitamin C) 500 mg DAILY GTB Last administered on 06/01/17 08: 37; Admin Dose 500 MG; Start 05/24/17 at 09:00 Aspirin (Aspirin) 81 mg DAILY GTB Last administered on 06/01/17 08:37; Admin Dose 81 MG; Start 05/24/17 at 09:00 Atorvastatin Calcium (Lipitor) 40 mg QHS GTB Last administered on 05/31/17 21 :35; Admin Dose 40 MG; Start 05/23/17 at 21:00 Bisacodyl (Dulcolax Supp) 10 mg Q24H PRN [place] CONSTIPATION; Start 05/23/17 at 12 :30 Docusate Sodium (Colace) 100 mg QHS PRN PO CONSTIPATION; Start 05/23/17 at 12: 30 Ethambutol HCl (Myambutol) 800 mg DAILY GTB Last administered on 06/01/17 08: 36; Admin Dose 800 MG; Start 05/24/17 at 09:00 Hyoscyamine (Levsin (Sl)) 0.125 mg Q4H PRN SL EXCESIVE ORAL SECRETIONS; Start 05/23/17 at 13:00 Magnesium Hydroxide (Milk Of Mag) 30 ml Q24H PRN GTB CONSTIPATION; Start 05/23 at 12:30 Methocarbamol (Robaxin) 500 mg Q8 GTB Last administered on 06/01/17 06:12; Admin Dose 500 MG; Start 05/23/17 at 14:00 Metoprolol Tartrate (Lopressor) 25 mg BID GTB Last administered on 06/01/17 08:37; Admin Dose 25 MG; Start 05/23/17 at 21:00 Eye Lubricant (Akwa Oint) 1 applic DAILY PRN BOTH EYES DRY EYES; Start at 13:00 Pyrazinamide (Pyrazinamide) 1,000 mg DAILY GTB Last administered on 06/01/17 08:38; Admin Dose 1,000 MG; Start 05/24/17 at 09:00 Pyridoxine HCl (Vitamin B6) 50 mg DAILY GTB Last administered on 06/01/17 08: 37; Admin Dose 50 MG; Start 05/24/17 at 09:00 Multivitamins (Multivitamin) 30 ml DAILY GTB Last administered on 06/01/17 08 :38; Admin Dose 30 ML; Start 05/24/17 at 09:00 Ondansetron HCl (Zofran Inj) 4 mg Q6H PRN IV NAUSEA AND/OR VOMITING Last administered on 05/23/17 22:48; Admin Dose 4 MG; Start 05/23/17 at 13:00 Nitroglycerin (Nitroglycerin (Sl Tab) 0.4 Mg) 1 tab Q5M PRN SL CHEST PAIN; Start 05/23/17 at 13:00 Acetaminophen/ Hydrocodone Bitart ([place] (5/325)) 1 tab Q6H PRN GTB PAIN LEVEL 4-6 Last administered on 05/23/17 22:13; Admin Dose 1 TAB; Start 05/23/17 at 13:00 Lorazepam (Ativan) 1 mg Q4H PRN IV anxiety Last administered on 05/24/17 13: 15; Admin Dose 1 MG; Start 05/24/17 at 13:11 Enoxaparin Sodium (Lovenox) 30 mg DAILY SC Last administered on 05/29/17 08: 33; Admin Dose 30 MG; Start 05/25/17 at 09:00; Status Future Hold Famotidine (Pepcid) 20 mg DAILY GTB Last administered on 06/01/17 08:36; Admin Dose 20 MG; Start 05/25/17 at 09:00 Mineral Oil 133 ml 133 ml Q48H PRN [place] constipation; Start 05/26/17 at 09:00 Amiodarone HCl/ Dextrose (Cordarone Iv/ D5W) 500 ml @ 0 mls/hr Q0M IV Last administered on 05/24/17 19:19; Admin Dose 33.4 MLS/HR; Start 05/24/17 at 19: 00 Morphine Sulfate (morphine) 1 mg Q4H PRN IV PAIN LEVEL 4-6 Last administered on 05/25/17 17:57; Admin Dose 1 MG; Start 05/24/17 at 19:00 Amiodarone HCl (Cordarone) 200 mg BID PO Last administered on 06/01/17 08:37 ; Admin Dose 200 MG; Start 05/25/17 at 21:00 Clonazepam (Klonopin) 0.5 mg QHS PRN GTB agitation; Start 05/28/17 at 11:00 Digoxin 0.125 mg 0.125 mg DAILY@13 PO Last administered on 05/31/17 15:32; Admin Dose 0.125 MG; Start 05/28/17 at 13:00 Cefepime HCl (Maxipime 1gm/50 ml (Pmx)) 50 ml @ 100 mls/hr Q12 IVPB Last administered on 06/01/17 08:38; Admin Dose 100 MLS/HR; Start 05/28/17 at 21: 00 Ferrous Sulfate (Feosol Liquid Cup) 300 mg DAILY PEG Last administered on 06/01 08:38; Admin Dose 300 MG; Start 05/29/17 at 09:00 Quetiapine Fumarate (Seroquel) 50 mg HS PRN GTB agitation; Start 05/29/17 at 11:00 Hydralazine HCl (Apresoline) 10 mg Q4H PRN IV SB>170 Last administered on 05/31 15:32; Admin Dose 10 MG; Start 05/30/17 at 14:30 Enalaprilat (Vasotec Iv) 1.25 mg Q6H PRN IV sbp>160; Start 05/30/17 at 16:00 Rifabutin (Mycobutin) 300 mg DAILY GTB Last administered on 06/01/17 08:37; Admin Dose 300 MG; Start 05/31/17 at 09:00 Lactulose (Enulose) 20 gm DAILY PO Last administered on 06/01/17 08:38; Admin Dose 20 GM; Start 06/01/17 at 09:00 Lisinopril (Zestril) 20 mg DAILY PO ; Start 06/02/17 at 09:00 Assessment/Plan Chief Complaint/Hosp Course Assessment: 1. Hx MTB 2. VDRF 3. Recurrent pleural effusions. 4. Dysphagia with PEG. 5. Anemia. 6. A. fib with RVR. Status post amiodarone 7. Encephalopathy appears toxic metabolic. Initial CT unremarkable. Concern for possible brainstem CVA. Plan: 1. Thoracentesis results noted. 2. Continue MTB abx 3. Status post transfusion packed red blood cells 4. Continue TF. 5. Amiodarone per cardiology. 6. Hold all sedation, MRI today. Problems: ISABEL MANCERA MD, [facility] Jun 01, 2017 10:16
--- NOTE | 2017-06-01 10:42 | PN ---
Date/Time of Note Date/Time of Note DATE: 06/01/17 TIME: 10:35 Assessment/Plan VTE Prophylaxis VTE Prophylaxis Intervention: SCD's Lines/Catheters IV Catheter Type (from [place]): Peripheral IV Urinary Cath still in place: Yes Reason Cath still needed: other (indicate) (monitor output) Assessment/Plan Chief Complaint/Hosp Course Assessment: Functional gastrostomy tube questionable melena. Awaiting stool for OB Anemia, likely multifactorial Rule out GI bleeding History of tachycardia Sepsis rule out TB versus pneumonia Pleural effusion Pulmonary nodule Plan: Continue present regimen including feedings Pt devante TF well continue lactulose Patient seen in collaboration with Dr. Robles Subjective: Course reviewed with nursing staff Patient interviewed and examined All labs, imaging and other results reviewed Pt appears to be more lethargic, ammonia levels have improved, aminotransferase within range, last Ct with contrast shows morphology of liver to be within limits plan for, MRI of the brain.serology shows Hep b immunity, Hep a total positive, will order Hep a IgM, although unlikely to be positive. Continue current regimen. PHYSICAL EXAMINATION: GENERAL: Well developed, well nourished, alert, in no acute distress SKIN: No lesions, no stigmata chronic liver disease, no evidence of bleeding diathesis LYMPHATIC: No palpable lymphadenopathy. HEAD: Normocephalic, atraumatic, no tenderness. EYES: Pupils equal reactive to light and accommodation, full extraocular movements.. EARS/NOSE AND THROAT: Ears normal, nose normal, oropharynx normal, oral membranes well hydrated without lesions. NECK: Supple, no masses, thyroid normal, CHEST: Inspection within normal limits. CARDIOVASCULAR: Heart: Regular rate and rhythm, no murmurs, gallops or rubs. GASTROINTESTINAL AND LIVER: Abdomen: Soft, non tenderness, non-distended, no hernias, no masses, no organomegaly, no ascites, no guarding, no rebound tenderness, normoactive bowel sounds. Rectal: Deferred. GENITOURINARY: Female genitalia within normal limits. EXTREMITIES: No cyanosis, clubbing or edema. Problems: Exam/Review of Systems Vital Signs Vitals Vital Signs Date Time Temp Pulse Resp B/P Pulse Ox O2 Delivery O2 Flow Rate FiO2 06/01/17 09:20 78 16 94 40 06/01/17 07:47 98.0 178/77 Intake and Output 05/31/17 05/31/17 06/01/17 15:00 23:00 07:00 Intake Total 50 ml 895 ml Output Total 600 ml 700 ml Balance -550 ml 195 ml Results Result Diagram: 06/01/17 0807 06/01/17 0807 Results 24 hrs Laboratory Tests Test 05/31/17 16:20 06/01/17 08:07 Urine Color DYLON Urine Clarity SLIGHTLY CLOUDY A Urine pH 6.0 Urine Specific [place] 1.019 Urine Ketones NEGATIVE Urine Nitrite NEGATIVE Urine Bilirubin NEGATIVE Urine Urobilinogen NEGATIVE Urine Leukocyte Esterase 1+ H Urine Microscopic RBC > 182 H Urine Microscopic WBC > 182 H Urine Squamous Epithelial Cells FEW Urine Calcium Oxalate Crystals FEW A Urine Hyaline Casts FEW A Urine Mucus FEW A Urine Yeast (Budding) FEW A Urine Hemoglobin 3+ H Urine Glucose 1+ H Urine Total Protein 2+ H White Blood Count 13.2 H Red Blood Count 3.71 L Hemoglobin 11.1 L Hematocrit 37.5 Mean Corpuscular Volume 101.1 H Mean Corpuscular Hemoglobin 29.9 Mean Corpuscular Hemoglobin Concent 29.6 L Red Cell Distribution Width 17.2 H Platelet Count 335 Mean Platelet Volume 10.1 Neutrophils % 88.5 H Lymphocytes % 4.0 L Monocytes % 6.2 Eosinophils % 0.0 Basophils % 0.2 Nucleated Red Blood Cells % 0.2 H Neutrophils # 11.7 H Lymphocytes # 0.5 L Monocytes # 0.8 Eosinophils # 0.0 Basophils # 0.0 Nucleated Red Blood Cells # 0.0 Sodium Level 149 H Potassium Level 4.4 Chloride Level 105 Carbon Dioxide Level 39 H Anion Gap 9 Blood Urea Nitrogen 24 H Creatinine 0.38 L Glucose Level 200 Calcium Level 9.3 Phosphorus Level 1.9 L Magnesium Level 2.5 Medications Medications Current Medications Acetaminophen (Tylenol Tab) 650 mg Q6H PRN GTB PAIN AND OR ELEVATED TEMP; Start 05/23/17 at 12:30 Ascorbic Acid (Vitamin C) 500 mg DAILY GTB Last administered on 06/01/17 08: 37; Admin Dose 500 MG; Start 05/24/17 at 09:00 Aspirin (Aspirin) 81 mg DAILY GTB Last administered on 06/01/17 08:37; Admin Dose 81 MG; Start 05/24/17 at 09:00 Atorvastatin Calcium (Lipitor) 40 mg QHS GTB Last administered on 05/31/17 21 :35; Admin Dose 40 MG; Start 05/23/17 at 21:00 Bisacodyl (Dulcolax Supp) 10 mg Q24H PRN [place] CONSTIPATION; Start 05/23/17 at 12 :30 Docusate Sodium (Colace) 100 mg QHS PRN PO CONSTIPATION; Start 05/23/17 at 12: 30 Ethambutol HCl (Myambutol) 800 mg DAILY GTB Last administered on 06/01/17 08: 36; Admin Dose 800 MG; Start 05/24/17 at 09:00 Hyoscyamine (Levsin (Sl)) 0.125 mg Q4H PRN SL EXCESIVE ORAL SECRETIONS; Start 05/23/17 at 13:00 Magnesium Hydroxide (Milk Of Mag) 30 ml Q24H PRN GTB CONSTIPATION; Start 05/23 at 12:30 Methocarbamol (Robaxin) 500 mg Q8 GTB Last administered on 06/01/17 06:12; Admin Dose 500 MG; Start 05/23/17 at 14:00 Metoprolol Tartrate (Lopressor) 25 mg BID GTB Last administered on 06/01/17 08:37; Admin Dose 25 MG; Start 05/23/17 at 21:00 Eye Lubricant (Akwa Oint) 1 applic DAILY PRN BOTH EYES DRY EYES; Start at 13:00 Pyrazinamide (Pyrazinamide) 1,000 mg DAILY GTB Last administered on 06/01/17 08:38; Admin Dose 1,000 MG; Start 05/24/17 at 09:00 Pyridoxine HCl (Vitamin B6) 50 mg DAILY GTB Last administered on 06/01/17 08: 37; Admin Dose 50 MG; Start 05/24/17 at 09:00 Multivitamins (Multivitamin) 30 ml DAILY GTB Last administered on 06/01/17 08 :38; Admin Dose 30 ML; Start 05/24/17 at 09:00 Ondansetron HCl (Zofran Inj) 4 mg Q6H PRN IV NAUSEA AND/OR VOMITING Last administered on 05/23/17 22:48; Admin Dose 4 MG; Start 05/23/17 at 13:00 Nitroglycerin (Nitroglycerin (Sl Tab) 0.4 Mg) 1 tab Q5M PRN SL CHEST PAIN; Start 05/23/17 at 13:00 Acetaminophen/ Hydrocodone Bitart ([place] (5/325)) 1 tab Q6H PRN GTB PAIN LEVEL 4-6 Last administered on 05/23/17 22:13; Admin Dose 1 TAB; Start 05/23/17 at 13:00 Lorazepam (Ativan) 1 mg Q4H PRN IV anxiety Last administered on 05/24/17 13: 15; Admin Dose 1 MG; Start 05/24/17 at 13:11 Enoxaparin Sodium (Lovenox) 30 mg DAILY SC Last administered on 05/29/17 08: 33; Admin Dose 30 MG; Start 05/25/17 at 09:00; Status Future Hold Famotidine (Pepcid) 20 mg DAILY GTB Last administered on 06/01/17 08:36; Admin Dose 20 MG; Start 05/25/17 at 09:00 Mineral Oil 133 ml 133 ml Q48H PRN [place] constipation; Start 05/26/17 at 09:00 Amiodarone HCl/ Dextrose (Cordarone Iv/ D5W) 500 ml @ 0 mls/hr Q0M IV Last administered on 05/24/17 19:19; Admin Dose 33.4 MLS/HR; Start 05/24/17 at 19: 00 Morphine Sulfate (morphine) 1 mg Q4H PRN IV PAIN LEVEL 4-6 Last administered on 05/25/17 17:57; Admin Dose 1 MG; Start 05/24/17 at 19:00 Amiodarone HCl (Cordarone) 200 mg BID PO Last administered on 06/01/17 08:37 ; Admin Dose 200 MG; Start 05/25/17 at 21:00 Clonazepam (Klonopin) 0.5 mg QHS PRN GTB agitation; Start 05/28/17 at 11:00 Digoxin 0.125 mg 0.125 mg DAILY@13 PO Last administered on 05/31/17 15:32; Admin Dose 0.125 MG; Start 05/28/17 at 13:00 Cefepime HCl (Maxipime 1gm/50 ml (Pmx)) 50 ml @ 100 mls/hr Q12 IVPB Last administered on 06/01/17 08:38; Admin Dose 100 MLS/HR; Start 05/28/17 at 21: 00 Ferrous Sulfate (Feosol Liquid Cup) 300 mg DAILY PEG Last administered on 06/01 08:38; Admin Dose 300 MG; Start 05/29/17 at 09:00 Quetiapine Fumarate (Seroquel) 50 mg HS PRN GTB agitation; Start 05/29/17 at 11:00 Hydralazine HCl (Apresoline) 10 mg Q4H PRN IV SB>170 Last administered on 05/31 15:32; Admin Dose 10 MG; Start 05/30/17 at 14:30 Enalaprilat (Vasotec Iv) 1.25 mg Q6H PRN IV sbp>160; Start 05/30/17 at 16:00 Rifabutin (Mycobutin) 300 mg DAILY GTB Last administered on 06/01/17 08:37; Admin Dose 300 MG; Start 05/31/17 at 09:00 Lactulose (Enulose) 20 gm DAILY PO Last administered on 06/01/17 08:38; Admin Dose 20 GM; Start 06/01/17 at 09:00 Lisinopril (Zestril) 20 mg DAILY PO ; Start 06/02/17 at 09:00 JOEL GARCIA Jun 01, 2017 10:42
[2017-06-01 11:51] LABS: MITOCHONDRIAL TB NEGATIVE (NEGATIVE)
[2017-06-01] MEDS: hydrALAzine 20 MG INJ IV PRN (11:51)
--- NOTE | 2017-06-01 12:06 | PN ---
Date/Time of Note Date/Time of Note DATE: 06/01/17 TIME: 12:05 Assessment/Plan VTE Prophylaxis VTE Prophylaxis Intervention: LMWH, SCD's Lines/Catheters IV Catheter Type (from Nrsg): Peripheral IV Urinary Cath still in place: Yes Reason Cath still needed: urinary retention, terminal illness/intractable pain Assessment/Plan Chief Complaint/Hosp Course s: 11.22: is more awake than yesterday, not quite at baseline 11.23: even more awake then previous day,more movement and dose open eyes, does not track however 11.24: still encephalopathic with no clear reason o: Constitutional: lethargic, non-verbal, trach/vent Head: atraumatic, normocephalic Eyes: EOMI, PERRL ENMT: trach in place Respiratory: crackles/rales, diminished breath sounds, No labored breathing Cardiovascular: regular rate and rhythm, No systolic murmur Gastrointestinal: soft, minimally tender Musculoskeletal: nl extremities to inspection Extremities: normal pulses, No edema neuro: moves all extremities spontaneously, eyes remain closed, unable to arouse completely Assessment/Plan #encephalopathy -elevated ammonia is very mild, ggt elevated, liver issue, however AST/ALT/bili WNL -scheduled lactulose dc'd -ct head wnl -us ordered for ?liver disease, gallbladder not visualized, but liver WNL/bile duct dilation mild -MRI ordered #HTN -questionable cause -monitor -PRN medications as needed -will start on lisinopril as well, do not want to overshoot, no BP issues prior. #arrhythmia- stable - Cardiology on board and consultation appreciated. Continue on Amiodarone - Started on PO Digoxin - Started on low dose BB as tolerated - ECHO noted #. Sepsis secondary to PNA/bacteremia - Patients WBC trending downward and remains afebrile - LA normalized - ID consultation placed and appreciated recommendations. Will continue on broad spectrum and await cultural results - continue on IVF #. Bacteremia - Blood cultures growing Serratia - Repeat blood cultures negative - ID on board #. Anemia - s/p 2PRBC with response to Hgb 10, no drop since - Iron levels <10 - Started on IV iron, will supplement oral iron with vit C temporarily for 3-6 months #. Large right pleural effusion s/p thoracentesis - 1L removed and fluid studies sent. Appears to be exudative. Awaiting cultures - Pulmonology on board and recommendations appreciated -per pulm, loculations on CT appear free flowing, hold off on CT surgery. #. Left lower lobe density - CT scan showed round fluid density structure within the superior segment left lower lobe measuring 2.9 x 2.7 cm #. Infectious bronchiolitis #. 10 x 8 mm right lower lobe nodule - Will need close follow up outpatient #. Acute gastroenteritis - send stool studies - Dietary consult for tube feed recommendations #. Disposition - ?encephalopathy - once stable and additional workup complete, transfer to [facility] -5 more days iv abx -tb meds per [facility] health -MRI pending Problems: Exam/Review of Systems Vital Signs Vitals Vital Signs Date Time Temp Pulse Resp B/P Pulse Ox O2 Delivery O2 Flow Rate FiO2 06/01/17 09:20 78 16 94 40 06/01/17 07:47 98.0 178/77 Intake and Output 05/31/17 05/31/17 06/01/17 14:59 22:59 06:59 Intake Total 50 ml 895 ml Output Total 600 ml 700 ml Balance -550 ml 195 ml Results Result Diagram: 06/01/17 0807 06/01/17 0807 Results 24 hrs Laboratory Tests Test 05/31/17 16:20 06/01/17 08:07 Urine Color DYLON Urine Clarity SLIGHTLY CLOUDY A Urine pH 6.0 Urine Specific [place] 1.019 Urine Ketones NEGATIVE Urine Nitrite NEGATIVE Urine Bilirubin NEGATIVE Urine Urobilinogen NEGATIVE Urine Leukocyte Esterase 1+ H Urine Microscopic RBC > 182 H Urine Microscopic WBC > 182 H Urine Squamous Epithelial Cells FEW Urine Calcium Oxalate Crystals FEW A Urine Hyaline Casts FEW A Urine Mucus FEW A Urine Yeast (Budding) FEW A Urine Hemoglobin 3+ H Urine Glucose 1+ H Urine Total Protein 2+ H White Blood Count 13.2 H Red Blood Count 3.71 L Hemoglobin 11.1 L Hematocrit 37.5 Mean Corpuscular Volume 101.1 H Mean Corpuscular Hemoglobin 29.9 Mean Corpuscular Hemoglobin Concent 29.6 L Red Cell Distribution Width 17.2 H Platelet Count 335 Mean Platelet Volume 10.1 Neutrophils % 88.5 H Lymphocytes % 4.0 L Monocytes % 6.2 Eosinophils % 0.0 Basophils % 0.2 Nucleated Red Blood Cells % 0.2 H Neutrophils # 11.7 H Lymphocytes # 0.5 L Monocytes # 0.8 Eosinophils # 0.0 Basophils # 0.0 Nucleated Red Blood Cells # 0.0 Sodium Level 149 H Potassium Level 4.4 Chloride Level 105 Carbon Dioxide Level 39 H Anion Gap 9 Blood Urea Nitrogen 24 H Creatinine 0.38 L Glucose Level 200 Calcium Level 9.3 Phosphorus Level 1.9 L Magnesium Level 2.5 Medications Medications Current Medications Acetaminophen (Tylenol Tab) 650 mg Q6H PRN GTB PAIN AND OR ELEVATED TEMP; Start 05/23/17 at 12:30 Ascorbic Acid (Vitamin C) 500 mg DAILY GTB Last administered on 06/01/17 08: 37; Admin Dose 500 MG; Start 05/24/17 at 09:00 Aspirin (Aspirin) 81 mg DAILY GTB Last administered on 06/01/17 08:37; Admin Dose 81 MG; Start 05/24/17 at 09:00 Atorvastatin Calcium (Lipitor) 40 mg QHS GTB Last administered on 05/31/17 21 :35; Admin Dose 40 MG; Start 05/23/17 at 21:00 Bisacodyl (Dulcolax Supp) 10 mg Q24H PRN [place] CONSTIPATION; Start 05/23/17 at 12 :30 Docusate Sodium (Colace) 100 mg QHS PRN PO CONSTIPATION; Start 05/23/17 at 12: 30 Ethambutol HCl (Myambutol) 800 mg DAILY GTB Last administered on 06/01/17 08: 36; Admin Dose 800 MG; Start 05/24/17 at 09:00 Hyoscyamine (Levsin (Sl)) 0.125 mg Q4H PRN SL EXCESIVE ORAL SECRETIONS; Start 05/23/17 at 13:00 Magnesium Hydroxide (Milk Of Mag) 30 ml Q24H PRN GTB CONSTIPATION; Start 05/23 at 12:30 Methocarbamol (Robaxin) 500 mg Q8 GTB Last administered on 06/01/17 06:12; Admin Dose 500 MG; Start 05/23/17 at 14:00 Metoprolol Tartrate (Lopressor) 25 mg BID GTB Last administered on 06/01/17 08:37; Admin Dose 25 MG; Start 05/23/17 at 21:00 Eye Lubricant (Akwa Oint) 1 applic DAILY PRN BOTH EYES DRY EYES; Start at 13:00 Pyrazinamide (Pyrazinamide) 1,000 mg DAILY GTB Last administered on 06/01/17 08:38; Admin Dose 1,000 MG; Start 05/24/17 at 09:00 Pyridoxine HCl (Vitamin B6) 50 mg DAILY GTB Last administered on 06/01/17 08: 37; Admin Dose 50 MG; Start 05/24/17 at 09:00 Multivitamins (Multivitamin) 30 ml DAILY GTB Last administered on 06/01/17 08 :38; Admin Dose 30 ML; Start 05/24/17 at 09:00 Ondansetron HCl (Zofran Inj) 4 mg Q6H PRN IV NAUSEA AND/OR VOMITING Last administered on 05/23/17 22:48; Admin Dose 4 MG; Start 05/23/17 at 13:00 Nitroglycerin (Nitroglycerin (Sl Tab) 0.4 Mg) 1 tab Q5M PRN SL CHEST PAIN; Start 05/23/17 at 13:00 Acetaminophen/ Hydrocodone Bitart ([place] (5/325)) 1 tab Q6H PRN GTB PAIN LEVEL 4-6 Last administered on 05/23/17 22:13; Admin Dose 1 TAB; Start 05/23/17 at 13:00 Lorazepam (Ativan) 1 mg Q4H PRN IV anxiety Last administered on 05/24/17 13: 15; Admin Dose 1 MG; Start 05/24/17 at 13:11 Enoxaparin Sodium (Lovenox) 30 mg DAILY SC Last administered on 05/29/17 08: 33; Admin Dose 30 MG; Start 05/25/17 at 09:00; Status Future Hold Famotidine (Pepcid) 20 mg DAILY GTB Last administered on 06/01/17 08:36; Admin Dose 20 MG; Start 05/25/17 at 09:00 Mineral Oil 133 ml 133 ml Q48H PRN [place] constipation; Start 05/26/17 at 09:00 Amiodarone HCl/ Dextrose (Cordarone Iv/ D5W) 500 ml @ 0 mls/hr Q0M IV Last administered on 05/24/17 19:19; Admin Dose 33.4 MLS/HR; Start 05/24/17 at 19: 00 Morphine Sulfate (morphine) 1 mg Q4H PRN IV PAIN LEVEL 4-6 Last administered on 05/25/17 17:57; Admin Dose 1 MG; Start 05/24/17 at 19:00 Amiodarone HCl (Cordarone) 200 mg BID PO Last administered on 06/01/17 08:37 ; Admin Dose 200 MG; Start 05/25/17 at 21:00 Clonazepam (Klonopin) 0.5 mg QHS PRN GTB agitation; Start 05/28/17 at 11:00 Digoxin 0.125 mg 0.125 mg DAILY@13 PO Last administered on 05/31/17 15:32; Admin Dose 0.125 MG; Start 05/28/17 at 13:00 Cefepime HCl (Maxipime 1gm/50 ml (Pmx)) 50 ml @ 100 mls/hr Q12 IVPB Last administered on 06/01/17 08:38; Admin Dose 100 MLS/HR; Start 05/28/17 at 21: 00 Ferrous Sulfate (Feosol Liquid Cup) 300 mg DAILY PEG Last administered on 06/01 08:38; Admin Dose 300 MG; Start 05/29/17 at 09:00 Quetiapine Fumarate (Seroquel) 50 mg HS PRN GTB agitation; Start 05/29/17 at 11:00 Hydralazine HCl (Apresoline) 10 mg Q4H PRN IV SB>170 Last administered on 06/01 11:51; Admin Dose 10 MG; Start 05/30/17 at 14:30 Enalaprilat (Vasotec Iv) 1.25 mg Q6H PRN IV sbp>160; Start 05/30/17 at 16:00 Rifabutin (Mycobutin) 300 mg DAILY GTB Last administered on 06/01/17 08:37; Admin Dose 300 MG; Start 05/31/17 at 09:00 Lactulose (Enulose) 20 gm DAILY PO Last administered on 06/01/17 08:38; Admin Dose 20 GM; Start 06/01/17 at 09:00 Lisinopril (Zestril) 20 mg DAILY PO ; Start 06/02/17 at 09:00 MUKUL LINK Jun 01, 2017 12:06
--- NOTE | 2017-06-01 12:46 | CONS ---
Date/Time of Note Date/Time of Note DATE: 06/01/17 TIME: 12:37 Assessment/Plan Assessment/Plan Chief Complaint/Hosp Course ID PROGRESS NOTE CURRENT ABX: TOTAL ABX DAY # 11 =>Cefepime + Ethambutol + Pyrazinamide + B6 s/p Vanco IV + Cefepime 05/23 /s/p Zosyn 24H INTERVAL SUMMARY * No fevers, WBC down today -> patient is awake, alert, responsive, tells me she is OK, denies pain * 05/31/17 Hematuria/pyuria persisting: URINE CULTURE Preliminary Culture too young to evaluate PHYSICAL EXAMINATION: GENERAL: 82 yo F, alert & responsive, VSS, afebrile, NAD HEENT: Unremarkable NECK: Supple, trach-> secure to Vent, oral secretions-> She is able to spit them out CHEST: Equal chest rise bilaterally, without dyspnea on observation => vented HEART: RRR ABDOMEN: Soft, NT, ND, peg : FC, clear yellow urine EXT: Warm, no edema SKIN: No rash, no diaphoresis ID ASSESSMENT: 82 yo F PMHx 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 Status post rapid atrial fibrillation, patient is cardioverted. 2. Bacteremia with blood culture since admission grew Serratia=> likely pulmonary source 3. 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 [facility] on case. * Rx: Ethambutol + Pyrazinamide + B6 onboard 4. HCAP w/Pleural effusion-> s/p THORA w/(-)Cx, Fungal held 6+ weeks, AFB Smear ACID FAST BACILLI NONE SEEN * 05/25/17 RESPIRATORY CULTURE Preliminary Organism 1 SERRATIA LIQUEFACIENS 1+ Organism 2 ALCALIGENES XYLOSOXI SSP XYLOS 2+ Organism 3 PROVIDENCIA STUARTII 1+ 5. Questionable gastroenteritis per CT of the abdomen. 6. Dysphagia. 7. Anemia. 8. UTI -> Hematuria/pyuria ( -)MRSA ABX ALLERGIES: None to ABX INVASIVES: PIV Trach, PEG CURRENT ABX: TOTAL ABX DAY # 11 =>Cefepime + Cancidas #1 [Ethambutol + Pyrazinamide + B6= onboard per [facility] TB] s/p Vanco IV + Cefepime 05/23 /s/p Zosyn ID RECOMMENDATIONS/PLAN: 1. Continue current ABX over the weekend, per Grady's note anticipate last day Cefepime next SUN * f/u urine cx = pending, suspect yeast due to stool colonization c.Albicans, * will Rx Cancidas (Diflucan has drug-drug interaction w/Amiodarone 2. ID team consultants will continue to follow . Problems: Consultation Date/Type/Reason Admit Date/Time May 23, 2017 at 11:33 Type of Consultation: ID Referring Provider: NAOMIE VAUGHN MD Exam/Review of Systems Vital Signs Vitals Vital Signs Date Time Temp Pulse Resp B/P Pulse Ox O2 Delivery O2 Flow Rate FiO2 06/01/17 12:36 74 06/01/17 09:20 16 94 40 06/01/17 07:47 98.0 178/77 Intake and Output 05/31/17 05/31/17 06/01/17 15:00 23:00 07:00 Intake Total 50 ml 895 ml Output Total 600 ml 700 ml Balance -550 ml 195 ml Results Result Diagram: 06/01/17 0807 06/01/17 0807 Results 24 hrs Laboratory Tests Test 05/31/17 16:20 06/01/17 08:07 Urine Color DYLON Urine Clarity SLIGHTLY CLOUDY A Urine pH 6.0 Urine Specific [place] 1.019 Urine Ketones NEGATIVE Urine Nitrite NEGATIVE Urine Bilirubin NEGATIVE Urine Urobilinogen NEGATIVE Urine Leukocyte Esterase 1+ H Urine Microscopic RBC > 182 H Urine Microscopic WBC > 182 H Urine Squamous Epithelial Cells FEW Urine Calcium Oxalate Crystals FEW A Urine Hyaline Casts FEW A Urine Mucus FEW A Urine Yeast (Budding) FEW A Urine Hemoglobin 3+ H Urine Glucose 1+ H Urine Total Protein 2+ H White Blood Count 13.2 H Red Blood Count 3.71 L Hemoglobin 11.1 L Hematocrit 37.5 Mean Corpuscular Volume 101.1 H Mean Corpuscular Hemoglobin 29.9 Mean Corpuscular Hemoglobin Concent 29.6 L Red Cell Distribution Width 17.2 H Platelet Count 335 Mean Platelet Volume 10.1 Neutrophils % 88.5 H Lymphocytes % 4.0 L Monocytes % 6.2 Eosinophils % 0.0 Basophils % 0.2 Nucleated Red Blood Cells % 0.2 H Neutrophils # 11.7 H Lymphocytes # 0.5 L Monocytes # 0.8 Eosinophils # 0.0 Basophils # 0.0 Nucleated Red Blood Cells # 0.0 Sodium Level 149 H Potassium Level 4.4 Chloride Level 105 Carbon Dioxide Level 39 H Anion Gap 9 Blood Urea Nitrogen 24 H Creatinine 0.38 L Glucose Level 200 Calcium Level 9.3 Phosphorus Level 1.9 L Magnesium Level 2.5 Medications Medications Current Medications Acetaminophen (Tylenol Tab) 650 mg Q6H PRN GTB PAIN AND OR ELEVATED TEMP; Start 05/23/17 at 12:30 Ascorbic Acid (Vitamin C) 500 mg DAILY GTB Last administered on 06/01/17 08: 37; Admin Dose 500 MG; Start 05/24/17 at 09:00 Aspirin (Aspirin) 81 mg DAILY GTB Last administered on 06/01/17 08:37; Admin Dose 81 MG; Start 05/24/17 at 09:00 Atorvastatin Calcium (Lipitor) 40 mg QHS GTB Last administered on 05/31/17 21 :35; Admin Dose 40 MG; Start 05/23/17 at 21:00 Bisacodyl (Dulcolax Supp) 10 mg Q24H PRN [place] CONSTIPATION; Start 05/23/17 at 12 :30 Docusate Sodium (Colace) 100 mg QHS PRN PO CONSTIPATION; Start 05/23/17 at 12: 30 Ethambutol HCl (Myambutol) 800 mg DAILY GTB Last administered on 06/01/17 08: 36; Admin Dose 800 MG; Start 05/24/17 at 09:00 Hyoscyamine (Levsin (Sl)) 0.125 mg Q4H PRN SL EXCESIVE ORAL SECRETIONS; Start 05/23/17 at 13:00 Magnesium Hydroxide (Milk Of Mag) 30 ml Q24H PRN GTB CONSTIPATION; Start 05/23 at 12:30 Methocarbamol (Robaxin) 500 mg Q8 GTB Last administered on 06/01/17 06:12; Admin Dose 500 MG; Start 05/23/17 at 14:00 Metoprolol Tartrate (Lopressor) 25 mg BID GTB Last administered on 06/01/17 08:37; Admin Dose 25 MG; Start 05/23/17 at 21:00 Eye Lubricant (Akwa Oint) 1 applic DAILY PRN BOTH EYES DRY EYES; Start at 13:00 Pyrazinamide (Pyrazinamide) 1,000 mg DAILY GTB Last administered on 06/01/17 08:38; Admin Dose 1,000 MG; Start 05/24/17 at 09:00 Pyridoxine HCl (Vitamin B6) 50 mg DAILY GTB Last administered on 06/01/17 08: 37; Admin Dose 50 MG; Start 05/24/17 at 09:00 Multivitamins (Multivitamin) 30 ml DAILY GTB Last administered on 06/01/17 08 :38; Admin Dose 30 ML; Start 05/24/17 at 09:00 Ondansetron HCl (Zofran Inj) 4 mg Q6H PRN IV NAUSEA AND/OR VOMITING Last administered on 05/23/17 22:48; Admin Dose 4 MG; Start 05/23/17 at 13:00 Nitroglycerin (Nitroglycerin (Sl Tab) 0.4 Mg) 1 tab Q5M PRN SL CHEST PAIN; Start 05/23/17 at 13:00 Acetaminophen/ Hydrocodone Bitart ([place] (5/325)) 1 tab Q6H PRN GTB PAIN LEVEL 4-6 Last administered on 05/23/17 22:13; Admin Dose 1 TAB; Start 05/23/17 at 13:00 Lorazepam (Ativan) 1 mg Q4H PRN IV anxiety Last administered on 05/24/17 13: 15; Admin Dose 1 MG; Start 05/24/17 at 13:11 Enoxaparin Sodium (Lovenox) 30 mg DAILY SC Last administered on 05/29/17 08: 33; Admin Dose 30 MG; Start 05/25/17 at 09:00; Status Future Hold Famotidine (Pepcid) 20 mg DAILY GTB Last administered on 06/01/17 08:36; Admin Dose 20 MG; Start 05/25/17 at 09:00 Mineral Oil 133 ml 133 ml Q48H PRN [place] constipation; Start 05/26/17 at 09:00 Amiodarone HCl/ Dextrose (Cordarone Iv/ D5W) 500 ml @ 0 mls/hr Q0M IV Last administered on 05/24/17 19:19; Admin Dose 33.4 MLS/HR; Start 05/24/17 at 19: 00 Morphine Sulfate (morphine) 1 mg Q4H PRN IV PAIN LEVEL 4-6 Last administered on 05/25/17 17:57; Admin Dose 1 MG; Start 05/24/17 at 19:00 Amiodarone HCl (Cordarone) 200 mg BID PO Last administered on 06/01/17 08:37 ; Admin Dose 200 MG; Start 05/25/17 at 21:00 Clonazepam (Klonopin) 0.5 mg QHS PRN GTB agitation; Start 05/28/17 at 11:00 Digoxin 0.125 mg 0.125 mg DAILY@13 PO Last administered on 05/31/17 15:32; Admin Dose 0.125 MG; Start 05/28/17 at 13:00 Cefepime HCl (Maxipime 1gm/50 ml (Pmx)) 50 ml @ 100 mls/hr Q12 IVPB Last administered on 06/01/17 08:38; Admin Dose 100 MLS/HR; Start 05/28/17 at 21: 00 Ferrous Sulfate (Feosol Liquid Cup) 300 mg DAILY PEG Last administered on 06/01 08:38; Admin Dose 300 MG; Start 05/29/17 at 09:00 Quetiapine Fumarate (Seroquel) 50 mg HS PRN GTB agitation; Start 05/29/17 at 11:00 Hydralazine HCl (Apresoline) 10 mg Q4H PRN IV SB>170 Last administered on 06/01 11:51; Admin Dose 10 MG; Start 05/30/17 at 14:30 Enalaprilat (Vasotec Iv) 1.25 mg Q6H PRN IV sbp>160; Start 05/30/17 at 16:00 Rifabutin (Mycobutin) 300 mg DAILY GTB Last administered on 06/01/17 08:37; Admin Dose 300 MG; Start 05/31/17 at 09:00 Lactulose (Enulose) 20 gm DAILY PO Last administered on 06/01/17 08:38; Admin Dose 20 GM; Start 06/01/17 at 09:00 Lisinopril (Zestril) 20 mg DAILY PO ; Start 06/02/17 at 09:00 WAYNE RICO NP Jun 01, 2017 12:46
[2017-06-01] MEDS ORDERED: CASPOFUNGIN 70 MG in SOD CHLORIDE 0.9% 250 ML IVPB ONE (13:00)
[2017-06-01] MEDS: DIGOXIN 0.125 MG TAB PO SCH (13:26)
--- NOTE | 2017-06-01 13:49 | CONS ---
Date/Time of Note Date/Time of Note DATE: 06/01/17 TIME: 13:48 Assessment/Plan Assessment/Plan Additional Assessment/Plan 1. Hypotension in the setting of rapid tachyarrhythmia of atrial fibrillation and recent fevers, now improved.-negative tropx 3/off pressors - now in sinus - will monitor closely. BETTER NOW. 2. Atrial fibrillation with rapid ventricular response, slowly improving after initial dose of digoxin and amiodarone.-now in SR and remains/NL TSH- con't rate control. RATE CONTROLLED. 3. Pneumonia- on anti-bx, improving slowly. Con't meds. 4. Fevers - better now - on meds. Pulmonary siurce - ID recs noted. 5. Chronic respiratory failure, status post tracheostomy - con't Med Rx. 6. Tuberculosis, on treatment. 7. Hypothyroidism. 8. Dyslipidemia. 9. Pleural effusion, status post right thoracentesis removal of 1 liter - pulmonary follows. 10. Anemia. Consultation Date/Type/Reason Admit Date/Time May 23, 2017 at 11:33 Initial Consult Date 05/27/17 Type of Consultation: ID Referring Provider: NAOMIE VAUGHN MD 24 HR Interval Summary Free Text/Dictation NO acute events - rate controlled -con't med rx now. ROS: No fever, no chills, no nausea, no vomiting, no diarrhea/constipation No recent weight changes No chest pain, no PND, no orthopnea No dizziness, blurred vision No thirst, no heat or cold intolerance Exam/Review of Systems Vital Signs Vitals Vital Signs Date Time Temp Pulse Resp B/P Pulse Ox O2 Delivery O2 Flow Rate FiO2 06/01/17 13:13 82 152/70 06/01/17 12:40 98.0 18 98 06/01/17 09:20 40 Intake and Output 05/31/17 05/31/17 06/01/17 15:00 23:00 07:00 Intake Total 50 ml 895 ml Output Total 600 ml 700 ml Balance -550 ml 195 ml Exam General: WN/WD/NAD, AOx 1-2 more alert HEENT: Unicetric/atraumatic/EOMI (does not follow commands) NECK: JVD elevated, no thyromegaly Lymph: no lymphadenopathy HEART: regular with no S3, II/ systolic murmur at apex LUNGS: Coarse sounds ABD: soft, NT, ND, +BS : Intact Neuro: non focal SKIN: chronic changes EXT: trace edema Results Result Diagram: 06/01/17 0807 06/01/17 0807 Results 24 hrs Laboratory Tests Test 05/31/17 16:20 06/01/17 08:07 Urine Color DYLON Urine Clarity SLIGHTLY CLOUDY A Urine pH 6.0 Urine Specific [place] 1.019 Urine Ketones NEGATIVE Urine Nitrite NEGATIVE Urine Bilirubin NEGATIVE Urine Urobilinogen NEGATIVE Urine Leukocyte Esterase 1+ H Urine Microscopic RBC > 182 H Urine Microscopic WBC > 182 H Urine Squamous Epithelial Cells FEW Urine Calcium Oxalate Crystals FEW A Urine Hyaline Casts FEW A Urine Mucus FEW A Urine Yeast (Budding) FEW A Urine Hemoglobin 3+ H Urine Glucose 1+ H Urine Total Protein 2+ H White Blood Count 13.2 H Red Blood Count 3.71 L Hemoglobin 11.1 L Hematocrit 37.5 Mean Corpuscular Volume 101.1 H Mean Corpuscular Hemoglobin 29.9 Mean Corpuscular Hemoglobin Concent 29.6 L Red Cell Distribution Width 17.2 H Platelet Count 335 Mean Platelet Volume 10.1 Neutrophils % 88.5 H Lymphocytes % 4.0 L Monocytes % 6.2 Eosinophils % 0.0 Basophils % 0.2 Nucleated Red Blood Cells % 0.2 H Neutrophils # 11.7 H Lymphocytes # 0.5 L Monocytes # 0.8 Eosinophils # 0.0 Basophils # 0.0 Nucleated Red Blood Cells # 0.0 Sodium Level 149 H Potassium Level 4.4 Chloride Level 105 Carbon Dioxide Level 39 H Anion Gap 9 Blood Urea Nitrogen 24 H Creatinine 0.38 L Glucose Level 200 Calcium Level 9.3 Phosphorus Level 1.9 L Magnesium Level 2.5 Medications Medications Current Medications Acetaminophen (Tylenol Tab) 650 mg Q6H PRN GTB PAIN AND OR ELEVATED TEMP; Start 05/23/17 at 12:30 Ascorbic Acid (Vitamin C) 500 mg DAILY GTB Last administered on 06/01/17 08: 37; Admin Dose 500 MG; Start 05/24/17 at 09:00 Aspirin (Aspirin) 81 mg DAILY GTB Last administered on 06/01/17 08:37; Admin Dose 81 MG; Start 05/24/17 at 09:00 Atorvastatin Calcium (Lipitor) 40 mg QHS GTB Last administered on 05/31/17 21 :35; Admin Dose 40 MG; Start 05/23/17 at 21:00 Bisacodyl (Dulcolax Supp) 10 mg Q24H PRN MD CONSTIPATION; Start 05/23/17 at 12 :30 Docusate Sodium (Colace) 100 mg QHS PRN PO CONSTIPATION; Start 05/23/17 at 12: 30 Ethambutol HCl (Myambutol) 800 mg DAILY GTB Last administered on 06/01/17 08: 36; Admin Dose 800 MG; Start 05/24/17 at 09:00 Hyoscyamine (Levsin (Sl)) 0.125 mg Q4H PRN SL EXCESIVE ORAL SECRETIONS; Start 05/23/17 at 13:00 Magnesium Hydroxide (Milk Of Mag) 30 ml Q24H PRN GTB CONSTIPATION; Start 05/23 at 12:30 Methocarbamol (Robaxin) 500 mg Q8 GTB Last administered on 06/01/17 13:26; Admin Dose 500 MG; Start 05/23/17 at 14:00 Metoprolol Tartrate (Lopressor) 25 mg BID GTB Last administered on 06/01/17 08:37; Admin Dose 25 MG; Start 05/23/17 at 21:00 Eye Lubricant (Akwa Oint) 1 applic DAILY PRN BOTH EYES DRY EYES; Start at 13:00 Pyrazinamide (Pyrazinamide) 1,000 mg DAILY GTB Last administered on 06/01/17 08:38; Admin Dose 1,000 MG; Start 05/24/17 at 09:00 Pyridoxine HCl (Vitamin B6) 50 mg DAILY GTB Last administered on 06/01/17 08: 37; Admin Dose 50 MG; Start 05/24/17 at 09:00 Multivitamins (Multivitamin) 30 ml DAILY GTB Last administered on 06/01/17 08 :38; Admin Dose 30 ML; Start 05/24/17 at 09:00 Ondansetron HCl (Zofran Inj) 4 mg Q6H PRN IV NAUSEA AND/OR VOMITING Last administered on 05/23/17 22:48; Admin Dose 4 MG; Start 05/23/17 at 13:00 Nitroglycerin (Nitroglycerin (Sl Tab) 0.4 Mg) 1 tab Q5M PRN SL CHEST PAIN; Start 05/23/17 at 13:00 Acetaminophen/ Hydrocodone Bitart ([place] (5/325)) 1 tab Q6H PRN GTB PAIN LEVEL 4-6 Last administered on 05/23/17 22:13; Admin Dose 1 TAB; Start 05/23/17 at 13:00 Lorazepam (Ativan) 1 mg Q4H PRN IV anxiety Last administered on 05/24/17 13: 15; Admin Dose 1 MG; Start 05/24/17 at 13:11 Enoxaparin Sodium (Lovenox) 30 mg DAILY SC Last administered on 05/29/17 08: 33; Admin Dose 30 MG; Start 05/25/17 at 09:00; Status Future Hold Famotidine (Pepcid) 20 mg DAILY GTB Last administered on 06/01/17 08:36; Admin Dose 20 MG; Start 05/25/17 at 09:00 Mineral Oil 133 ml 133 ml Q48H PRN MD constipation; Start 05/26/17 at 09:00 Amiodarone HCl/ Dextrose (Cordarone Iv/ D5W) 500 ml @ 0 mls/hr Q0M IV Last administered on 05/24/17 19:19; Admin Dose 33.4 MLS/HR; Start 05/24/17 at 19: 00 Morphine Sulfate (morphine) 1 mg Q4H PRN IV PAIN LEVEL 4-6 Last administered on 05/25/17 17:57; Admin Dose 1 MG; Start 05/24/17 at 19:00 Amiodarone HCl (Cordarone) 200 mg BID PO Last administered on 06/01/17 08:37 ; Admin Dose 200 MG; Start 05/25/17 at 21:00 Clonazepam (Klonopin) 0.5 mg QHS PRN GTB agitation; Start 05/28/17 at 11:00 Digoxin 0.125 mg 0.125 mg DAILY@13 PO Last administered on 06/01/17 13:26; Admin Dose 0.125 MG; Start 05/28/17 at 13:00 Cefepime HCl (Maxipime 1gm/50 ml (Pmx)) 50 ml @ 100 mls/hr Q12 IVPB Last administered on 06/01/17 08:38; Admin Dose 100 MLS/HR; Start 05/28/17 at 21: 00 Ferrous Sulfate (Feosol Liquid Cup) 300 mg DAILY PEG Last administered on 06/01 08:38; Admin Dose 300 MG; Start 05/29/17 at 09:00 Quetiapine Fumarate (Seroquel) 50 mg HS PRN GTB agitation; Start 05/29/17 at 11:00 Hydralazine HCl (Apresoline) 10 mg Q4H PRN IV SB>170 Last administered on 06/01 11:51; Admin Dose 10 MG; Start 05/30/17 at 14:30 Enalaprilat (Vasotec Iv) 1.25 mg Q6H PRN IV sbp>160; Start 05/30/17 at 16:00 Rifabutin (Mycobutin) 300 mg DAILY GTB Last administered on 06/01/17 08:37; Admin Dose 300 MG; Start 05/31/17 at 09:00 Lactulose (Enulose) 20 gm DAILY PO Last administered on 06/01/17 08:38; Admin Dose 20 GM; Start 06/01/17 at 09:00 Lisinopril 20 mg 20 mg DAILY PO ; Start 06/02/17 at 09:00 Caspofungin 70 mg/ Sodium Chloride 250 ml @ 250 mls/hr ONCE ONCE IVPB Last administered on 06/01/17 13:26; Admin Dose 250 MLS/HR; Start 06/01/17 at 13: 00; Stop 06/01/17 at 13:59 Caspofungin/ Sodium Chloride (Cancidas/NS) 250 ml @ 250 mls/hr Q24H IVPB ; Start 06/02/17 at 13:00 NHI CHIN MD Jun 01, 2017 13:49
--- NOTE | 2017-06-01 15:22 | RADRPT ---
PROCEDURE: MR Brain without contrast. CLINICAL INDICATION: Neurologic deficit TECHNIQUE: An MRI of the brain was performed on a high-resolution MR scanner utilizing the followi ng sequences: Sagittal and axial T1 weighted, axial T2 weighted, axial FLAIR, coronal GRE, and axial diffusion weighted with ADC mapping. Images were reviewed high-resolution PACS workstation. No con trast was administered. COMPARISON: Head CT 05/30/2017 FINDINGS: No acute parenchymal hemorrhage, mass effect, or midline shift. No diffusion restriction to suggest recent infarct. Tiny linear diffusion signal hyperintensity with hyperintense ADC signal in the righ t superior frontal gyrus posteriorly corresponds to the focus of high density on recent CT and is no nspecific - possibly cortical calcification. Preserved de la cruz white differentiation. No suspicious parenchymal hypointense signal abnormalities are seen on the GRE images to suggest the presence of blood degradation products. The ventricles are stable size with mild volume loss noted. Normal flow voids are visible in the proximal intracranial arteries suggesting their patency. No significant opacification of the paranasal sinuses or mastoids. IMPRESSION: No acute intracranial abnormality or evidence of recent infarct. RPTAT: AA .Erik Johnson MD, MD Date Time Electronically viewed and signed by .Erik Johnson MD, on 06/01/2017 15:22 .T/
[2017-06-01 19:51] LABS: ANA SCREEN POSITIVE (NEGATIVE)
[2017-06-01] MEDS: ATORVASTATIN 40 MG TAB GTB SCH (21:15)
[2017-06-02] VITALS (19 sets, daily range): BP systolic 114–172; BP diastolic 57–79; PULSE 60–75; RESP 16–39
[2017-06-02] MEDS: LEVOTHYROXINE 100 MCG TAB GTB SCH (06:28)
[2017-06-02 08:53] LABS: ALBUMIN 2.5 g/dl (3.3-4.9); ALBUMIN/GLOBULIN RATIO 0.73; BILIRUBIN,INDIRECT 0.1 mg/dl (0-1.1); BILIRUBIN,TOTAL 0.1 mg/dl (0.2-1.3); CALCIUM 8.5 mg/dl (8.4-10.2); CREATININE 0.38 mg/dl (0.44-1.00); POTASSIUM 4.5 mmol/L (3.5-5.1); TOTAL PROTEIN 5.9 g/dl (6.1-8.1)
[2017-06-02] MEDS ORDERED: LISINOPRIL 10 MG TAB PO SCH (09:00)
[2017-06-02] MEDS: FAMOTIDINE 20 MG TAB GTB SCH (09:54)
[2017-06-02] MEDS: PYRIDOXINE 50 MG TAB GTB SCH (09:54)
[2017-06-02] MEDS: ASPIRIN 81 MG TAB GTB SCH (09:54)
[2017-06-02] MEDS: ETHAMBUTOL 400 MG TAB GTB SCH (09:55)
[2017-06-02] MEDS: METOPROLOL 25 MG TAB GTB SCH (09:55)
[2017-06-02] MEDS: PYRAZINAMIDE 500 MG TAB GTB SCH (09:55)
[2017-06-02] MEDS: ASCORBIC ACID 500 MG TAB GTB SCH (09:56)
[2017-06-02] MEDS: AMIODARONE 200 MG TAB PO SCH (09:56)
[2017-06-02] MEDS: RIFABUTIN 150 MG CAP GTB SCH (09:56)
[2017-06-02] MEDS: LACTULOSE 30ML CUP PO SCH (09:56)
[2017-06-02] MEDS: MULTIVITAMINS 30 ML CUP GTB SCH (09:56)
[2017-06-02] MEDS: FERROUS SULFATE 60 MG/ML 5ML CUP PEG SCH (09:56)
[2017-06-02] MEDS: ENOXAPARIN 30 MG/0.3 ML SYG SC SCH (09:57)
[2017-06-02] MEDS: CEFEPIME 1GM/50 ML (PMX) 50 ML IVPB SCH (09:58)
[2017-06-02 10:00] LABS: ABNORMAL IP MESSAGE 1; BASOPHILS % 0.2 % (0.0-2.0); EOSINOPHILS % 0.1 % (0.0-7.0); HEMATOCRIT 39.6 % (37.0-47.0); HEMOGLOBIN 11.6 g/dl (12.0-16.0); LYMPHOCYTES # 0.6 10^3/ul (0.8-2.9); LYMPHOCYTES % 4.8 % (15.0-51.0); MEAN CORPUSCULAR HEMOGLOBIN 29.7 pg (29.0-33.0); MEAN CORPUSCULAR HGB CONC 29.3 g/dl (32.0-37.0); MEAN CORPUSCULAR VOLUME 101.3 fl (82.0-101.0); MEAN PLATELET VOLUME 10.3 fl (7.4-10.4); MONOCYTE # 0.8 10^3/ul (0.3-0.9); MONOCYTES % 6.1 % (0.0-11.0); NEUTROPHIL # 10.7 10^3/ul (1.6-7.5); NEUTROPHILS % 87.8 % (39.0-77.0); PLATELET COUNT 359 10^3/UL (140-415); RED BLOOD COUNT 3.91 10^6/ul (4.20-5.40); RED CELL DISTRIBUTION WIDTH 17.1 % (11.5-14.5); WHITE BLOOD COUNT 12.2 10^3/ul (4.8-10.8)
[2017-06-02 10:09] LABS: POSITIVE DIFF @See below
--- NOTE | 2017-06-02 10:21 | CONS ---
Date/Time of Note Date/Time of Note DATE: 06/02/17 TIME: 10:20 Consult Date/Type/Reason Admit Date/Time May 23, 2017 at 11:33 Type of Consultation: Pulmonary Ordering Provider: NAOMIE VAUGHN MD Subjective Patient comfortable this morning. More alert. MRI showed no acute infarct or hemorrhage. Objective Vital Signs Date Time Temp Pulse Resp B/P Pulse Ox O2 Delivery O2 Flow Rate FiO2 06/02/17 09:22 73 16 97 40 06/02/17 07:58 96.8 165/66 Intake and Output 06/01/17 06/01/17 06/02/17 14:59 22:59 06:59 Intake Total 50 ml 1050 ml Output Total 800 ml 850 ml Balance -750 ml 200 ml Exam GENERAL: Elderly lady on mechanical ventilation no respiratory distress opens eyes to voice. VITAL SIGNS: per chart NECK: Supple. No JVD or lymphadenopathy. CARDIAC EXAM: S1, S2. No added sounds or murmurs. CHEST: clear bilaterally, No added sounds, rales or wheezes ABDOMEN: Soft, nontender. No guarding or rebound. EXTREMITIES: No cyanosis, clubbing or edema. NEUROLOGIC: Generalized weakness. No focal deficits. Results/Medications Result Diagram: 06/02/17 0738 06/02/17 0738 Results 24 hrs Laboratory Tests Test 06/02/17 05:50 06/02/17 07:38 Lab Scanned Report REFERENCE LAB White Blood Count 12.2 H Red Blood Count 3.91 L Hemoglobin 11.6 L Hematocrit 39.6 Mean Corpuscular Volume 101.3 H Mean Corpuscular Hemoglobin 29.7 Mean Corpuscular Hemoglobin Concent 29.3 L Red Cell Distribution Width 17.1 H Platelet Count 359 Mean Platelet Volume 10.3 Neutrophils % 87.8 H Lymphocytes % 4.8 L Monocytes % 6.1 Eosinophils % 0.1 Basophils % 0.2 Nucleated Red Blood Cells % 0.0 Neutrophils # 10.7 H Lymphocytes # 0.6 L Monocytes # 0.8 Eosinophils # 0.0 Basophils # 0.0 Nucleated Red Blood Cells # 0.0 Sodium Level 147 H Potassium Level 4.5 Chloride Level 104 Carbon Dioxide Level 37 H Anion Gap 11 Blood Urea Nitrogen 26 H Creatinine 0.38 L Glucose Level 202 Calcium Level 8.5 Total Bilirubin 0.1 L Direct Bilirubin 0.00 Indirect Bilirubin 0.1 Aspartate Amino Transf (AST/SGOT) 27 Alanine Aminotransferase (ALT/SGPT) 34 Alkaline Phosphatase 106 Ammonia 22 Total Protein 5.9 #L Albumin 2.5 L Globulin 3.40 H Albumin/Globulin Ratio 0.73 Medications Current Medications Acetaminophen (Tylenol Tab) 650 mg Q6H PRN GTB PAIN AND OR ELEVATED TEMP; Start 05/23/17 at 12:30 Ascorbic Acid (Vitamin C) 500 mg DAILY GTB Last administered on 06/02/17 09: 56; Admin Dose 500 MG; Start 05/24/17 at 09:00 Aspirin (Aspirin) 81 mg DAILY GTB Last administered on 06/02/17 09:54; Admin Dose 81 MG; Start 05/24/17 at 09:00 Atorvastatin Calcium (Lipitor) 40 mg QHS GTB Last administered on 06/01/17 21 :15; Admin Dose 40 MG; Start 05/23/17 at 21:00 Bisacodyl (Dulcolax Supp) 10 mg Q24H PRN [place] CONSTIPATION; Start 05/23/17 at 12 :30 Docusate Sodium (Colace) 100 mg QHS PRN PO CONSTIPATION; Start 05/23/17 at 12: 30 Ethambutol HCl (Myambutol) 800 mg DAILY GTB Last administered on 06/02/17 09: 55; Admin Dose 800 MG; Start 05/24/17 at 09:00 Hyoscyamine (Levsin (Sl)) 0.125 mg Q4H PRN SL EXCESIVE ORAL SECRETIONS; Start 05/23/17 at 13:00 Magnesium Hydroxide (Milk Of Mag) 30 ml Q24H PRN GTB CONSTIPATION; Start 05/23 at 12:30 Metoprolol Tartrate (Lopressor) 25 mg BID GTB Last administered on 06/02/17 09:55; Admin Dose 25 MG; Start 05/23/17 at 21:00 Eye Lubricant (Akwa Oint) 1 applic DAILY PRN BOTH EYES DRY EYES; Start at 13:00 Pyrazinamide (Pyrazinamide) 1,000 mg DAILY GTB Last administered on 06/02/17 09:55; Admin Dose 1,000 MG; Start 05/24/17 at 09:00 Pyridoxine HCl (Vitamin B6) 50 mg DAILY GTB Last administered on 06/02/17 09: 54; Admin Dose 50 MG; Start 05/24/17 at 09:00 Multivitamins (Multivitamin) 30 ml DAILY GTB Last administered on 06/02/17 09 :56; Admin Dose 30 ML; Start 05/24/17 at 09:00 Ondansetron HCl (Zofran Inj) 4 mg Q6H PRN IV NAUSEA AND/OR VOMITING Last administered on 05/23/17 22:48; Admin Dose 4 MG; Start 05/23/17 at 13:00 Nitroglycerin (Nitroglycerin (Sl Tab) 0.4 Mg) 1 tab Q5M PRN SL CHEST PAIN; Start 05/23/17 at 13:00 Acetaminophen/ Hydrocodone Bitart ([place] (5/325)) 1 tab Q6H PRN GTB PAIN LEVEL 4-6 Last administered on 05/23/17 22:13; Admin Dose 1 TAB; Start 05/23/17 at 13:00 Lorazepam (Ativan) 1 mg Q4H PRN IV anxiety Last administered on 05/24/17 13: 15; Admin Dose 1 MG; Start 05/24/17 at 13:11 Enoxaparin Sodium (Lovenox) 30 mg DAILY SC Last administered on 06/02/17 09: 57; Admin Dose 30 MG; Start 05/25/17 at 09:00 Famotidine (Pepcid) 20 mg DAILY GTB Last administered on 06/02/17 09:54; Admin Dose 20 MG; Start 05/25/17 at 09:00 Mineral Oil 133 ml 133 ml Q48H PRN [place] constipation; Start 05/26/17 at 09:00 Amiodarone HCl/ Dextrose (Cordarone Iv/ D5W) 500 ml @ 0 mls/hr Q0M IV Last administered on 05/24/17 19:19; Admin Dose 33.4 MLS/HR; Start 05/24/17 at 19: 00 Morphine Sulfate (morphine) 1 mg Q4H PRN IV PAIN LEVEL 4-6 Last administered on 05/25/17 17:57; Admin Dose 1 MG; Start 05/24/17 at 19:00 Amiodarone HCl (Cordarone) 200 mg BID PO Last administered on 06/02/17 09:56 ; Admin Dose 200 MG; Start 05/25/17 at 21:00 Clonazepam (Klonopin) 0.5 mg QHS PRN GTB agitation; Start 05/28/17 at 11:00 Digoxin 0.125 mg 0.125 mg DAILY@13 PO Last administered on 06/01/17 13:26; Admin Dose 0.125 MG; Start 05/28/17 at 13:00 Cefepime HCl (Maxipime 1gm/50 ml (Pmx)) 50 ml @ 100 mls/hr Q12 IVPB Last administered on 06/02/17 09:58; Admin Dose 100 MLS/HR; Start 05/28/17 at 21: 00 Ferrous Sulfate (Feosol Liquid Cup) 300 mg DAILY PEG Last administered on 06/02 09:56; Admin Dose 300 MG; Start 05/29/17 at 09:00 Quetiapine Fumarate (Seroquel) 50 mg HS PRN GTB agitation; Start 05/29/17 at 11:00 Hydralazine HCl (Apresoline) 10 mg Q4H PRN IV SB>170 Last administered on 06/01 11:51; Admin Dose 10 MG; Start 05/30/17 at 14:30 Enalaprilat (Vasotec Iv) 1.25 mg Q6H PRN IV sbp>160; Start 05/30/17 at 16:00 Rifabutin (Mycobutin) 300 mg DAILY GTB Last administered on 06/02/17 09:56; Admin Dose 300 MG; Start 05/31/17 at 09:00 Lactulose (Enulose) 20 gm DAILY PO Last administered on 06/02/17 09:56; Admin Dose 20 GM; Start 06/01/17 at 09:00 Lisinopril 20 mg 20 mg DAILY PO Last administered on 06/02/17 09:54; Admin Dose 20 MG; Start 06/02/17 at 09:00 Caspofungin/ Sodium Chloride (Cancidas/NS) 250 ml @ 250 mls/hr Q24H IVPB ; Start 06/02/17 at 13:00 Assessment/Plan Chief Complaint/Hosp Course Assessment: 1. Hx MTB 2. VDRF 3. Recurrent pleural effusions. 4. Dysphagia with PEG. 5. Anemia. 6. A. fib with RVR. Status post amiodarone 7. Encephalopathy appears toxic metabolic. CT and MRI are unremarkable. Some neurological improvement today. Plan: 1. Thoracentesis results noted. 2. Continue MTB abx 3. Status post transfusion packed red blood cells 4. Continue TF. 5. Amiodarone per cardiology. Stable for transfer to [facility]. Problems: ISABEL MANCERA MD, [facility] Jun 02, 2017 10:21
[2017-06-02] MEDS ORDERED: AMLODIPINE 5 MG TAB PO SCH (10:30)
--- NOTE | 2017-06-02 10:46 | CONS ---
Date/Time of Note Date/Time of Note DATE: 06/02/17 TIME: 10:45 Assessment/Plan Assessment/Plan Additional Assessment/Plan 1. Hypotension in the setting of rapid tachyarrhythmia of atrial fibrillation and recent fevers, now improved.-negative tropx 3/off pressors - now in sinus - will monitor closely. BETTER NOW. Stable. 2. Atrial fibrillation with rapid ventricular response, slowly improving after initial dose of digoxin and amiodarone.-now in SR and remains/NL TSH- con't rate control. RATE CONTROLLED - will monitor. . 3. Pneumonia- on anti-bx, improving slowly. Con't meds. TREATED. 4. Fevers - better now - on meds. Pulmonary siurce - ID recs noted. 5. Chronic respiratory failure, status post tracheostomy - con't Med Rx. 6. Tuberculosis, on treatment. 7. Hypothyroidism. 8. Dyslipidemia. 9. Pleural effusion, status post right thoracentesis removal of 1 liter - pulmonary follows. 10. Anemia. Consultation Date/Type/Reason Admit Date/Time May 23, 2017 at 11:33 Initial Consult Date 05/27/17 Type of Consultation: Pulmonary Referring Provider: NAOMIE VAUGHN MD 24 HR Interval Summary Free Text/Dictation NO acute events - HR controlled. ROS: No fever, no chills, no nausea, no vomiting, no diarrhea/constipation No recent weight changes No chest pain, no PND, no orthopnea + SOB No dizziness, blurred vision No thirst, no heat or cold intolerance Exam/Review of Systems Vital Signs Vitals Vital Signs Date Time Temp Pulse Resp B/P Pulse Ox O2 Delivery O2 Flow Rate FiO2 06/02/17 09:22 73 16 97 40 06/02/17 07:58 96.8 165/66 Intake and Output 06/01/17 06/01/17 06/02/17 15:00 23:00 07:00 Intake Total 50 ml 1050 ml Output Total 800 ml 850 ml Balance -750 ml 200 ml Exam General: WN/WD/NAD, AOx comfortable HEENT: Unicetric/atraumatic/EOMI (does not follow commands) NECK: JVD elevated, no thyromegaly Lymph: no lymphadenopathy HEART: regular with no S3, II/ systolic murmur at apex LUNGS: Coarse sounds ABD: soft, NT, ND, +BS : Intact Neuro: non focal SKIN: chronic changes EXT: trace edema Results Result Diagram: 06/02/17 0738 06/02/17 0738 Results 24 hrs Laboratory Tests Test 06/02/17 05:50 06/02/17 07:38 Lab Scanned Report REFERENCE LAB White Blood Count 12.2 H Red Blood Count 3.91 L Hemoglobin 11.6 L Hematocrit 39.6 Mean Corpuscular Volume 101.3 H Mean Corpuscular Hemoglobin 29.7 Mean Corpuscular Hemoglobin Concent 29.3 L Red Cell Distribution Width 17.1 H Platelet Count 359 Mean Platelet Volume 10.3 Neutrophils % 87.8 H Lymphocytes % 4.8 L Monocytes % 6.1 Eosinophils % 0.1 Basophils % 0.2 Nucleated Red Blood Cells % 0.0 Neutrophils # 10.7 H Lymphocytes # 0.6 L Monocytes # 0.8 Eosinophils # 0.0 Basophils # 0.0 Nucleated Red Blood Cells # 0.0 Sodium Level 147 H Potassium Level 4.5 Chloride Level 104 Carbon Dioxide Level 37 H Anion Gap 11 Blood Urea Nitrogen 26 H Creatinine 0.38 L Glucose Level 202 Calcium Level 8.5 Total Bilirubin 0.1 L Direct Bilirubin 0.00 Indirect Bilirubin 0.1 Aspartate Amino Transf (AST/SGOT) 27 Alanine Aminotransferase (ALT/SGPT) 34 Alkaline Phosphatase 106 Ammonia 22 Total Protein 5.9 #L Albumin 2.5 L Globulin 3.40 H Albumin/Globulin Ratio 0.73 Medications Medications Current Medications Acetaminophen (Tylenol Tab) 650 mg Q6H PRN GTB PAIN AND OR ELEVATED TEMP; Start 05/23/17 at 12:30 Ascorbic Acid (Vitamin C) 500 mg DAILY GTB Last administered on 06/02/17 09: 56; Admin Dose 500 MG; Start 05/24/17 at 09:00 Aspirin (Aspirin) 81 mg DAILY GTB Last administered on 06/02/17 09:54; Admin Dose 81 MG; Start 05/24/17 at 09:00 Atorvastatin Calcium (Lipitor) 40 mg QHS GTB Last administered on 06/01/17 21 :15; Admin Dose 40 MG; Start 05/23/17 at 21:00 Bisacodyl (Dulcolax Supp) 10 mg Q24H PRN [place] CONSTIPATION; Start 05/23/17 at 12 :30 Docusate Sodium (Colace) 100 mg QHS PRN PO CONSTIPATION; Start 05/23/17 at 12: 30 Ethambutol HCl (Myambutol) 800 mg DAILY GTB Last administered on 06/02/17 09: 55; Admin Dose 800 MG; Start 05/24/17 at 09:00 Hyoscyamine (Levsin (Sl)) 0.125 mg Q4H PRN SL EXCESIVE ORAL SECRETIONS; Start 05/23/17 at 13:00 Magnesium Hydroxide (Milk Of Mag) 30 ml Q24H PRN GTB CONSTIPATION; Start 05/23 at 12:30 Metoprolol Tartrate (Lopressor) 25 mg BID GTB Last administered on 06/02/17 09:55; Admin Dose 25 MG; Start 05/23/17 at 21:00 Eye Lubricant (Akwa Oint) 1 applic DAILY PRN BOTH EYES DRY EYES; Start at 13:00 Pyrazinamide (Pyrazinamide) 1,000 mg DAILY GTB Last administered on 06/02/17 09:55; Admin Dose 1,000 MG; Start 05/24/17 at 09:00 Pyridoxine HCl (Vitamin B6) 50 mg DAILY GTB Last administered on 06/02/17 09: 54; Admin Dose 50 MG; Start 05/24/17 at 09:00 Multivitamins (Multivitamin) 30 ml DAILY GTB Last administered on 06/02/17 09 :56; Admin Dose 30 ML; Start 05/24/17 at 09:00 Ondansetron HCl (Zofran Inj) 4 mg Q6H PRN IV NAUSEA AND/OR VOMITING Last administered on 05/23/17 22:48; Admin Dose 4 MG; Start 05/23/17 at 13:00 Nitroglycerin (Nitroglycerin (Sl Tab) 0.4 Mg) 1 tab Q5M PRN SL CHEST PAIN; Start 05/23/17 at 13:00 Acetaminophen/ Hydrocodone Bitart ([place] (5/325)) 1 tab Q6H PRN GTB PAIN LEVEL 4-6 Last administered on 05/23/17 22:13; Admin Dose 1 TAB; Start 05/23/17 at 13:00 Lorazepam (Ativan) 1 mg Q4H PRN IV anxiety Last administered on 05/24/17 13: 15; Admin Dose 1 MG; Start 05/24/17 at 13:11 Enoxaparin Sodium (Lovenox) 30 mg DAILY SC Last administered on 06/02/17 09: 57; Admin Dose 30 MG; Start 05/25/17 at 09:00 Famotidine (Pepcid) 20 mg DAILY GTB Last administered on 06/02/17 09:54; Admin Dose 20 MG; Start 05/25/17 at 09:00 Mineral Oil 133 ml 133 ml Q48H PRN [place] constipation; Start 05/26/17 at 09:00 Amiodarone HCl/ Dextrose (Cordarone Iv/ D5W) 500 ml @ 0 mls/hr Q0M IV Last administered on 05/24/17 19:19; Admin Dose 33.4 MLS/HR; Start 05/24/17 at 19: 00 Morphine Sulfate (morphine) 1 mg Q4H PRN IV PAIN LEVEL 4-6 Last administered on 05/25/17 17:57; Admin Dose 1 MG; Start 05/24/17 at 19:00 Amiodarone HCl (Cordarone) 200 mg BID PO Last administered on 06/02/17 09:56 ; Admin Dose 200 MG; Start 05/25/17 at 21:00 Clonazepam (Klonopin) 0.5 mg QHS PRN GTB agitation; Start 05/28/17 at 11:00 Digoxin 0.125 mg 0.125 mg DAILY@13 PO Last administered on 06/01/17 13:26; Admin Dose 0.125 MG; Start 05/28/17 at 13:00 Cefepime HCl (Maxipime 1gm/50 ml (Pmx)) 50 ml @ 100 mls/hr Q12 IVPB Last administered on 06/02/17 09:58; Admin Dose 100 MLS/HR; Start 05/28/17 at 21: 00 Ferrous Sulfate (Feosol Liquid Cup) 300 mg DAILY PEG Last administered on 06/02 09:56; Admin Dose 300 MG; Start 05/29/17 at 09:00 Quetiapine Fumarate (Seroquel) 50 mg HS PRN GTB agitation; Start 05/29/17 at 11:00 Hydralazine HCl (Apresoline) 10 mg Q4H PRN IV SB>170 Last administered on 06/01 11:51; Admin Dose 10 MG; Start 05/30/17 at 14:30 Enalaprilat (Vasotec Iv) 1.25 mg Q6H PRN IV sbp>160; Start 05/30/17 at 16:00 Rifabutin (Mycobutin) 300 mg DAILY GTB Last administered on 06/02/17 09:56; Admin Dose 300 MG; Start 05/31/17 at 09:00 Lactulose (Enulose) 20 gm DAILY PO Last administered on 06/02/17 09:56; Admin Dose 20 GM; Start 06/01/17 at 09:00 Lisinopril 20 mg 20 mg DAILY PO Last administered on 06/02/17 09:54; Admin Dose 20 MG; Start 06/02/17 at 09:00 Caspofungin/ Sodium Chloride (Cancidas/NS) 250 ml @ 250 mls/hr Q24H IVPB ; Start 06/02/17 at 13:00 Amlodipine Besylate (Norvasc) 5 mg DAILY PO ; Start 06/02/17 at 10:30 NHI CHIN MD Jun 02, 2017 10:46
[2017-06-02] MEDS ORDERED: MINO2.5T16 PO (11:22)
[2017-06-02] MEDS ORDERED: UDFER PEG (11:22)
[2017-06-02] MEDS ORDERED: AMIO200T2 PO (11:22)
[2017-06-02] MEDS ORDERED: DIGO125T PO (11:22)
[2017-06-02] MEDS ORDERED: AMLO-145 PO (11:22)
[2017-06-02] MEDS ORDERED: LISI10TA2 PO (11:22)
[2017-06-02] MEDS ORDERED: MINOXIDIL 2.5 MG TAB PO SCH (12:00)
[2017-06-02] MEDS: DIGOXIN 0.125 MG TAB PO SCH (12:33)
[2017-06-02] MEDS: hydrALAzine 20 MG INJ IV PRN (12:54)
[2017-06-02] MEDS ORDERED: CASPOFUNGIN 50 MG in SOD CHLORIDE 0.9% 250 ML IVPB SCH (13:00)
--- NOTE | 2017-06-02 13:01 | DS ---
Date/Time of Note Date/Time of Note DATE: 06/02/17 TIME: 13:01 Discharge Summary Admission/Discharge Info Admit Date/Time May 23, 2017 at 11:33 Discharge Date/Time Patient Condition: Stable Hospital Course Patient is a 82-year-old female with past medical history of chronic respiratory failure on trach and vent dependent, with PEG tube and recently diagnosed with TB approximately in April on TB meds and consider noninfectious at this time who originally presented for fever and tachycardia. Patient was subsequently found to have bacteremia and pneumonia and will need to be kept on current antibiotics till June 06. Patient was also found to have a fungal infection and infectious disease also started patient on caspofungin. Patient is to continue antibiotics and antifungals per infectious disease and to be followed up at [facility] per infectious disease which will follow. During the course of patient's stay she developed an arrhythmia which required cardioversion and cardiology saw patient and started patient on rate stabilizing medication including amiodarone and digoxin. Patient's blood pressure was also adjusted throughout the stay. Patient also developed a momentary course of encephalopathy and found to have mildly elevated ammonia levels. Preliminary liver workup did not find any acute issues with the liver so there is no clear cause of patient's elevated ammonia, however it should be noted that GGT and alk phos was elevated with normal liver enzymes. CT of the head and MRI of the head were within normal limits and after medications such as Klonopin, Seroquel, Robaxin were discontinued, patient recovered significantly from her encephalopathy. It is likely a combination of her bacteremia as well as medication induced. Patient is to continue her course of antibiotics per ID as well as her TB medications Per Department of Health. Patient also has a right lower lobe nodule that will need outpatient follow-up and to follow-up with multiple specialists including pulmonology, cardiology, infectious disease. Discharge diagnosis Sepsis secondary to bacteremia Bacteremia Arrhythmia Hypertension Encephalopathy Acute on chronic vent dependent respiratory failure Anemia Right pleural effusion status post thoracentesis Right lower lobe nodule Gastroenteritis Hypertension TB, diagnosed approximately in April 2017, followed by health department, on antibiotics, currently not considered infectious Home Meds Active Scripts Minoxidil* (Lonitin*) 2.5 Mg Tab, 5 MG PO BID for 30 Days, TAB Prov:MUKUL LINK 06/02/17 Lisinopril* (Lisinopril*) 10 Mg Tablet, 20 MG PO DAILY for 30 Days, TAB Prov:MUKUL LINK J 06/02/17 Digoxin* (Digitek*) 125 Mcg Tablet, 0.125 MG PO DAILY@13 for 30 Days, TAB Prov:MUKUL LINK J 06/02/17 Amiodarone Hcl* (Amiodarone Hcl*) 200 Mg Tablet, 200 MG PO BID for 30 Days, TAB Prov:MUKUL LINK J 06/02/17 Amlodipine Besylate* (Amlodipine Besylate*) 5 Mg Tablet, 5 MG PO DAILY for 30 Days, TAB Prov:MUKUL LINK J 06/02/17 Ferrous Sulfate (Ferrous Sulfate) 300 Mg/5 Ml Liquid, 300 MG PEG DAILY for 30 Days Prov:MUKUL LINK 06/02/17 Reported Medications Ascorbic Acid* (Vitamin C*) 500 Mg Capsule.sa, 500 MG GTB DAILY, CAP 05/23/17 Acetaminophen* (Acetaminophen*) 650 Mg Tablet, 650 MG GTB Q6H Y for PAIN AND OR ELEVATED TEMP, #30 TAB 05/23/17 Rifabutin* (Mycobutin*) 150 Mg Capsule, 300 MG GTB BID, CAP 05/23/17 Pyridoxine Hcl* (Pyridoxine Hcl*) 50 Mg Tablet, 50 MG GTB DAILY, TAB 05/23/17 Pyrazinamide* (Pyrazinamide*) 500 Mg Tablet, 1000 MG GTB DAILY, TAB 05/23/17 Petrolatum,White (White Petrolatum) 453.6 Gm Oint...g., 1 APPLIC TP DAILY Y for DRY EYES 05/23/17 Nitroglycerin* (Nitroglycerin* SL) 0.4 Mg Tab.subl, 0.4 MG SL Q5MIN Y for CHEST PAIN, BOTTLE 05/23/17 Multivitamin/Minerals* (Multivitamin w/Min* Liq) 9 Mg/15 Ml Liquid, 9 MG GTB DAILY, ML 05/23/17 Metoprolol Tartrate* (Lopressor*) 25 Mg Tab, 25 MG GTB BID, #60 TAB 05/23/17 Levothyroxine Sodium* (Levothyroxine Sodium*) 100 Mcg Tablet, 100 MCG GTB BEFORE BREAKFAST, #30 TAB 05/23/17 Hyoscyamine Sulfate* (Hyoscyamine Sulfate*) 0.125 Mg Tab.subl, 0.125 MG SL Q4H Y for EXCESIVE ORAL SECRETIONS, TAB 05/23/17 Famotidine* (Famotidine*) 20 Mg Tablet, 20 MG GTB BID, #30 TAB 05/23/17 Ethambutol HCl* (Myambutol*) 400 Mg Tablet, 800 MG GTB DAILY 05/23/17 Enoxaparin Sodium* (Lovenox*) 40 Mg/0.4 Ml Syringe, 40 MG SC DAILY, SYR 05/23/17 Bisacodyl* (Bisacodyl*) 10 Mg Supp, 10 MG TX Q24H Y for CONSTIPATION, SUPP 05/23/17 Docusate Sodium* (Colace*) 100 Mg Capsule, 100 MG GTB QHS Y for CONSTIPATION, # 60 CAP 05/23/17 Atorvastatin* (Atorvastatin*) 40 Mg Tablet, 40 MG GTB QHS, #30 TAB 05/23/17 Aspirin* (Aspirin* Chew) 81 Mg Tab.chew, 81 MG GTB DAILY, TAB.CHEW 05/23/17 Albuterol Sulfate* (Albuterol Sulfate* Neb) 0.083%-3 Ml Neb, 2.5 MG NEB Q3H Y for WHEEZING AND SOB, #30 VIAL 05/23/17 Discontinued Reported Medications Quetiapine Fumarate* (Seroquel*) 50 Mg Tablet, 50 MG GTB HS, TAB 05/23/17 Potassium Chloride* (Potassium Chloride*) 20 Meq Tablet.er, 20 MEQ GTB DAILY, TAB.SA 05/23/17 Magnesium Hydroxide* (Milk Of Magnesia*) 400 Mg/5 Ml Oral.susp, 30 ML GTB Q24H Y for CONSTIPATION, ML 05/23/17 Methocarbamol* (Methocarbamol*) 500 Mg Tablet, 500 MG GTB Q8, TAB 05/23/17 Mineral Oil (Fleet Mineral Oil Enema) 133 Ml Enema, 133 ML RC Q48, ENEMA 05/23/17 Ferrous Sulfate* (Ferrous Sulfate*) 325 Mg Tabec, 330 MG GTB TID, TAB 05/23/17 Clonazepam* (Clonazepam*) 0.5 Mg Tablet, 0.5 MG GTB QHS, TAB 05/23/17 Primary Care Provider Not On Staff Doctor Pending Labs Laboratory Tests Test 06/02/17 05:50 06/02/17 07:38 Lab Scanned Report REFERENCE [id number] White Blood Count 12.210^3/ul (4.8-10.8) Red Blood Count 3.9110^6/ul (4.20-5.40) Hemoglobin 11.6g/dl (12.0-16.0) Hematocrit 39.6% (37.0-47.0) Mean Corpuscular Volume 101.3fl (82.0-101.0) Mean Corpuscular Hemoglobin 29.7pg (29.0-33.0) Mean Corpuscular Hemoglobin Concent 29.3g/dl (32.0-37.0) Red Cell Distribution Width 17.1% (11.5-14.5) Platelet Count 50341^3/UL (140-415) Mean Platelet Volume 10.3fl (7.4-10.4) Neutrophils % 87.8% (39.0-77.0) Lymphocytes % 4.8% (15.0-51.0) Monocytes % 6.1% (0.0-11.0) Eosinophils % 0.1% (0.0-7.0) Basophils % 0.2% (0.0-2.0) Nucleated Red Blood Cells % 0.0/100WBC (0.0-0.0) Neutrophils # 10.710^3/ul (1.6-7.5) Lymphocytes # 0.610^3/ul (0.8-2.9) Monocytes # 0.810^3/ul (0.3-0.9) Eosinophils # 0.010^3/ul (0.0-0.5) Basophils # 0.010^3/ul (0.0-0.1) Nucleated Red Blood Cells # 0.010^3/ul (0.0-0.0) Sodium Level 147mmol/L (135-144) Potassium Level 4.5mmol/L (3.5-5.1) Chloride Level 104mmol/L (97-110) Carbon Dioxide Level 37mmol/L (21-31) Anion Gap 11 (8-16) Blood Urea Nitrogen 26mg/dl (7-20) Creatinine 0.38mg/dl (0.44-1.00) Glucose Level 202mg/dl (70-220) Calcium Level 8.5mg/dl (8.4-10.2) Total Bilirubin 0.1mg/dl (0.2-1.3) Direct Bilirubin 0.00mg/dl (0.00-0.20) Indirect Bilirubin 0.1mg/dl (0-1.1) Aspartate Amino Transf (AST/SGOT) 27IU/L (15-46) Alanine Aminotransferase (ALT/SGPT) 34IU/L (13-69) Alkaline Phosphatase 106IU/L (42-121) Ammonia 22umol/l (9-30) Total Protein 5.9g/dl (6.1-8.1) Albumin 2.5g/dl (3.3-4.9) Globulin 3.40g/dl (1.3-3.2) Albumin/Globulin Ratio 0.73 MUKUL LINK Jun 02, 2017 13:01
== END 2017-06-02 15:38 | DRG 870 ==
LOC: E/R 08:40 → TEL 11:33 → ICU 05-24 18:05 → TEL 05-26 18:20
PROVIDERS: ADMIT Internal Medicine; ATTEND Internal Medicine
PROC: 5A1955Z Respiratory Ventilation, Greater than 96 Consecutive Hours (ICD-10-PCS; principal; 2017-05-23)
PROC: 0W993ZX Drainage of Right Pleural Cavity, Percutaneous Approach, Diagnostic (ICD-10-PCS; 2017-05-24)
PROC: 5A2204Z Restoration of Cardiac Rhythm, Single (ICD-10-PCS; 2017-05-24)
PROC: 30233N1 Transfusion of Nonautologous Red Blood Cells into Peripheral Vein, Percutaneous Approach (ICD-10-PCS; 2017-05-25)
DX: A41.53 Sepsis due to Serratia (principal); J96.20 Acute and chronic respiratory failure, unspecified whether with hypoxia or hypercapnia; G92 Toxic encephalopathy; J90 Pleural effusion, not elsewhere classified; J18.9 Pneumonia, unspecified organism; Z99.11 Dependence on respirator [ventilator] status; J44.9 Chronic obstructive pulmonary disease, unspecified; Z93.0 Tracheostomy status; I95.89 Other hypotension; I48.91 Unspecified atrial fibrillation; A15.0 Tuberculosis of lung; J21.9 Acute bronchiolitis, unspecified; B37.49 Other urogenital candidiasis; D64.9 Anemia, unspecified; R65.20 Severe sepsis without septic shock; R91.1 Solitary pulmonary nodule; K52.9 Noninfective gastroenteritis and colitis, unspecified; E03.9 Hypothyroidism, unspecified; E78.5 Hyperlipidemia, unspecified; I10 Essential (primary) hypertension; J98.4 Other disorders of lung; Z93.1 Gastrostomy status; Y95 Nosocomial condition
CPT/HCPCS: 32555; 36415; 36430; 70450; 70551; 71010; 71260; 74000; 74177; 76700; 80048; 80053; 80069; 81001; 82140; 82945; 82962; 82977; 83540; 83605; 83615; 83735; 84100; 84157; 84443; 84484; 85025; 85610; 85730; 86038; 86255; 86644; 86674; 86704; 86706; 86708; 86709; 86803; 86850; 86900; 86901; 86920; 87040; 87045; 87070; 87081; 87086; 87102; 87116; 87205; 87340; 89051; 93005; 93306; 94002; 94003; 96374; 96375; J0153; J0282; J0360; J0692; J1650; J2060; J2270; J2405; J2543; J2916; J3370; J7030; J7040; J7042; J7050; J7060; P9016; P9047; Q9967

== ENCOUNTER → 2017-06-28 | Day surgery (SDC) | payer MEDICAID, OTHER ==
[2017-06-28] VITALS (7 sets, daily range): BP systolic 124–162; BP diastolic 59–106; PULSE 59–100; RESP 21–31
[~2017-06-28] VITALS: Ht 144.8 cm; Wt 55.0 kg
[~2017-06-28] MED LIST: ACET-2047 GTB; ALBU2.5V3 NEB; AMIO200T2 GTB; AMIO200T2 PO; AMLO-145 PO; APIX2.5T PO; APIX5TAB GTB; ASCO500C7 GTB; ASPI81TA3 GTB; ATOR40TA68 GTB; BALS3OIN TP; BETH10TA16 GTB; BISA10SU75 PR; CLON0.5T4 GTB; DIGO125T PO; DOCU-144 GTB; ENOX40DI14 SC; ETHA400T25 GTB; FAMO20TA18 GTB; FENTAnyl 50 MCG/ML VIAL ONE; FURO20TA3 IV*; HYDR-3670 IV*; HYDR-906 GTB; HYDR28.424 TP; HYOS0.1297 SL; IVER3TAB2 GTB; LABETALOL HCL 20MG INJ IV PRN; LEVA0.634 INHALATION; LEVO100T87 GTB; LISI10TA2 PO; METO-448 GTB; MICO14CR TOP; MINO2.5T16 PO; MULT9LIQ2 GTB; MYL80 GTB; NITR0.4T32 SL; NOVO3I SC; ONDA-43 IV*; PETR453. TP; PYRA500T11 GTB; PYRI50TA14 GTB; UDFER PEG; [UNRECOGNIZED DRUG - CODE] GTB
--- NOTE | 2017-06-28 15:36 | OPR ---
Date/Time of Note Date/Time of Note DATE: 06/28/17 TIME: 15:33 Operative Report Procedure Date: Jun 28, 2017 Preoperative Diagnosis anemia Postoperative Diagnosis gastritis gerd colon polyp hemorrhoids Surgeon see signature line Switchboard Operator Helper none Anesthesia Type: MAC Anesthesiologist: TATY HENDERSON DO Estimated Blood Loss: none Transfusion none Specimen gastric bx Grafts/Implants none Complications none Pt Condition Post Procedure: stable Indications anemia Procedure Description gastritis gerd g btube in place colon polyp hemorrhoids NINO CORRAL MD Jun 28, 2017 15:36
--- NOTE | 2017-06-28 20:47 | GILP ---
DATE OF PROCEDURE: 06/28/2017 PROCEDURE: Esophagogastroduodenoscopy. PREOPERATIVE DIAGNOSIS: Patient presenting with history of anemia, rule out peptic ulcer disease, g astritis. POSTOPERATIVE DIAGNOSES: 1. Mild gastritis. 2. Mild reflux esophagitis. 3. G-tube is noted in place. DESCRIPTION OF PROCEDURE: After the informed written consent was obtained, the patient was asked to lay on the left lateral side. Intravenous anesthesia was given by anesthesiologist, Dr. Erickson. When the patient became somnolent, Olympus video upper endoscope was introduced into the oropharynx , then into the esophagus. Esophagus appeared normal except mild reflux esophagitis. Stomach showe d mild gastritis. No ulcer, no neoplasm noted. G-tube was noted in place. Duodenum appeared normal. Endoscope at this time was withdrawn and the procedure was terminated. PLAN: Omeprazole 40 mg a day in the morning for 2 months. Colonoscopy After the informed written consent was obtained, the patient was asked to lay in the left lateral po sition. Intravenous anesthesia was given by anesthesiologist, Dr. Erickson. When the patient becam e somnolent, Olympus video colonoscope was introduced into the rectum and advanced all the way to th e hepatic flexure. There was evidence of about a 1 cm polyp noted at 20 cm from the anus. Polypect prisca was performed. A polyp was lost in the stool. Small other polyps were noted which were n ot significant. Scope at this time was withdrawn. Hemorrhoids were noted and the procedure was ter minated. Cecum could not be reached because of severe redundancy of the colon. Dictated By: NINO PRO/SHREE Conf#: [id number] DID#: [id number] CC: HEATHER EDMONDS MD;*EndCC*
== END | disposition home or self-care (01) ==
LOC: SDS 12:59
PROVIDERS: ATTEND Internal Medicine Gastroenterology
DX: D64.9 Anemia, unspecified (principal); K29.70 Gastritis, unspecified, without bleeding; K21.9 Gastro-esophageal reflux disease without esophagitis; K63.5 Polyp of colon; K64.9 Unspecified hemorrhoids; Z93.1 Gastrostomy status
CPT/HCPCS: 43239; J3010

== ENCOUNTER 2017-08-15 18:06 | Inpatient (IN) | END 2017-10-30 19:03 | DRG 207 ==